=== PATIENT | female | born 1965 | race Caucasian/White ===

== ENCOUNTER 2018-04-20 15:44 | Inpatient (IN) | payer OTHER ==
[~2018-04-20] VITALS: Ht 165.1 cm; Wt 77.7 kg
--- NOTE | 2018-04-20 16:29 | PHYS DOC ---
Past Medical History Past Medical History: Arthritis, Asthma, COPD, Seizure, Other Additional Past Medical Histor: Crohns, legally blind right eye Past Surgical History: Appendectomy, Tubal ligation, Other Additional Past Surgical Histo: right foot toe amptutions 2 to infection Additional Information: 06/26 ppd Alcohol Use: Heavy Additional Information: drinks vodka three times weekly Drug Use: None Adult General Chief Complaint Chief Complaint: WEAKNESS/GENERALIZED HPI HPI Patient is a 53 year old female who presents with generalized weakness and requesting pain medications. The patient states she has felt generally weak over the last week. She states that she has Crohn's disease and arthritis that causes her to have chronic pain. She normally would be taking Percocet 10 mg tablets, several daily but states she has not seen a primary care physician and a long time and has not had her medications. She denies acute focal pain complaints today. No recent fever or chills. No chest pain or shortness of breath. Rather, she complains of diffuse arthralgias and myalgias. She is also requesting Demerol be given while she is in the emergency department. I reviewed the patient's [facility] record and there was no recent prescriptions filled in the last year. The patient did not have records in our system or at [facility]. I did contact [facility] in [place] which apparently is where the patient frequents. Her last visit there was 2 weeks earlier when she presented complaining also of diffuse pain related to her arthritis. She states she is homeless and has no means to afford medical care or medications. Today, she endorses that she did drink some alcohol this morning but she denies drinking daily. The patient does use tobacco products as well. Review of Systems Review of Systems Constitutional: Denies fever or chills Eyes: Denies change in visual acuity HENT: Denies nasal congestion Respiratory: Denies cough or shortness of breath Cardiovascular: No additional information not addressed in HPI GI: Denies abdominal pain, nausea, diarrhea, constipation : Denies dysuria or hematuria Musculoskeletal: Denies back pain Integument: Denies rash Neurologic: Denies headache All other systems were reviewed and found to be within normal limits, except as documented in this note. Current Medications Current Medications Current Medications Medications (Trade) Dose Ordered Sig/Beck Start Time Stop Time Status Last Admin Dose Admin Lorazepam (Ativan) 1 mg 1X ONCE 10/27/18 19:45 04/20/18 19:46 DC 04/20/18 19:56 1 MG Multivitamins 10 ml/Thiamine HCl 100 mg/Folic Acid 1 mg/Sodium Chloride 1,011.2 ml @ 1,000.088 mls/hr 1X ONCE 04/20/18 19:45 04/20/18 20:45 DC 04/20/18 20:42 1,000.088 MLS/HR Oxycodone/ Acetaminophen (Percocet 5/325) 1 tab 1X ONCE 04/20/18 17:30 04/20/18 17:31 DC 04/20/18 17:50 1 TAB Sodium Chloride 1,000 ml @ 1,000 mls/hr 1X ONCE 04/20/18 19:15 04/20/18 20:14 DC 04/20/18 19:30 1,000 MLS/HR Allergies Allergies Allergies Coded Allergies Type Severity Reaction Last Updated Verified aspirin Adverse Reaction Intermediate n/v 04/20/18 Yes ketorolac Adverse Reaction Intermediate n/v 04/20/18 Yes Physical Exam Physical Exam Constitutional: Well developed, well nourished, no acute distress, non-toxic appearance HENT: Normocephalic, atraumatic, bilateral external ears normal, oropharynx moist Eyes: PERRLA, EOMI, conjunctiva normal Neck: Normal range of motion, no tenderness Cardiovascular:Heart rate regular rhythm, no murmur Lungs & Thorax: Bilateral breath sounds clear to auscultation Abdomen: Bowel sounds normal, soft, no tenderness Skin: Warm, dry, no erythema, no rash Back: No tenderness Extremities: No tenderness, no edema Neurologic: Alert and oriented X 3 Psychologic: Affect normal Physical exam by Dr. Walker: Constitutional: Well developed, well nourished, anxious HENT: Normocephalic, atraumatic, Cardiovascular: tachycardic Lungs & Thorax: Bilateral breath sounds clear to auscultation Abdomen: Soft, no tenderness Skin: Warm, dry, no erythema, no rash Extremities: Right foot toe amputations, no erythema, no induration Neurologic: Alert and oriented X 3 Psychologic: Mood- anxious Current Patient Data Vital Signs Vital Signs Date Time Temp Pulse Resp B/P (MAP) Pulse Ox O2 Delivery O2 Flow Rate FiO2 04/20/18 18:18 114 20 95 04/20/18 17:50 Room Air 04/20/18 15:50 97.9 123/62 (82) 97.9 Lab Values Laboratory Tests Test 04/20/18 16:35 04/20/18 16:45 White Blood Count 5.7 x10^3/uL (4.0-11.0) Red Blood Count 4.43 x10^6/uL (3.50-5.40) Hemoglobin 15.7 g/dL (12.0-15.5) H Hematocrit 44.4 % (36.0-47.0) Mean Corpuscular Volume 100 fL (79-100) Mean Corpuscular Hemoglobin 36 pg (25-35) H Mean Corpuscular Hemoglobin Concent 35 g/dL (31-37) Red Cell Distribution Width 13.1 % (11.5-14.5) Platelet Count 231 x10^3/uL (140-400) Neutrophils (%) (Auto) 54 % (31-73) Lymphocytes (%) (Auto) 35 % (24-48) Monocytes (%) (Auto) 8 % (0-9) Eosinophils (%) (Auto) 3 % (0-3) Basophils (%) (Auto) 1 % (0-3) Neutrophils # (Auto) 3.0 x10^3uL (1.8-7.7) Lymphocytes # (Auto) 2.0 x10^3/uL (1.0-4.8) Monocytes # (Auto) 0.4 x10^3/uL (0.0-1.1) Eosinophils # (Auto) 0.2 x10^3/uL (0.0-0.7) Basophils # (Auto) 0.1 x10^3/uL (0.0-0.2) Sodium Level 144 mmol/L (136-145) Potassium Level 3.3 mmol/L (3.5-5.1) L Chloride Level 105 mmol/L (98-107) Carbon Dioxide Level 30 mmol/L (21-32) Anion Gap 9 (6-14) Blood Urea Nitrogen 14 mg/dL (7-20) Creatinine 1.0 mg/dL (0.6-1.0) Estimated GFR (Cockcroft-Gault) 58.2 Glucose Level 88 mg/dL (70-99) Calcium Level 9.5 mg/dL (8.5-10.1) Troponin I Quantitative 1.050 ng/mL (0.000-0.055) Ethyl Alcohol Level 112 mg/dL (0-10) H Urine Collection Type Unknown Urine Color Yellow Urine Clarity Clear Urine pH 5.0 Urine Specific Ingraham 1.025 Urine Protein Negative mg/dL (NEG-TRACE) Urine Glucose (UA) Negative mg/dL (NEG) Urine Ketones (Stick) Negative mg/dL (NEG) Urine Blood Negative (NEG) Urine Nitrite Negative (NEG) Urine Bilirubin Negative (NEG) Urine Urobilinogen Dipstick 0.2 mg/dL (0.2 mg/dL) Urine Leukocyte Esterase Negative (NEG) Urine RBC Occ /HPF (0-2) Urine WBC Occ /HPF (0-4) Urine Squamous Epithelial Cells Many /LPF Urine Bacteria Few /HPF (0-FEW) Urine Hyaline Casts Few /HPF Urine Mucus Marked /LPF Urine Opiates Screen Neg (NEG) Urine Methadone Screen Neg (NEG) Urine Barbiturates Neg (NEG) Urine Phencyclidine Screen Neg (NEG) Urine Amphetamine/Methamphetamine Pos (NEG) Urine Benzodiazepines Screen Neg (NEG) Urine Cocaine Screen Neg (NEG) Urine Cannabinoids Screen Pos (NEG) Urine Ethyl Alcohol Pos (NEG) Laboratory Tests 04/20/18 16:35 Laboratory Tests 04/20/18 16:35 EKG EKG @2016 Sinus tachycardia at 123bpm, occasional PVC, NO ST elevation Radiology/Procedures Radiology/Procedures PROCEDURE: CT ANGIOGRAPHY CHEST CTA Chest with contrast: Clinical History: tachy, elevated troponin; Omni 300, 60ml tachycardia elevated troponin. Axial helical images of the chest were obtained after the administration of 60 cc of IV Omni 300 and timed appropriately for a pulmonary arterial study. Conventional axial reconstruction was performed in addition to coronal, sagittal and bilateral oblique MIP (maximum intensity projection). This study was ordered to detect possible pulmonary embolism. There are no filling defects to suggest pulmonary embolism. The more peripheral subsegmental pulmonary arteries are not well opacified limiting our sensitivity for small peripheral pulmonary emboli. The lungs and pleural margins are clear. There is no mediastinal or hilar lymphadenopathy. The thoracic aorta appears normal. Impression: 1. No evidence of pulmonary embolism. 2. No significant findings. PQRS Compliance Statement: One or more of the following individualized dose reduction techniques were utilized for this examination: 1. Automated exposure control 2. Adjustment of the mA and/or kV according to patient size 3. Use of iterative reconstruction technique Electronically signed by: Messi Flores III, MD (04/21/2018 12:31 AM) [facility] Course & Med Decision Making Course & Med Decision Making Pertinent Labs and Imaging studies reviewed. (See chart for details) Patient presents mostly with generalized weakness. She has not had any falls. No focal neurologic complaint. Her physical exam is completely benign except that she does smell of alcohol. She states she took "a couple sips" earlier today. The patient does not frequent this emergency room but does frequently present to another ER in [facility]. The patient is requesting opiate medications immediately on arrival this visit although she appears to be in no distress and I could not locate any area of her body that was tender to palpate or range of motion. Given her complaint of weakness, we'll check basic labs and urinalysis. 17:20: All labs are reviewed. There are no acute findings today. The patient is resting quietly in her room with normal vital signs. I did review discharge instructions with the patient. I advised her to establish care with a primary care doctor or the patient continues to request Demerol and Percocet 10 mg strength pills for prescription at home. I told the patient I would not give her these medications that they needs to be prescribed by her primary doctor. She is given a single dose of Percocet 5 mg in the emergency department. She is sent home with ibuprofen and some tramadol. 18:00: Patient has been sleeping and with normal vital signs. When awake, however, she does have a heart rate of 122. She does not have any symptoms. It is possible she is beginning to have alcohol withdrawal although she has no additional clinical signs. We'll give some IV fluids and reevaluate. Transfer care to Dr. Walker. (please f/u on vitals and dispo accordingly) Vega: Signout received from Dr. Christianson for patient with history of chronic pain and generalized weakness with tachycardia and elevated ETOH. Labs reviewed. Hemoglobin concentrated. Awaiting IVF hydration. HR continued to be elevated despite IVF bolus and patient currently resting. Patient reports some restlessness. Denies chest pain. Tachycardia continued. Patient seen and evaluated by myself. UDS positive for amphetamines? Patient requiring admission for further evaluation and treatment. Discussed with Dr. Paul (hospitalist) who is in agreement with admission. Discussed findings and plan with patient and family, who acknowledge understanding and agreement. Add on troponin ordered upon patient's admission and due to elevated HR. Troponin >1. EKG sinus tachycardia. Patient continues to deny chest pain. CTA chest ordered. Heparin bolus/gtt initiated. Will continue admission to [facility] under hospitalist. Consult to cardiology placed. 0030: CTA chest without acute process. Dragon Disclaimer Dragon Disclaimer This electronic medical record was generated, in whole or in part, using a voice recognition dictation system. Departure Departure Impression: Primary Impression: Generalized weakness Additional Impressions: Tachycardia Dehydration Alcohol intoxication Amphetamine abuse Disposition: 09 ADMITTED INPATIENT Admitting Physician: Anayeli Paul Condition: GUARDED Referrals: REX THOMPSON (PCP) Problem Qualifiers Additional Impressions: Alcohol intoxication Complication of substance-induced condition: with unspecified complication Qualified Codes: F10.929 - Alcohol use, unspecified with intoxication, unspecified RICK CHRISTIANSON DO Apr 20, 2018 16:29 CYNDY WALKER DO Apr 20, 2018 20:18
[2018-04-20 16:47] LABS: BASO # 0.1 x10^3/uL (0.0-0.2); BASO % 1 % (0-3); EOS # 0.2 x10^3/uL (0.0-0.7); EOS % 3 % (0-3); HEMATOCRIT 44.4 % (36.0-47.0); HEMOGLOBIN 15.7 g/dL (12.0-15.5); LYMPH % 35 % (24-48); MEAN CORPUSCULAR HEMOGLOBIN 36 pg (25-35); MEAN CORPUSCULAR HGB CONC 35 g/dL (31-37); MEAN CORPUSCULAR VOLUME 100 fL (79-100); MONO # 0.4 x10^3/uL (0.0-1.1); MONO % 8 % (0-9); NEUT % 54 % (31-73); PLATELET COUNT 231 x10^3/uL (140-400); RED BLOOD COUNT 4.43 x10^6/uL (3.50-5.40); RED CELL DISTRIBUTION WIDTH 13.1 % (11.5-14.5); WHITE BLOOD COUNT 5.7 x10^3/uL (4.0-11.0)
[2018-04-20 16:59] LABS: CALCIUM 9.5 mg/dL (8.5-10.1); GFR 58.2; POTASSIUM 3.3 mmol/L (3.5-5.1)
[2018-04-20 16:59] LABS: BILIRUBIN,URINE NEGATIVE (NEG); CLARITY,URINE CLEAR; COLOR,URINE YELLOW; NITRITE,URINE NEGATIVE (NEG); PROTEIN,URINE NEGATIVE (NEG-TRACE); UROBILINOGEN,URINE 0.2 mg/dL (0.2 mg/dL)
[2018-04-20 17:08] LABS: HYALINE CASTS, URINE FEW /HPF; SQUAMOUS EPITHELIAL CELL,UR MANY /LPF
[2018-04-20 17:09] LABS: BACTERIA,URINE FEW /HPF (0-FEW); RBC,URINE OCC /HPF (0-2); WBC,URINE OCC /HPF (0-4)
[2018-04-20] MEDS ORDERED: TRAM-48 PO (17:20)
[2018-04-20] MEDS ORDERED: IBUP-1007 PO (17:20)
[2018-04-20] MEDS ORDERED: oxyCODONE/APAP 5/325 1 TAB TABLET PO ONE (17:30)
[2018-04-20] MEDS ORDERED: IV NORMAL SALINE 1000ML BAG 1,000 ML IV ONE ×2 (18:00→19:15)
[2018-04-20] MEDS ORDERED: MULTIVIT INFUSN,ADULT 4,VIT K 10 ML, THIAMINE INJ 100 MG, FOLIC ACID INJ 1 MG in IV NOR... IV ONE (19:45)
[2018-04-20 20:11] LABS: BARBITURATES NEG (NEG); BENZODIAZEPINES NEG (NEG); CANNABINOIDS POS (NEG); COCAINE NEG (NEG); METHADONE NEG (NEG); OPIATES NEG (NEG); PHENCYCLIDINE NEG (NEG)
[2018-04-20 20:22] LABS: AMPHETAMINE/METHAMPHETAMINE POS (NEG)
[2018-04-20] MEDS ORDERED: fentaNYL PF VIAL 100 MCG/2 ML VIAL IV PRN (20:30)
[2018-04-20] MEDS ORDERED: ONDANSETRON PF 4 MG/2 ML VIAL. IV PRN (20:30)
[2018-04-20] MEDS ORDERED: fentaNYL PF VIAL 100 MCG/2 ML VIAL ONE (20:45)
[2018-04-20] MEDS ORDERED: ONDANSETRON PF 4 MG/2 ML VIAL. ONE (20:45)
[2018-04-20] MEDS ORDERED: HEPARIN for IV BOLUS 10,000 UNIT/10 ML VIAL. IV ONE (22:00)
[2018-04-20] MEDS: HEPARIN 25,000UTS/500ML PREMIX 500 ML IV PRN (22:08)
[2018-04-20 22:48] VITALS: BP 99/68
[2018-04-20] MEDS ORDERED: oxyCODONE/APAP 5/325 1 TAB TABLET PO PRN (23:00)
[2018-04-20] MEDS: BENZONATATE 100 MG CAPSULE. PO SCH (23:41)
[2018-04-20] MEDS: IV NORMAL SALINE 1000ML BAG 1,000 ML IV SCH (23:42)
[2018-04-20] MEDS ORDERED: CONTRAST GIVEN. MC PRN (23:45)
[2018-04-21] MEDS ORDERED: IOHEXOL 300 MG/ML 100ML VIAL. IV ONE (00:15)
--- NOTE | 2018-04-21 00:34 | RAD ---
CTA Chest with contrast: Clinical History: tachy, elevated troponin; Omni 300, 60ml tachycardia elevated troponin. Axial helical images of the chest were obtained after the administration of 60 cc of IV Omni 300 and timed appropriately for a pulmonary arterial study. Conventional axial reconstruction was performed in addition to coronal, sagittal and bilateral oblique MIP (maximum intensity projection). This study was ordered to detect possible pulmonary embolism. There are no filling defects to suggest pulmonary embolism. The more peripheral subsegmental pulmonary arteries are not well opacified limiting our sensitivity for small peripheral pulmonary emboli. The lungs and pleural margins are clear. There is no mediastinal or hilar lymphadenopathy. The thoracic aorta appears normal. Impression: 1. No evidence of pulmonary embolism. 2. No significant findings. PQRS Compliance Statement: One or more of the following individualized dose reduction techniques were utilized for this examination: 1. Automated exposure control 2. Adjustment of the mA and/or kV according to patient size 3. Use of iterative reconstruction technique Electronically signed by: Messi Flores III, MD (04/21/2018 12:31 AM) [facility]
--- NOTE | 2018-04-21 02:03 | EKG ---
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
[2018-04-21 03:47] VITALS: BP 88/46
[2018-04-21] MEDS ORDERED: IOHEXOL 300 MG/ML 100ML VIAL. ONE (06:32)
[2018-04-21 07:00] VITALS: BP 110/59
[2018-04-21] MEDS ORDERED: ACETAMINOPHEN 500 MG TABLET PO PRN (08:30)
[2018-04-21] MEDS ORDERED: ANTI-COAG MONITOR BY PHARMACY. MC PRN (08:30)
[2018-04-21] MEDS ORDERED: NICOTINE 21MG PATCH. TD PRN (08:30)
[2018-04-21] MEDS ORDERED: ONDANSETRON PF 4 MG/2 ML VIAL. IV PRN (08:45)
[2018-04-21] MEDS: LORazepam 1 MG TABLET PO PRN (08:47)
[2018-04-21] MEDS: BENZONATATE 100 MG CAPSULE. PO SCH ×3 (08:48→21:34)
[2018-04-21] MEDS: oxyCODONE/APAP 10/325 1 TAB TABLET PO PRN ×2 (08:48→21:34)
[2018-04-21] MEDS: MULTIVITAMIN with MINERAL TABLET. PO SCH (08:48)
[2018-04-21] MEDS: THIAMINE 100 MG TABLET. PO SCH (08:48)
[2018-04-21] MEDS: FOLIC ACID 1 MG TABLET. PO SCH (08:48)
[2018-04-21] MEDS: NICOTINE 21MG PATCH. TD PRN (08:49)
[2018-04-21] MEDS: guaiFENesin DM 200MG/20MG 10 ML SYRUP PO PRN ×2 (08:54→21:34)
[2018-04-21 11:00] VITALS: BP 108/60
--- NOTE | 2018-04-21 11:09 | PDOC2 ---
CONSULT Date of Consult Date of Consult DATE: 04/21/18 TIME: 11:09 Reason for Consult Reason for Consult: Non-STEMI, tachycardia Referring Physician Referring Physician: Dr. Paul Identification/Chief Complaint Chief Complaint Generalized weakness Source Source: Chart review, Patient History of Present Illness Reason for Visit: 53-year-old female with history of chronic pain syndrome and Crohn's disease presented with generalized weakness. She complained of 'pain all over' but denied any chest pain as such. She denied any orthopnea/PND, palpitations or syncope. Cardiology has been consulted for elevated troponin level and tachycardia. She denied any previous cardiac history. Past Medical History Past Medical History Chronic pain syndrome Crohn's disease COPD Seizure disorder Asthma Osteoarthritis Legally blind in right eye Past Surgical History Past Surgical History Appendectomy Tubal ligation Right foot toe amputation Family History Family History Negative for premature coronary artery disease Social History Social History Patient has history of heavy alcohol use and smokes half pack of cigarettes daily. She also has a history of amphetamine use. Current Problem List Problem List Problems Medical Problems: (1) Alcohol intoxication Status: Acute (2) Amphetamine abuse Status: Acute (3) Arthritis Status: Acute (4) Dehydration Status: Acute (5) Generalized weakness Status: Acute (6) Tachycardia Status: Acute Current Medications Current Medications Current Medications Oxycodone/ Acetaminophen (Percocet 5/325) 1 tab 1X ONCE PO Last administered on 04/20/18at 17:50; Start 04/20/18 at 17:30; Stop 04/20/18 at 17:31; Status DC Sodium Chloride 1,000 ml @ 1,000 mls/hr 1X ONCE IV Last administered on 04/20at 18:09; Start 04/20/18 at 18:00; Stop 04/20/18 at 18:59; Status DC Lorazepam (Ativan) 0.5 mg 1X ONCE IV Last administered on 04/20/18at 18:14; Start 04/20/18 at 18:00; Stop 04/20/18 at 18:02; Status DC Sodium Chloride 1,000 ml @ 1,000 mls/hr 1X ONCE IV Last administered on 04/20at 19:30; Start 04/20/18 at 19:15; Stop 04/20/18 at 20:14; Status DC Lorazepam (Ativan) 1 mg 1X ONCE IV Last administered on 04/20/18at 19:56; Start 04/20/18 at 19:45; Stop 04/20/18 at 19:46; Status DC Multivitamins 10 ml/Thiamine HCl 100 mg/Folic Acid 1 mg/Sodium Chloride 1,011.2 ml @ 1,000.088 mls/hr 1X ONCE IV Last administered on 04/20/18at 20:42; Start 04/20/18 at 19:45; Stop 04/20/18 at 20:45; Status DC Ondansetron HCl (Zofran) 4 mg PRN Q8HRS PRN IV NAUSEA/VOMITING 1ST CHOICE Last administered on 04/20/18at 20:47; Start 04/20/18 at 20:30; Stop 04/21/18 at 08 :32; Status DC Fentanyl Citrate (Fentanyl 2ml Vial) 50 mcg PRN Q4HRS PRN IV SEVERE PAIN Last administered on 04/20/18at 20:48; Start 04/20/18 at 20:30 Ondansetron HCl (Zofran) 4 mg STK-MED ONCE .ROUTE ; Start 04/20/18 at 20:45; Stop 04/20/18 at 20:46; Status DC Fentanyl Citrate (Fentanyl 2ml Vial) 100 mcg STK-MED ONCE .ROUTE ; Start at 20:45; Stop 04/20/18 at 20:46; Status DC Heparin Sodium/ Dextrose 500 ml @ 0 mls/hr CONT PRN IV SEE I/O RECORD Last administered on 04/20/18at 22:08; Start 04/20/18 at 21:45 Heparin Sodium (Porcine) (Heparin Sodium) 4,000 unit 1X ONCE IV Last administered on 04/20/18at 22:03; Start 04/20/18 at 22:00; Stop 04/20/18 at 22 :01; Status DC Benzonatate (Tessalon Perle) 100 mg [id number] PO Last administered on 04/21/18at 08:48; Start 04/20/18 at 23:30 Guaifenesin (Robitussin Dm) 10 ml PRN Q6HRS PRN PO COUGH 1ST CHOICE Last administered on 04/21/18at 08:54; Start 04/20/18 at 23:00 Nicotine (Nicoderm Cq 21mg) 1 patch PRN DAILY PRN TD SMOKING CESSATION Last administered on 04/21/18at 08:49; Start 04/20/18 at 23:00 Oxycodone/ Acetaminophen (Percocet 5/325) 1 tab PRN Q4HRS PRN PO SEVERE PAIN Last administered on 04/20/18at 23:41; Start 04/20/18 at 23:00; Stop 04/21/18 at 08:34; Status DC Lorazepam (Ativan) 2 mg PRN Q6HRS PRN IV SEVERE ANXIETY / AGITATION Last administered on 04/20/18at 23:44; Start 04/20/18 at 23:00 Lorazepam (Ativan) 2 mg PRN Q6HRS PRN PO SEVERE ANXIETY / AGITATION; Start at 23:00 Lorazepam (Ativan) 1 mg PRN Q6HRS PRN PO MODERATE ANXIETY / AGITATION Last administered on 04/21/18at 08:47; Start 04/20/18 at 23:00 Lorazepam (Ativan) 1 mg PRN Q6HRS PRN IV MODERATE ANXIETY; Start 04/20/18 at 23:00 Sodium Chloride 1,000 ml @ 100 mls/hr Q10H IV Last administered on 04/20/18at 23:42; Start 04/20/18 at 23:00 Iohexol (Omnipaque 300 Mg/ml) 75 ml 1X ONCE IV Last administered on at 00:18; Start 04/21/18 at 00:15; Stop 04/21/18 at 00:16; Status DC Info (CONTRAST GIVEN -- Rx MONITORING) 1 each PRN DAILY PRN MC SEE COMMENTS; Start 04/20/18 at 23:45; Stop 04/22/18 at 23:44 Influenza Virus Vaccine (Afluria Trivalent [id number] Syringe) 0.5 ml ONCE ONCE VAX IM ; Start 04/21/18 at 09:00; Stop 04/21/18 at 09:01; Status DC Iohexol (Omnipaque 300 Mg/ml) 100 ml STK-MED ONCE .ROUTE ; Start 04/21/18 at 06 :32; Stop 04/21/18 at 06:33; Status DC Info (Anti-Coagulation Monitoring By Pharmacy) 1 each PRN DAILY PRN MC SEE COMMENTS; Start 04/21/18 at 08:30 Ondansetron HCl (Zofran) 4 mg PRN Q6HRS PRN IV NAUSEA/VOMITING 1ST CHOICE; Start 04/21/18 at 08:45 Acetaminophen (Tylenol) 500 mg PRN Q6HRS PRN PO MILD PAIN / TEMP; Start at 08:30 Thiamine Mononitrate (Vitamin B-1) 100 mg DAILY PO Last administered on at 08:48; Start 04/21/18 at 09:00 Folic Acid (Folic Acid) 1 mg DAILY PO Last administered on 04/21/18at 08:48; Start 04/21/18 at 09:00 Multivitamins (Thera M Plus) 1 tab DAILY PO Last administered on 04/21/18at 08: 48; Start 04/21/18 at 09:00 Nicotine (Nicoderm Cq 21mg) 1 patch PRN DAILY PRN TD SMOKING CESSATION; Start 04/21/18 at 08:30; Status UNV Oxycodone/ Acetaminophen (Percocet 10/325) 1 tab PRN Q4HRS PRN PO PAIN MODERATE TO SEVERE Last administered on 04/21/18at 08:48; Start 04/21/18 at 08: 45 Active Scripts Active Allergies Allergies: Coded Allergies: aspirin (Verified Adverse Reaction, Intermediate, n/v, 04/20/18) ketorolac (Verified Adverse Reaction, Intermediate, n/v, 04/20/18) ROS General: YES: Fatigue, Malaise PSYCHOLOGICAL ROS: No: Hallucinations Eyes: Yes Loss of vision HEENT: No: Epistaxis Respiratory: No: Hemoptysis, Shortness of breath Cardiovascular: No Chest Pain Gastrointestinal: No Vomiting, No Diarrhea Genitourinary: No Hematuria Neurological: Yes Seizures Skin: No Rash Physical Exam General: Alert, No acute distress HEENT: Atraumatic, PERRLA Lungs: Clear to auscultation Heart: Regular rate Abdomen: Soft Extremities: No edema Psych/Mental Status: Mood NL Vitals VITALS Vital Signs Date Time Temp Pulse Resp B/P (MAP) Pulse Ox O2 Delivery O2 Flow Rate FiO2 04/21/18 09:52 Room Air 04/21/18 07:00 98.2 79 20 110/59 (76) 93 98.2 Labs Labs Laboratory Tests Test 04/20/18 16:35 04/20/18 16:45 04/20/18 23:05 04/21/18 05:00 White Blood Count 5.7 x10^3/uL (4.0-11.0) Red Blood Count 4.43 x10^6/uL (3.50-5.40) Hemoglobin 15.7 g/dL (12.0-15.5) Hematocrit 44.4 % (36.0-47.0) Mean Corpuscular Volume 100 fL (79-100) Mean Corpuscular Hemoglobin 36 pg (25-35) Mean Corpuscular Hemoglobin Concent 35 g/dL (31-37) Red Cell Distribution Width 13.1 % (11.5-14.5) Platelet Count 231 x10^3/uL (140-400) Neutrophils (%) (Auto) 54 % (31-73) Lymphocytes (%) (Auto) 35 % (24-48) Monocytes (%) (Auto) 8 % (0-9) Eosinophils (%) (Auto) 3 % (0-3) Basophils (%) (Auto) 1 % (0-3) Neutrophils # (Auto) 3.0 x10^3uL (1.8-7.7) Lymphocytes # (Auto) 2.0 x10^3/uL (1.0-4.8) Monocytes # (Auto) 0.4 x10^3/uL (0.0-1.1) Eosinophils # (Auto) 0.2 x10^3/uL (0.0-0.7) Basophils # (Auto) 0.1 x10^3/uL (0.0-0.2) Sodium Level 144 mmol/L (136-145) Potassium Level 3.3 mmol/L (3.5-5.1) Chloride Level 105 mmol/L (98-107) Carbon Dioxide Level 30 mmol/L (21-32) Anion Gap 9 (6-14) Blood Urea Nitrogen 14 mg/dL (7-20) Creatinine 1.0 mg/dL (0.6-1.0) Estimated GFR (Cockcroft-Gault) 58.2 Glucose Level 88 mg/dL (70-99) Calcium Level 9.5 mg/dL (8.5-10.1) Troponin I Quantitative 1.050 ng/mL (0.000-0.055) 0.963 ng/mL (0.000-0.055) 0.515 ng/mL (0.000-0.055) Ethyl Alcohol Level 112 mg/dL (0-10) Urine Collection Type Unknown Urine Color Yellow Urine Clarity Clear Urine pH 5.0 Urine Specific [place] 1.025 Urine Protein Negative mg/dL (NEG-TRACE) Urine Glucose (UA) Negative mg/dL (NEG) Urine Ketones (Stick) Negative mg/dL (NEG) Urine Blood Negative (NEG) Urine Nitrite Negative (NEG) Urine Bilirubin Negative (NEG) Urine Urobilinogen Dipstick 0.2 mg/dL (0.2 mg/dL) Urine Leukocyte Esterase Negative (NEG) Urine RBC Occ /HPF (0-2) Urine WBC Occ /HPF (0-4) Urine Squamous Epithelial Cells Many /LPF Urine Bacteria Few /HPF (0-FEW) Urine Hyaline Casts Few /HPF Urine Mucus Marked /LPF Urine Opiates Screen Neg (NEG) Urine Methadone Screen Neg (NEG) Urine Barbiturates Neg (NEG) Urine Phencyclidine Screen Neg (NEG) Urine Amphetamine/Methamphetamine Pos (NEG) Urine Benzodiazepines Screen Neg (NEG) Urine Cocaine Screen Neg (NEG) Urine Cannabinoids Screen Pos (NEG) Urine Ethyl Alcohol Pos (NEG) Heparin Anti-Xa Act, Unfractionated 0.34 IU/mL (0.30-0.70) Laboratory Tests Test 04/20/18 16:35 04/20/18 16:45 04/20/18 23:05 04/21/18 05:00 White Blood Count 5.7 x10^3/uL (4.0-11.0) Red Blood Count 4.43 x10^6/uL (3.50-5.40) Hemoglobin 15.7 g/dL (12.0-15.5) Hematocrit 44.4 % (36.0-47.0) Mean Corpuscular Volume 100 fL (79-100) Mean Corpuscular Hemoglobin 36 pg (25-35) Mean Corpuscular Hemoglobin Concent 35 g/dL (31-37) Red Cell Distribution Width 13.1 % (11.5-14.5) Platelet Count 231 x10^3/uL (140-400) Neutrophils (%) (Auto) 54 % (31-73) Lymphocytes (%) (Auto) 35 % (24-48) Monocytes (%) (Auto) 8 % (0-9) Eosinophils (%) (Auto) 3 % (0-3) Basophils (%) (Auto) 1 % (0-3) Neutrophils # (Auto) 3.0 x10^3uL (1.8-7.7) Lymphocytes # (Auto) 2.0 x10^3/uL (1.0-4.8) Monocytes # (Auto) 0.4 x10^3/uL (0.0-1.1) Eosinophils # (Auto) 0.2 x10^3/uL (0.0-0.7) Basophils # (Auto) 0.1 x10^3/uL (0.0-0.2) Sodium Level 144 mmol/L (136-145) Potassium Level 3.3 mmol/L (3.5-5.1) Chloride Level 105 mmol/L (98-107) Carbon Dioxide Level 30 mmol/L (21-32) Anion Gap 9 (6-14) Blood Urea Nitrogen 14 mg/dL (7-20) Creatinine 1.0 mg/dL (0.6-1.0) Estimated GFR (Cockcroft-Gault) 58.2 Glucose Level 88 mg/dL (70-99) Calcium Level 9.5 mg/dL (8.5-10.1) Troponin I Quantitative 1.050 ng/mL (0.000-0.055) 0.963 ng/mL (0.000-0.055) 0.515 ng/mL (0.000-0.055) Ethyl Alcohol Level 112 mg/dL (0-10) Urine Collection Type Unknown Urine Color Yellow Urine Clarity Clear Urine pH 5.0 Urine Specific [place] 1.025 Urine Protein Negative mg/dL (NEG-TRACE) Urine Glucose (UA) Negative mg/dL (NEG) Urine Ketones (Stick) Negative mg/dL (NEG) Urine Blood Negative (NEG) Urine Nitrite Negative (NEG) Urine Bilirubin Negative (NEG) Urine Urobilinogen Dipstick 0.2 mg/dL (0.2 mg/dL) Urine Leukocyte Esterase Negative (NEG) Urine RBC Occ /HPF (0-2) Urine WBC Occ /HPF (0-4) Urine Squamous Epithelial Cells Many /LPF Urine Bacteria Few /HPF (0-FEW) Urine Hyaline Casts Few /HPF Urine Mucus Marked /LPF Urine Opiates Screen Neg (NEG) Urine Methadone Screen Neg (NEG) Urine Barbiturates Neg (NEG) Urine Phencyclidine Screen Neg (NEG) Urine Amphetamine/Methamphetamine Pos (NEG) Urine Benzodiazepines Screen Neg (NEG) Urine Cocaine Screen Neg (NEG) Urine Cannabinoids Screen Pos (NEG) Urine Ethyl Alcohol Pos (NEG) Heparin Anti-Xa Act, Unfractionated 0.34 IU/mL (0.30-0.70) Assessment/Plan Assessment/Plan 1. Non-STEMI, most probably type 2/demand ischemia. She is presently chest pain -free. EKG without acute changes. Check 2-D echo to assess LV systolic function , rule out wall motion abnormalities and Lexiscan nuclear stress test to rule out ischemia. 2. Sinus tachycardia, most probably secondary to combination of dehydration, alcohol and amphetamine use. No other arrhythmias were noted on telemetry. 3. Dehydration: Continue intravenous fluids 4. Chronic pain syndrome, generalized weakness,Crohn's disease: per IM Thank you for your consultation YOANA BIRD MD Apr 21, 2018 11:09
[2018-04-21] MEDS: IV NORMAL SALINE 1000ML BAG 1,000 ML IV SCH ×2 (13:00→21:36)
--- NOTE | 2018-04-21 13:52 | PDOC1 ---
History and Physical Date of Admission Date of Admission DATE: 04/21/18 TIME: 13:48 Identification/Chief Complaint Chief Complaint etoh intoxication Source Source: Caregiver, Chart review, Patient History of Present Illness History of Present Illness 53-year-old female who drinks vodka and another alcoholic drink, admitted because of alcohol intoxication. She had tachycardia, alcohol levels 115, some metabolic encephalopathy POA at the ER, better now that I'm seeing her on day 1 of admission. Some evidence of dehydration. Troponin was 1, coming down to 0.5 started on heparin drip by cardiology. On CIWA protocol and seemingly better with that. Still sleepy but wakes up to voice. Ate a full breakfast tray. She says she will try to quit, SW has been consulted for AA referrals. No CP Past Medical History Cardiovascular: No pertinent hx Pulmonary: No pertinent hx GI: No pertinent hx Heme/Onc: No pertinent hx Hepatobiliary: No pertinent hx Psych: No pertinent hx Rheumatologic: No pertinent hx Infectious disease: No pertinent hx ENT: No pertinent hx Renal/: No pertinent hx Endocrine: No pertinent hx Dermatology: No pertinent hx Past Surgical History Past Surgical History: No pertinent history Family History Family History: Family History Unknown Social History Smoke: <1 pack per day ALCOHOL: heavy Drugs: None Current Problem List Problem List Problems Medical Problems: (1) Alcohol intoxication Status: Acute (2) Amphetamine abuse Status: Acute (3) Arthritis Status: Acute (4) Dehydration Status: Acute (5) Generalized weakness Status: Acute (6) Tachycardia Status: Acute Current Medications Current Medications Current Medications Oxycodone/ Acetaminophen (Percocet 5/325) 1 tab 1X ONCE PO Last administered on 04/20/18at 17:50; Start 04/20/18 at 17:30; Stop 04/20/18 at 17:31; Status DC Sodium Chloride 1,000 ml @ 1,000 mls/hr 1X ONCE IV Last administered on 04/20at 18:09; Start 04/20/18 at 18:00; Stop 04/20/18 at 18:59; Status DC Lorazepam (Ativan) 0.5 mg 1X ONCE IV Last administered on 04/20/18at 18:14; Start 04/20/18 at 18:00; Stop 04/20/18 at 18:02; Status DC Sodium Chloride 1,000 ml @ 1,000 mls/hr 1X ONCE IV Last administered on 04/20at 19:30; Start 04/20/18 at 19:15; Stop 04/20/18 at 20:14; Status DC Lorazepam (Ativan) 1 mg 1X ONCE IV Last administered on 04/20/18at 19:56; Start 04/20/18 at 19:45; Stop 04/20/18 at 19:46; Status DC Multivitamins 10 ml/Thiamine HCl 100 mg/Folic Acid 1 mg/Sodium Chloride 1,011.2 ml @ 1,000.088 mls/hr 1X ONCE IV Last administered on 04/20/18at 20:42; Start 04/20/18 at 19:45; Stop 04/20/18 at 20:45; Status DC Ondansetron HCl (Zofran) 4 mg PRN Q8HRS PRN IV NAUSEA/VOMITING 1ST CHOICE Last administered on 04/20/18at 20:47; Start 04/20/18 at 20:30; Stop 04/21/18 at 08 :32; Status DC Fentanyl Citrate (Fentanyl 2ml Vial) 50 mcg PRN Q4HRS PRN IV SEVERE PAIN Last administered on 04/20/18at 20:48; Start 04/20/18 at 20:30 Ondansetron HCl (Zofran) 4 mg STK-MED ONCE .ROUTE ; Start 04/20/18 at 20:45; Stop 04/20/18 at 20:46; Status DC Fentanyl Citrate (Fentanyl 2ml Vial) 100 mcg STK-MED ONCE .ROUTE ; Start at 20:45; Stop 04/20/18 at 20:46; Status DC Heparin Sodium/ Dextrose 500 ml @ 0 mls/hr CONT PRN IV SEE I/O RECORD Last administered on 04/20/18at 22:08; Start 04/20/18 at 21:45 Heparin Sodium (Porcine) (Heparin Sodium) 4,000 unit 1X ONCE IV Last administered on 04/20/18at 22:03; Start 04/20/18 at 22:00; Stop 04/20/18 at 22 :01; Status DC Benzonatate (Tessalon Perle) 100 mg [id number] PO Last administered on 04/21/18at 08:48; Start 04/20/18 at 23:30 Guaifenesin (Robitussin Dm) 10 ml PRN Q6HRS PRN PO COUGH 1ST CHOICE Last administered on 04/21/18at 08:54; Start 04/20/18 at 23:00 Nicotine (Nicoderm Cq 21mg) 1 patch PRN DAILY PRN TD SMOKING CESSATION Last administered on 04/21/18at 08:49; Start 04/20/18 at 23:00 Oxycodone/ Acetaminophen (Percocet 5/325) 1 tab PRN Q4HRS PRN PO SEVERE PAIN Last administered on 04/20/18at 23:41; Start 04/20/18 at 23:00; Stop 04/21/18 at 08:34; Status DC Lorazepam (Ativan) 2 mg PRN Q6HRS PRN IV SEVERE ANXIETY / AGITATION Last administered on 04/20/18at 23:44; Start 04/20/18 at 23:00 Lorazepam (Ativan) 2 mg PRN Q6HRS PRN PO SEVERE ANXIETY / AGITATION; Start at 23:00 Lorazepam (Ativan) 1 mg PRN Q6HRS PRN PO MODERATE ANXIETY / AGITATION Last administered on 04/21/18at 08:47; Start 04/20/18 at 23:00 Lorazepam (Ativan) 1 mg PRN Q6HRS PRN IV MODERATE ANXIETY; Start 04/20/18 at 23:00 Sodium Chloride 1,000 ml @ 100 mls/hr Q10H IV Last administered on 04/21/18at 13:00; Start 04/20/18 at 23:00 Iohexol (Omnipaque 300 Mg/ml) 75 ml 1X ONCE IV Last administered on at 00:18; Start 04/21/18 at 00:15; Stop 04/21/18 at 00:16; Status DC Info (CONTRAST GIVEN -- Rx MONITORING) 1 each PRN DAILY PRN MC SEE COMMENTS; Start 04/20/18 at 23:45; Stop 04/22/18 at 23:44 Influenza Virus Vaccine (Afluria Trivalent [id number] Syringe) 0.5 ml ONCE ONCE VAX IM ; Start 04/21/18 at 09:00; Stop 04/21/18 at 09:01; Status DC Iohexol (Omnipaque 300 Mg/ml) 100 ml STK-MED ONCE .ROUTE ; Start 04/21/18 at 06 :32; Stop 04/21/18 at 06:33; Status DC Info (Anti-Coagulation Monitoring By Pharmacy) 1 each PRN DAILY PRN MC SEE COMMENTS; Start 04/21/18 at 08:30 Ondansetron HCl (Zofran) 4 mg PRN Q6HRS PRN IV NAUSEA/VOMITING 1ST CHOICE; Start 04/21/18 at 08:45 Acetaminophen (Tylenol) 500 mg PRN Q6HRS PRN PO MILD PAIN / TEMP; Start at 08:30 Thiamine Mononitrate (Vitamin B-1) 100 mg DAILY PO Last administered on at 08:48; Start 04/21/18 at 09:00 Folic Acid (Folic Acid) 1 mg DAILY PO Last administered on 04/21/18at 08:48; Start 04/21/18 at 09:00 Multivitamins (Thera M Plus) 1 tab DAILY PO Last administered on 04/21/18at 08: 48; Start 04/21/18 at 09:00 Nicotine (Nicoderm Cq 21mg) 1 patch PRN DAILY PRN TD SMOKING CESSATION; Start 04/21/18 at 08:30; Status UNV Oxycodone/ Acetaminophen (Percocet 10/325) 1 tab PRN Q4HRS PRN PO PAIN MODERATE TO SEVERE Last administered on 04/21/18at 08:48; Start 04/21/18 at 08: 45 Active Scripts Active Allergies Allergies: Coded Allergies: aspirin (Verified Adverse Reaction, Intermediate, n/v, 04/20/18) ketorolac (Verified Adverse Reaction, Intermediate, n/v, 04/20/18) ROS Review of System limited, slightly sleepy but she denies Physical Exam General: No acute distress HEENT: Atraumatic, PERRLA, EOMI Lungs: Clear to auscultation, Normal air movement Heart: S1S2, RRR, no thrills, no rubs, no gallops, no murmurs Cardiovascular: S1, S2 Breasts: Normal, Rt breast nml w/o mass, Lt breast nml w/o mass, Nipples normal Abdomen: Normal bowel sounds, Soft, No tenderness, No hepatosplenomegaly, No masses Rectal Exam: not examined PELVIC: Nml ext genitalia Extremities: No clubbing, No cyanosis, No edema, Normal pulses, No tenderness/ swelling Skin: No rashes, No breakdown, No significant lesion Neuro: Normal gait, Normal speech, Strength at 5/5 X4 ext, Normal tone, Sensation intact, Cranial nerves 3-12 NL, Reflexes 2+ Psych/Mental Status: Mental status NL, Mood NL Vitals Vitals Vital Signs Date Time Temp Pulse Resp B/P (MAP) Pulse Ox O2 Delivery O2 Flow Rate FiO2 04/21/18 11:00 98.0 80 20 108/60 (76) 94 Room Air 98.0 Labs Labs Laboratory Tests Test 04/20/18 16:35 04/20/18 16:45 04/20/18 23:05 04/21/18 05:00 White Blood Count 5.7 x10^3/uL (4.0-11.0) Red Blood Count 4.43 x10^6/uL (3.50-5.40) Hemoglobin 15.7 g/dL (12.0-15.5) Hematocrit 44.4 % (36.0-47.0) Mean Corpuscular Volume 100 fL (79-100) Mean Corpuscular Hemoglobin 36 pg (25-35) Mean Corpuscular Hemoglobin Concent 35 g/dL (31-37) Red Cell Distribution Width 13.1 % (11.5-14.5) Platelet Count 231 x10^3/uL (140-400) Neutrophils (%) (Auto) 54 % (31-73) Lymphocytes (%) (Auto) 35 % (24-48) Monocytes (%) (Auto) 8 % (0-9) Eosinophils (%) (Auto) 3 % (0-3) Basophils (%) (Auto) 1 % (0-3) Neutrophils # (Auto) 3.0 x10^3uL (1.8-7.7) Lymphocytes # (Auto) 2.0 x10^3/uL (1.0-4.8) Monocytes # (Auto) 0.4 x10^3/uL (0.0-1.1) Eosinophils # (Auto) 0.2 x10^3/uL (0.0-0.7) Basophils # (Auto) 0.1 x10^3/uL (0.0-0.2) Sodium Level 144 mmol/L (136-145) Potassium Level 3.3 mmol/L (3.5-5.1) Chloride Level 105 mmol/L (98-107) Carbon Dioxide Level 30 mmol/L (21-32) Anion Gap 9 (6-14) Blood Urea Nitrogen 14 mg/dL (7-20) Creatinine 1.0 mg/dL (0.6-1.0) Estimated GFR (Cockcroft-Gault) 58.2 Glucose Level 88 mg/dL (70-99) Calcium Level 9.5 mg/dL (8.5-10.1) Troponin I Quantitative 1.050 ng/mL (0.000-0.055) 0.963 ng/mL (0.000-0.055) 0.515 ng/mL (0.000-0.055) Ethyl Alcohol Level 112 mg/dL (0-10) Urine Collection Type Unknown Urine Color Yellow Urine Clarity Clear Urine pH 5.0 Urine Specific [place] 1.025 Urine Protein Negative mg/dL (NEG-TRACE) Urine Glucose (UA) Negative mg/dL (NEG) Urine Ketones (Stick) Negative mg/dL (NEG) Urine Blood Negative (NEG) Urine Nitrite Negative (NEG) Urine Bilirubin Negative (NEG) Urine Urobilinogen Dipstick 0.2 mg/dL (0.2 mg/dL) Urine Leukocyte Esterase Negative (NEG) Urine RBC Occ /HPF (0-2) Urine WBC Occ /HPF (0-4) Urine Squamous Epithelial Cells Many /LPF Urine Bacteria Few /HPF (0-FEW) Urine Hyaline Casts Few /HPF Urine Mucus Marked /LPF Urine Opiates Screen Neg (NEG) Urine Methadone Screen Neg (NEG) Urine Barbiturates Neg (NEG) Urine Phencyclidine Screen Neg (NEG) Urine Amphetamine/Methamphetamine Pos (NEG) Urine Benzodiazepines Screen Neg (NEG) Urine Cocaine Screen Neg (NEG) Urine Cannabinoids Screen Pos (NEG) Urine Ethyl Alcohol Pos (NEG) Heparin Anti-Xa Act, Unfractionated 0.34 IU/mL (0.30-0.70) Test 04/21/18 12:30 Heparin Anti-Xa Act, Unfractionated 0.41 IU/mL (0.30-0.70) Laboratory Tests Test 04/20/18 16:35 04/20/18 16:45 04/20/18 23:05 04/21/18 05:00 White Blood Count 5.7 x10^3/uL (4.0-11.0) Red Blood Count 4.43 x10^6/uL (3.50-5.40) Hemoglobin 15.7 g/dL (12.0-15.5) Hematocrit 44.4 % (36.0-47.0) Mean Corpuscular Volume 100 fL (79-100) Mean Corpuscular Hemoglobin 36 pg (25-35) Mean Corpuscular Hemoglobin Concent 35 g/dL (31-37) Red Cell Distribution Width 13.1 % (11.5-14.5) Platelet Count 231 x10^3/uL (140-400) Neutrophils (%) (Auto) 54 % (31-73) Lymphocytes (%) (Auto) 35 % (24-48) Monocytes (%) (Auto) 8 % (0-9) Eosinophils (%) (Auto) 3 % (0-3) Basophils (%) (Auto) 1 % (0-3) Neutrophils # (Auto) 3.0 x10^3uL (1.8-7.7) Lymphocytes # (Auto) 2.0 x10^3/uL (1.0-4.8) Monocytes # (Auto) 0.4 x10^3/uL (0.0-1.1) Eosinophils # (Auto) 0.2 x10^3/uL (0.0-0.7) Basophils # (Auto) 0.1 x10^3/uL (0.0-0.2) Sodium Level 144 mmol/L (136-145) Potassium Level 3.3 mmol/L (3.5-5.1) Chloride Level 105 mmol/L (98-107) Carbon Dioxide Level 30 mmol/L (21-32) Anion Gap 9 (6-14) Blood Urea Nitrogen 14 mg/dL (7-20) Creatinine 1.0 mg/dL (0.6-1.0) Estimated GFR (Cockcroft-Gault) 58.2 Glucose Level 88 mg/dL (70-99) Calcium Level 9.5 mg/dL (8.5-10.1) Troponin I Quantitative 1.050 ng/mL (0.000-0.055) 0.963 ng/mL (0.000-0.055) 0.515 ng/mL (0.000-0.055) Ethyl Alcohol Level 112 mg/dL (0-10) Urine Collection Type Unknown Urine Color Yellow Urine Clarity Clear Urine pH 5.0 Urine Specific [place] 1.025 Urine Protein Negative mg/dL (NEG-TRACE) Urine Glucose (UA) Negative mg/dL (NEG) Urine Ketones (Stick) Negative mg/dL (NEG) Urine Blood Negative (NEG) Urine Nitrite Negative (NEG) Urine Bilirubin Negative (NEG) Urine Urobilinogen Dipstick 0.2 mg/dL (0.2 mg/dL) Urine Leukocyte Esterase Negative (NEG) Urine RBC Occ /HPF (0-2) Urine WBC Occ /HPF (0-4) Urine Squamous Epithelial Cells Many /LPF Urine Bacteria Few /HPF (0-FEW) Urine Hyaline Casts Few /HPF Urine Mucus Marked /LPF Urine Opiates Screen Neg (NEG) Urine Methadone Screen Neg (NEG) Urine Barbiturates Neg (NEG) Urine Phencyclidine Screen Neg (NEG) Urine Amphetamine/Methamphetamine Pos (NEG) Urine Benzodiazepines Screen Neg (NEG) Urine Cocaine Screen Neg (NEG) Urine Cannabinoids Screen Pos (NEG) Urine Ethyl Alcohol Pos (NEG) Heparin Anti-Xa Act, Unfractionated 0.34 IU/mL (0.30-0.70) Test 04/21/18 12:30 Heparin Anti-Xa Act, Unfractionated 0.41 IU/mL (0.30-0.70) VTE Prophylaxis Ordered VTE Prophylaxis Devices: Yes VTE Pharmacological Prophylaxi: Yes Assessment/Plan Assessment/Plan etoh intoxication-levels was 115 on admission Encephalopathy, toxic secondary to above Troponin elevation, likely ischemic demand-started on heparin drip by cardiology Tachycardia in the background of alcohol use Plan: Heparin drip, CIWA protocol Further recs pending cards eval and 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
[2018-04-21] MEDS: LORazepam 0.5 MG TABLET PO PRN (14:00)
[2018-04-21 15:01] VITALS: BP 112/58
[2018-04-21 19:00] VITALS: BP 98/61
[2018-04-21 23:00] VITALS: BP 97/61
[2018-04-22] MEDS: HEPARIN 25,000UTS/500ML PREMIX 500 ML IV PRN (01:49)
[2018-04-22 03:00] VITALS: BP 114/74
[2018-04-22 04:34] LABS: BASO % 1 % (0-3); EOS # 0.2 x10^3/uL (0.0-0.7); EOS % 3 % (0-3); HEMATOCRIT 35.3 % (36.0-47.0); HEMOGLOBIN 12.5 g/dL (12.0-15.5); LYMPH # 2.9 x10^3/uL (1.0-4.8); LYMPH % 47 % (24-48); MEAN CORPUSCULAR HEMOGLOBIN 36 pg (25-35); MEAN CORPUSCULAR HGB CONC 35 g/dL (31-37); MEAN CORPUSCULAR VOLUME 101 fL (79-100); MONO # 0.4 x10^3/uL (0.0-1.1); MONO % 7 % (0-9); NEUT # 2.7 x10^3uL (1.8-7.7); NEUT % 43 % (31-73); PLATELET COUNT 155 x10^3/uL (140-400); RED BLOOD COUNT 3.51 x10^6/uL (3.50-5.40); RED CELL DISTRIBUTION WIDTH 13.1 % (11.5-14.5); WHITE BLOOD COUNT 6.2 x10^3/uL (4.0-11.0)
[2018-04-22 05:05] LABS: CALCIUM 8.1 mg/dL (8.5-10.1); CREATININE 0.9 mg/dL (0.6-1.0); GFR 65.8; MAGNESIUM 1.8 mg/dL (1.8-2.4)
[2018-04-22 07:00] VITALS: BP 133/72
[2018-04-22] MEDS: guaiFENesin DM 200MG/20MG 10 ML SYRUP PO PRN ×2 (09:07→20:58)
[2018-04-22] MEDS: LORazepam 1 MG TABLET PO PRN (09:07)
[2018-04-22] MEDS: MULTIVITAMIN with MINERAL TABLET. PO SCH (09:07)
[2018-04-22] MEDS: FOLIC ACID 1 MG TABLET. PO SCH (09:07)
[2018-04-22] MEDS: oxyCODONE/APAP 10/325 1 TAB TABLET PO PRN ×3 (09:07→20:58)
[2018-04-22] MEDS: THIAMINE 100 MG TABLET. PO SCH (09:07)
[2018-04-22] MEDS: BENZONATATE 100 MG CAPSULE. PO SCH ×3 (09:07→20:57)
[2018-04-22] MEDS: NICOTINE 21MG PATCH. TD PRN (09:08)
[2018-04-22] MEDS: IV NORMAL SALINE 1000ML BAG 1,000 ML IV SCH ×2 (09:13→17:23)
[2018-04-22 10:57] VITALS: BP 135/69
--- NOTE | 2018-04-22 11:59 | CARD ---
MR#: [id number] Date of Study: 04/22/2018 Ordering Physician: YOANA BIRD, Referring Physician: Sara SHAH: Elissa Dalrobertaadam APPROVED REPORT EXAM: Two-dimensional and M-mode echocardiogram with Doppler and color Doppler. Other Information Quality : GoodHR: 97bpm Rhythm : NSR INDICATION Non STEMI 2D DIMENSIONS RVDd2.8 (2.9-3.5cm)Left Atrium(2D)3.7 (1.6-4.0cm) IVSd1.0 (0.7-1.1cm)Aortic Root(2D)2.9 (2.0-3.7cm) LVDd5.5 (3.9-5.9cm)LVOT Diameter2.2 (1.8-2.4cm) PWd0.9 (0.7-1.1cm)LVDs2.7 (2.5-4.0cm) FS (%) 51.3 %SV120.7 ml LVEF(%)82.0 (>50%) Aortic Valve AoV Peak Rajiv.177.8cm/sAoV VTI35.8cm AO Peak GR.12.6mmHgLVOT VTI 23.44cm AO Mean GR.7mmHg Mitral Valve MV E Tdrgjuym24.4cm/sMV DECEL [id number] MV A Yzlniswj49.0cm/sE/A Ratio1.1 TDI Lateral E' P. V11.45cm/sMedial E' P. V7.89cm/s E/Lateral E'8.4E/Medial E'12.2 Tricuspid Valve TR P. Tsjztnag601gk/sRAP [id number] TR Peak Gr.47qgNiRPPV58klYd Pulmonary Vein S1 Xbismnnl07.8cm/sS2 Velocity0.67cm/s D2 Velocity0.7cm/s LEFT VENTRICLE The Left Ventricle is mildly dilated. There is normal left ventricular wall thickness. The left ventr icular systolic function is normal and the ejection fraction is within normal range. The Ejection Fra ction is >55%. There is normal LV segmental wall motion. Transmitral Doppler flow pattern is Grade I- abnormal relaxation pattern. RIGHT VENTRICLE The right ventricle is normal size. There is normal right ventricular wall thickness. The right ventr icular systolic function is normal. ATRIA The left atrium size is normal. The right atrium size is normal. The interatrial septum is intact wit h no evidence for an atrial septal defect or patent foramen ovale as noted on 2-D or Doppler imaging. AORTIC VALVE The aortic valve is not well visualized. Doppler and Color Flow revealed trace aortic regurgitation. Calculated aortic valve area is 2.6 cm2 with maximum pressure gradient of 13 mmHg and mean pressure g radient of 7 mmHg. MITRAL VALVE The mitral valve is normal in structure and function. There is no mitral valve stenosis. Doppler and Color-flow revealed trace mitral regurgitation. TRICUSPID VALVE The tricuspid valve is normal in structure and function. Doppler and Color Flow revealed trace tricus pid regurgitation with an estimated PAP of 27 mmHg. There is no tricuspid valve stenosis. PULMONIC VALVE The pulmonic valve is not well visualized. Doppler and Color Flow revealed trace pulmonic valvular re gurgitation. There is no pulmonic valvular stenosis. GREAT VESSELS The aortic root is normal in size. The IVC is normal in size and collapses >50% with inspiration. PERICARDIAL EFFUSION There is no evidence of significant pericardial effusion. Critical Notification Critical Value: No <Conclusion> The left ventricular systolic function is normal and the ejection fraction is within normal range. Th e Ejection Fraction is >55%. There is normal LV segmental wall motion. Doppler and Color Flow revealed trace tricuspid regurgitation with an estimated PAP of 27 mmHg. Signed by : Adrian Mason, Electronically Approved : 04/22/2018 11:58:35
[2018-04-22] MEDS: LORazepam 0.5 MG TABLET PO PRN ×2 (14:13→20:57)
--- NOTE | 2018-04-22 14:52 | PDOC ---
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 PT OT when more awake to check gait - she reports she cannot walk Vitals Vitals Vital Signs Date Time Temp Pulse Resp B/P (MAP) Pulse Ox O2 Delivery O2 Flow Rate FiO2 04/22/18 14:12 Room Air 04/22/18 10:57 98.0 20 20 135/69 (91) 96 98.0 Physical Exam General: No acute distress Heart: Regular rate Abdomen: Normal bowel sounds, Soft, No tenderness, No hepatosplenomegaly, No masses Extremities: No clubbing, No cyanosis, No edema, Normal pulses, No tenderness/ swelling Skin: No rashes, No breakdown, No significant lesion Labs LABS Laboratory Tests Test 04/22/18 03:30 04/22/18 12:25 White Blood Count 6.2 x10^3/uL (4.0-11.0) Red Blood Count 3.51 x10^6/uL (3.50-5.40) Hemoglobin 12.5 g/dL (12.0-15.5) Hematocrit 35.3 % (36.0-47.0) Mean Corpuscular Volume 101 fL (79-100) Mean Corpuscular Hemoglobin 36 pg (25-35) Mean Corpuscular Hemoglobin Concent 35 g/dL (31-37) Red Cell Distribution Width 13.1 % (11.5-14.5) Platelet Count 155 x10^3/uL (140-400) Neutrophils (%) (Auto) 43 % (31-73) Lymphocytes (%) (Auto) 47 % (24-48) Monocytes (%) (Auto) 7 % (0-9) Eosinophils (%) (Auto) 3 % (0-3) Basophils (%) (Auto) 1 % (0-3) Neutrophils # (Auto) 2.7 x10^3uL (1.8-7.7) Lymphocytes # (Auto) 2.9 x10^3/uL (1.0-4.8) Monocytes # (Auto) 0.4 x10^3/uL (0.0-1.1) Eosinophils # (Auto) 0.2 x10^3/uL (0.0-0.7) Basophils # (Auto) 0.0 x10^3/uL (0.0-0.2) Sodium Level 142 mmol/L (136-145) Potassium Level 4.0 mmol/L (3.5-5.1) Chloride Level 110 mmol/L (98-107) Carbon Dioxide Level 25 mmol/L (21-32) Anion Gap 7 (6-14) Blood Urea Nitrogen 18 mg/dL (7-20) Creatinine 0.9 mg/dL (0.6-1.0) Estimated GFR (Cockcroft-Gault) 65.8 Glucose Level 80 mg/dL (70-99) Calcium Level 8.1 mg/dL (8.5-10.1) Magnesium Level 1.8 mg/dL (1.8-2.4) Heparin Anti-Xa Act, Unfractionated < 0.10 IU/mL (0.30-0.70) Assessment and Plan Assessmemt and Plan Problems Medical Problems: (1) Alcohol intoxication Status: Acute (2) Amphetamine abuse Status: Acute (3) Arthritis Status: Acute (4) Dehydration Status: Acute (5) Generalized weakness Status: Acute (6) Tachycardia Status: Acute Comment Review of Relevant I have reviewed the following items arnie (where applicable) has been applied. Labs Laboratory Tests Test 04/20/18 16:35 04/20/18 16:45 04/20/18 23:05 04/21/18 05:00 White Blood Count 5.7 x10^3/uL (4.0-11.0) Red Blood Count 4.43 x10^6/uL (3.50-5.40) Hemoglobin 15.7 g/dL (12.0-15.5) Hematocrit 44.4 % (36.0-47.0) Mean Corpuscular Volume 100 fL (79-100) Mean Corpuscular Hemoglobin 36 pg (25-35) Mean Corpuscular Hemoglobin Concent 35 g/dL (31-37) Red Cell Distribution Width 13.1 % (11.5-14.5) Platelet Count 231 x10^3/uL (140-400) Neutrophils (%) (Auto) 54 % (31-73) Lymphocytes (%) (Auto) 35 % (24-48) Monocytes (%) (Auto) 8 % (0-9) Eosinophils (%) (Auto) 3 % (0-3) Basophils (%) (Auto) 1 % (0-3) Neutrophils # (Auto) 3.0 x10^3uL (1.8-7.7) Lymphocytes # (Auto) 2.0 x10^3/uL (1.0-4.8) Monocytes # (Auto) 0.4 x10^3/uL (0.0-1.1) Eosinophils # (Auto) 0.2 x10^3/uL (0.0-0.7) Basophils # (Auto) 0.1 x10^3/uL (0.0-0.2) Sodium Level 144 mmol/L (136-145) Potassium Level 3.3 mmol/L (3.5-5.1) Chloride Level 105 mmol/L (98-107) Carbon Dioxide Level 30 mmol/L (21-32) Anion Gap 9 (6-14) Blood Urea Nitrogen 14 mg/dL (7-20) Creatinine 1.0 mg/dL (0.6-1.0) Estimated GFR (Cockcroft-Gault) 58.2 Glucose Level 88 mg/dL (70-99) Calcium Level 9.5 mg/dL (8.5-10.1) Troponin I Quantitative 1.050 ng/mL (0.000-0.055) 0.963 ng/mL (0.000-0.055) 0.515 ng/mL (0.000-0.055) Ethyl Alcohol Level 112 mg/dL (0-10) Urine Collection Type Unknown Urine Color Yellow Urine Clarity Clear Urine pH 5.0 Urine Specific Malone 1.025 Urine Protein Negative mg/dL (NEG-TRACE) Urine Glucose (UA) Negative mg/dL (NEG) Urine Ketones (Stick) Negative mg/dL (NEG) Urine Blood Negative (NEG) Urine Nitrite Negative (NEG) Urine Bilirubin Negative (NEG) Urine Urobilinogen Dipstick 0.2 mg/dL (0.2 mg/dL) Urine Leukocyte Esterase Negative (NEG) Urine RBC Occ /HPF (0-2) Urine WBC Occ /HPF (0-4) Urine Squamous Epithelial Cells Many /LPF Urine Bacteria Few /HPF (0-FEW) Urine Hyaline Casts Few /HPF Urine Mucus Marked /LPF Urine Opiates Screen Neg (NEG) Urine Methadone Screen Neg (NEG) Urine Barbiturates Neg (NEG) Urine Phencyclidine Screen Neg (NEG) Urine Amphetamine/Methamphetamine Pos (NEG) Urine Benzodiazepines Screen Neg (NEG) Urine Cocaine Screen Neg (NEG) Urine Cannabinoids Screen Pos (NEG) Urine Ethyl Alcohol Pos (NEG) Heparin Anti-Xa Act, Unfractionated 0.34 IU/mL (0.30-0.70) Test 04/21/18 12:30 04/22/18 03:30 04/22/18 12:25 Heparin Anti-Xa Act, Unfractionated 0.41 IU/mL (0.30-0.70) < 0.10 IU/mL (0.30-0.70) White Blood Count 6.2 x10^3/uL (4.0-11.0) Red Blood Count 3.51 x10^6/uL (3.50-5.40) Hemoglobin 12.5 g/dL (12.0-15.5) Hematocrit 35.3 % (36.0-47.0) Mean Corpuscular Volume 101 fL (79-100) Mean Corpuscular Hemoglobin 36 pg (25-35) Mean Corpuscular Hemoglobin Concent 35 g/dL (31-37) Red Cell Distribution Width 13.1 % (11.5-14.5) Platelet Count 155 x10^3/uL (140-400) Neutrophils (%) (Auto) 43 % (31-73) Lymphocytes (%) (Auto) 47 % (24-48) Monocytes (%) (Auto) 7 % (0-9) Eosinophils (%) (Auto) 3 % (0-3) Basophils (%) (Auto) 1 % (0-3) Neutrophils # (Auto) 2.7 x10^3uL (1.8-7.7) Lymphocytes # (Auto) 2.9 x10^3/uL (1.0-4.8) Monocytes # (Auto) 0.4 x10^3/uL (0.0-1.1) Eosinophils # (Auto) 0.2 x10^3/uL (0.0-0.7) Basophils # (Auto) 0.0 x10^3/uL (0.0-0.2) Sodium Level 142 mmol/L (136-145) Potassium Level 4.0 mmol/L (3.5-5.1) Chloride Level 110 mmol/L (98-107) Carbon Dioxide Level 25 mmol/L (21-32) Anion Gap 7 (6-14) Blood Urea Nitrogen 18 mg/dL (7-20) Creatinine 0.9 mg/dL (0.6-1.0) Estimated GFR (Cockcroft-Gault) 65.8 Glucose Level 80 mg/dL (70-99) Calcium Level 8.1 mg/dL (8.5-10.1) Magnesium Level 1.8 mg/dL (1.8-2.4) Laboratory Tests Test 04/22/18 03:30 04/22/18 12:25 White Blood Count 6.2 x10^3/uL (4.0-11.0) Red Blood Count 3.51 x10^6/uL (3.50-5.40) Hemoglobin 12.5 g/dL (12.0-15.5) Hematocrit 35.3 % (36.0-47.0) Mean Corpuscular Volume 101 fL (79-100) Mean Corpuscular Hemoglobin 36 pg (25-35) Mean Corpuscular Hemoglobin Concent 35 g/dL (31-37) Red Cell Distribution Width 13.1 % (11.5-14.5) Platelet Count 155 x10^3/uL (140-400) Neutrophils (%) (Auto) 43 % (31-73) Lymphocytes (%) (Auto) 47 % (24-48) Monocytes (%) (Auto) 7 % (0-9) Eosinophils (%) (Auto) 3 % (0-3) Basophils (%) (Auto) 1 % (0-3) Neutrophils # (Auto) 2.7 x10^3uL (1.8-7.7) Lymphocytes # (Auto) 2.9 x10^3/uL (1.0-4.8) Monocytes # (Auto) 0.4 x10^3/uL (0.0-1.1) Eosinophils # (Auto) 0.2 x10^3/uL (0.0-0.7) Basophils # (Auto) 0.0 x10^3/uL (0.0-0.2) Sodium Level 142 mmol/L (136-145) Potassium Level 4.0 mmol/L (3.5-5.1) Chloride Level 110 mmol/L (98-107) Carbon Dioxide Level 25 mmol/L (21-32) Anion Gap 7 (6-14) Blood Urea Nitrogen 18 mg/dL (7-20) Creatinine 0.9 mg/dL (0.6-1.0) Estimated GFR (Cockcroft-Gault) 65.8 Glucose Level 80 mg/dL (70-99) Calcium Level 8.1 mg/dL (8.5-10.1) Magnesium Level 1.8 mg/dL (1.8-2.4) Heparin Anti-Xa Act, Unfractionated < 0.10 IU/mL (0.30-0.70) Medications Current Medications Oxycodone/ Acetaminophen (Percocet 5/325) 1 tab 1X ONCE PO Last administered on 04/20/18at 17:50; Start 04/20/18 at 17:30; Stop 04/20/18 at 17:31; Status DC Sodium Chloride 1,000 ml @ 1,000 mls/hr 1X ONCE IV Last administered on 04/20at 18:09; Start 04/20/18 at 18:00; Stop 04/20/18 at 18:59; Status DC Lorazepam (Ativan) 0.5 mg 1X ONCE IV Last administered on 04/20/18at 18:14; Start 04/20/18 at 18:00; Stop 04/20/18 at 18:02; Status DC Sodium Chloride 1,000 ml @ 1,000 mls/hr 1X ONCE IV Last administered on 04/20at 19:30; Start 04/20/18 at 19:15; Stop 04/20/18 at 20:14; Status DC Lorazepam (Ativan) 1 mg 1X ONCE IV Last administered on 04/20/18at 19:56; Start 04/20/18 at 19:45; Stop 04/20/18 at 19:46; Status DC Multivitamins 10 ml/Thiamine HCl 100 mg/Folic Acid 1 mg/Sodium Chloride 1,011.2 ml @ 1,000.088 mls/hr 1X ONCE IV Last administered on 04/20/18at 20:42; Start 04/20/18 at 19:45; Stop 04/20/18 at 20:45; Status DC Ondansetron HCl (Zofran) 4 mg PRN Q8HRS PRN IV NAUSEA/VOMITING 1ST CHOICE Last administered on 04/20/18at 20:47; Start 04/20/18 at 20:30; Stop 04/21/18 at 08 :32; Status DC Fentanyl Citrate (Fentanyl 2ml Vial) 50 mcg PRN Q4HRS PRN IV SEVERE PAIN Last administered on 04/20/18at 20:48; Start 04/20/18 at 20:30 Ondansetron HCl (Zofran) 4 mg STK-MED ONCE .ROUTE ; Start 04/20/18 at 20:45; Stop 04/20/18 at 20:46; Status DC Fentanyl Citrate (Fentanyl 2ml Vial) 100 mcg STK-MED ONCE .ROUTE ; Start at 20:45; Stop 04/20/18 at 20:46; Status DC Heparin Sodium/ Dextrose 500 ml @ 0 mls/hr CONT PRN IV SEE I/O RECORD Last administered on 04/22/18at 01:49; Start 04/20/18 at 21:45; Stop 04/22/18 at 10 :37; Status DC Heparin Sodium (Porcine) (Heparin Sodium) 4,000 unit 1X ONCE IV Last administered on 04/20/18at 22:03; Start 04/20/18 at 22:00; Stop 04/20/18 at 22 :01; Status DC Benzonatate (Tessalon Perle) 100 mg [id number] PO Last administered on 04/22/18at 14:12; Start 04/20/18 at 23:30 Guaifenesin (Robitussin Dm) 10 ml PRN Q6HRS PRN PO COUGH 1ST CHOICE Last administered on 04/22/18at 09:07; Start 04/20/18 at 23:00 Nicotine (Nicoderm Cq 21mg) 1 patch PRN DAILY PRN TD SMOKING CESSATION Last administered on 04/22/18at 09:08; Start 04/20/18 at 23:00 Oxycodone/ Acetaminophen (Percocet 5/325) 1 tab PRN Q4HRS PRN PO SEVERE PAIN Last administered on 04/20/18at 23:41; Start 04/20/18 at 23:00; Stop 04/21/18 at 08:34; Status DC Lorazepam (Ativan) 2 mg PRN Q6HRS PRN IV SEVERE ANXIETY / AGITATION Last administered on 04/20/18at 23:44; Start 04/20/18 at 23:00 Lorazepam (Ativan) 2 mg PRN Q6HRS PRN PO SEVERE ANXIETY / AGITATION Last administered on 04/22/18at 14:13; Start 04/20/18 at 23:00 Lorazepam (Ativan) 1 mg PRN Q6HRS PRN PO MODERATE ANXIETY / AGITATION Last administered on 04/22/18at 09:07; Start 04/20/18 at 23:00 Lorazepam (Ativan) 1 mg PRN Q6HRS PRN IV MODERATE ANXIETY; Start 04/20/18 at 23:00 Sodium Chloride 1,000 ml @ 100 mls/hr Q10H IV Last administered on 04/22/18at 09:13; Start 04/20/18 at 23:00 Iohexol (Omnipaque 300 Mg/ml) 75 ml 1X ONCE IV Last administered on at 00:18; Start 04/21/18 at 00:15; Stop 04/21/18 at 00:16; Status DC Info (CONTRAST GIVEN -- Rx MONITORING) 1 each PRN DAILY PRN MC SEE COMMENTS; Start 04/20/18 at 23:45; Stop 04/22/18 at 23:44 Influenza Virus Vaccine (Afluria Trivalent [id number] Syringe) 0.5 ml ONCE ONCE VAX IM ; Start 04/21/18 at 09:00; Stop 04/21/18 at 09:01; Status DC Iohexol (Omnipaque 300 Mg/ml) 100 ml STK-MED ONCE .ROUTE ; Start 04/21/18 at 06 :32; Stop 04/21/18 at 06:33; Status DC Info (Anti-Coagulation Monitoring By Pharmacy) 1 each PRN DAILY PRN MC SEE COMMENTS Last administered on 04/21/18at 14:29; Start 04/21/18 at 08:30; Stop 04/22/18 at 10:38; Status DC Ondansetron HCl (Zofran) 4 mg PRN Q6HRS PRN IV NAUSEA/VOMITING 1ST CHOICE; Start 04/21/18 at 08:45 Acetaminophen (Tylenol) 500 mg PRN Q6HRS PRN PO MILD PAIN / TEMP; Start at 08:30 Thiamine Mononitrate (Vitamin B-1) 100 mg DAILY PO Last administered on at 09:07; Start 04/21/18 at 09:00 Folic Acid (Folic Acid) 1 mg DAILY PO Last administered on 04/22/18at 09:07; Start 04/21/18 at 09:00 Multivitamins (Thera M Plus) 1 tab DAILY PO Last administered on 04/22/18at 09: 07; Start 04/21/18 at 09:00 Nicotine (Nicoderm Cq 21mg) 1 patch PRN DAILY PRN TD SMOKING CESSATION; Start 04/21/18 at 08:30; Status UNV Oxycodone/ Acetaminophen (Percocet 10) 1 tab PRN Q4HRS PRN PO PAIN MODERATE TO SEVERE Last administered on 04/22/18at 14:12; Start 04/21/18 at 08: 45 Active Scripts Active Vitals/I & O Vital Sign - Last 24 Hours 04/21/18 04/21/18 04/21/18 04/21/18 15:01 19:00 20:24 21:34 Temp 97.8 98.3 97.8 98.3 Pulse 78 87 Resp 20 15 18 B/P (MAP) 112/58 (76) 98/61 (73) Pulse Ox 94 95 95 O2 Delivery Room Air Room Air Room Air Room Air 04/21/18 04/21/18 04/22/18 04/22/18 22:39 23:00 03:00 07:00 Temp 98.0 98.2 98.0 98.0 98.2 98.0 Pulse 77 96 83 Resp 18 16 21 20 B/P (MAP) 97/61 (73) 114/74 (87) 133/72 (92) Pulse Ox 95 92 93 95 O2 Delivery Room Air Room Air Room Air 04/22/18 04/22/18 04/22/18 04/22/18 07:41 09:07 10:51 10:57 Temp 98.0 98.0 Pulse 20 Resp 20 B/P (MAP) 135/69 (91) Pulse Ox 96 O2 Delivery Room Air Room Air Room Air Room Air 04/22/18 14:12 O2 Delivery Room Air Intake and Output 04/21/18 04/21/18 04/22/18 15:00 23:00 07:00 Intake Total 1580 ml 1590 ml 240 ml Balance 1580 ml 1590 ml 240 ml DENIA PAUL MD Apr 22, 2018 14:52
[2018-04-22 15:00] VITALS: BP 129/69
--- NOTE | 2018-04-22 16:41 | PDOC ---
PROGRESS NOTES Subjective Subjective c/o back pain and weakness Objective Objective Vital Signs Date Time Temp Pulse Resp B/P (MAP) Pulse Ox O2 Delivery O2 Flow Rate FiO2 04/22/18 15:15 Room Air 04/22/18 15:00 98.0 89 20 129/69 (89) 95 98.0 Intake and Output 04/22/18 07:00 Intake Total 3410 ml Balance 3410 ml Intake Oral 2670 ml IV Total 740 ml # Voids 2 Physical Exam Abdomen: Normal bowel sounds, Soft, No tenderness, No hepatosplenomegaly, No masses Heart: Regular rate Extremities: No clubbing, No cyanosis, No edema, Normal pulses, No tenderness/ swelling General: No acute distress HEENT: Atraumatic, PERRLA, EOMI Lungs: Clear to auscultation, Normal air movement Neuro: Normal gait, Normal speech, Strength at 5/5 X4 ext, Normal tone, Sensation intact, Cranial nerves 3-12 NL, Reflexes 2+ Psych/Mental Status: Mental status NL, Mood NL Skin: No rashes, No breakdown, No significant lesion Assessment Assessment 1. Non-STEMI, most probably type 2/demand ischemia. She is presently chest pain -free. EKG without acute changes. 2-D echo showed normal LV systolic function without any wall motion abnormalities. We will consider ischemic workup in the form of stress test as an outpatient. 2. Sinus tachycardia, most probably secondary to combination of dehydration, alcohol and amphetamine use. No other arrhythmias were noted on telemetry. 3. Dehydration: Continue intravenous fluids 4. Chronic pain syndrome, generalized weakness,Crohn's disease: per IM Plan Plan of Care Problems Medical Problems: (1) Alcohol intoxication Status: Acute (2) Amphetamine abuse Status: Acute (3) Arthritis Status: Acute (4) Dehydration Status: Acute (5) Generalized weakness Status: Acute (6) Tachycardia Status: Acute Comment Review of Relevant I have reviewed the following items arnie (where applicable) has been applied. Labs Laboratory Tests Test 04/22/18 03:30 04/22/18 12:25 White Blood Count 6.2 x10^3/uL (4.0-11.0) Red Blood Count 3.51 x10^6/uL (3.50-5.40) Hemoglobin 12.5 g/dL (12.0-15.5) Hematocrit 35.3 % (36.0-47.0) Mean Corpuscular Volume 101 fL (79-100) Mean Corpuscular Hemoglobin 36 pg (25-35) Mean Corpuscular Hemoglobin Concent 35 g/dL (31-37) Red Cell Distribution Width 13.1 % (11.5-14.5) Platelet Count 155 x10^3/uL (140-400) Neutrophils (%) (Auto) 43 % (31-73) Lymphocytes (%) (Auto) 47 % (24-48) Monocytes (%) (Auto) 7 % (0-9) Eosinophils (%) (Auto) 3 % (0-3) Basophils (%) (Auto) 1 % (0-3) Neutrophils # (Auto) 2.7 x10^3uL (1.8-7.7) Lymphocytes # (Auto) 2.9 x10^3/uL (1.0-4.8) Monocytes # (Auto) 0.4 x10^3/uL (0.0-1.1) Eosinophils # (Auto) 0.2 x10^3/uL (0.0-0.7) Basophils # (Auto) 0.0 x10^3/uL (0.0-0.2) Sodium Level 142 mmol/L (136-145) Potassium Level 4.0 mmol/L (3.5-5.1) Chloride Level 110 mmol/L (98-107) Carbon Dioxide Level 25 mmol/L (21-32) Anion Gap 7 (6-14) Blood Urea Nitrogen 18 mg/dL (7-20) Creatinine 0.9 mg/dL (0.6-1.0) Estimated GFR (Cockcroft-Gault) 65.8 Glucose Level 80 mg/dL (70-99) Calcium Level 8.1 mg/dL (8.5-10.1) Magnesium Level 1.8 mg/dL (1.8-2.4) Heparin Anti-Xa Act, Unfractionated < 0.10 IU/mL (0.30-0.70) Vitals/I & O Vital Sign - Last 24 Hours 04/21/18 04/21/18 04/21/18 04/21/18 19:00 20:24 21:34 22:39 Temp 98.3 98.3 Pulse 87 Resp 15 18 18 B/P (MAP) 98/61 (73) Pulse Ox 95 95 95 O2 Delivery Room Air Room Air Room Air 04/21/18 04/22/18 04/22/18 04/22/18 23:00 03:00 07:00 07:41 Temp 98.0 98.2 98.0 98.0 98.2 98.0 Pulse 77 96 83 Resp 16 21 20 B/P (MAP) 97/61 (73) 114/74 (87) 133/72 (92) Pulse Ox 92 93 95 O2 Delivery Room Air Room Air Room Air Room Air 04/22/18 04/22/18 04/22/18 04/22/18 09:07 10:57 14:12 15:00 Temp 98.0 98.0 98.0 98.0 Pulse 20 89 Resp 20 20 B/P (MAP) 135/69 (91) 129/69 (89) Pulse Ox 96 95 O2 Delivery Room Air Room Air Room Air Room Air 04/22/18 15:15 O2 Delivery Room Air Intake and Output 04/21/18 04/21/18 04/22/18 15:00 23:00 07:00 Intake Total 1580 ml 1590 ml 240 ml Balance 1580 ml 1590 ml 240 ml YOANA BIRD MD Apr 22, 2018 16:41
[2018-04-22 19:00] VITALS: BP 134/72
[2018-04-22 23:00] VITALS: BP 131/83
[2018-04-23 03:00] VITALS: BP 120/66
[2018-04-23 07:00] VITALS: BP 104/56
[2018-04-23] MEDS: MULTIVITAMIN with MINERAL TABLET. PO SCH (08:18)
[2018-04-23] MEDS: FOLIC ACID 1 MG TABLET. PO SCH (08:18)
[2018-04-23] MEDS: THIAMINE 100 MG TABLET. PO SCH (08:18)
[2018-04-23] MEDS: BENZONATATE 100 MG CAPSULE. PO SCH ×3 (08:18→20:54)
[2018-04-23 10:55] VITALS: BP 110/58
--- NOTE | 2018-04-23 11:00 | PDOC ---
PROGRESS NOTES Chief Complaint Chief Complaint etoh intoxication-levels was 115 on admission toxic Encephalopathy, toxic secondary to above meth and THC use NSTEMI: peaked at 1.0. No acute EKG changes. EF and WM nml. . Sinus tachycardia: induced by dehydration, and polysubstance abuse. Maintaining SR without ectopies Polysubstance abuse: UDS+ for mairajuan and meth with ETOH abuse Chronic pain syndrome, generalized weakness, Crohn's disease plan 1. low dose statin 2. outpt stress test 3. 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 PT OT when more awake to check gait - she reports she cannot walk Vitals Vitals Vital Signs Date Time Temp Pulse Resp B/P (MAP) Pulse Ox O2 Delivery O2 Flow Rate FiO2 04/23/18 10:55 98.0 74 20 110/58 (75) 93 Room Air 98.0 Physical Exam General: Cooperative, No acute distress Heart: Regular rate Lungs: Clear, Wheezing Abdomen: Normal bowel sounds, Soft, No tenderness, No hepatosplenomegaly, No masses Extremities: No clubbing, No cyanosis, No edema, Normal pulses, No tenderness/ swelling Skin: No rashes, No breakdown, No significant lesion Labs LABS Laboratory Tests Test 04/22/18 12:25 Heparin Anti-Xa Act, Unfractionated < 0.10 IU/mL (0.30-0.70) Assessment and Plan Assessmemt and Plan Problems Medical Problems: (1) Alcohol intoxication Status: Acute (2) Amphetamine abuse Status: Acute (3) Arthritis Status: Acute (4) Dehydration Status: Acute (5) Generalized weakness Status: Acute (6) Tachycardia Status: Acute Comment Review of Relevant I have reviewed the following items arnie (where applicable) has been applied. Labs Laboratory Tests Test 04/21/18 12:30 04/22/18 03:30 04/22/18 12:25 Heparin Anti-Xa Act, Unfractionated 0.41 IU/mL (0.30-0.70) < 0.10 IU/mL (0.30-0.70) White Blood Count 6.2 x10^3/uL (4.0-11.0) Red Blood Count 3.51 x10^6/uL (3.50-5.40) Hemoglobin 12.5 g/dL (12.0-15.5) Hematocrit 35.3 % (36.0-47.0) Mean Corpuscular Volume 101 fL (79-100) Mean Corpuscular Hemoglobin 36 pg (25-35) Mean Corpuscular Hemoglobin Concent 35 g/dL (31-37) Red Cell Distribution Width 13.1 % (11.5-14.5) Platelet Count 155 x10^3/uL (140-400) Neutrophils (%) (Auto) 43 % (31-73) Lymphocytes (%) (Auto) 47 % (24-48) Monocytes (%) (Auto) 7 % (0-9) Eosinophils (%) (Auto) 3 % (0-3) Basophils (%) (Auto) 1 % (0-3) Neutrophils # (Auto) 2.7 x10^3uL (1.8-7.7) Lymphocytes # (Auto) 2.9 x10^3/uL (1.0-4.8) Monocytes # (Auto) 0.4 x10^3/uL (0.0-1.1) Eosinophils # (Auto) 0.2 x10^3/uL (0.0-0.7) Basophils # (Auto) 0.0 x10^3/uL (0.0-0.2) Sodium Level 142 mmol/L (136-145) Potassium Level 4.0 mmol/L (3.5-5.1) Chloride Level 110 mmol/L (98-107) Carbon Dioxide Level 25 mmol/L (21-32) Anion Gap 7 (6-14) Blood Urea Nitrogen 18 mg/dL (7-20) Creatinine 0.9 mg/dL (0.6-1.0) Estimated GFR (Cockcroft-Gault) 65.8 Glucose Level 80 mg/dL (70-99) Calcium Level 8.1 mg/dL (8.5-10.1) Magnesium Level 1.8 mg/dL (1.8-2.4) Laboratory Tests Test 04/22/18 12:25 Heparin Anti-Xa Act, Unfractionated < 0.10 IU/mL (0.30-0.70) Medications Current Medications Oxycodone/ Acetaminophen (Percocet 5/325) 1 tab 1X ONCE PO Last administered on 04/20/18at 17:50; Start 04/20/18 at 17:30; Stop 04/20/18 at 17:31; Status DC Sodium Chloride 1,000 ml @ 1,000 mls/hr 1X ONCE IV Last administered on 04/20at 18:09; Start 04/20/18 at 18:00; Stop 04/20/18 at 18:59; Status DC Lorazepam (Ativan) 0.5 mg 1X ONCE IV Last administered on 04/20/18at 18:14; Start 04/20/18 at 18:00; Stop 04/20/18 at 18:02; Status DC Sodium Chloride 1,000 ml @ 1,000 mls/hr 1X ONCE IV Last administered on 04/20at 19:30; Start 04/20/18 at 19:15; Stop 04/20/18 at 20:14; Status DC Lorazepam (Ativan) 1 mg 1X ONCE IV Last administered on 04/20/18at 19:56; Start 04/20/18 at 19:45; Stop 04/20/18 at 19:46; Status DC Multivitamins 10 ml/Thiamine HCl 100 mg/Folic Acid 1 mg/Sodium Chloride 1,011.2 ml @ 1,000.088 mls/hr 1X ONCE IV Last administered on 04/20/18at 20:42; Start 04/20/18 at 19:45; Stop 04/20/18 at 20:45; Status DC Ondansetron HCl (Zofran) 4 mg PRN Q8HRS PRN IV NAUSEA/VOMITING 1ST CHOICE Last administered on 04/20/18at 20:47; Start 04/20/18 at 20:30; Stop 04/21/18 at 08 :32; Status DC Fentanyl Citrate (Fentanyl 2ml Vial) 50 mcg PRN Q4HRS PRN IV SEVERE PAIN Last administered on 04/20/18at 20:48; Start 04/20/18 at 20:30; Stop 04/22/18 at 19 :52; Status DC Ondansetron HCl (Zofran) 4 mg STK-MED ONCE .ROUTE ; Start 04/20/18 at 20:45; Stop 04/20/18 at 20:46; Status DC Fentanyl Citrate (Fentanyl 2ml Vial) 100 mcg STK-MED ONCE .ROUTE ; Start at 20:45; Stop 04/20/18 at 20:46; Status DC Heparin Sodium/ Dextrose 500 ml @ 0 mls/hr CONT PRN IV SEE I/O RECORD Last administered on 04/22/18at 01:49; Start 04/20/18 at 21:45; Stop 04/22/18 at 10 :37; Status DC Heparin Sodium (Porcine) (Heparin Sodium) 4,000 unit 1X ONCE IV Last administered on 04/20/18at 22:03; Start 04/20/18 at 22:00; Stop 04/20/18 at 22 :01; Status DC Benzonatate (Tessalon Perle) 100 mg [id number] PO Last administered on 04/23/18at 08:18; Start 04/20/18 at 23:30 Guaifenesin (Robitussin Dm) 10 ml PRN Q6HRS PRN PO COUGH 1ST CHOICE Last administered on 04/22/18at 20:58; Start 04/20/18 at 23:00 Nicotine (Nicoderm Cq 21mg) 1 patch PRN DAILY PRN TD SMOKING CESSATION Last administered on 04/22/18at 09:08; Start 04/20/18 at 23:00 Oxycodone/ Acetaminophen (Percocet 5/325) 1 tab PRN Q4HRS PRN PO SEVERE PAIN Last administered on 04/20/18at 23:41; Start 04/20/18 at 23:00; Stop 04/21/18 at 08:34; Status DC Lorazepam (Ativan) 2 mg PRN Q6HRS PRN IV SEVERE ANXIETY / AGITATION Last administered on 04/20/18at 23:44; Start 04/20/18 at 23:00; Stop 04/22/18 at 19 :52; Status DC Lorazepam (Ativan) 2 mg PRN Q6HRS PRN PO SEVERE ANXIETY / AGITATION Last administered on 04/22/18at 20:57; Start 04/20/18 at 23:00 Lorazepam (Ativan) 1 mg PRN Q6HRS PRN PO MODERATE ANXIETY / AGITATION Last administered on 04/22/18at 09:07; Start 04/20/18 at 23:00 Lorazepam (Ativan) 1 mg PRN Q6HRS PRN IV MODERATE ANXIETY; Start 04/20/18 at 23:00; Stop 04/22/18 at 19:52; Status DC Sodium Chloride 1,000 ml @ 100 mls/hr Q10H IV Last administered on 04/22/18at 09:13; Start 04/20/18 at 23:00; Stop 04/22/18 at 19:52; Status DC Iohexol (Omnipaque 300 Mg/ml) 75 ml 1X ONCE IV Last administered on at 00:18; Start 04/21/18 at 00:15; Stop 04/21/18 at 00:16; Status DC Info (CONTRAST GIVEN -- Rx MONITORING) 1 each PRN DAILY PRN MC SEE COMMENTS; Start 04/20/18 at 23:45; Stop 04/22/18 at 23:44; Status DC Influenza Virus Vaccine (Afluria Trivalent [id number] Syringe) 0.5 ml ONCE ONCE VAX IM ; Start 04/21/18 at 09:00; Stop 04/21/18 at 09:01; Status DC Iohexol (Omnipaque 300 Mg/ml) 100 ml STK-MED ONCE .ROUTE ; Start 04/21/18 at 06 :32; Stop 04/21/18 at 06:33; Status DC Info (Anti-Coagulation Monitoring By Pharmacy) 1 each PRN DAILY PRN MC SEE COMMENTS Last administered on 04/21/18at 14:29; Start 04/21/18 at 08:30; Stop 04/22/18 at 10:38; Status DC Ondansetron HCl (Zofran) 4 mg PRN Q6HRS PRN IV NAUSEA/VOMITING 1ST CHOICE; Start 04/21/18 at 08:45 Acetaminophen (Tylenol) 500 mg PRN Q6HRS PRN PO MILD PAIN / TEMP; Start at 08:30 Thiamine Mononitrate (Vitamin B-1) 100 mg DAILY PO Last administered on at 08:18; Start 04/21/18 at 09:00 Folic Acid (Folic Acid) 1 mg DAILY PO Last administered on 04/23/18at 08:18; Start 04/21/18 at 09:00 Multivitamins (Thera M Plus) 1 tab DAILY PO Last administered on 04/23/18at 08: 18; Start 04/21/18 at 09:00 Nicotine (Nicoderm Cq 21mg) 1 patch PRN DAILY PRN TD SMOKING CESSATION; Start 04/21/18 at 08:30; Status UNV Oxycodone/ Acetaminophen (Percocet 10/325) 1 tab PRN Q4HRS PRN PO PAIN MODERATE TO SEVERE Last administered on 04/22/18at 20:58; Start 04/21/18 at 08: 45 Active Scripts Active Vitals/I & O Vital Sign - Last 24 Hours 04/22/18 04/22/18 04/22/18 04/22/18 14:12 15:00 19:00 20:14 Temp 98.0 98.6 98.0 98.6 Pulse 89 84 Resp 20 20 B/P (MAP) 129/69 (89) 134/72 (92) Pulse Ox 95 92 O2 Delivery Room Air Room Air Room Air Room Air 04/22/18 04/22/18 04/22/18 04/23/18 20:58 22:36 23:00 03:00 Temp 99.0 98.9 99.0 98.9 Pulse 88 86 Resp 18 18 20 20 B/P (MAP) 131/83 (99) 120/66 (84) Pulse Ox 92 92 93 2 O2 Delivery Room Air Room Air Room Air Room Air 04/23/18 04/23/18 07:00 10:55 Temp 98.1 98.0 98.1 98.0 Pulse 78 74 Resp 20 20 B/P (MAP) 104/56 (72) 110/58 (75) Pulse Ox 93 93 O2 Delivery Room Air Room Air Intake and Output 04/22/18 04/22/18 04/23/18 15:00 23:00 07:00 Intake Total 1250 ml 1140 ml 840 ml Output Total 500 ml 1100 ml 2000 ml Balance 750 ml 40 ml -1160 ml GONZALEZ WILLIAMSON MD Apr 23, 2018 11:00
--- NOTE | 2018-04-23 11:32 | PDOC ---
ISRAEL JOHNSON [employer]ER 04/23/18 1132: CARDIO Progress Notes Date and Time Date of Service 04/23/2018 Time of Evaluation 1120 Subjective Subjective: No Chest Pain, No shortness of breath, No Palpitations Vitals Vitals Vital Signs Date Time Temp Pulse Resp B/P (MAP) Pulse Ox O2 Delivery O2 Flow Rate FiO2 04/23/18 10:55 98.0 74 20 110/58 (75) 93 Room Air 98.0 Weight Weight [ ] Input and Output Intake and Output Intake and Output 04/23/18 07:00 Intake Total 3230 ml Output Total 3600 ml Balance -370 ml Intake Oral 3230 ml Output Urine Total 3600 ml Laboratory Labs Laboratory Tests Test 04/22/18 12:25 Heparin Anti-Xa Act, Unfractionated < 0.10 IU/mL (0.30-0.70) Physical Exam HEENT: Neck Supple W Full Motion Chest: Symmetric LUNGS: Other (diminished bases) Heart: S1S2, RRR, no thrills, no rubs, no gallops, no murmurs Abdomen: Soft N/T Extremities: No Calf Tenderness Neurology: alert, oriented, follow commands Assessment Assessment 1. NSTEMI: peaked at 1.0. No acute EKG changes. EF and WM nml. 2. Sinus tachycardia: induced by dehydration, and polysubstance abuse. Maintaining SR without ectopies 3. Polysubstance abuse: UDS+ for mairajuan and meth with ETOH abuse 4. Chronic pain syndrome, generalized weakness,Crohn's disease 5. Opioid seeking behavior: asking for tylenol 3, or darvocet in replacement of ASA. Recommendations 1. Does not want to ASA because it makes her nauseated. LDL 88 and HDL 67. Would recommend low dose statin 2. Encouraged to follow up in office in 4 weeks and will consider for outpt stress test if pt would comply 3. Nothing further at this time. OK to DC per cardiac standpoint. 4. Lifestyle modifications YOANA BIRD MD 04/24/18 1225: CARDIO Progress Notes Assessment Assessment Patient seen and examined 04/23/18. Agree with TOWER EQUIPMENT INSTALLER's assessment and plan. Patient denied any chest pain. 2-D echo showed normal LV function without any wall motion abnormalities. Plan for Lexiscan nuclear stress test as an outpatient. ISRAEL JOHNSON W[employer]ER ASSEMBLER Apr 23, 2018 11:32 YOANA BIRD MD Apr 24, 2018 12:25
[2018-04-23 12:13] LABS: CHOLESTEROL/HDL RATIO 2.4
[2018-04-23] MEDS: oxyCODONE/APAP 10/325 1 TAB TABLET PO PRN ×2 (14:29→20:54)
[2018-04-23 15:00] VITALS: BP 112/60
--- NOTE | 2018-04-23 16:57 | PDOC3 ---
Discharge Summary Date of Admission: Apr 20, 2018 Date of Discharge: Apr 23, 2018 Follow-Up: 3-5 days Admitting Diagnosis comment: Chief Complaint Chief Complaint etoh intoxication-levels was 115 on admission toxic Encephalopathy, toxic secondary to above meth and THC use NSTEMI: peaked at 1.0. No acute EKG changes. EF and WM nml. . Sinus tachycardia: induced by dehydration, and polysubstance abuse. Maintaining SR without ectopies Polysubstance abuse: UDS+ for mairajuan and meth with ETOH abuse Chronic pain syndrome, generalized weakness, Crohn's disease plan 1. low dose statin 2. outpt stress test 3. alcohol withdrawal precautions discharge dx History of Present Illness Plan: , CIWA protocol Further recs pending cards eval and above course [employer] worker consult for AA referral PT OT Vitals Vitals Vital Signs Date Time Temp Pulse Resp B/P (MAP) Pulse Ox O2 Delivery O2 Flow Rate FiO2 04/23/18 10:55 98.0 74 20 110/58 (75) 93 Room Air 98.0 Physical Exam General: Cooperative, No acute distress Heart: Regular rate Lungs: Clear, no Wheezing Abdomen: Normal bowel sounds, Soft, No tenderness, No hepatosplenomegaly, No masses Extremities: No clubbing, No cyanosis, No edema, Normal pulses, No tenderness/ swelling Skin: No rashes, No breakdown, No significant lesion FINAL DIAGNOSIS Problems Medical Problems: (1) Alcohol intoxication Status: Acute (2) Amphetamine abuse Status: Acute (3) Arthritis Status: Acute (4) Dehydration Status: Acute (5) Generalized weakness Status: Acute (6) Tachycardia Status: Acute Brief Hospital Course Ms. Hamilton is a 53 old [sex] who presented with [ substance abuse ] CONDITION AT DISCHARGE: Improved Discharge Medications Current Medications Oxycodone/ Acetaminophen (Percocet 5/325) 1 tab 1X ONCE PO Last administered on 04/20/18at 17:50; Start 04/20/18 at 17:30; Stop 04/20/18 at 17:31; Status DC Sodium Chloride 1,000 ml @ 1,000 mls/hr 1X ONCE IV Last administered on 04/20at 18:09; Start 04/20/18 at 18:00; Stop 04/20/18 at 18:59; Status DC Lorazepam (Ativan) 0.5 mg 1X ONCE IV Last administered on 04/20/18at 18:14; Start 04/20/18 at 18:00; Stop 04/20/18 at 18:02; Status DC Sodium Chloride 1,000 ml @ 1,000 mls/hr 1X ONCE IV Last administered on 04/20at 19:30; Start 04/20/18 at 19:15; Stop 04/20/18 at 20:14; Status DC Lorazepam (Ativan) 1 mg 1X ONCE IV Last administered on 04/20/18at 19:56; Start 04/20/18 at 19:45; Stop 04/20/18 at 19:46; Status DC Multivitamins 10 ml/Thiamine HCl 100 mg/Folic Acid 1 mg/Sodium Chloride 1,011.2 ml @ 1,000.088 mls/hr 1X ONCE IV Last administered on 04/20/18at 20:42; Start 04/20/18 at 19:45; Stop 04/20/18 at 20:45; Status DC Ondansetron HCl (Zofran) 4 mg PRN Q8HRS PRN IV NAUSEA/VOMITING 1ST CHOICE Last administered on 04/20/18at 20:47; Start 04/20/18 at 20:30; Stop 04/21/18 at 08 :32; Status DC Fentanyl Citrate (Fentanyl 2ml Vial) 50 mcg PRN Q4HRS PRN IV SEVERE PAIN Last administered on 04/20/18at 20:48; Start 04/20/18 at 20:30; Stop 04/22/18 at 19 :52; Status DC Ondansetron HCl (Zofran) 4 mg STK-MED ONCE .ROUTE ; Start 04/20/18 at 20:45; Stop 04/20/18 at 20:46; Status DC Fentanyl Citrate (Fentanyl 2ml Vial) 100 mcg STK-MED ONCE .ROUTE ; Start at 20:45; Stop 04/20/18 at 20:46; Status DC Heparin Sodium/ Dextrose 500 ml @ 0 mls/hr CONT PRN IV SEE I/O RECORD Last administered on 04/22/18at 01:49; Start 04/20/18 at 21:45; Stop 04/22/18 at 10 :37; Status DC Heparin Sodium (Porcine) (Heparin Sodium) 4,000 unit 1X ONCE IV Last administered on 04/20/18at 22:03; Start 04/20/18 at 22:00; Stop 04/20/18 at 22 :01; Status DC Benzonatate (Tessalon Perle) 100 mg [id number] PO Last administered on 04/23/18at 14:29; Start 04/20/18 at 23:30 Guaifenesin (Robitussin Dm) 10 ml PRN Q6HRS PRN PO COUGH 1ST CHOICE Last administered on 04/22/18at 20:58; Start 04/20/18 at 23:00 Nicotine (Nicoderm Cq 21mg) 1 patch PRN DAILY PRN TD SMOKING CESSATION Last administered on 04/22/18at 09:08; Start 04/20/18 at 23:00 Oxycodone/ Acetaminophen (Percocet 5/325) 1 tab PRN Q4HRS PRN PO SEVERE PAIN Last administered on 04/20/18at 23:41; Start 04/20/18 at 23:00; Stop 04/21/18 at 08:34; Status DC Lorazepam (Ativan) 2 mg PRN Q6HRS PRN IV SEVERE ANXIETY / AGITATION Last administered on 04/20/18at 23:44; Start 04/20/18 at 23:00; Stop 04/22/18 at 19 :52; Status DC Lorazepam (Ativan) 2 mg PRN Q6HRS PRN PO SEVERE ANXIETY / AGITATION Last administered on 04/22/18at 20:57; Start 04/20/18 at 23:00 Lorazepam (Ativan) 1 mg PRN Q6HRS PRN PO MODERATE ANXIETY / AGITATION Last administered on 04/22/18at 09:07; Start 04/20/18 at 23:00 Lorazepam (Ativan) 1 mg PRN Q6HRS PRN IV MODERATE ANXIETY; Start 04/20/18 at 23:00; Stop 04/22/18 at 19:52; Status DC Sodium Chloride 1,000 ml @ 100 mls/hr Q10H IV Last administered on 04/22/18at 09:13; Start 04/20/18 at 23:00; Stop 04/22/18 at 19:52; Status DC Iohexol (Omnipaque 300 Mg/ml) 75 ml 1X ONCE IV Last administered on at 00:18; Start 04/21/18 at 00:15; Stop 04/21/18 at 00:16; Status DC Info (CONTRAST GIVEN -- Rx MONITORING) 1 each PRN DAILY PRN MC SEE COMMENTS; Start 04/20/18 at 23:45; Stop 04/22/18 at 23:44; Status DC Influenza Virus Vaccine (Afluria Trivalent [id number] Syringe) 0.5 ml ONCE ONCE VAX IM ; Start 04/21/18 at 09:00; Stop 04/21/18 at 09:01; Status DC Iohexol (Omnipaque 300 Mg/ml) 100 ml STK-MED ONCE .ROUTE ; Start 04/21/18 at 06 :32; Stop 04/21/18 at 06:33; Status DC Info (Anti-Coagulation Monitoring By Pharmacy) 1 each PRN DAILY PRN MC SEE COMMENTS Last administered on 04/21/18at 14:29; Start 04/21/18 at 08:30; Stop 04/22/18 at 10:38; Status DC Ondansetron HCl (Zofran) 4 mg PRN Q6HRS PRN IV NAUSEA/VOMITING 1ST CHOICE; Start 04/21/18 at 08:45 Acetaminophen (Tylenol) 500 mg PRN Q6HRS PRN PO MILD PAIN / TEMP; Start at 08:30 Thiamine Mononitrate (Vitamin B-1) 100 mg DAILY PO Last administered on at 08:18; Start 04/21/18 at 09:00 Folic Acid (Folic Acid) 1 mg DAILY PO Last administered on 04/23/18at 08:18; Start 04/21/18 at 09:00 Multivitamins (Thera M Plus) 1 tab DAILY PO Last administered on 04/23/18at 08: 18; Start 04/21/18 at 09:00 Nicotine (Nicoderm Cq 21mg) 1 patch PRN DAILY PRN TD SMOKING CESSATION; Start 04/21/18 at 08:30; Status UNV Oxycodone/ Acetaminophen (Percocet 10/325) 1 tab PRN Q4HRS PRN PO PAIN MODERATE TO SEVERE Last administered on 04/23/18at 14:29; Start 04/21/18 at 08: 45 Active Scripts Active Vital Signs Vital Signs Date Time Temp Pulse Resp B/P (MAP) Pulse Ox O2 Delivery O2 Flow Rate FiO2 04/23/18 15:31 18 94 Room Air 04/23/18 15:00 97.9 75 112/60 (77) 97.9 Labs Laboratory Tests Test 04/22/18 03:30 04/22/18 12:25 White Blood Count 6.2 x10^3/uL (4.0-11.0) Red Blood Count 3.51 x10^6/uL (3.50-5.40) Hemoglobin 12.5 g/dL (12.0-15.5) Hematocrit 35.3 % (36.0-47.0) Mean Corpuscular Volume 101 fL (79-100) Mean Corpuscular Hemoglobin 36 pg (25-35) Mean Corpuscular Hemoglobin Concent 35 g/dL (31-37) Red Cell Distribution Width 13.1 % (11.5-14.5) Platelet Count 155 x10^3/uL (140-400) Neutrophils (%) (Auto) 43 % (31-73) Lymphocytes (%) (Auto) 47 % (24-48) Monocytes (%) (Auto) 7 % (0-9) Eosinophils (%) (Auto) 3 % (0-3) Basophils (%) (Auto) 1 % (0-3) Neutrophils # (Auto) 2.7 x10^3uL (1.8-7.7) Lymphocytes # (Auto) 2.9 x10^3/uL (1.0-4.8) Monocytes # (Auto) 0.4 x10^3/uL (0.0-1.1) Eosinophils # (Auto) 0.2 x10^3/uL (0.0-0.7) Basophils # (Auto) 0.0 x10^3/uL (0.0-0.2) Sodium Level 142 mmol/L (136-145) Potassium Level 4.0 mmol/L (3.5-5.1) Chloride Level 110 mmol/L (98-107) Carbon Dioxide Level 25 mmol/L (21-32) Anion Gap 7 (6-14) Blood Urea Nitrogen 18 mg/dL (7-20) Creatinine 0.9 mg/dL (0.6-1.0) Estimated GFR (Cockcroft-Gault) 65.8 Glucose Level 80 mg/dL (70-99) Calcium Level 8.1 mg/dL (8.5-10.1) Magnesium Level 1.8 mg/dL (1.8-2.4) Triglycerides Level 43 mg/dL (0-150) Cholesterol Level 164 mg/dL (0-200) LDL Cholesterol, Calculated 88 mg/dL (0-100) VLDL Cholesterol, Calculated 9 mg/dL (0-40) Non-HDL Cholesterol Calculated 97 mg/dL (0-129) HDL Cholesterol 67 mg/dL (40-60) Cholesterol/HDL Ratio 2.4 Heparin Anti-Xa Act, Unfractionated < 0.10 IU/mL (0.30-0.70) Allergies Allergies Coded Allergies Type Severity Reaction Last Updated Verified aspirin Adverse Reaction Intermediate n/v 04/20/18 Yes ketorolac Adverse Reaction Intermediate n/v 04/20/18 Yes Disposition/Orders: D/C to Home Patient Instructions d/c planning 35 min GONZALEZ WILLIAMSON MD Apr 23, 2018 16:57
--- NOTE | 2018-04-23 16:58 | DISCH ---
DISCHARGE INSTRUCTIONS Condition on Discharge Condition on Discharge: Guarded Activity After Discharge Activity Instructions for Disc: Activity as tolerated Lifting Instructions after Dis: No heavy lifting, No pulling or pushing Driving Instructions after Dis: Do not drive Weight Bearing Status after Di: Full weight bearing Diet after Discharge Diet after Discharge: Cardiac Contacting the DR. after DC Call your doctor for: If your condition worsens Warfarin Follow-Up Warfarin Follow UP: no illegal substance use GONZALEZ WILLIAMSON MD Apr 23, 2018 16:58
[2018-04-23] MEDS ORDERED: THIA100T22 PO (17:01)
[2018-04-23] MEDS ORDERED: ATOR20TA PO (17:01)
[2018-04-23] MEDS ORDERED: FOLI1TAB16 PO (17:01)
[2018-04-23 19:00] VITALS: BP 125/87
[2018-04-23] MEDS: LORazepam 0.5 MG TABLET PO PRN (20:53)
[2018-04-23] MEDS: guaiFENesin DM 200MG/20MG 10 ML SYRUP PO PRN (20:55)
[2018-04-23 23:00] VITALS: BP 121/84
[2018-04-24 02:59] VITALS: BP 121/83
[2018-04-24] MEDS: guaiFENesin DM 200MG/20MG 10 ML SYRUP PO PRN (03:55)
[2018-04-24] MEDS: LORazepam 1 MG TABLET PO PRN ×2 (03:55→12:43)
[2018-04-24] MEDS: oxyCODONE/APAP 10/325 1 TAB TABLET PO PRN ×2 (03:56→08:36)
[2018-04-24 07:40] VITALS: BP_SYST 109; BP_SYST 78; BP_DIAS 45; BP_DIAS 74
[2018-04-24] MEDS: FOLIC ACID 1 MG TABLET. PO SCH (08:35)
[2018-04-24] MEDS: MULTIVITAMIN with MINERAL TABLET. PO SCH (08:36)
[2018-04-24] MEDS: BENZONATATE 100 MG CAPSULE. PO SCH (08:36)
[2018-04-24] MEDS: THIAMINE 100 MG TABLET. PO SCH (08:36)
[2018-04-24 09:59] LABS: BASO # 0.1 x10^3/uL (0.0-0.2); BASO % 1 % (0-3); EOS # 0.3 x10^3/uL (0.0-0.7); EOS % 3 % (0-3); HEMATOCRIT 40.5 % (36.0-47.0); LYMPH # 1.8 x10^3/uL (1.0-4.8); LYMPH % 21 % (24-48); MEAN CORPUSCULAR HEMOGLOBIN 35 pg (25-35); MEAN CORPUSCULAR HGB CONC 35 g/dL (31-37); MEAN CORPUSCULAR VOLUME 101 fL (79-100); MONO # 0.6 x10^3/uL (0.0-1.1); MONO % 7 % (0-9); NEUT # 5.8 x10^3uL (1.8-7.7); NEUT % 68 % (31-73); PLATELET COUNT 180 x10^3/uL (140-400); RED BLOOD COUNT 4.02 x10^6/uL (3.50-5.40); RED CELL DISTRIBUTION WIDTH 12.9 % (11.5-14.5); WHITE BLOOD COUNT 8.5 x10^3/uL (4.0-11.0)
[2018-04-24 10:24] LABS: ALBUMIN/GLOBULIN RATIO 0.9 (1.0-1.7); CALCIUM 8.8 mg/dL (8.5-10.1); CREATININE 1.1 mg/dL (0.6-1.0); GFR 52.2; POTASSIUM 4.2 mmol/L (3.5-5.1); TOTAL BILIRUBIN 0.5 mg/dL (0.2-1.0); TOTAL PROTEIN 6.4 g/dL (6.4-8.2)
--- NOTE | 2018-04-24 10:52 | PDOC ---
PROGRESS NOTES Chief Complaint Chief Complaint etoh intoxication-levels was 115 on admission toxic Encephalopathy, toxic secondary to above meth and THC use NSTEMI: peaked at 1.0. No acute EKG changes. EF and WM nml. . Sinus tachycardia: induced by dehydration, and polysubstance abuse. Maintaining SR without ectopies Polysubstance abuse: UDS+ for marijuana and meth with ETOH abuse Chronic pain syndrome, generalized weakness, Crohn's disease no angina today plan 1. low dose statin 2. outpt stress test 3. alcohol withdrawal precautions4. to [facility] today History of Present Illness History of Present Illness Plan: Heparin drip, CIWA protocol Further recs pending cards eval and above course youth care worker consult for AA referral PT OT when more awake to check gait - she reports she cannot walk Vitals Vitals Vital Signs Date Time Temp Pulse Resp B/P (MAP) Pulse Ox O2 Delivery O2 Flow Rate FiO2 04/24/18 08:36 Room Air 04/24/18 07:40 98.1 75 16 109/74 (86) 93 98.1 Physical Exam General: Alert, Oriented X3, Cooperative, No acute distress, Other (sleepy but alert) Heart: Regular rate, Normal S1 Lungs: Clear, Wheezing Abdomen: Normal bowel sounds, Soft, No tenderness, No hepatosplenomegaly, No masses Extremities: No clubbing, No cyanosis, No edema, Normal pulses, No tenderness/ swelling Skin: No rashes, No breakdown, No significant lesion Labs LABS Laboratory Tests Test 04/24/18 09:50 White Blood Count 8.5 x10^3/uL (4.0-11.0) Red Blood Count 4.02 x10^6/uL (3.50-5.40) Hemoglobin 14.0 g/dL (12.0-15.5) Hematocrit 40.5 % (36.0-47.0) Mean Corpuscular Volume 101 fL (79-100) Mean Corpuscular Hemoglobin 35 pg (25-35) Mean Corpuscular Hemoglobin Concent 35 g/dL (31-37) Red Cell Distribution Width 12.9 % (11.5-14.5) Platelet Count 180 x10^3/uL (140-400) Neutrophils (%) (Auto) 68 % (31-73) Lymphocytes (%) (Auto) 21 % (24-48) Monocytes (%) (Auto) 7 % (0-9) Eosinophils (%) (Auto) 3 % (0-3) Basophils (%) (Auto) 1 % (0-3) Neutrophils # (Auto) 5.8 x10^3uL (1.8-7.7) Lymphocytes # (Auto) 1.8 x10^3/uL (1.0-4.8) Monocytes # (Auto) 0.6 x10^3/uL (0.0-1.1) Eosinophils # (Auto) 0.3 x10^3/uL (0.0-0.7) Basophils # (Auto) 0.1 x10^3/uL (0.0-0.2) Sodium Level 142 mmol/L (136-145) Potassium Level 4.2 mmol/L (3.5-5.1) Chloride Level 106 mmol/L (98-107) Carbon Dioxide Level 27 mmol/L (21-32) Anion Gap 9 (6-14) Blood Urea Nitrogen 17 mg/dL (7-20) Creatinine 1.1 mg/dL (0.6-1.0) Estimated GFR (Cockcroft-Gault) 52.2 BUN/Creatinine Ratio 15 (6-20) Glucose Level 107 mg/dL (70-99) Calcium Level 8.8 mg/dL (8.5-10.1) Total Bilirubin 0.5 mg/dL (0.2-1.0) Aspartate Amino Transf (AST/SGOT) 19 U/L (15-37) Alanine Aminotransferase (ALT/SGPT) 20 U/L (14-59) Alkaline Phosphatase 94 U/L (46-116) Total Protein 6.4 g/dL (6.4-8.2) Albumin 3.0 g/dL (3.4-5.0) Albumin/Globulin Ratio 0.9 (1.0-1.7) Assessment and Plan Assessmemt and Plan Problems Medical Problems: (1) Alcohol intoxication Status: Acute (2) Amphetamine abuse Status: Acute (3) Arthritis Status: Acute (4) Dehydration Status: Acute (5) Generalized weakness Status: Acute (6) Tachycardia Status: Acute Comment Review of Relevant I have reviewed the following items arnie (where applicable) has been applied. Labs Laboratory Tests Test 04/22/18 12:25 10/31/18 09:50 Heparin Anti-Xa Act, Unfractionated < 0.10 IU/mL (0.30-0.70) White Blood Count 8.5 x10^3/uL (4.0-11.0) Red Blood Count 4.02 x10^6/uL (3.50-5.40) Hemoglobin 14.0 g/dL (12.0-15.5) Hematocrit 40.5 % (36.0-47.0) Mean Corpuscular Volume 101 fL (79-100) Mean Corpuscular Hemoglobin 35 pg (25-35) Mean Corpuscular Hemoglobin Concent 35 g/dL (31-37) Red Cell Distribution Width 12.9 % (11.5-14.5) Platelet Count 180 x10^3/uL (140-400) Neutrophils (%) (Auto) 68 % (31-73) Lymphocytes (%) (Auto) 21 % (24-48) Monocytes (%) (Auto) 7 % (0-9) Eosinophils (%) (Auto) 3 % (0-3) Basophils (%) (Auto) 1 % (0-3) Neutrophils # (Auto) 5.8 x10^3uL (1.8-7.7) Lymphocytes # (Auto) 1.8 x10^3/uL (1.0-4.8) Monocytes # (Auto) 0.6 x10^3/uL (0.0-1.1) Eosinophils # (Auto) 0.3 x10^3/uL (0.0-0.7) Basophils # (Auto) 0.1 x10^3/uL (0.0-0.2) Sodium Level 142 mmol/L (136-145) Potassium Level 4.2 mmol/L (3.5-5.1) Chloride Level 106 mmol/L (98-107) Carbon Dioxide Level 27 mmol/L (21-32) Anion Gap 9 (6-14) Blood Urea Nitrogen 17 mg/dL (7-20) Creatinine 1.1 mg/dL (0.6-1.0) Estimated GFR (Cockcroft-Gault) 52.2 BUN/Creatinine Ratio 15 (6-20) Glucose Level 107 mg/dL (70-99) Calcium Level 8.8 mg/dL (8.5-10.1) Total Bilirubin 0.5 mg/dL (0.2-1.0) Aspartate Amino Transf (AST/SGOT) 19 U/L (15-37) Alanine Aminotransferase (ALT/SGPT) 20 U/L (14-59) Alkaline Phosphatase 94 U/L (46-116) Total Protein 6.4 g/dL (6.4-8.2) Albumin 3.0 g/dL (3.4-5.0) Albumin/Globulin Ratio 0.9 (1.0-1.7) Laboratory Tests Test 04/24/18 09:50 White Blood Count 8.5 x10^3/uL (4.0-11.0) Red Blood Count 4.02 x10^6/uL (3.50-5.40) Hemoglobin 14.0 g/dL (12.0-15.5) Hematocrit 40.5 % (36.0-47.0) Mean Corpuscular Volume 101 fL (79-100) Mean Corpuscular Hemoglobin 35 pg (25-35) Mean Corpuscular Hemoglobin Concent 35 g/dL (31-37) Red Cell Distribution Width 12.9 % (11.5-14.5) Platelet Count 180 x10^3/uL (140-400) Neutrophils (%) (Auto) 68 % (31-73) Lymphocytes (%) (Auto) 21 % (24-48) Monocytes (%) (Auto) 7 % (0-9) Eosinophils (%) (Auto) 3 % (0-3) Basophils (%) (Auto) 1 % (0-3) Neutrophils # (Auto) 5.8 x10^3uL (1.8-7.7) Lymphocytes # (Auto) 1.8 x10^3/uL (1.0-4.8) Monocytes # (Auto) 0.6 x10^3/uL (0.0-1.1) Eosinophils # (Auto) 0.3 x10^3/uL (0.0-0.7) Basophils # (Auto) 0.1 x10^3/uL (0.0-0.2) Sodium Level 142 mmol/L (136-145) Potassium Level 4.2 mmol/L (3.5-5.1) Chloride Level 106 mmol/L (98-107) Carbon Dioxide Level 27 mmol/L (21-32) Anion Gap 9 (6-14) Blood Urea Nitrogen 17 mg/dL (7-20) Creatinine 1.1 mg/dL (0.6-1.0) Estimated GFR (Cockcroft-Gault) 52.2 BUN/Creatinine Ratio 15 (6-20) Glucose Level 107 mg/dL (70-99) Calcium Level 8.8 mg/dL (8.5-10.1) Total Bilirubin 0.5 mg/dL (0.2-1.0) Aspartate Amino Transf (AST/SGOT) 19 U/L (15-37) Alanine Aminotransferase (ALT/SGPT) 20 U/L (14-59) Alkaline Phosphatase 94 U/L (46-116) Total Protein 6.4 g/dL (6.4-8.2) Albumin 3.0 g/dL (3.4-5.0) Albumin/Globulin Ratio 0.9 (1.0-1.7) Medications Current Medications Oxycodone/ Acetaminophen (Percocet 5/325) 1 tab 1X ONCE PO Last administered on 04/20/18at 17:50; Start 04/20/18 at 17:30; Stop 04/20/18 at 17:31; Status DC Sodium Chloride 1,000 ml @ 1,000 mls/hr 1X ONCE IV Last administered on 04/20at 18:09; Start 04/20/18 at 18:00; Stop 04/20/18 at 18:59; Status DC Lorazepam (Ativan) 0.5 mg 1X ONCE IV Last administered on 04/20/18at 18:14; Start 04/20/18 at 18:00; Stop 04/20/18 at 18:02; Status DC Sodium Chloride 1,000 ml @ 1,000 mls/hr 1X ONCE IV Last administered on 04/20at 19:30; Start 04/20/18 at 19:15; Stop 04/20/18 at 20:14; Status DC Lorazepam (Ativan) 1 mg 1X ONCE IV Last administered on 04/20/18at 19:56; Start 04/20/18 at 19:45; Stop 04/20/18 at 19:46; Status DC Multivitamins 10 ml/Thiamine HCl 100 mg/Folic Acid 1 mg/Sodium Chloride 1,011.2 ml @ 1,000.088 mls/hr 1X ONCE IV Last administered on 04/20/18at 20:42; Start 04/20/18 at 19:45; Stop 04/20/18 at 20:45; Status DC Ondansetron HCl (Zofran) 4 mg PRN Q8HRS PRN IV NAUSEA/VOMITING 1ST CHOICE Last administered on 04/20/18at 20:47; Start 04/20/18 at 20:30; Stop 04/21/18 at 08 :32; Status DC Fentanyl Citrate (Fentanyl 2ml Vial) 50 mcg PRN Q4HRS PRN IV SEVERE PAIN Last administered on 04/20/18at 20:48; Start 04/20/18 at 20:30; Stop 04/22/18 at 19 :52; Status DC Ondansetron HCl (Zofran) 4 mg STK-MED ONCE .ROUTE ; Start 04/20/18 at 20:45; Stop 04/20/18 at 20:46; Status DC Fentanyl Citrate (Fentanyl 2ml Vial) 100 mcg STK-MED ONCE .ROUTE ; Start at 20:45; Stop 04/20/18 at 20:46; Status DC Heparin Sodium/ Dextrose 500 ml @ 0 mls/hr CONT PRN IV SEE I/O RECORD Last administered on 04/22/18at 01:49; Start 04/20/18 at 21:45; Stop 04/22/18 at 10 :37; Status DC Heparin Sodium (Porcine) (Heparin Sodium) 4,000 unit 1X ONCE IV Last administered on 04/20/18at 22:03; Start 04/20/18 at 22:00; Stop 04/20/18 at 22 :01; Status DC Benzonatate (Tessalon Perle) 100 mg [id number] PO Last administered on 04/24/18at 08:36; Start 04/20/18 at 23:30 Guaifenesin (Robitussin Dm) 10 ml PRN Q6HRS PRN PO COUGH 1ST CHOICE Last administered on 04/24/18at 03:55; Start 04/20/18 at 23:00 Nicotine (Nicoderm Cq 21mg) 1 patch PRN DAILY PRN TD SMOKING CESSATION Last administered on 04/22/18at 09:08; Start 04/20/18 at 23:00 Oxycodone/ Acetaminophen (Percocet 5/325) 1 tab PRN Q4HRS PRN PO SEVERE PAIN Last administered on 04/20/18at 23:41; Start 04/20/18 at 23:00; Stop 04/21/18 at 08:34; Status DC Lorazepam (Ativan) 2 mg PRN Q6HRS PRN IV SEVERE ANXIETY / AGITATION Last administered on 04/20/18at 23:44; Start 04/20/18 at 23:00; Stop 04/22/18 at 19 :52; Status DC Lorazepam (Ativan) 2 mg PRN Q6HRS PRN PO SEVERE ANXIETY / AGITATION Last administered on 04/23/18at 20:53; Start 04/20/18 at 23:00 Lorazepam (Ativan) 1 mg PRN Q6HRS PRN PO MODERATE ANXIETY / AGITATION Last administered on 04/24/18at 03:55; Start 04/20/18 at 23:00 Lorazepam (Ativan) 1 mg PRN Q6HRS PRN IV MODERATE ANXIETY; Start 04/20/18 at 23:00; Stop 04/22/18 at 19:52; Status DC Sodium Chloride 1,000 ml @ 100 mls/hr Q10H IV Last administered on 04/22/18at 09:13; Start 04/20/18 at 23:00; Stop 04/22/18 at 19:52; Status DC Iohexol (Omnipaque 300 Mg/ml) 75 ml 1X ONCE IV Last administered on at 00:18; Start 04/21/18 at 00:15; Stop 04/21/18 at 00:16; Status DC Info (CONTRAST GIVEN -- Rx MONITORING) 1 each PRN DAILY PRN MC SEE COMMENTS; Start 04/20/18 at 23:45; Stop 04/22/18 at 23:44; Status DC Influenza Virus Vaccine (Afluria Trivalent [id number] Syringe) 0.5 ml ONCE ONCE VAX IM ; Start 04/21/18 at 09:00; Stop 04/21/18 at 09:01; Status DC Iohexol (Omnipaque 300 Mg/ml) 100 ml STK-MED ONCE .ROUTE ; Start 04/21/18 at 06 :32; Stop 04/21/18 at 06:33; Status DC Info (Anti-Coagulation Monitoring By Pharmacy) 1 each PRN DAILY PRN MC SEE COMMENTS Last administered on 04/21/18at 14:29; Start 04/21/18 at 08:30; Stop 04/22/18 at 10:38; Status DC Ondansetron HCl (Zofran) 4 mg PRN Q6HRS PRN IV NAUSEA/VOMITING 1ST CHOICE; Start 04/21/18 at 08:45 Acetaminophen (Tylenol) 500 mg PRN Q6HRS PRN PO MILD PAIN / TEMP; Start at 08:30 Thiamine Mononitrate (Vitamin B-1) 100 mg DAILY PO Last administered on at 08:36; Start 04/21/18 at 09:00 Folic Acid (Folic Acid) 1 mg DAILY PO Last administered on 04/24/18at 08:35; Start 04/21/18 at 09:00 Multivitamins (Thera M Plus) 1 tab DAILY PO Last administered on 04/24/18at 08: 36; Start 04/21/18 at 09:00 Nicotine (Nicoderm Cq 21mg) 1 patch PRN DAILY PRN TD SMOKING CESSATION; Start 04/21/18 at 08:30; Status UNV Oxycodone/ Acetaminophen (Percocet 10/325) 1 tab PRN Q4HRS PRN PO PAIN MODERATE TO SEVERE Last administered on 04/24/18at 08:36; Start 04/21/18 at 08: 45 Active Scripts Active Vitals/I & O Vital Sign - Last 24 Hours 04/23/18 04/23/18 04/23/18 04/23/18 10:55 14:29 15:00 19:00 Temp 98.0 97.9 98.3 98.0 97.9 98.3 Pulse 74 75 77 Resp 20 18 20 16 B/P (MAP) 110/58 (75) 112/60 (77) 125/87 (100) Pulse Ox 93 93 94 97 O2 Delivery Room Air Room Air Room Air Room Air 04/23/18 04/23/18 04/23/18 04/24/18 20:07 20:54 23:00 02:59 Temp 98.1 98.1 98.1 98.1 Pulse 68 72 Resp 18 18 17 B/P (MAP) 121/84 (96) 121/83 (96) Pulse Ox 97 95 96 O2 Delivery Room Air Room Air Room Air Room Air 04/24/18 04/24/18 04/24/18 04/24/18 03:56 05:32 07:40 08:00 Temp 98.1 98.1 Pulse 75 Resp 18 18 16 B/P (MAP) 109/74 (86) Pulse Ox 96 96 93 O2 Delivery Room Air Room Air Room Air Room Air 04/24/18 08:36 O2 Delivery Room Air Intake and Output 04/23/18 04/23/18 04/24/18 15:00 23:00 07:00 Intake Total 1200 ml 800 ml 480 ml Output Total 500 ml 300 ml Balance 1200 ml 300 ml 180 ml GONZALEZ WILLIAMSON MD Apr 24, 2018 10:52
[2018-04-24 11:00] VITALS: BP 111/74
== END 2018-04-24 14:35 | disposition home or self-care (01) | DRG 917 ==
LOC: ER 15:44 → 5 SOUTH 20:08
PROVIDERS: ADMIT Internal Medicine; ATTEND Internal Medicine
DX: T40.7X1A Poisoning by cannabis (derivatives), accidental (unintentional), initial encounter (principal); G92 Toxic encephalopathy; I21.4 Non-ST elevation (NSTEMI) myocardial infarction; K50.90 Crohn's disease, unspecified, without complications; G89.4 Chronic pain syndrome; R00.0 Tachycardia, unspecified; M19.90 Unspecified osteoarthritis, unspecified site; J44.9 Chronic obstructive pulmonary disease, unspecified; G40.909 Epilepsy, unspecified, not intractable, without status epilepticus; F17.210 Nicotine dependence, cigarettes, uncomplicated; F10.129 Alcohol abuse with intoxication, unspecified; E86.0 Dehydration; T43.621A Poisoning by amphetamines, accidental (unintentional), initial encounter; H54.8 Legal blindness, as defined in USA; Z98.51 Tubal ligation status; Z90.49 Acquired absence of other specified parts of digestive tract; Z88.6 Allergy status to analgesic agent; Y92.89 Other specified places as the place of occurrence of the external cause; Z88.8 Allergy status to other drugs, medicaments and biological substances; Z79.899 Other long term (current) drug therapy; Z59.0 Homelessness
CPT/HCPCS: 36415; 71275; 80048; 80053; 80061; 80307; 81001; 83735; 84484; 85025; 85520; 87641; 93005; 93306; 96361; 96365; 96375; 96376; G0480; J1644; J2060; J2405; J3010; J7030; Q9967; 99285-25; G0479

== ENCOUNTER → 2018-09-13 | Outpatient (CLI) | payer MEDICAID, OTHER ==
[~2018-09-13] MED LIST: ATOR20TA PO; CLON0.5T11 PO; CLOP75TA PO; FOLI1TAB16 PO; HYDR-2759 PO; IBUP-1007 PO; LINE600T PO; ONDA4TAB7 PO; PHEN100C PO; PIPE3.377 IV; THIA100T22 PO; TRAM-48 PO
--- NOTE | 2018-09-13 13:44 | RAD ---
CT of the chest without contrast 09/13/2018 INDICATION: Treatment, lung cancer. COMPARISON STUDY: CT angiography of the chest April 13, 2018 TECHNIQUE: Multidetector CT imaging of the chest was performed without the administration of IV contrast. FINDINGS: Heart size is normal. No pericardial effusion is identified. Scattered coronary calcification is noted. Scattered small mediastinal lymph nodes are seen without evidence of pathologically enlarged mediastinal adenopathy. There is no pneumothorax, pleural effusion, or focal consolidative infiltrate identified. Centrilobular emphysematous changes. The present. Small calcified lymph nodes noted in the right upper lobe. No other nodules or masses are identified. Limited visualization of the upper abdomen demonstrates no acute abnormality. 2 mm nonobstructing stone noted in the partially visualized left kidney. Lobulated contour to the spleen is incidentally noted. No acute osseous changes are identified. IMPRESSION: No evidence of acute cardiopulmonary process is identified CT DOSING PQRS STATEMENT: One or more of the following individualized dose reduction techniques were utilized for this examination: 1. Automated exposure control 2. Adjustment of the mA and/or kV according to patient size 3. Use of iterative reconstruction technique Electronically signed by: Wilber Nieto MD (09/13/2018 1:42 PM) [id number]
== END | disposition home or self-care (01) ==
LOC: EDBD → CT 12:41
PROVIDERS: ATTEND Internal Medicine Hematology & Oncology
DX: C34.91 Malignant neoplasm of unspecified part of right bronchus or lung (principal); J43.2 Centrilobular emphysema; I25.10 Atherosclerotic heart disease of native coronary artery without angina pectoris; R59.0 Localized enlarged lymph nodes
CPT/HCPCS: 71250

== ENCOUNTER 2018-09-17 13:35 | Inpatient (IN) | payer MEDICAID, OTHER ==
[~2018-09-17] VITALS: Ht 163.8 cm; Wt 74.4 kg
[~2018-09-17 13:35] MED LIST changes: -CLON0.5T11 PO; -CLOP75TA PO; -HYDR-2759 PO; -LINE600T PO; -ONDA4TAB7 PO; -PHEN100C PO; -PIPE3.377 IV
[2018-09-17] MEDS: HYDROcodone/APAP 5/325MG 1 TAB TABLET PO PRN (16:51)
--- NOTE | 2018-09-17 17:40 | NUR ---
[facility]. Patient assisted to move to bed with minimal assist. Patient accompanied by Roller Bearing Inspector Bren who states patient stays at [facility] where they have been helping patient to apply for SSI. She now has physician Dr. Evans who had patient see Dr. Lin in consult per Roller Bearing Inspector Bren, patient was to have Barium Swallow today, but "she banged her foot and was in too much pain to have procedure, so I took her to the ER." Patient is poor historian, states she is not on any medications. See admission assessment, nursing communication and orders. Patient verb. understanding fall protocol, fall contract witnessed. Patient received patient release of information code and patient admit folder/hospital information. Side rails up times two, call light at hand with nurse button marked with taped cotton ball over due to her impaired vision, patient verb. understanding use. Bed alarm set. Patient refused dressing to left foot to cover left fifth toe laceration, stating a dressing makes her foot hurt too much.
[2018-09-17 17:57] LABS: BASO % 1 % (0-3); EOS # 0.2 x10^3/uL (0.0-0.7); EOS % 2 % (0-3); HEMATOCRIT 42.5 % (36.0-47.0); HEMOGLOBIN 14.2 g/dL (12.0-15.5); LYMPH # 2.2 x10^3/uL (1.0-4.8); LYMPH % 25 % (24-48); MEAN CORPUSCULAR HEMOGLOBIN 33 pg (25-35); MEAN CORPUSCULAR HGB CONC 33 g/dL (31-37); MEAN CORPUSCULAR VOLUME 99 fL (79-100); MONO # 0.7 x10^3/uL (0.0-1.1); MONO % 8 % (0-9); NEUT # 5.8 x10^3uL (1.8-7.7); NEUT % 64 % (31-73); PLATELET COUNT 301 x10^3/uL (140-400); RED BLOOD COUNT 4.28 x10^6/uL (3.50-5.40); RED CELL DISTRIBUTION WIDTH 14.2 % (11.5-14.5); WHITE BLOOD COUNT 8.9 x10^3/uL (4.0-11.0)
[2018-09-17 18:10] LABS: ALBUMIN 2.5 g/dL (3.4-5.0); ALBUMIN/GLOBULIN RATIO 0.6 (1.0-1.7); CALCIUM 8.8 mg/dL (8.5-10.1); CREATININE 0.9 mg/dL (0.6-1.0); GFR 65.8; TOTAL BILIRUBIN 0.2 mg/dL (0.2-1.0); TOTAL PROTEIN 6.4 g/dL (6.4-8.2)
[2018-09-17 18:19] VITALS: BP 124/87
[2018-09-17 20:05] VITALS: BP 99/63
--- NOTE | 2018-09-17 20:56 | NUR ---
Pt was handed hydrocodone and she asked whats the med and she was informed that its hydrocodone and pt refused claiming that what she had earlier was a bigger tablet. pt is visually impaired. She was informed that it might be a different nurses' registry director and sometimes it comes in different sizes. Pt irritated, wont take hydrocodone and said it doesnt work and asked for Morphine with a pain of 10/10. Informed doctor will be paged for orders.
[2018-09-17] MEDS: MORPHINE SULFATE 4 MG/ML VIAL. IV PRN (21:30)
[2018-09-17] MEDS ORDERED: PHEN100C PO (21:42)
[2018-09-17] MEDS ORDERED: clonazePAM 0.5 MG TABLET PO ONE (22:00)
[2018-09-17] MEDS: PHENYTOIN SODIUM EXTENDED 100 MG CAPSULE PO SCH (22:46)
[2018-09-17 22:51] VITALS: BP 120/55
[2018-09-18] MEDS: HYDROcodone/APAP 5/325MG 1 TAB TABLET PO PRN ×2 (00:55→21:10)
[2018-09-18] MEDS: MORPHINE SULFATE 4 MG/ML VIAL. IV PRN ×6 (01:30→22:32)
[2018-09-18 03:00] VITALS: BP 118/59
[2018-09-18 07:15] VITALS: BP 130/69
[2018-09-18] MEDS: PHENYTOIN SODIUM EXTENDED 100 MG CAPSULE PO SCH ×2 (08:29→21:12)
--- NOTE | 2018-09-18 10:10 | RAD ---
Ultrasound bilateral lower extremity arterial Doppler September 18, 2018 INDICATION: Peripheral vascular disease, wounds. COMPARISON: None available TECHNIQUE: Multiple sonographic images of the bilateral lower extremities were obtained utilizing grayscale, color Doppler and spectral waveform analysis. FINDINGS: Right: Monophasic waveforms identified throughout the right lower extremity suggestive of peripheral arterial disease. The systolic velocities are provided below (CM per second) Common femoral artery: 197 Deep femoral artery: 115 Superficial femoral artery, proximal: 120 Superficial femoral artery, mid: 97 Superficial femoral artery, distal: 75 Popliteal artery: 64 Posterior tibial artery, proximal: 44 Posterior tibial artery, distal: 35 Anterior tibial artery: 32 Dorsalis pedis artery: 34 Left: There is a hypoechoic mass within the left groin measuring 2.5 x 2.0 x 0.9 cm which may represent a enlarged lymph node. There is an anechoic fluid collection seen in the popliteal fossa measuring 2.4 x 1.5 x 1.6 cm which may represent a popliteal cyst. There is monophasic waveforms of the left lower extremity with peak systolic velocity is provided below (CM per second) Common femoral artery: 114 Deep femoral artery: 75 Superficial femoral artery, proximal: 78 Superficial femoral artery, mid: 70 Superficial femoral artery, distal: 99 Popliteal artery: 59 Posterior tibial artery, proximal: 60 Posterior tibial artery, distal: 48 Inches anterior tibial artery: 102 Dorsalis pedis artery: 36 Peroneal artery: 22 IMPRESSION: 1. Monophasic waveforms are identified throughout the bilateral lower extremities suggestive of peripheral arterial disease. There is focal increase in velocity involving the left anterior tibial artery which may reflect a moderate to high-grade proximal stenosis. 2. There is an enlarged left groin lymph node measuring 2.5 x 2.0 x 0.9 cm. Consideration may be given for reactive lymphadenopathy. A 3 month follow-up ultrasound may be of benefit to assess stability. 3. Left popliteal cyst measures 3.4 x 1.5 x 1.6 cm. Electronically signed by: Bhavna Garcia MD (09/18/2018 10:06 AM) [id number]
--- NOTE | 2018-09-18 10:12 | RAD ---
LEFT FOOT AP LATERAL OBLIQUE Clinical Indication: gangrene lt foot Comparison: None. Findings: There is bony erosion of the medial tuft of the great toe distal phalanx. Question small amount of subcutaneous air in the adjacent soft tissues. There is no acute fracture or dislocation. The bony alignment is normal. The mineralization is normal. IMPRESSION: Bony erosion of the medial tuft of the great toe distal phalanx suspicious for osteomyelitis. Electronically signed by: Ced Hernandez MD (09/18/2018 10:09 AM) [id number]
--- NOTE | 2018-09-18 10:19 | PDOC2 ---
CONSULT Date of Consult Date of Consult DATE: 09/18/18 TIME: 10:12 Reason for Consult Reason for Consult: Gangrene of left foot Referring Physician Referring Physician: Denis Identification/Chief Complaint Chief Complaint Left foot pain Source Source: Chart review, Patient History of Present Illness Reason for Visit: Patient is a pleasant 53-year-old female with multiple medical comorbidities who was admitted for left foot pain and ischemic changes at her left forefoot. She has undergone a prior right transmetatarsal amputation and what sounds like attempts at revascularization, although exact details are uncertain as she is a poor historian regarding this. Regardless, she has noticed a change in her toes and worsening toe pain over the past couple weeks, it has been getting worse. She also tells me that her caps her and her crampy when she is walking. She does have pain at rest in her forefoot. She has not noticed any drainage. Past Medical History Cardiovascular: No pertinent hx, [place] Pulmonary: No pertinent hx, Other (history of lung cancer) CENTRAL NERVOUS SYSTEM: CVA GI: No pertinent hx, GERD Heme/Onc: No pertinent hx Hepatobiliary: No pertinent hx Psych: No pertinent hx Musculoskeletal: Osteoarthritis, Other Rheumatologic: No pertinent hx Infectious disease: No pertinent hx Renal/: No pertinent hx Endocrine: No pertinent hx Dermatology: No pertinent hx Past Surgical History Past Surgical History: Other (she has had surgery for ovarian issues, right transmetatarsal amputation, she describes surgery that sounds like either angioplasty or revascularization with a bypass,), No pertinent history Family History Family History: Heart Disease, Family History Unknown Social History 1 pack per day ALCOHOL: occassional Drugs: None Lives: Homeless Current Medications Current Medications Current Medications Acetaminophen/ Hydrocodone Bitart (Lortab 5/325) 1 tab PRN Q4HRS PRN PO PAIN Last administered on 09/18/18at 00:55; Start 09/17/18 at 16:30 Morphine Sulfate (Morphine Sulfate) 4 mg PRN Q4HRS PRN IV MODERATE TO SEVERE PAIN Last administered on 09/18/18at 09:50; Start 09/17/18 at 21:15 Phenytoin Sodium (Dilantin) 100 mg BID PO Last administered on 09/18/18at 08:29 ; Start 09/17/18 at 22:00 Clonazepam (KlonoPIN) 0.5 mg 1X ONCE PO Last administered on 09/17/18at 22:45; Start 09/17/18 at 22:00; Stop 09/17/18 at 22:01; Status DC Active Scripts Active Reported Dilantin (Phenytoin Sodium Extended) 100 Mg Capsule 1 Cap PO BID Allergies Allergies: Coded Allergies: aspirin (Verified Adverse Reaction, Intermediate, n/v, 04/20/18) ketorolac (Verified Adverse Reaction, Intermediate, n/v, 04/20/18) ROS General: No: Chills, Night Sweats, Fatigue, Malaise, Appetite, Other PSYCHOLOGICAL ROS: No: Anxiety, Behavioral Disorder, Concentration difficultie , Decreased libido, Depression, Disorientation, Hallucinations, Hostility, Irritablity, Memory difficulties, Mood Swings, Obsessive thoughts, Physical abuse, Sexual abuse, Sleep disturbances, Suicidal ideation, Other Eyes: Yes Decreased vision HEENT: No: Heacaches, Visual Changes, Hearing change, Nasal congestion, Nasal discharge, Oral lesions, Sinus pain, Sore Throat, Epistaxis, Sneezing, Snoring, Tinnitus, Vertigo, Vocal changes, Other ALLERGY AND IMMUNOLOGY: No: Hives, Insect Bite Sensitivity, Itchy/Watery Eyes, Nasal Congestion, Post Nasal Drip, Seasonal Allergies, Other Hematological and Lymphatic: YES: Blood Clots ENDOCRINE: No: Breast Changes, Galactorrhea, Hair Pattern Changes, Hot Flashes , Malaise/lethargy, Mood Swings, Palpitations, Polydipsia/polyuria, Skin Changes , Temperature Intolerance, Unexpected Weight Changes, Other Breast: No New/Changing Breast Lumps, No Nipple changes, No Nipple discharge, No Other Respiratory: No: Cough, Hemoptysis, Orthopnea, Pleuritic Pain, Shortness of breath, SOB with excertion, Sputum Changes, Stridor, Tachypnea, Wheezing, Other Cardiovascular: No Chest Pain, No Palpitations, No Orthopnea, No Paroxysmal Noc. Dyspnea, No Edema, No Lt Headedness, No Other Gastrointestinal: No Nausea, No Vomiting, No Abdominal Pain, No Diarrhea, No Constipation, No Melena, No Hematochezia, No Other Genitourinary: YES Incontinence Musculoskeletal: Yes Joint Pain Neurological: Yes Confusion Skin: Yes Nail Changes Physical Exam General: Alert, Oriented X3, mild distress HEENT: Atraumatic, EOMI Lungs: Other (respirations are unlabored with symmetric chest rise) Heart: Regular rate Abdomen: Soft, No tenderness Extremities: Other (unable to palpate dorsalis pedis on either foot) Neuro: Normal speech, Strength at 5/5 X4 ext, Sensation intact Psych/Mental Status: Mental status NL, Mood NL MUSCULOSKELETAL: Other (examination of her bilateral lower extremities reveals no obvious edema. Transmetatarsal amputation on the right side. She has old scattered incisions consistent with venous or vascular bypass surgery on her legs. Examination of her left foot reveals ischemic changes to her forefoot) Vitals VITALS Vital Signs Date Time Temp Pulse Resp B/P (MAP) Pulse Ox O2 Delivery O2 Flow Rate FiO2 09/18/18 09:50 18 Room Air 09/18/18 07:15 99.0 78 130/69 (89) 95 99.0 Labs Labs Laboratory Tests Test 09/17/18 17:40 White Blood Count 8.9 x10^3/uL (4.0-11.0) Red Blood Count 4.28 x10^6/uL (3.50-5.40) Hemoglobin 14.2 g/dL (12.0-15.5) Hematocrit 42.5 % (36.0-47.0) Mean Corpuscular Volume 99 fL (79-100) Mean Corpuscular Hemoglobin 33 pg (25-35) Mean Corpuscular Hemoglobin Concent 33 g/dL (31-37) Red Cell Distribution Width 14.2 % (11.5-14.5) Platelet Count 301 x10^3/uL (140-400) Neutrophils (%) (Auto) 64 % (31-73) Lymphocytes (%) (Auto) 25 % (24-48) Monocytes (%) (Auto) 8 % (0-9) Eosinophils (%) (Auto) 2 % (0-3) Basophils (%) (Auto) 1 % (0-3) Neutrophils # (Auto) 5.8 x10^3uL (1.8-7.7) Lymphocytes # (Auto) 2.2 x10^3/uL (1.0-4.8) Monocytes # (Auto) 0.7 x10^3/uL (0.0-1.1) Eosinophils # (Auto) 0.2 x10^3/uL (0.0-0.7) Basophils # (Auto) 0.0 x10^3/uL (0.0-0.2) Sodium Level 142 mmol/L (136-145) Potassium Level 4.0 mmol/L (3.5-5.1) Chloride Level 107 mmol/L (98-107) Carbon Dioxide Level 27 mmol/L (21-32) Anion Gap 8 (6-14) Blood Urea Nitrogen 19 mg/dL (7-20) Creatinine 0.9 mg/dL (0.6-1.0) Estimated GFR (Cockcroft-Gault) 65.8 BUN/Creatinine Ratio 21 (6-20) Glucose Level 116 mg/dL (70-99) Calcium Level 8.8 mg/dL (8.5-10.1) Total Bilirubin 0.2 mg/dL (0.2-1.0) Aspartate Amino Transf (AST/SGOT) 15 U/L (15-37) Alanine Aminotransferase (ALT/SGPT) 12 U/L (14-59) Alkaline Phosphatase 108 U/L (46-116) Total Protein 6.4 g/dL (6.4-8.2) Albumin 2.5 g/dL (3.4-5.0) Albumin/Globulin Ratio 0.6 (1.0-1.7) Laboratory Tests Test 09/17/18 17:40 White Blood Count 8.9 x10^3/uL (4.0-11.0) Red Blood Count 4.28 x10^6/uL (3.50-5.40) Hemoglobin 14.2 g/dL (12.0-15.5) Hematocrit 42.5 % (36.0-47.0) Mean Corpuscular Volume 99 fL (79-100) Mean Corpuscular Hemoglobin 33 pg (25-35) Mean Corpuscular Hemoglobin Concent 33 g/dL (31-37) Red Cell Distribution Width 14.2 % (11.5-14.5) Platelet Count 301 x10^3/uL (140-400) Neutrophils (%) (Auto) 64 % (31-73) Lymphocytes (%) (Auto) 25 % (24-48) Monocytes (%) (Auto) 8 % (0-9) Eosinophils (%) (Auto) 2 % (0-3) Basophils (%) (Auto) 1 % (0-3) Neutrophils # (Auto) 5.8 x10^3uL (1.8-7.7) Lymphocytes # (Auto) 2.2 x10^3/uL (1.0-4.8) Monocytes # (Auto) 0.7 x10^3/uL (0.0-1.1) Eosinophils # (Auto) 0.2 x10^3/uL (0.0-0.7) Basophils # (Auto) 0.0 x10^3/uL (0.0-0.2) Sodium Level 142 mmol/L (136-145) Potassium Level 4.0 mmol/L (3.5-5.1) Chloride Level 107 mmol/L (98-107) Carbon Dioxide Level 27 mmol/L (21-32) Anion Gap 8 (6-14) Blood Urea Nitrogen 19 mg/dL (7-20) Creatinine 0.9 mg/dL (0.6-1.0) Estimated GFR (Cockcroft-Gault) 65.8 BUN/Creatinine Ratio 21 (6-20) Glucose Level 116 mg/dL (70-99) Calcium Level 8.8 mg/dL (8.5-10.1) Total Bilirubin 0.2 mg/dL (0.2-1.0) Aspartate Amino Transf (AST/SGOT) 15 U/L (15-37) Alanine Aminotransferase (ALT/SGPT) 12 U/L (14-59) Alkaline Phosphatase 108 U/L (46-116) Total Protein 6.4 g/dL (6.4-8.2) Albumin 2.5 g/dL (3.4-5.0) Albumin/Globulin Ratio 0.6 (1.0-1.7) Images Images X-rays and vascular ultrasound were reviewed Assessment/Plan Assessment/Plan Forefoot ischemia. She does have symptoms of claudication, given her history of AR and prior peripheral vascular disease, I would really appreciate the vascular surgery team evaluating this patient to see if there is any interventions that may be able to help this patient. I will await their evaluation and recommendations prior to any interventions from my standpoint. VERNA DUVALL II, MD Sep 18, 2018 10:19
[2018-09-18] MEDS ORDERED: ONDANSETRON PF 4 MG/2 ML VIAL. IV PRN (11:00)
[2018-09-18] MEDS ORDERED: PIPERACILLIN/TAZOBACTAM 3.375 GM in IV NORMAL SALINE 50ML 50 ML IV SCH (11:00)
[2018-09-18 11:02] VITALS: BP 108/78
--- NOTE | 2018-09-18 11:26 | HP ---
ADMIT DATE: 09/18/2018 HISTORY OF PRESENT ILLNESS: The patient is a 53-year-old female patient who was evaluated initially at [facility] and she presented there complaining of pain in her left foot. She apparently was noted to have discolored toes that are gangrenous and therefore, the patient was transferred to [facility] to consult the orthopedic surgeon as well as the vascular surgeon. PAST MEDICAL HISTORY: Significant for hypertension, borderline diabetes mellitus. 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 PAST SURGICAL HISTORY: Significant for ganglion cyst removal from the right wrist, appendectomy, right forefoot amputation as well as multiple cysts removal from the right ovary. ALLERGIES: She is allergic to ASPIRIN and TORADOL. MEDICATIONS: The patient is on phenytoin 100 mg twice a day. She is not on any other medication. FAMILY HISTORY: She has one brother and one sister, both . She is not sure whether her parents are still alive or not. She has not seen them for long time. SOCIAL HISTORY: Single, has never . She has 2 daughters and 1 son. She smokes up to 10 cigarettes a day. She does not drink alcohol or recreational drugs. [facility] lives [facility] in [place]. REVIEW OF SYSTEMS: The patient has marked visual impairment more on the right eye then left; however, she denied any cataract, glaucoma or macular degeneration. Denied any earache, tinnitus, or sensorineural deafness. Denied any nosebleeds, stuffy nose or postnasal drip. Denied any sore throat, sore tongue, toothache, hoarseness of voice or difficulty swallowing. Denied any nausea, vomiting, diarrhea or constipation. Denied any hematemesis, melena, or hematochezia. Denied any dysuria, frequency, or hematuria. Denied any chest pain, shortness of breath, orthopnea, paroxysmal nocturnal dyspnea. Denied any cough, phlegm, or hemoptysis. PHYSICAL EXAMINATION: GENERAL: On arrival to the hospital, she looked well and was clearly in no apparent respiratory distress. No pallor, jaundice, cyanosis, or thyromegaly. No jugular venous distention. No limb edema. VITAL SIGNS: Her heart rate was 68, blood pressure was 124/87, temperature was 99, respiratory rate was 21 and oxygen saturation was 97% on room air. HEENT: Showed normocephalic, atraumatic. NECK: Supple. HEART: Showed normal first and second heart sounds with no gallop, rub or murmur. CHEST: Clear to auscultation. No crepitation or rhonchi. ABDOMEN: Distended, soft, nontender. NEUROLOGIC: She has marked visual impairment; however, all other cranial nerves are intact. EXTREMITIES: She moves extremities without difficulty. She has right forefoot amputation. Her left toes are discolored. LABORATORY DATA: As of yesterday showed a white cell count of 8900, hemoglobin 14, hematocrit 42, MCV 99 and platelet count of 301,000. Her chemistry showed a serum sodium 142, potassium 4, chloride 107, bicarbonate 27, anion gap of 8, BUN 19, creatinine 0.9, estimated GFR was 66 mL per minute. Her glucose was 116, calcium was 8.8. Total bilirubin, AST, ALT, alkaline phosphatase were normal. Total protein was 6.4, albumin was 2.5. Her x-ray of the left foot showed that there are bony erosions in the medial tuft to the great toe distal phalanx, question small amount of subcutaneous air in the adjacent soft tissue. There is no acute fracture or dislocation. The bony alignment is normal. The mineralization is normal. Bony erosion of the medial tuft to the great toe distal phalanx suspicious for osteomyelitis. She has had arterial Doppler ultrasound, which showed that she has monophasic waveforms identified throughout the bilateral lower extremity suggestive of peripheral arterial disease. His focal increase in velocity involving the left anterior tibial artery, which may reflect moderate to high-grade proximal stenosis. There is an enlarged left groin lymph node measuring 2.5 x 2 x 0.9 cm. Consideration may be given to reactive lymphadenopathy, a 3-month followup ultrasound may be benefit to assess stability. She has left gluteal cyst measuring 3.4 x 1.5 x 1.6. IMPRESSION AND PLAN: In summary, this is a 53-year-old female patient with severe peripheral vascular disease with ischemia of her left foot and possible osteomyelitis. I did consult the orthopedic surgeon. We will consult the vascular surgeon as well as Infectious Disease and decide the further management accordingly. JHOANA NEELY MD DR: JASSI/isabel JOB#: [id number] / [id number]
[2018-09-18] MEDS ORDERED: VANCOMYCIN 1.75 GM in IV NORMAL SALINE 500ML BAG 500 ML IV ONE (11:30)
--- NOTE | 2018-09-18 12:43 | PDOC2 ---
CONSULT Date of Consult Date of Consult DATE: 09/18/18 TIME: 12:34 Reason for Consult Reason for Consult: Left foot discoloration of toes, gangrene Referring Physician Referring Physician: [facility] hospitalist Identification/Chief Complaint Chief Complaint Left foot pain and discoloration of the toes Source Source: Chart review, Patient History of Present Illness Reason for Visit: Patient is a 53-year-old woman with history of anemia, tobacco abuse, COPD, and right lower extremity transmetatarsal amputation who was admitted for discoloration of the toes of the left foot. She states that this is been getting slowly worse over the last several days. She denies any fever, chills, rigors. She denies any ischemic rest pain. She denies any history of lower [place] claudication. She smokes about 1/2-1 pack a day and has been smoking since 20 years old. She has a history of seizures. Her only medication is phenytoin. She states that she is "borderline" diabetic does not check her blood sugar regularly. She tells me she has been told she has COPD in the past, is not on oxygen at home. Past Medical History Cardiovascular: No pertinent hx, HTN, [place] Pulmonary: No pertinent hx, COPD, Other (history of lung cancer) CENTRAL NERVOUS SYSTEM: CVA GI: No pertinent hx, GERD Heme/Onc: No pertinent hx Hepatobiliary: No pertinent hx Psych: No pertinent hx Musculoskeletal: Osteoarthritis, Other Rheumatologic: No pertinent hx Infectious disease: No pertinent hx Renal/: No pertinent hx Endocrine: No pertinent hx, Other Dermatology: No pertinent hx Past Surgical History Past Surgical History: Appendectomy, Other (she has had surgery for ovarian issues, right transmetatarsal amputation, she describes surgery that sounds like either angioplasty or revascularization with a bypass,), No pertinent history Family History Family History: Heart Disease, Family History Unknown Social History 1 pack per day ALCOHOL: occassional Drugs: None Lives: Homeless Domestic Violence: Neg Current Medications Current Medications Current Medications Acetaminophen/ Hydrocodone Bitart (Lortab 5/325) 1 tab PRN Q4HRS PRN PO PAIN Last administered on 09/18/18at 00:55; Start 09/17/18 at 16:30 Morphine Sulfate (Morphine Sulfate) 4 mg PRN Q4HRS PRN IV MODERATE TO SEVERE PAIN Last administered on 09/18/18at 09:50; Start 09/17/18 at 21:15 Phenytoin Sodium (Dilantin) 100 mg BID PO Last administered on 09/18/18at 08:29 ; Start 09/17/18 at 22:00 Clonazepam (KlonoPIN) 0.5 mg 1X ONCE PO Last administered on 09/17/18at 22:45; Start 09/17/18 at 22:00; Stop 09/17/18 at 22:01; Status DC Ondansetron HCl (Zofran) 4 mg PRN Q4HRS PRN IV NAUSEA/VOMITING; Start 09/18/18 at 11:00 Piperacillin Sod/ Tazobactam Sod 3.375 gm/Sodium Chloride 50 ml @ 100 mls/hr Q8H IV Last administered on 09/18/18at 11:41; Start 09/18/18 at 11:00 Vancomycin HCl (Vanco Per Pharmacy) 1 each PRN DAILY PRN [facility] SEE COMMENTS; Start 09/18/18 at 11:00 Vancomycin HCl 1.75 gm/Sodium Chloride 500 ml @ 250 mls/hr 1X ONCE IV ; Start 09/18/18 at 11:30; Stop 09/18/18 at 13:29 Active Scripts Active Reported Dilantin (Phenytoin Sodium Extended) 100 Mg Capsule 1 Cap PO BID Allergies Allergies: Coded Allergies: aspirin (Verified Adverse Reaction, Intermediate, n/v, 04/20/18) ketorolac (Verified Adverse Reaction, Intermediate, n/v, 04/20/18) Physical Exam Physical Exam Right transmetatarsal amputation from distant past well-healed Left foot all toes are discolored and tender to the touch. I am unable to palpate dorsalis or posterior tibial pulse however there are signals present General: Alert, Oriented X3, Cooperative HEENT: Atraumatic, PERRLA Lungs: Clear to auscultation Heart: Regular rate, No murmurs Abdomen: Normal bowel sounds, Soft, No masses Extremities: No clubbing, No cyanosis, Other Skin: No rashes, No breakdown Neuro: Normal speech, Normal tone, Sensation intact MUSCULOSKELETAL: No joint tenderness, No deformity Vitals VITALS Vital Signs Date Time Temp Pulse Resp B/P (MAP) Pulse Ox O2 Delivery O2 Flow Rate FiO2 09/18/18 11:02 97.6 70 20 108/78 (88) 96 Room Air 97.6 Labs Labs Laboratory Tests Test 09/17/18 17:40 White Blood Count 8.9 x10^3/uL (4.0-11.0) Red Blood Count 4.28 x10^6/uL (3.50-5.40) Hemoglobin 14.2 g/dL (12.0-15.5) Hematocrit 42.5 % (36.0-47.0) Mean Corpuscular Volume 99 fL (79-100) Mean Corpuscular Hemoglobin 33 pg (25-35) Mean Corpuscular Hemoglobin Concent 33 g/dL (31-37) Red Cell Distribution Width 14.2 % (11.5-14.5) Platelet Count 301 x10^3/uL (140-400) Neutrophils (%) (Auto) 64 % (31-73) Lymphocytes (%) (Auto) 25 % (24-48) Monocytes (%) (Auto) 8 % (0-9) Eosinophils (%) (Auto) 2 % (0-3) Basophils (%) (Auto) 1 % (0-3) Neutrophils # (Auto) 5.8 x10^3uL (1.8-7.7) Lymphocytes # (Auto) 2.2 x10^3/uL (1.0-4.8) Monocytes # (Auto) 0.7 x10^3/uL (0.0-1.1) Eosinophils # (Auto) 0.2 x10^3/uL (0.0-0.7) Basophils # (Auto) 0.0 x10^3/uL (0.0-0.2) Sodium Level 142 mmol/L (136-145) Potassium Level 4.0 mmol/L (3.5-5.1) Chloride Level 107 mmol/L (98-107) Carbon Dioxide Level 27 mmol/L (21-32) Anion Gap 8 (6-14) Blood Urea Nitrogen 19 mg/dL (7-20) Creatinine 0.9 mg/dL (0.6-1.0) Estimated GFR (Cockcroft-Gault) 65.8 BUN/Creatinine Ratio 21 (6-20) Glucose Level 116 mg/dL (70-99) Calcium Level 8.8 mg/dL (8.5-10.1) Total Bilirubin 0.2 mg/dL (0.2-1.0) Aspartate Amino Transf (AST/SGOT) 15 U/L (15-37) Alanine Aminotransferase (ALT/SGPT) 12 U/L (14-59) Alkaline Phosphatase 108 U/L (46-116) Total Protein 6.4 g/dL (6.4-8.2) Albumin 2.5 g/dL (3.4-5.0) Albumin/Globulin Ratio 0.6 (1.0-1.7) Laboratory Tests Test 09/17/18 17:40 White Blood Count 8.9 x10^3/uL (4.0-11.0) Red Blood Count 4.28 x10^6/uL (3.50-5.40) Hemoglobin 14.2 g/dL (12.0-15.5) Hematocrit 42.5 % (36.0-47.0) Mean Corpuscular Volume 99 fL (79-100) Mean Corpuscular Hemoglobin 33 pg (25-35) Mean Corpuscular Hemoglobin Concent 33 g/dL (31-37) Red Cell Distribution Width 14.2 % (11.5-14.5) Platelet Count 301 x10^3/uL (140-400) Neutrophils (%) (Auto) 64 % (31-73) Lymphocytes (%) (Auto) 25 % (24-48) Monocytes (%) (Auto) 8 % (0-9) Eosinophils (%) (Auto) 2 % (0-3) Basophils (%) (Auto) 1 % (0-3) Neutrophils # (Auto) 5.8 x10^3uL (1.8-7.7) Lymphocytes # (Auto) 2.2 x10^3/uL (1.0-4.8) Monocytes # (Auto) 0.7 x10^3/uL (0.0-1.1) Eosinophils # (Auto) 0.2 x10^3/uL (0.0-0.7) Basophils # (Auto) 0.0 x10^3/uL (0.0-0.2) Sodium Level 142 mmol/L (136-145) Potassium Level 4.0 mmol/L (3.5-5.1) Chloride Level 107 mmol/L (98-107) Carbon Dioxide Level 27 mmol/L (21-32) Anion Gap 8 (6-14) Blood Urea Nitrogen 19 mg/dL (7-20) Creatinine 0.9 mg/dL (0.6-1.0) Estimated GFR (Cockcroft-Gault) 65.8 BUN/Creatinine Ratio 21 (6-20) Glucose Level 116 mg/dL (70-99) Calcium Level 8.8 mg/dL (8.5-10.1) Total Bilirubin 0.2 mg/dL (0.2-1.0) Aspartate Amino Transf (AST/SGOT) 15 U/L (15-37) Alanine Aminotransferase (ALT/SGPT) 12 U/L (14-59) Alkaline Phosphatase 108 U/L (46-116) Total Protein 6.4 g/dL (6.4-8.2) Albumin 2.5 g/dL (3.4-5.0) Albumin/Globulin Ratio 0.6 (1.0-1.7) Images Images I independently reviewed the arterial duplex of her left lower extremitythis shows relatively normal flow through the SFA with diminished velocities an abnormal waveforms in the popliteal and tibial vessels concerning for significant popliteal and tibial occlusive disease. Assessment/Plan Assessment/Plan #1 tobacco abuseneeds to quit smoking we discussed this #2 atherosclerosis of [place] arteries of left lower extremity with gangrene of the toes open (other part of the foot)I discussed with her at length the nature of PAD, the causes of atherosclerosis including tobacco abuse and diabetes, and the need for in-line blood flow for wound healing. We discussed that she has critical limb ischemia with gangrene of the toes/wounds of the feet and abnormal blood flow. She has normal creatinine and no history of left lower extremity intervention. We discussed the need for angiography and the risks, benefits, alternatives. We discussed percutaneous intervention versus bypass surgery for limb salvage. We'll plan right common femoral artery access left leg intervention in the catheter lab tomorrow. Nothing by mouth after midnight tonight I spent over 70 minutes today in physical exam, history, review of chart, independent review of images, counseling, coordination of care in this complex patient with multiple issues. WENDY SERRANO MD Sep 18, 2018 12:43
[2018-09-18] MEDS: VANCOMYCIN PER PHARMACY MC PRN (13:51)
--- NOTE | 2018-09-18 13:51 | NUR ---
Pharmacy Vancomycin Dosing Note S:Consulted to monitor and dose vancomycin started 09/18/18. O:HANNAH LONG is a 53 year old F with left foot gangrene, possible osteo. Height: 5 feet, 4.5 inches Weight: 74.5 kg Dosing Weight: Actual Other Antibiotics: ZOSYN 3.375G IV Q6HRS LABS: Last BUN: 12 Last Creatinine: 0.9 Creatinine Clearance: 73 mL/min Last WBC: 8.9 Tmax (past 24 hours): 99.8 Microbiology: N/A I/O: 720/150 A: Patient requires vancomycin for foot gangrene, possible osteo. Goal trough 15-20 mcg/ml. Patient's SCr is 0.9 with an eCrCl of 73 ml/min. Initiate the following: P: 1. Initiate Vancomycin 1750 mg IV x 1 dose, then 1250 mg IV q12h 2. Follow up Trough level on 09/20/18 at 0030 3. Pharmacy will continue to monitor, follow and adjust therapy as needed. KRISHAN ECHEVARRIA [facility], 09/18/18 [id number]
--- NOTE | 2018-09-18 14:32 | RAD ---
EXAM: Bilateral lower extremity venous mapping. HISTORY: CABG. TECHNIQUE: Sonographic imaging of the lower extremity veins was performed. COMPARISON: None. FINDINGS: The right long saphenous vein has been stripped. The left long saphenous vein measures 5.2 mm within the proximal thigh, 4.6 mm within the upper mid thigh, 4.5 mm within the mid thigh, 4.2 mm within the distal thigh, 4.3 mm at the level of the knee, 3.4 mm within the proximal calf, 2.9 mm within the distal calf and 2.3 mm at the level of the ankle. The right lesser saphenous vein measures 4.3 mm within the proximal calf, 2.7 mm within the mid calf and 2.9 mm within the distal calf. The left lesser saphenous vein measures 2.7 mm within the proximal calf, 2.9 and within the mid calf and 2.8 and within the distal calf. IMPRESSION: 1. Left long saphenous vein and bilateral exit saphenous vein caliber measurements, described above. 2. Findings consistent with prior right long saphenous vein stripping. Electronically signed by: Tangela Colvin MD (09/18/2018 2:29 PM) [place] [id number]
[2018-09-18 15:02] VITALS: BP 90/58
--- NOTE | 2018-09-18 15:41 | NUR ---
SIVAN responding to a referral regarding pt is from [facility]. Spoke with Sister Sakina at [facility] who reproted they have been trying to find placement for pt for a long time. Sister Ayla requested if SW was able to assist in finding placement as pt has been staying on the streets on the hours the long-term is closed. Sister Ayla is concerned about pt's safety as pt is visually impaired as well. Spoke with pt at bedside and she is agreeable in going to a [facility] if SW is able to find placement. SIVAN phoned and faxed referral to [facility], [facility], [facility], [facility]. Pt admission and acceptance pending. Addendum: 09/18/18 at 1546 by LUDIVINA FINNEGAN referral faxed to [facility] re[facility] as well. Discussed with RN.
--- NOTE | 2018-09-18 17:00 | NUR ---
Wound Care Pt seen for wound care consultation re: foot and R groin wounds. Pt's left 5th toe is necrotic and left forefoot is ischemic, mottled and dusky, pt is c/o severe pain in feet. L 5th toe painted with betadine and left LISSETT. Pt also has an intact serum filled blister on R lateral forefoot, around the 5th metatarsal head, wound measured and photographed, foam dressing placed over foot for protection. Unable to palpate or doppler a R pedal pulse but had dopplered R post tib and L pedal/tib, findings discussed with MAHI Swenson. Pt's R groin was purplish in color with multiple scarred porous openings, but no drainage noted, and no warmth or redness noted. Assisted pt to BSC and back into bed, set up pt's dinner in front of her and assisted with feed, as pt could not delineate what food was. Will continue to follow for wound care needs.
[2018-09-18] MEDS: PIPERACILLIN/TAZOBACTAM 3.375 GM in IV NORMAL SALINE 50ML 50 ML IV SCH (18:01)
[2018-09-18 19:00] VITALS: BP 120/66
[2018-09-18] MEDS: clonazePAM 0.5 MG TABLET PO PRN (21:10)
[2018-09-18] MEDS: diphenhydrAMINE HCL 25 MG CAPSULE PO PRN (22:54)
[2018-09-18 22:59] VITALS: BP 90/64
[2018-09-19] VITALS (7 sets, daily range): BP systolic 91–150; BP diastolic 48–82
[2018-09-19] MEDS: PIPERACILLIN/TAZOBACTAM 3.375 GM in IV NORMAL SALINE 50ML 50 ML IV SCH ×4 (00:24→18:32)
[2018-09-19] MEDS: VANCOMYCIN 1.25 GM in IV NORMAL SALINE 250ML 250 ML IV SCH ×3 (01:12→17:48)
[2018-09-19] MEDS: fentaNYL PF VIAL 100 MCG/2 ML VIAL IV PRN ×4 (01:12→21:07)
--- NOTE | 2018-09-19 02:42 | CONS ---
DATE OF CONSULTATION: 09/18/2018 REFERRING PHYSICIAN: Dr. Barrios. REASON FOR CONSULTATION: Left fifth toe with gangrene. HISTORY OF PRESENT ILLNESS: A 53-year-old female with history of alcoholism, DVT, AL, seizures, stroke, Crohn's, partial right foot amputation from infection, smoking, COPD, admitted as transfer from [facility] where she presented with discoloration of the toes of the left foot for couple of weeks. The patient has been borderline diabetic, but does not check her blood sugar regularly. The patient denies any ischemic rest pain. She has been smoking 1 pack per day for a long time. The patient denies any fever, chills, nausea, vomiting, diarrhea, abdominal pain, symptoms. The patient was started on IV vancomycin and Zosyn. ID consult has been requested for antibiotic management. The patient remains afebrile. White count is normal. X-ray of the left foot shows bony erosion of the medial tuft of the great toe distal phalanx suspicious for osteomyelitis. Doppler ultrasound of the lower extremity arterial shows monophasic waveforms identified throughout the bilateral lower extremity suggestive of peripheral arterial disease. There is focal increase in the velocity involving the left anterior tibial artery, which may reflect mild to high-grade proximal stenosis. There is enlarged groin lymph node. There is a large popliteal cyst. PAST MEDICAL HISTORY: Hypertension, borderline diabetes, history of seizures, COPD, scoliosis, visual impairment, peripheral vascular disease status post right forefoot amputation, multiple cysts removed from the right ovary, ganglion cyst removal from the right wrist, appendectomy. ALLERGIES: ASPIRIN, TORADOL. SOCIAL HISTORY: Single, lives in homeless care home in [place], not , smokes one-half to one pack per day. No alcohol, no recreational drugs. Have three children. FAMILY HISTORY: As per HPI. CURRENT MEDICATIONS: IV vancomycin and Zosyn. Other medications as per MAR. REVIEW OF SYSTEMS: Negative except for above in HPI. PHYSICAL EXAMINATION: VITAL SIGNS: Temperature 97.6, pulse 70, respiration rate 20, blood pressure 108/78, oxygen saturation 96% on room air. GENERAL: Alert, oriented x 3 female, tearful, in no acute distress, cooperative. HEENT: Normocephalic, atraumatic, anicteric. No thrush. Oral mucosa moist. NECK: Supple. No JVD. No thyromegaly. No carotid bruit. LUNGS: Clear bilaterally, no wheezing. HEART: S1, S2. No gallops or murmurs. ABDOMEN: Soft, nontender, nondistended. No rebound or guarding. EXTREMITIES: No edema, no cyanosis. Left foot shows discoloration, tender to touch. Left fifth toe gangrenous, ischemic, unable to palpate dorsalis pedis. DERMATOLOGIC: Warm, dry. No generalized rash. PSYCHIATRIC: Cooperative, tearful. LABORATORY DATA: WBC 8.9, hemoglobin 14.0, hematocrit 42.5, platelets 301. Sodium 142, potassium 4.0, chloride 107, bicarbonate 27, BUN 19, creatinine 0.9, glucose 116, calcium 8.8, total bilirubin 0.2, AST 15, ALT 12, alkaline phosphatase 108, total protein 6.4, albumin 2.5. IMAGING: Foot x-ray as above. Duplex lower extremity artery as above. ASSESSMENT: 1. Left foot ischemia with gangrenous toe. 2. Peripheral arterial disease. 3. Tobacco use. 4. 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 5. History of Crohn's. 6. History of smoking. 7. History of seizure. RECOMMENDATIONS: 1. Continue empiric IV vancomycin and Zosyn. 2. Monitor renal functions closely. 3. Vascular Surgery is planning for angiography and percutaneous intervention. 4. Continue supportive care. 5. Follow up labs and cultures. 6. Discussed with RN. PIO COOMBS MD DR: HUI/isabel JOB#: [id number] / [id number]
[2018-09-19] MEDS: diphenhydrAMINE HCL 25 MG CAPSULE PO PRN (04:33)
[2018-09-19 05:22] LABS: HEMATOCRIT 37.5 % (36.0-47.0); HEMOGLOBIN 12.6 g/dL (12.0-15.5); RED BLOOD COUNT 3.81 x10^6/uL (3.50-5.40); RED CELL DISTRIBUTION WIDTH 13.5 % (11.5-14.5); WHITE BLOOD COUNT 7.8 x10^3/uL (4.0-11.0)
[2018-09-19 05:32] LABS: ALBUMIN 2.3 g/dL (3.4-5.0); ALBUMIN/GLOBULIN RATIO 0.6 (1.0-1.7); ALK PHOS 101 U/L (46-116); ALT (SGPT) 11 U/L (14-59); ANION GAP 8 (6-14); AST (SGOT) 17 U/L (15-37); BLOOD UREA NITROGEN 18 mg/dL (7-20); BUN/CREATININE RATIO 20 (6-20); CALCIUM 8.5 mg/dL (8.5-10.1); CARBON DIOXIDE 26 mmol/L (21-32); CHLORIDE 106 mmol/L (98-107); CREATININE 0.9 mg/dL (0.6-1.0); GFR 65.8; GLUCOSE 85 mg/dL (70-99); PHENY 2.4 mcg/mL (10.0-20.0); SODIUM 140 mmol/L (136-145); TOTAL BILIRUBIN 0.4 mg/dL (0.2-1.0); TOTAL PROTEIN 6.3 g/dL (6.4-8.2)
[2018-09-19 05:50] LABS: C-REACTIVE PROTEIN 66.3 mg/L (0-3.3)
--- NOTE | 2018-09-19 08:13 | NUR ---
SIVAN following pt. SW received a voice mail from [facility] [employer] services, [facility] regarding dc plan. Voice mail states they have an open report on pt. SIVAN phoned [facility] and left a voice mail with a call back number. SIVAN also spoke with [facility] city administrator who reported they are aware of pt from the homeless nursing home and will discuss with DON if they are able to meet pt's needs. Will continue to follow.
[2018-09-19] MEDS: PHENYTOIN SODIUM EXTENDED 100 MG CAPSULE PO SCH ×2 (09:08→20:33)
[2018-09-19] MEDS: clonazePAM 0.5 MG TABLET PO PRN ×2 (09:08→20:33)
[2018-09-19] MEDS: HYDROcodone/APAP 5/325MG 1 TAB TABLET PO PRN ×2 (09:09→20:34)
--- NOTE | 2018-09-19 10:27 | PDOC ---
Infectious Disease Note Subjective: Subjective Pt complains of pain in left foot Denies any fever, chills, nausea, vomiting, diarrhea, abdominal pain ROS: ROS Negative except for above. Vital Signs: Vital Signs Vital Signs Date Time Temp Pulse Resp B/P (MAP) Pulse Ox O2 Delivery O2 Flow Rate FiO2 09/19/18 10:09 16 Room Air 09/19/18 07:00 98.9 82 97/48 (64) 98 98.9 Physical Exam: PHYSICAL EXAM GENERAL: Alert, oriented x 3 female, tearful, in no acute distress, cooperative. HEENT:blindness in eyes, Normocephalic, atraumatic, anicteric. No thrush. Oral mucosa moist. NECK: Supple. No JVD. No thyromegaly. No carotid bruit. LUNGS: Clear bilaterally, no wheezing. HEART: S1, S2. No gallops or murmurs. ABDOMEN: Soft, nontender, nondistended. No rebound or guarding. EXTREMITIES: No edema, no cyanosis. Left foot shows discoloration, tender to touch. Left fifth toe gangrenous, ischemic, unable to palpate dorsalis pedis. DERMATOLOGIC: Warm, dry. No generalized rash. PSYCHIATRIC: Cooperative, tearful. SUSPENSION CORD TIER blindness in eyes, otherwise nonfocal Medications: Inpatient Meds: Current Medications Medications (Trade) Dose Ordered Sig/Beck Start Time Stop Time Status Last Admin Dose Admin Acetaminophen/ Hydrocodone Bitart (Lortab 5/325) 1 tab PRN Q4HRS PRN 09/17/18 16:30 09/19/18 09:09 1 TAB Clonazepam (KlonoPIN) 0.5 mg HS PRN 09/18/18 21:00 09/19/18 09:08 0.5 MG Diphenhydramine HCl (Benadryl) 25 mg PRN Q4HRS PRN 09/18/18 22:45 09/19/18 04:33 25 MG Fentanyl Citrate (Fentanyl 2ml Vial) 50 mcg PRN Q3HRS PRN 09/18/18 22:45 09/19/18 04:41 50 MCG Morphine Sulfate (Morphine Sulfate) 4 mg PRN Q4HRS PRN 09/17/18 21:15 09/18/18 22:39 DC 09/18/18 22:32 4 MG Ondansetron HCl (Zofran) 4 mg PRN Q4HRS PRN 09/18/18 11:00 Phenytoin Sodium (Dilantin) 100 mg BID 09/17/18 22:00 09/19/18 09:08 100 MG Piperacillin Sod/ Tazobactam Sod 3.375 gm/Sodium Chloride 50 ml @ 100 mls/hr Q6HRS 09/18/18 18:00 09/19/18 06:03 100 MLS/HR Vancomycin HCl (Vanco Per Pharmacy) 1 each PRN DAILY PRN 09/18/18 11:00 09/18/18 13:51 1 EACH Vancomycin HCl (Vancomycin Trough Level) 1 each 1X ONCE 09/20/18 00:30 09/20/18 00:31 Vancomycin HCl 1.25 gm/Sodium Chloride 250 ml @ 167 mls/hr Q12H 09/19/18 01:00 09/19/18 01:12 167 MLS/HR Vancomycin HCl 1.75 gm/Sodium Chloride 500 ml @ 250 mls/hr 1X ONCE 09/18/18 11:30 09/18/18 13:29 DC 09/18/18 12:52 250 MLS/HR Labs: Lab Laboratory Tests Test 09/19/18 04:05 White Blood Count 7.8 x10^3/uL (4.0-11.0) Red Blood Count 3.81 x10^6/uL (3.50-5.40) Hemoglobin 12.6 g/dL (12.0-15.5) Hematocrit 37.5 % (36.0-47.0) Mean Corpuscular Volume 98 fL (79-100) Mean Corpuscular Hemoglobin 33 pg (25-35) Mean Corpuscular Hemoglobin Concent 34 g/dL (31-37) Red Cell Distribution Width 13.5 % (11.5-14.5) Platelet Count 272 x10^3/uL (140-400) Erythrocyte Sedimentation Rate 45 (0-25) Sodium Level 140 mmol/L (136-145) Potassium Level 4.0 mmol/L (3.5-5.1) Chloride Level 106 mmol/L (98-107) Carbon Dioxide Level 26 mmol/L (21-32) Anion Gap 8 (6-14) Blood Urea Nitrogen 18 mg/dL (7-20) Creatinine 0.9 mg/dL (0.6-1.0) Estimated GFR (Cockcroft-Gault) 65.8 BUN/Creatinine Ratio 20 (6-20) Glucose Level 85 mg/dL (70-99) Calcium Level 8.5 mg/dL (8.5-10.1) Total Bilirubin 0.4 mg/dL (0.2-1.0) Aspartate Amino Transf (AST/SGOT) 17 U/L (15-37) Alanine Aminotransferase (ALT/SGPT) 11 U/L (14-59) Alkaline Phosphatase 101 U/L (46-116) C-Reactive Protein, Quantitative 66.3 mg/L (0-3.3) Total Protein 6.3 g/dL (6.4-8.2) Albumin 2.3 g/dL (3.4-5.0) Albumin/Globulin Ratio 0.6 (1.0-1.7) Phenytoin (Dilantin) Level 2.4 mcg/mL (10.0-20.0) Phenytoin Last Dose Date 09/18/18 Phenytoin Last Dose Time 2100 Objective: Assessment: 1. Left foot ischemia with gangrenous toe. 2. Peripheral arterial disease. 3. Tobacco use. 4. 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 5. History of Crohn's. 6. History of smoking. 7. History of seizure. Plan: Plan of Care 1. Continue empiric IV vancomycin and Zosyn. 2. Monitor renal functions closely. 3. Awaiting angiography and percutaneous intervention by vascular surgery 4. Continue supportive care. 5. Follow up labs and cultures. Discussed with RN. PIO COOMBS MD Sep 19, 2018 10:27
[2018-09-19] MEDS ORDERED: IODIXANOL 320 MG/ML 100 ML VIAL. ONE ×2 (10:58→13:59)
[2018-09-19] MEDS ORDERED: LIDOCAINE 1% Multi-Dose 20 ML VIAL. ONE (10:59)
--- NOTE | 2018-09-19 11:30 | NUR ---
SW following pt. Spoke with Chon at [facility] and SW was notified pt's [employer] th Medicaid is a title XIX insurance meaning pt has a disability medicaid and not LTC Medicaid. Due to this pt will be Medicaid pending and [facility] is not accepting Medicaid pending pt's at this time. Ayla from [facility] reported she will be able to assist if LTC Medicaid is completed with a CARE assessment. SIVAN left a message with Qian at [facility] to see if they are able to assist in filing LTC Medicaid. Will continue to follow.
[2018-09-19 12:46] LABS: PROTHROMBIN TIME PATIENT 12.4 SEC (11.7-14.0)
[2018-09-19] MEDS ORDERED: MIDAZOLAM HCL/PF 5 MG/5 ML VIAL. ONE (13:14)
[2018-09-19] MEDS ORDERED: HEPARIN for IV BOLUS 10,000 UNIT/10 ML VIAL. ONE (13:14)
[2018-09-19] MEDS ORDERED: fentaNYL PF VIAL 250 MCG/5 ML VIAL ONE (13:14)
[2018-09-19] MEDS: VANCOMYCIN PER PHARMACY MC PRN ×3 (14:06→16:39)
[2018-09-19] MEDS ORDERED: fentaNYL PF VIAL 250 MCG/5 ML VIAL IV ONE (14:15)
[2018-09-19] MEDS ORDERED: MIDAZOLAM HCL/PF 5 MG/5 ML VIAL. IV ONE (14:15)
[2018-09-19] MEDS ORDERED: LIDOCAINE 1% Multi-Dose 20 ML VIAL. INJ ONE (14:15)
[2018-09-19] MEDS ORDERED: IODIXANOL 320 MG/ML 100 ML VIAL. IART ONE (14:15)
[2018-09-19] MEDS ORDERED: HEPARIN for IV BOLUS 10,000 UNIT/10 ML VIAL. IV ONE (14:15)
[2018-09-19] MEDS ORDERED: CONTRAST GIVEN. MC PRN (14:30)
[2018-09-19] MEDS ORDERED: PROTAMINE 50 MG/5 ML VIAL. IV ONE ×2 (14:33→14:45)
--- NOTE | 2018-09-19 15:11 | PDOC4 ---
OPERATIVE NOTE Date: Date: Sep 19, 2018 Pre-Op Diagnosis: atherosclerosis of [facility] [place] arteries of bilateral lower extremities with wounds of bilateral feet Post-Op Diagnosis: same as above Procedure Performed: #1 ultrasound-guided access right common femoral artery 2 radiology supervision interpretation aortogram #3 radiology supervision interpretation bilateral lower extremity runoff #4 left common iliac artery stent 7 x 39 I cast covered stent Surgeon: Wendy Serrano M.D. Anesthesia Type: Touch sedation under surgeon and RN supervision 80 minutes Versed 3 mg fentanyl 150 g Blood Loss: 50 mL Specimans Obtained: None Findings: Aorta is widely patent without significant stenosis, no significant renal artery stenosis on single AP view Right common and external iliac artery widely patent Left common iliac artery has a high-grade 80% stenosis over 2 cm -- proved after balloon expanding stent, external iliac artery widely patent Bilateral common femoral artery profunda femoris artery and superficial femoral artery widely patent Right popliteal artery occludes above the knee and there is reconstitution of what appears to be the peroneal artery below the knee The left popliteal artery is widely patent. There is three-vessel tibial occlusive disease in the left COMPLETELY occluded. It appears that the posterior tibial reconstitutes at the ankle and the peroneal reconstitutes at the ankle Complications: None Operative Note: Patient was escorted the Reflow Operator and placed supine on the table. Sedation was induced under RN and physician supervision after appropriate timeout and prepped and draped the groins. Attention was directed to the right groin with a right common femoral artery was fluoroscopically marked or the femoral head and examined with ultrasound. The vessels found to be widely patent with good flow and an image of the vessels taken and saved for the medical record. Local anesthetic was injected in the right groin and the right common femoral artery was accessed in retrograde fashion using a micropuncture needle. This was used to introduce a micropuncture wire into the iliac artery under fluoroscopic guidance and exchanged the needle for a Jaylon puncture sheath which backbled easily. This was used to introduce a Perez wire the abdominal aorta and exchange the Jaylon puncture sheath for a 5 Gibraltarian sheath which is aspirated and flushed without difficulty The wire was used to introduce a flush catheter and the suprarenal abdominal aorta and an aortogram was obtained. The catheter was pulled back to the aortic bifurcation and oblique pelvic angiograms of bilateral lower extremity runoff to the feet was obtained. Patient was given intravenous heparin and I used a flush catheter and the Perez wire to cross the aortic bifurcation across the iliac stenosis. I advanced the catheter to the left common femoral artery over the Perez wire and exchanged the Perez wire for a stiff Glidewire advantage. I used this to exchange the 5 Gibraltarian sheath for a 6 Gibraltarian 45 cm trauma destination sheath passed up and over the bifurcation. I obtained images of the left iliac artery and isolated there is stenosis. I delivered and 8 x 39 Ch bare-metal stent in treated the area of stenosis with stent placement with good results. I then replaced the dilator and the sheath and attempted the past this to the stent but this sheath, stent caused a kink in the of the stent. I attempted to angioplasty this back in place but it was not successful. I exchange the wire over catheter for a 0.018 wire and then used a Palkion CONNOR catheter to examine the stent appeared to be badly deformed. I exchanged the wire catheter for a stiff Ch supra core wire and then exchange this sheath for a 7 Gibraltarian sheath so that I could deliver a covered stent. With the 7 Gibraltarian 45 cm trauma destination sheath up and over I passed the 7 mm icast stent through the previous stent and deployed this with good results and excellent apposition to the wall and no residual stenosis. J angiograms from multiple views showed stenosis, no extravasation, and no significant application. I advanced the catheter over the wire and obtain better pictures below the knee for further intervention. I then pulled the sheath back to the right external iliac and obtain better pictures below the right knee. The sheath was removed over a wire after giving protamine reverse the heparin. The wire was used to deliver deploy a 8 Gibraltarian Angio-Seal device with excellent hemostasis the right groin. Patient was escorted to recovery in stable condition. WENDY SERRANO MD Sep 19, 2018 15:11
--- NOTE | 2018-09-19 19:30 | NUR ---
Pt refuses b/p cuff, stating "we are trying to strangle her."
[2018-09-20] VITALS (7 sets, daily range): BP systolic 98–130; BP diastolic 42–82
[2018-09-20] MEDS: PIPERACILLIN/TAZOBACTAM 3.375 GM in IV NORMAL SALINE 50ML 50 ML IV SCH ×5 (00:12→18:00)
[2018-09-20] MEDS: fentaNYL PF VIAL 100 MCG/2 ML VIAL IV PRN ×3 (00:42→08:11)
--- NOTE | 2018-09-20 00:46 | PN ---
DATE: 09/19/2018 SUBJECTIVE: The patient is resting slightly propped up in bed, in no apparent distress. On questioning her, she is complaining of pain in her left foot. She apparently is scheduled for angiography and percutaneous intervention. She is n.p.o. from midnight last night. Her x-ray showed that she has bony erosion of the medial tuft to the great toe distal phalanx suspicious for osteomyelitis and we did start her yesterday on IV vancomycin and Zosyn. She was seen in consultation by the Infectious Disease. PHYSICAL EXAMINATION: GENERAL: When I examined her, she looked well and was clearly in no apparent respiratory distress and there is no pallor, jaundice, cyanosis, or thyromegaly. No jugular venous distention. No lower limb edema. VITAL SIGNS: Her heart rate was 82, blood pressure was 97/48, temperature was 98.9, respiratory rate 16, and oxygen saturation was 98% on room air. HEAD, EYES, EARS, NOSE AND THROAT: Normocephalic, atraumatic. NECK: Supple. HEART: Showed normal first and second heart sounds. No gallop, rub or murmur. CHEST: Clear to auscultation. No crepitation or rhonchi. ABDOMEN: Distended, soft, nontender. NEUROLOGIC: She has severe visual impairment. Overall cranial nerves intact. She moves extremities without difficulty. She is status post right forefoot amputation and she has gangrenous left foot toes that are discolored, tender to touch with absent dorsalis pedis and tibialis posterior. Her intake was 720, output is incompletely recorded. LABORATORY DATA: Her lab work this morning showed a white cell count of 7800, hemoglobin 12.6, hematocrit 37.5, MCV 98 and platelet count 272,000. Her chemistry showed a serum sodium 140, potassium 4, chloride 106, bicarbonate 26, anion gap of 8, BUN 18, creatinine 0.9, estimated GFR was 65 mL per minute. Her glucose was 85, calcium was 8.5. Total bilirubin, AST, ALT, alkaline phosphatase were normal. Total protein 6.3, albumin 2.3. Her C-reactive protein was 66.3 mg/dL and sedimentation rate was 45 mm/hour. ASSESSMENT AND PLAN: 1. Left foot ischemia with gangrenous toes. 2. Severe peripheral vascular disease. The patient has right transmetatarsal amputation. 3. Hypertension. 4. Borderline type 2 diabetes. 5. History of seizure disorder for which she is on phenytoin. Her Dilantin level is very low only 2.5. 6. Visual impairment. 7. Chronic obstructive pulmonary disease. PLAN: Continue with current management. The patient is scheduled for angiography and percutaneous intervention. JHOANA NEELY MD DR: JASSI/isabel JOB#: [id number] / [id number]
[2018-09-20 05:10] LABS: CALCIUM 8.4 mg/dL (8.5-10.1); GFR 58.2; POTASSIUM 4.2 mmol/L (3.5-5.1)
[2018-09-20] MEDS: VANCOMYCIN 1.25 GM in IV NORMAL SALINE 250ML 250 ML IV SCH (05:20)
[2018-09-20] MEDS: HYDROcodone/APAP 5/325MG 1 TAB TABLET PO PRN ×4 (08:11→21:16)
[2018-09-20] MEDS: PHENYTOIN SODIUM EXTENDED 100 MG CAPSULE PO SCH ×2 (08:11→21:16)
--- NOTE | 2018-09-20 08:26 | NUR ---
SIVAN following pt. SIVAN received a voice mail from APS worker stating 'pt will discharge to [facility] and rehab once ready' and provided a phone number to call at [facility]. SIVAN spoke with Rosa Kumar at [facility] and rehab, phone: [phone] who reported they have received the referral and are awaiting corporate approval to see if they are able to accept pt. Laine from [facility] also reported she will visit pt today. Juan Miguel at [facility] also stated they will try to get insurance auth for skilled and possibly take pt as well. SIVAN will continue to follow.
--- NOTE | 2018-09-20 09:06 | PDOC ---
Infectious Disease Note Subjective: Subjective Pt complains of pain in left foot but improved since vascular intervention Denies any fever, chills, nausea, vomiting, diarrhea, abdominal pain ROS: ROS Negative except for above. Vital Signs: Vital Signs Vital Signs Date Time Temp Pulse Resp B/P (MAP) Pulse Ox O2 Delivery O2 Flow Rate FiO2 09/20/18 08:11 Room Air 09/20/18 07:00 98.4 88 18 124/82 (96) 95 98.4 09/19/18 16:23 2.0 Physical Exam: PHYSICAL EXAM GENERAL: Alert, oriented x 3 female, tearful, in no acute distress, cooperative. HEENT:blindness in eyes, Normocephalic, atraumatic, anicteric. No thrush. Oral mucosa moist. NECK: Supple. No JVD. No thyromegaly. No carotid bruit. LUNGS: Clear bilaterally, no wheezing. HEART: S1, S2. No gallops or murmurs. ABDOMEN: Soft, nontender, nondistended. No rebound or guarding. EXTREMITIES: No edema, no cyanosis. Left foot shows discoloration, tender to touch. Left fifth toe gangrenous, ischemic, unable to palpate dorsalis pedis. DERMATOLOGIC: Warm, dry. No generalized rash. PSYCHIATRIC: Cooperative, tearful. FISHING ROD MARKER blindness in eyes, otherwise nonfocal Medications: Inpatient Meds: Current Medications Medications (Trade) Dose Ordered Sig/Beck Start Time Stop Time Status Last Admin Dose Admin Acetaminophen/ Hydrocodone Bitart (Lortab 5/325) 1 tab PRN Q4HRS PRN 09/17/18 16:30 09/20/18 08:11 1 TAB Clonazepam (KlonoPIN) 0.5 mg PRN BID PRN 09/20/18 09:00 Diphenhydramine HCl (Benadryl) 25 mg PRN Q4HRS PRN 09/18/18 22:45 09/19/18 04:33 25 MG Fentanyl Citrate (Fentanyl 2ml Vial) 50 mcg PRN Q3HRS PRN 09/18/18 22:45 09/20/18 08:11 50 MCG Fentanyl Citrate (Fentanyl 5ml Vial) 150 mcg 1X ONCE 09/19/18 14:15 09/19/18 14:24 DC 09/19/18 14:49 150 MCG Heparin Sodium (Porcine) (Heparin Sodium) 7,000 unit 1X ONCE 09/19/18 14:15 09/19/18 14:24 DC 09/19/18 14:50 7,000 UNIT Heparin Sodium/ Sodium Chloride (HEPARIN for ARTERIAL LINE FLUSH) 1,000 unit 1X ONCE 09/19/18 14:15 09/19/18 14:24 DC 09/19/18 14:48 1,000 UNIT Info (CONTRAST GIVEN -- Rx MONITORING) 1 each PRN DAILY PRN 09/19/18 14:30 09/21/18 14:29 Iodixanol (Visipaque 320) 100 ml 1X ONCE 09/19/18 14:15 09/19/18 14:24 DC 09/19/18 14:49 170 ML Lidocaine HCl (Lidocaine 1% 20ml Vial) 20 ml 1X ONCE 09/19/18 14:15 09/19/18 14:24 DC 09/19/18 14:49 6 ML Midazolam HCl (Versed) 3 mg 1X ONCE 09/19/18 14:15 09/19/18 14:24 DC 09/19/18 14:49 3 MG Morphine Sulfate (Morphine Sulfate) 4 mg PRN Q4HRS PRN 09/17/18 21:15 09/18/18 22:39 DC 09/18/18 22:32 4 MG Ondansetron HCl (Zofran) 4 mg PRN Q4HRS PRN 09/18/18 11:00 Phenytoin Sodium (Dilantin) 100 mg ONCE ONCE 09/20/18 09:15 09/20/18 09:16 Piperacillin Sod/ Tazobactam Sod 3.375 gm/Sodium Chloride 50 ml @ 100 mls/hr Q6HRS 09/18/18 18:00 09/20/18 06:26 100 MLS/HR Protamine Sulfate (Protamine) 30 mg 1X ONCE 09/19/18 14:45 09/19/18 14:46 DC 09/19/18 14:48 30 MG Vancomycin HCl (Vanco Per Pharmacy) 1 each PRN DAILY PRN 09/18/18 11:00 09/19/18 16:39 1 EACH Vancomycin HCl (Vancomycin Trough Level) 1 each 1X ONCE 09/20/18 16:30 09/20/18 16:31 Vancomycin HCl 1.25 gm/Sodium Chloride 250 ml @ 167 mls/hr Q12H 09/19/18 17:00 09/20/18 05:20 167 MLS/HR Vancomycin HCl 1.75 gm/Sodium Chloride 500 ml @ 250 mls/hr 1X ONCE 09/18/18 11:30 09/18/18 13:29 DC 09/18/18 12:52 250 MLS/HR Labs: Lab Laboratory Tests Test 09/19/18 12:18 09/20/18 03:40 Prothrombin Time 12.4 SEC (11.7-14.0) Prothromb Time International Ratio 1.0 (0.8-1.1) Sodium Level 139 mmol/L (136-145) Potassium Level 4.2 mmol/L (3.5-5.1) Chloride Level 105 mmol/L (98-107) Carbon Dioxide Level 26 mmol/L (21-32) Anion Gap 8 (6-14) Blood Urea Nitrogen 16 mg/dL (7-20) Creatinine 1.0 mg/dL (0.6-1.0) Estimated GFR (Cockcroft-Gault) 58.2 Glucose Level 124 mg/dL (70-99) Calcium Level 8.4 mg/dL (8.5-10.1) Objective: Assessment: 1. Left foot ischemia with gangrenous toe. 2. Peripheral arterial disease.S/P Lt common iliac stent 09/19 3. Tobacco use. 4. 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 5. History of Crohn's. 6. History of smoking. 7. History of seizure. Plan: Plan of Care Continue Zosyn.DC Vanc start pt on zyvox s/p angiography and percutaneous intervention by vascular surgery Continue supportive care. Follow up labs and cultures. Discussed with MAHI. PIO COOMBS MD Sep 20, 2018 09:06
[2018-09-20] MEDS ORDERED: PHENYTOIN SODIUM EXTENDED 100 MG CAPSULE PO ONE (09:15)
[2018-09-20] MEDS: LINEZOLID 600 MG TABLET PO SCH ×2 (11:08→21:16)
[2018-09-20] MEDS: clonazePAM 0.5 MG TABLET PO PRN ×2 (12:35→16:59)
[2018-09-20] MEDS ORDERED: oxyCODONE IR 5 MG TABLET PO ONE (13:45)
--- NOTE | 2018-09-20 13:47 | PDOC ---
PROGRESS NOTES Subjective Subjective "I can't take this no more! My foot hurts so bad." Objective Objective Vascular Surgery Follow Up: O: Patient seen at bedside with patient's manager social work present (who is a retired RN). Patient is quite upset and crying as RN cannot get IV access. Other IV is swollen and painful. Vital Signs: Stable. Afebrile CV: RRR Pulm: Posteriorly clear. Unlabored. Abd: Soft. Non-distended. Right lower extremity: Right groin puncture site without hematoma or ecchymosis. +monophasic doppled DP pulse right foot. Calf soft and no skin discoloration. Left lower extremity: Strong, palpable femoral pulse. Unable to palpate pulses to lower leg. +monophasic DP and PT pulses into left foot. Calf is soft. Left foot with erythema involving toes and forefoot. Dusky appearance to toes with blotchiness to areas of the forefoot. Left 5th toe black and necrotic. Remaining toes have tips that are discolored, dusky. Did not check circ return to foot as too painful to palpate right now. Assessment/Plan: 1. Poor IV access with multiple IV attempts and a non-functioning IV presently. PICC line for long-term IV access as additional procedures necessary as well as potential for chronic IV antibiotics 2. Severe LLE PAD - s/p left common iliac artery with high-grade 80% stenosis over 2 cm -- proved after balloon expanding stent, external iliac artery widely patent . Strong, palpable femoral pulse. 3. Left popliteal artery is widely patent. 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 It appears that the posterior tibial reconstitutes at the ankle and the peroneal reconstitutes at the ankle. Dr. Murphy is planning a left leg intervention to the tibial artery under anesthesia in the Hybrid room for September 24. May ultimately require bypass to LLE to improve arterial circulation for limb salvage. Chart says pt is allergic to ASA. Patient states she vomits aspirin every time she takes it. Needs antiplatelet therapy. Will start Plavix daily while hospitalized. 4. Gangrene to toes left foot. Once arterial circulation improved, will need at least 5th toe amp if not additional amp/debridement to other toes once demarcation has completed. 5. Homeless. dietary services manager are involved. Will need to investigate all options for available care when ready for discharge. 6. Severe foot pain. May have component of some reperfusion pain after successful iliac stenting. Has multiple options for pain control once IV access re-established. 7. Left foot cellulitis with infection. Continue IV antibiotics as per ID. Vital Signs Date Time Temp Pulse Resp B/P (MAP) Pulse Ox O2 Delivery O2 Flow Rate FiO2 09/20/18 12:34 Room Air 09/20/18 11:00 98.2 90 18 130/72 (91) 97 98.2 09/19/18 16:23 2.0 Intake and Output 09/20/18 07:00 Intake Total 1880 ml Balance 1880 ml Intake Oral 1580 ml IV Total 300 ml Comment Review of Relevant I have reviewed the following items arnie (where applicable) has been applied. Labs Laboratory Tests Test 09/19/18 04:05 09/19/18 12:18 09/20/18 03:40 White Blood Count 7.8 x10^3/uL (4.0-11.0) Red Blood Count 3.81 x10^6/uL (3.50-5.40) Hemoglobin 12.6 g/dL (12.0-15.5) Hematocrit 37.5 % (36.0-47.0) Mean Corpuscular Volume 98 fL (79-100) Mean Corpuscular Hemoglobin 33 pg (25-35) Mean Corpuscular Hemoglobin Concent 34 g/dL (31-37) Red Cell Distribution Width 13.5 % (11.5-14.5) Platelet Count 272 x10^3/uL (140-400) Erythrocyte Sedimentation Rate 45 (0-25) Sodium Level 140 mmol/L (136-145) 139 mmol/L (136-145) Potassium Level 4.0 mmol/L (3.5-5.1) 4.2 mmol/L (3.5-5.1) Chloride Level 106 mmol/L (98-107) 105 mmol/L (98-107) Carbon Dioxide Level 26 mmol/L (21-32) 26 mmol/L (21-32) Anion Gap 8 (6-14) 8 (6-14) Blood Urea Nitrogen 18 mg/dL (7-20) 16 mg/dL (7-20) Creatinine 0.9 mg/dL (0.6-1.0) 1.0 mg/dL (0.6-1.0) Estimated GFR (Cockcroft-Gault) 65.8 58.2 BUN/Creatinine Ratio 20 (6-20) Glucose Level 85 mg/dL (70-99) 124 mg/dL (70-99) Calcium Level 8.5 mg/dL (8.5-10.1) 8.4 mg/dL (8.5-10.1) Total Bilirubin 0.4 mg/dL (0.2-1.0) Aspartate Amino Transf (AST/SGOT) 17 U/L (15-37) Alanine Aminotransferase (ALT/SGPT) 11 U/L (14-59) Alkaline Phosphatase 101 U/L (46-116) C-Reactive Protein, Quantitative 66.3 mg/L (0-3.3) Total Protein 6.3 g/dL (6.4-8.2) Albumin 2.3 g/dL (3.4-5.0) Albumin/Globulin Ratio 0.6 (1.0-1.7) Phenytoin (Dilantin) Level 2.4 mcg/mL (10.0-20.0) Phenytoin Last Dose Date 09/18/18 Phenytoin Last Dose Time 2100 Prothrombin Time 12.4 SEC (11.7-14.0) Prothromb Time International Ratio 1.0 (0.8-1.1) Laboratory Tests Test 09/20/18 03:40 Sodium Level 139 mmol/L (136-145) Potassium Level 4.2 mmol/L (3.5-5.1) Chloride Level 105 mmol/L (98-107) Carbon Dioxide Level 26 mmol/L (21-32) Anion Gap 8 (6-14) Blood Urea Nitrogen 16 mg/dL (7-20) Creatinine 1.0 mg/dL (0.6-1.0) Estimated GFR (Cockcroft-Gault) 58.2 Glucose Level 124 mg/dL (70-99) Calcium Level 8.4 mg/dL (8.5-10.1) Medications Current Medications Acetaminophen/ Hydrocodone Bitart (Lortab 5/325) 1 tab PRN Q4HRS PRN PO PAIN Last administered on 09/20/18at 12:34; Start 09/17/18 at 16:30 Morphine Sulfate (Morphine Sulfate) 4 mg PRN Q4HRS PRN IV MODERATE TO SEVERE PAIN Last administered on 09/18/18at 22:32; Start 09/17/18 at 21:15; Stop at 22:39; Status DC Phenytoin Sodium (Dilantin) 100 mg BID PO Last administered on 09/20/18at 08:11 ; Start 09/17/18 at 22:00; Stop 09/20/18 at 08:57; Status DC Clonazepam (KlonoPIN) 0.5 mg 1X ONCE PO Last administered on 09/17/18at 22:45; Start 09/17/18 at 22:00; Stop 09/17/18 at 22:01; Status DC Ondansetron HCl (Zofran) 4 mg PRN Q4HRS PRN IV NAUSEA/VOMITING; Start 09/18/18 at 11:00 Piperacillin Sod/ Tazobactam Sod 3.375 gm/Sodium Chloride 50 ml @ 100 mls/hr Q8H IV Last administered on 09/18/18at 11:41; Start 09/18/18 at 11:00; Stop at 12:38; Status DC Vancomycin HCl (Vanco Per Pharmacy) 1 each PRN DAILY PRN MC SEE COMMENTS Last administered on 09/19/18at 16:39; Start 09/18/18 at 11:00; Stop 09/20/18 at 09:48 ; Status DC Vancomycin HCl 1.75 gm/Sodium Chloride 500 ml @ 250 mls/hr 1X ONCE IV Last administered on 09/18/18at 12:52; Start 09/18/18 at 11:30; Stop 09/18/18 at 13:29 ; Status DC Piperacillin Sod/ Tazobactam Sod 3.375 gm/Sodium Chloride 50 ml @ 100 mls/hr Q6HRS IV Last administered on 09/20/18at 11:08; Start 09/18/18 at 18:00 Vancomycin HCl 1.25 gm/Sodium Chloride 250 ml @ 167 mls/hr Q12H IV Last administered on 09/19/18at 01:12; Start 09/19/18 at 01:00; Stop 09/19/18 at 16:36 ; Status DC Vancomycin HCl (Vancomycin Trough Level) 1 each 1X ONCE MC ; Start 09/20/18 at 00:30; Stop 09/20/18 at 00:31; Status Cancel Clonazepam (KlonoPIN) 0.5 mg HS PRN PO ANXIETY / AGITATION Last administered on 09/19/18at 20:33; Start 09/18/18 at 21:00; Stop 09/20/18 at 08:56; Status DC Diphenhydramine HCl (Benadryl) 25 mg PRN Q4HRS PRN PO ITCHING Last administered on 09/19/18at 04:33; Start 09/18/18 at 22:45 Fentanyl Citrate (Fentanyl 2ml Vial) 50 mcg PRN Q3HRS PRN IV PAIN Last administered on 09/20/18at 08:11; Start 09/18/18 at 22:45 Iodixanol (Visipaque 320) 100 ml STK-MED ONCE .ROUTE ; Start 09/19/18 at 10:58; Stop 09/19/18 at 10:59; Status DC Heparin Sodium/ Sodium Chloride 1,000 ml @ As Directed STK-MED ONCE .ROUTE ; Start 09/19/18 at 10:58; Stop 09/19/18 at 10:59; Status DC Lidocaine HCl (Lidocaine 1% 20ml Vial) 20 ml STK-MED ONCE .ROUTE ; Start at 10:59; Stop 09/19/18 at 11:00; Status DC Midazolam HCl (Versed) 5 mg STK-MED ONCE .ROUTE ; Start 09/19/18 at 13:14; Stop 09/19/18 at 13:15; Status DC Fentanyl Citrate (Fentanyl 5ml Vial) 250 mcg STK-MED ONCE .ROUTE ; Start at 13:14; Stop 09/19/18 at 13:15; Status DC Heparin Sodium (Porcine) (Heparin Sodium) 10,000 unit STK-MED ONCE .ROUTE ; Start 09/19/18 at 13:14; Stop 09/19/18 at 13:15; Status DC Iodixanol (Visipaque 320) 100 ml STK-MED ONCE .ROUTE ; Start 09/19/18 at 13:59; Stop 09/19/18 at 14:00; Status DC Heparin Sodium/ Sodium Chloride 500 ml @ As Directed STK-MED ONCE .ROUTE ; Start 09/19/18 at 14:14; Stop 09/19/18 at 14:15; Status DC Heparin Sodium/ Sodium Chloride (HEPARIN for ARTERIAL LINE FLUSH) 1,000 unit 1X ONCE IART Last administered on 09/19/18at 14:48; Start 09/19/18 at 14:15; Stop 09/19/18 at 14:24; Status DC Heparin Sodium/ Sodium Chloride (HEPARIN for ARTERIAL LINE FLUSH) 1,000 unit 1X ONCE IART Last administered on 09/19/18at 14:48; Start 09/19/18 at 14:15; Stop 09/19/18 at 14:24; Status DC Midazolam HCl (Versed) 3 mg 1X ONCE IV Last administered on 09/19/18at 14:49; Start 09/19/18 at 14:15; Stop 09/19/18 at 14:24; Status DC Fentanyl Citrate (Fentanyl 5ml Vial) 150 mcg 1X ONCE IV Last administered on 14:49; Start 09/19/18 at 14:15; Stop 09/19/18 at 14:24; Status DC Iodixanol (Visipaque 320) 100 ml 1X ONCE IART Last administered on 09/19/18at 14:49; Start 09/19/18 at 14:15; Stop 09/19/18 at 14:24; Status DC Heparin Sodium (Porcine) (Heparin Sodium) 7,000 unit 1X ONCE IV Last administered on 09/19/18at 14:50; Start 09/19/18 at 14:15; Stop 09/19/18 at 14:24 ; Status DC Lidocaine HCl (Lidocaine 1% 20ml Vial) 20 ml 1X ONCE INJ Last administered on 09/19/18at 14:49; Start 09/19/18 at 14:15; Stop 09/19/18 at 14:24; Status DC Info (CONTRAST GIVEN -- Rx MONITORING) 1 each PRN DAILY PRN MC SEE COMMENTS; Start 09/19/18 at 14:30; Stop 09/21/18 at 14:29 Protamine Sulfate (Protamine) 50 mg STK-MED ONCE IV ; Start 09/19/18 at 14:33; Stop 09/19/18 at 14:34; Status DC Protamine Sulfate (Protamine) 30 mg 1X ONCE IV Last administered on 09/19/18at 14:48; Start 09/19/18 at 14:45; Stop 09/19/18 at 14:46; Status DC Vancomycin HCl 1.25 gm/Sodium Chloride 250 ml @ 167 mls/hr Q12H IV Last administered on 09/20/18at 05:20; Start 09/19/18 at 17:00; Stop 09/20/18 at 09:46 ; Status DC Vancomycin HCl (Vancomycin Trough Level) 1 each 1X ONCE MC ; Start 09/20/18 at 16:30; Stop 09/20/18 at 16:31; Status Cancel Clonazepam (KlonoPIN) 0.5 mg PRN BID PRN PO ANXIETY / AGITATION Last administered on 09/20/18at 12:35; Start 09/20/18 at 09:00 Phenytoin Sodium (Dilantin) 200 mg BID PO ; Start 09/20/18 at 21:00 Phenytoin Sodium (Dilantin) 100 mg ONCE ONCE PO Last administered on at 09:52; Start 09/20/18 at 09:15; Stop 09/20/18 at 09:16; Status DC Linezolid (Zyvox) 600 mg BID PO Last administered on 09/20/18at 11:08; Start at 10:00 Active Scripts Active Reported Dilantin (Phenytoin Sodium Extended) 100 Mg Capsule 1 Cap PO BID Vitals/I & O Vital Sign - Last 24 Hours 09/19/18 09/19/18 09/19/18 09/19/18 14:49 15:05 15:33 16:23 Temp 98.9 98.9 Pulse 76 78 Resp 15 15 16 B/P (MAP) 122/81 (95) Pulse Ox 99 98 95 O2 Delivery Nasal Cannula Nasal Cannula Room Air Nasal Cannula O2 Flow Rate 5.0 3.0 2.0 09/19/18 09/19/18 09/19/18 09/19/18 19:35 20:00 20:34 21:07 Temp 98.7 98.7 Pulse 84 Resp 16 B/P (MAP) 113/70 (84) Pulse Ox 97 97 97 O2 Delivery Room Air Room Air Room Air Room Air 09/19/18 09/19/18 09/20/18 09/20/18 21:34 22:40 00:42 03:43 Temp 98.9 98.7 98.9 98.7 Pulse 89 82 Resp 18 18 B/P (MAP) 106/68 (81) 110/63 (79) Pulse Ox 97 97 97 97 O2 Delivery Room Air Room Air Room Air 09/20/18 09/20/18 09/20/18 09/20/18 04:17 04:47 07:00 08:00 Temp 98.4 98.4 Pulse 88 Resp 18 B/P (MAP) 124/82 (96) Pulse Ox 97 97 95 O2 Delivery Room Air Room Air Room Air 09/20/18 09/20/18 09/20/18 09/20/18 08:11 08:11 09:09 09:09 O2 Delivery Room Air Room Air Room Air Room Air 09/20/18 09/20/18 11:00 12:34 Temp 98.2 98.2 Pulse 90 Resp 18 B/P (MAP) 130/72 (91) Pulse Ox 97 O2 Delivery Room Air Room Air Intake and Output 09/19/18 09/19/18 09/20/18 15:00 23:00 07:00 Intake Total 730 ml 1150 ml Balance 730 ml 1150 ml PANCHO MARTINEZ APRN Sep 20, 2018 13:47
--- NOTE | 2018-09-20 13:58 | NUR ---
SS following up with discharge planning. SS received notification from [facility] that they would be able to accept pt as long as IV medications were switched to oral medications at discharge.
--- NOTE | 2018-09-20 15:03 | NUR ---
SS following up with discharge planning. Pt has been accepted [facility], ; fax [phone], for LTC placement. SS will await discharge orders and will proceed accordingly.
--- NOTE | 2018-09-20 16:27 | NUR ---
The patient, HANNAH LONG, 53 y/o, F admitted by JHOANA NEELY MD, was given written information regarding hospital policies, unit procedures and contact persons. Valuables were checked and left with patient. This nurse assessed patient and agrees with previous nursing assessment.
[2018-09-21] MEDS: fentaNYL PF VIAL 100 MCG/2 ML VIAL IV PRN ×6 (00:04→20:14)
[2018-09-21] MEDS: PIPERACILLIN/TAZOBACTAM 3.375 GM in IV NORMAL SALINE 50ML 50 ML IV SCH ×4 (00:05→18:10)
--- NOTE | 2018-09-21 02:03 | PN ---
DATE: 09/20/2018 SUBJECTIVE: The patient was admitted as she has a left foot ischemia with gangrenous toes and severe peripheral vascular disease. She was seen by the vascular surgeon and apparently she had a stent placed, although I was not sure exactly able to figure this was a successful procedure as the nursing staff states that she is going to have more surgery on next Sunday. The patient continued to complain of pain mostly in her left big toe that extends back. PHYSICAL EXAMINATION: GENERAL: When I examined her, she looked well and was clearly in no apparent respiratory distress and slightly pale. No jaundice, cyanosis or thyromegaly. No jugular venous distension. No limb edema. VITAL SIGNS: Her heart rate was 88, blood pressure was 124/82, temperature was 98.4, respiratory rate was 18 and oxygen saturation was 95%. MUSCULOSKELETAL: She has right forefoot amputation, left foot warm to touch and the tips of the toes of the left foot are dark black. Her intake was 4420, no output was recorded. LABORATORY DATA: This morning showed her serum sodium 139, potassium 4.2, chloride 105, bicarbonate 26, anion gap of 8, BUN 16, creatinine 1, estimated GFR was 58 mL per minute and her glucose 124. Calcium was 8.4. ASSESSMENT: 1. Left foot ischemia with gangrenous toes. 2. Severe peripheral vascular disease. The patient did have right transmetatarsal amputation. 3. Hypertension. 4. Borderline type 2 diabetes mellitus. 5. History of seizure disorder for which she is on phenytoin. Her Dilantin level was only 2.5. 6. Visual impairment. 7. Chronic obstructive pulmonary disease. PLAN: My plan is to increase her phenytoin to 200 mg twice a day, increase the Klonopin to 0.5 mg twice a day. Continue with IV antibiotic in the form of vancomycin and Zosyn. JHOANA NEELY MD DR: JASSI/isabel JOB#: [id number] / [id number]
--- NOTE | 2018-09-21 02:08 | RAD ---
AP portable chest radiograph 09/21/2018 Clinical History: Post PICC line placement. An AP erect portable digital radiograph of the chest was obtained. A right arm PICC has been placed. The tip of this catheter extends to overlie the superior vena cava. The cardiac silhouette is normal in size and configuration. The thoracic aorta is mildly tortuous. Atherosclerotic calcification of the thoracic aorta is seen. No acute pulmonary infiltrate is noted. No pleural effusion or pneumothorax is seen. The osseous structures are grossly intact. IMPRESSION: Interval placement of a right arm PICC. The tip of this catheter extends to overlie the superior vena cava. Electronically signed by: Edmund Kenyon MD (09/21/2018 2:05 AM) [id number]
[2018-09-21 03:59] VITALS: BP 107/44
[2018-09-21 05:36] LABS: CREATININE 0.9 mg/dL (0.6-1.0); GFR 65.8
[2018-09-21 07:00] VITALS: BP 95/60
[2018-09-21] MEDS: CLOPIDOGREL BISULFATE 75 MG TABLET PO SCH (08:42)
[2018-09-21] MEDS: LINEZOLID 600 MG TABLET PO SCH ×2 (08:42→20:14)
[2018-09-21] MEDS: PHENYTOIN SODIUM EXTENDED 100 MG CAPSULE PO SCH ×2 (08:42→20:13)
[2018-09-21] MEDS: HYDROcodone/APAP 5/325MG 1 TAB TABLET PO PRN ×4 (08:43→22:05)
[2018-09-21] MEDS: clonazePAM 0.5 MG TABLET PO PRN ×2 (09:58→20:17)
[2018-09-21 11:00] VITALS: BP 99/51
--- NOTE | 2018-09-21 13:42 | PDOC ---
Infectious Disease Note Subjective Subjective c/o left foot pain Denies F/C/S/aches/SOA ROS ROS per HPI otherwise neg Vital Sign Vital Signs Vital Signs Date Time Temp Pulse Resp B/P (MAP) Pulse Ox O2 Delivery O2 Flow Rate FiO2 09/21/18 12:11 97 Room Air 09/21/18 11:00 98.9 64 18 99/51 (67) 98.9 09/21/18 00:04 2.0 Physical Exam PHYSICAL EXAM GENERAL: Propped up in bed, alert, eating a cookie HEENT: blindness in eyes, Oral mucosa moist. NECK: Supple. LUNGS: Clear bilaterally, no wheezing. HEART: S1, S2. No gallops or murmurs. ABDOMEN: Soft, nontender, nondistended. EXTREMITIES: No edema, no cyanosis. Left foot shows discoloration, tender to touch. Left fifth toe gangrenous, ischemic, unable to palpate dorsalis pedis. DERMATOLOGIC: Warm, dry. No generalized rash. 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 Peripheral arterial disease.S/P Lt common iliac stent 09/19 Tobacco use. 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 History of Crohn's. History of smoking. History of seizure. Homeless Plan Plan of Care Zosyn since 09/18 Zyvox since 09/20 Vascular following, further intervention September 24 Attending Co-Sign Attending Co-Sign The patient was seen and interviewed as well as examined at the bedside. The chart was reviewed. The case was discussed. Agree with the plan of care. RENE KINNEY APRN Sep 21, 2018 13:42 SARA BECERRA MD Sep 21, 2018 15:34
[2018-09-21 15:00] VITALS: BP 99/67
[2018-09-21 19:59] VITALS: BP 96/61
[2018-09-21 23:01] VITALS: BP 103/63
--- NOTE | 2018-09-21 23:45 | PN ---
DATE: 09/21/2018 SUBJECTIVE: The patient is resting, slightly propped up, sleeping comfortably in no apparent distress. She did not voice any concern except that she continued to bang her foot on the bed. Nursing staff did not voice any concern and stated that she had an uneventful night. PHYSICAL EXAMINATION: GENERAL: When I examined her, she looked well and was clearly in no apparent respiratory distress. No pallor, jaundice, cyanosis, or thyromegaly. No jugular venous distention. No lower limb edema. VITAL SIGNS: Her heart rate was 82, blood pressure was 195/60, temperature was 98.9, respiratory rate was 20, and oxygen saturation was 97%. HEAD, EYES, EARS, NOSE AND THROAT: Normocephalic, atraumatic. NECK: Supple. HEART: Showed normal first and second heart sounds with no gallop, rub or murmur. CHEST: Clear to auscultation. No crepitation or rhonchi. ABDOMEN: Distended, soft, nontender. No guarding or rigidity. No organomegaly. All hernial orifice intact. Bowel sounds normal. NEUROLOGIC: She is legally blind, but otherwise all other cranial nerves are intact. She moves extremities without difficulty. She has right transmetatarsal amputation. She has gangrenous tips of left foot toes with osteomyelitis. The patient has had midline placed and she continues to be on her linezolid 600 mg p.o. twice a day, Zosyn 3.375 grams IV every 6 hours. Apparently, she has left common iliac artery angiogram showing high grade 80% stenosis, however, 2 cm improved after balloon expanding stent. The external iliac artery is widely patent, strong palpable femoral pulse. Her left popliteal artery is widely patent. 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 The veins at the posterior tibial reconstitutes at the ankle and peroneal reconstitutes at the ankle. Dr. Caballero is planning a left leg intervention to the tibial artery under anesthesia, the hybrid room for 09/24/2018. May ultimately require bypass to left lower extremity to improve arterial circulation for limb salvage. As she was ALLERGIC TO PENICILLIN, she was started on Plavix. The plan is to continue with IV antibiotic for possible osteomyelitis. Continue with phenytoin for seizure disorder, Plavix for antiplatelet effect and pain medication. JHOANA NEELY MD DR: Karol JOB#: [id number] / [id number]
[2018-09-22] VITALS (8 sets, daily range): BP systolic 89–107; BP diastolic 43–63
[2018-09-22] MEDS: PIPERACILLIN/TAZOBACTAM 3.375 GM in IV NORMAL SALINE 50ML 50 ML IV SCH ×5 (00:01→23:44)
[2018-09-22] MEDS: fentaNYL PF VIAL 100 MCG/2 ML VIAL IV PRN ×6 (00:06→23:39)
[2018-09-22] MEDS: HYDROcodone/APAP 5/325MG 1 TAB TABLET PO PRN ×5 (02:58→21:37)
[2018-09-22] MEDS: PHENYTOIN SODIUM EXTENDED 100 MG CAPSULE PO SCH ×2 (08:59→21:37)
[2018-09-22] MEDS: LINEZOLID 600 MG TABLET PO SCH ×2 (08:59→21:37)
[2018-09-22] MEDS: CLOPIDOGREL BISULFATE 75 MG TABLET PO SCH (08:59)
--- NOTE | 2018-09-22 12:37 | PDOC ---
Infectious Disease Note Subjective Subjective More comfortable, less throbbing pain Denies F/C/S/aches/SOA ROS ROS per HPI otherwise neg Vital Sign Vital Signs Vital Signs Date Time Temp Pulse Resp B/P (MAP) Pulse Ox O2 Delivery O2 Flow Rate FiO2 09/22/18 12:20 85 96/60 (72) 09/22/18 12:18 99 Room Air 09/22/18 10:50 97.9 17 97.9 Physical Exam PHYSICAL EXAM GENERAL: Propped up in bed, alert, relaxed HEENT: blindness in eyes, Oral mucosa moist. NECK: Supple. LUNGS: Clear bilaterally, no wheezing. HEART: S1, S2. No gallops or murmurs. ABDOMEN: Soft, nontender, nondistended. EXTREMITIES: No edema, no cyanosis. Left foot shows discoloration, tender to touch. Left fifth toe gangrenous, ischemic, unable to palpate dorsalis pedis. DERMATOLOGIC: Warm, dry. No generalized rash. Tattoos [employer] Alert, responds appropriately RUE-PICC clean Objective Assessment Left foot ischemia with gangrenous toe. Peripheral arterial disease.S/P Lt common iliac stent 09/19 Tobacco use. 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 History of Crohn's. History of smoking. History of seizure. Homeless Plan Plan of Care Zosyn since 09/18 Zyvox since 09/20 Vascular following, further intervention September 24 f/u am labs D/w nursing Attending Co-Sign Attending Co-Sign The patient was seen and interviewed as well as examined at the bedside. The chart was reviewed. The case was discussed. Agree with the plan of care. RENE KINNEY APRN Sep 22, 2018 12:37 SARA BECERRA MD Sep 22, 2018 16:21
[2018-09-22] MEDS: clonazePAM 0.5 MG TABLET PO PRN (21:37)
[2018-09-23] VITALS (7 sets, daily range): BP systolic 98–119; BP diastolic 48–72
--- NOTE | 2018-09-23 00:56 | PN ---
DATE: 09/22/2018 SUBJECTIVE: The patient is resting slightly propped up comfortably in bed, in no apparent distress. She continued to complain of throbbing pain in her left foot, although the nursing staff stated that she responds very well to her pain medication and sleeps well after that. PHYSICAL EXAMINATION: GENERAL: When I examined her, she looked pale, but no jaundice, cyanosis, or thyromegaly. No jugular venous distension. No lower limb edema. VITAL SIGNS: Her heart rate was 67, blood pressure was 102/50, temperature was 98.4, respiratory rate was 17 and oxygen saturation was 100% on room air. The rest of clinical examination is stable. Her intake over the last 24 hours was 1340, output was 700. LABORATORY DATA: No lab work done today. ASSESSMENT: 1. Left foot ischemia with gangrenous toes. 2. Severe peripheral vascular disease. The patient did have right transmetatarsal amputation. 3. Hypertension. 4. Borderline type 2 diabetes mellitus. 5. History of seizure disorder for which she is on phenytoin. Her Dilantin level was only 2.5. 6. Visual impairment. 7. Chronic obstructive pulmonary disease. PLAN: To continue to check her phenytoin level. Continue the IV antibiotic. Continue pain management. She is scheduled for another procedure on Sunday with possible amputation of her left fifth toe and possibly others. JHOANA NEELY MD DR: JASSI/isabel JOB#: [id number] / [id number]
[2018-09-23] MEDS: HYDROcodone/APAP 5/325MG 1 TAB TABLET PO PRN ×5 (01:49→19:50)
[2018-09-23] MEDS: fentaNYL PF VIAL 100 MCG/2 ML VIAL IV PRN ×5 (03:27→21:58)
[2018-09-23 04:13] LABS: HEMATOCRIT 36.2 % (36.0-47.0); HEMOGLOBIN 11.9 g/dL (12.0-15.5); RED BLOOD COUNT 3.66 x10^6/uL (3.50-5.40); RED CELL DISTRIBUTION WIDTH 13.8 % (11.5-14.5); WHITE BLOOD COUNT 8.1 x10^3/uL (4.0-11.0)
[2018-09-23 05:30] LABS: ANION GAP 7 (6-14); BLOOD UREA NITROGEN 16 mg/dL (7-20); CALCIUM 8.4 mg/dL (8.5-10.1); CARBON DIOXIDE 27 mmol/L (21-32); CHLORIDE 105 mmol/L (98-107); CREATININE 0.9 mg/dL (0.6-1.0); GFR 65.8; GLUCOSE 99 mg/dL (70-99); PHENY 6.7 mcg/mL (10.0-20.0); POTASSIUM 3.9 mmol/L (3.5-5.1); SODIUM 139 mmol/L (136-145)
[2018-09-23] MEDS: PIPERACILLIN/TAZOBACTAM 3.375 GM in IV NORMAL SALINE 50ML 50 ML IV SCH ×3 (06:05→18:07)
[2018-09-23] MEDS: CLOPIDOGREL BISULFATE 75 MG TABLET PO SCH (08:34)
[2018-09-23] MEDS: LINEZOLID 600 MG TABLET PO SCH ×2 (08:36→21:58)
--- NOTE | 2018-09-23 08:54 | PDOC ---
Provider Note Provider Note Vascular Surgery Follow Up: Subjective: pt doing well, reports nervous for tomorrow, "how much of my toes are they going to take". Has left foot pain, in toes and plantar surface pain, worse with touch. O: Patient seen at bedside with RN. Patient is awake, alert, in no apparent distress, cooperative. Vital Signs: Stable. Afebrile CV: RRR Pulm: Nonlabored. Abd: Soft. Non-distended. Right lower extremity: Right groin puncture site without hematoma or ecchymosis. Calf soft and no skin discoloration. Left lower extremity: Strong, palpable femoral pulse. Unable to palpate PT or DP. Calf is soft. Left foot with erythema involving toes and forefoot. Dusky appearance to toes with blotchiness to areas of the forefoot. Area of dark red/black between 1st and 2nd toes. Mottled 1st toe, distally with dorsal blister. Left 5th toe black and necrotic with crusty debris between 4tha dn 5th toes. Severe tenderness to palpation distal left foot/toes. Assessment/Plan: 1. Severe LLE PAD - s/p left common iliac artery with high-grade 80% stenosis over 2 cm -- improved after balloon expanding stent, external iliac artery widely patent . Strong, palpable femoral pulse. On Plavix. Pt allergic to ASA. 2. Left popliteal artery is widely patent. 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 It appears that the posterior tibial reconstitutes at the ankle and the peroneal reconstitutes at the ankle. Dr. Murphy is planning a left leg intervention to the tibial artery under anesthesia in the Hybrid room for tomorrow, September 24. May ultimately require bypass to LLE to improve arterial circulation for limb salvage? Discussed this with patient including, risks/benefits or procedure, potential outcomes and answered all her questions. She agreed to continue. 3. Gangrene to toes left foot. Once arterial circulation improved, will likely need at least 5th toe amp if not additional amp/debridement to other toes once demarcation has completed. 4. Homeless. 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 Will need to investigate all options for available care when ready for discharge. 5. Severe foot pain. May have component of some reperfusion pain after successful iliac stenting. Has options for pain control. 6. Left foot cellulitis with infection. Continue IV antibiotics as per ID. LIZET DON Sep 23, 2018 08:54
--- NOTE | 2018-09-23 09:32 | NUR ---
SW following. Discussed with RN, pt has been accepted at [facility]. Dr. Barrios advised pt is having a procedure tomorrow (09/24/18). SW will continue to follow.
[2018-09-23] MEDS: PHENYTOIN SODIUM EXTENDED 100 MG CAPSULE PO SCH ×2 (11:03→21:58)
--- NOTE | 2018-09-23 11:52 | PDOC ---
Infectious Disease Note Subjective Subjective More comfortable, less throbbing pain Denies F/C/S/aches/SOA ROS ROS o/w Vital Sign Vital Signs Vital Signs Date Time Temp Pulse Resp B/P (MAP) Pulse Ox O2 Delivery O2 Flow Rate FiO2 09/23/18 11:05 Room Air 09/23/18 11:00 98.1 74 18 101/58 (72) 97 98.1 Physical Exam PHYSICAL EXAM GENERAL: Propped up in bed, alert, relaxed HEENT: blindness in eyes, Oral mucosa moist. NECK: Supple. LUNGS: Clear bilaterally, no wheezing. HEART: S1, S2. No gallops or murmurs. ABDOMEN: Soft, nontender, nondistended. EXTREMITIES: No edema, no cyanosis. Left foot shows discoloration, tender to touch. Left fifth toe gangrenous, ischemic, unable to palpate dorsalis pedis. DERMATOLOGIC: Warm, dry. No generalized rash. Tattoos PROCESS PUMPER Alert, responds appropriately RUE-PICC clean Labs Lab Laboratory Tests Test 09/23/18 03:45 White Blood Count 8.1 x10^3/uL (4.0-11.0) Red Blood Count 3.66 x10^6/uL (3.50-5.40) Hemoglobin 11.9 g/dL (12.0-15.5) Hematocrit 36.2 % (36.0-47.0) Mean Corpuscular Volume 99 fL (79-100) Mean Corpuscular Hemoglobin 32 pg (25-35) Mean Corpuscular Hemoglobin Concent 33 g/dL (31-37) Red Cell Distribution Width 13.8 % (11.5-14.5) Platelet Count 266 x10^3/uL (140-400) Sodium Level 139 mmol/L (136-145) Potassium Level 3.9 mmol/L (3.5-5.1) Chloride Level 105 mmol/L (98-107) Carbon Dioxide Level 27 mmol/L (21-32) Anion Gap 7 (6-14) Blood Urea Nitrogen 16 mg/dL (7-20) Creatinine 0.9 mg/dL (0.6-1.0) Estimated GFR (Cockcroft-Gault) 65.8 Glucose Level 99 mg/dL (70-99) Calcium Level 8.4 mg/dL (8.5-10.1) Phenytoin (Dilantin) Level 6.7 mcg/mL (10.0-20.0) Phenytoin Last Dose Date 09/22/18 Phenytoin Last Dose Time 2100 Objective Assessment Left foot ischemia with gangrenous toe. Peripheral arterial disease.S/P Lt common iliac stent 09/19 Tobacco use. 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 History of Crohn's. History of smoking. History of seizure. Homeless Plan Plan of Care Zosyn since 09/18 Zyvox since 09/20 Vascular following, further intervention September 24 D/w nursing SARA BECERRA MD Sep 23, 2018 11:52
[2018-09-23] MEDS: clonazePAM 0.5 MG TABLET PO PRN (20:08)
[2018-09-24] VITALS (9 sets, daily range): BP systolic 106–120; BP diastolic 28–68
[2018-09-24] MEDS: HYDROcodone/APAP 5/325MG 1 TAB TABLET PO PRN (00:20)
[2018-09-24] MEDS: PIPERACILLIN/TAZOBACTAM 3.375 GM in IV NORMAL SALINE 50ML 50 ML IV SCH ×5 (00:21→23:53)
--- NOTE | 2018-09-24 01:17 | PN ---
DATE: 09/23/2018 SUBJECTIVE: The patient is resting, slightly propped up in bed, in no apparent respiratory distress. She continued to complain of severe pain in her left foot. Denied any chills, rigors or fever. OBJECTIVE: GENERAL: On examining her, she was pale. No jaundice, cyanosis or thyromegaly. No jugular venous distention. No lower limb edema. VITAL SIGNS: Her heart rate was 71, blood pressure is 106/57, temperature was 98.4, respiratory rate was 18 and oxygen saturation was 96%. HEAD, EYES, EARS, NOSE AND THROAT: Showed normocephalic, atraumatic. NECK: Supple. HEART: Showed normal first and second heart sounds. No gallop, rub or murmur. CHEST: Clear to auscultation. No crepitation or rhonchi. ABDOMEN: Distended, soft, nontender. No guarding or rigidity. No organomegaly. All hernial orifices intact. Bowel sounds normal. NEUROLOGIC: She was legally blind. Otherwise, she is able to move her extremities without difficulty. She has gangrenous left foot toes. Her intake over the last 24 hours was incompletely recorded. LABORATORY DATA: As of this morning, her white cell count was 8100; hemoglobin 12; hematocrit 36; MCV 99; platelet count 266,000. Her chemistry showed a serum sodium of 139, potassium 3.9, chloride 105, bicarbonate 27, anion gap of 7, BUN 16, creatinine 0.9, estimated GFR was 66 mL per minute. His glucose was 99 and calcium was 8.4. His prothrombin time was 12.4, INR of 1. Toxic screen showed that his phenytoin level was 6.7, which is low. ASSESSMENT: 1. Left foot ischemia with gangrenous toes. 2. Severe peripheral vascular disease. The patient did have right transmetatarsal amputation. 3. Hypertension. 4. Borderline type 2 diabetes mellitus. 5. History of seizure disorder with a subtherapeutic phenytoin, Dilantin level continues to be low. Today, it was 6.7. 6. Visual impairment. 7. Chronic obstructive pulmonary disease. PLAN: To increase phenytoin to 300 mg twice a day. Continue with IV antibiotic. Continue with pain management. As her pain is not well controlled, I increased the hydrocodone to 2 tablets every 4 hours as needed. She apparently is scheduled for angioplasty and stent deployment tomorrow and plus minus amputation of her fifth toe and may be other toes also. JHOANA NEELY MD DR: JASSI/isabel JOB#: [id number] / [id number]
[2018-09-24] MEDS: fentaNYL PF VIAL 100 MCG/2 ML VIAL IV PRN ×6 (02:41→23:52)
[2018-09-24] MEDS ORDERED: LIDOCAINE 1% PF 2 ML VIAL. ID PRN (07:00)
[2018-09-24] MEDS ORDERED: fentaNYL PF VIAL 100 MCG/2 ML VIAL IV PRN (07:00)
[2018-09-24] MEDS ORDERED: HYDROmorphone 2 MG/ML VIAL IV PRN (07:00)
[2018-09-24] MEDS ORDERED: PROCHLORPERAZINE 10 MG/2 ML VIAL. IV PRN (07:00)
[2018-09-24] MEDS ORDERED: IV RINGERS,LACTATED 1000ML 1,000 ML IV SCH (07:00)
[2018-09-24] MEDS ORDERED: ONDANSETRON PF 4 MG/2 ML VIAL. IV PRN (07:00)
--- NOTE | 2018-09-24 08:40 | PDOC ---
Infectious Disease Note Subjective Subjective Comfortable and awaiting surgery. Some pain Denies F/C/S/aches/SOA ROS ROS o/w neg Vital Sign Vital Signs Vital Signs Date Time Temp Pulse Resp B/P (MAP) Pulse Ox O2 Delivery O2 Flow Rate FiO2 09/24/18 07:47 98.2 70 18 114/68 (83) 99 Room Air 98.2 Physical Exam PHYSICAL EXAM GENERAL: Propped up in bed, alert, relaxed HEENT: blindness in eyes, Oral mucosa moist. NECK: Supple. LUNGS: Clear bilaterally, no wheezing. HEART: S1, S2. No gallops or murmurs. ABDOMEN: Soft, nontender, nondistended. EXTREMITIES: No edema, no cyanosis. Left foot shows discoloration, tender to touch. Left fifth toe gangrenous, ischemic, unable to palpate dorsalis pedis. DERMATOLOGIC: Warm, dry. No generalized rash. Tattoos CISO Alert, responds appropriately RUE-PICC clean Objective Assessment Left foot ischemia with gangrenous toe. Peripheral arterial disease.S/P Lt common iliac stent 09/19 Tobacco use. 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 History of Crohn's. History of smoking. History of seizure. Homeless Plan Plan of Care Zosyn since 09/18 Zyvox since 09/20 Vascular following, further intervention today D/w nursing SARA BECERRA MD Sep 24, 2018 08:40
[2018-09-24] MEDS: LINEZOLID 600 MG TABLET PO SCH ×2 (09:00→20:46)
[2018-09-24] MEDS: CLOPIDOGREL BISULFATE 75 MG TABLET PO SCH (09:21)
[2018-09-24] MEDS: PHENYTOIN SODIUM EXTENDED 100 MG CAPSULE PO SCH ×2 (09:21→20:46)
--- NOTE | 2018-09-24 11:20 | PDOC ---
PROGRESS NOTES Subjective Subjective Pt seen and examined in the pre-op area --> no change to previous notes She has PAD with left foot wounds and severe tibial occlusive disease Objective Objective Vital Signs Date Time Temp Pulse Resp B/P (MAP) Pulse Ox O2 Delivery O2 Flow Rate FiO2 09/24/18 09:25 Room Air 09/24/18 07:47 98.2 70 18 114/68 (83) 99 98.2 09/21/18 00:04 2.0 Intake and Output 09/24/18 07:00 Intake Total 1020 ml Balance 1020 ml Intake Oral 1020 ml # Voids 9 # Bowel Movements 2 Physical Exam Physical Exam femoral pulses palpable no access site issues from previous left foot with toes with distal tip necrosis Assessment Assessment Critial limb ischemia due to chronic PAD will plan right SLATE SPLITTING SUPERVISOR access and left leg intervention we discussed the procedure, risks, benefits, alternatives and she wishes to proceed Consent signed, left leg marked for intervention Comment Review of Relevant I have reviewed the following items arnie (where applicable) has been applied. Labs Laboratory Tests Test 09/23/18 03:45 White Blood Count 8.1 x10^3/uL (4.0-11.0) Red Blood Count 3.66 x10^6/uL (3.50-5.40) Hemoglobin 11.9 g/dL (12.0-15.5) Hematocrit 36.2 % (36.0-47.0) Mean Corpuscular Volume 99 fL (79-100) Mean Corpuscular Hemoglobin 32 pg (25-35) Mean Corpuscular Hemoglobin Concent 33 g/dL (31-37) Red Cell Distribution Width 13.8 % (11.5-14.5) Platelet Count 266 x10^3/uL (140-400) Sodium Level 139 mmol/L (136-145) Potassium Level 3.9 mmol/L (3.5-5.1) Chloride Level 105 mmol/L (98-107) Carbon Dioxide Level 27 mmol/L (21-32) Anion Gap 7 (6-14) Blood Urea Nitrogen 16 mg/dL (7-20) Creatinine 0.9 mg/dL (0.6-1.0) Estimated GFR (Cockcroft-Gault) 65.8 Glucose Level 99 mg/dL (70-99) Calcium Level 8.4 mg/dL (8.5-10.1) Phenytoin (Dilantin) Level 6.7 mcg/mL (10.0-20.0) Phenytoin Last Dose Date 09/22/18 Phenytoin Last Dose Time 2100 Medications Current Medications Acetaminophen/ Hydrocodone Bitart (Lortab 5/325) 1 tab PRN Q4HRS PRN PO PAIN Last administered on 09/23/18at 06:04; Start 09/17/18 at 16:30; Stop 09/23/18 at 08 :37; Status DC Morphine Sulfate (Morphine Sulfate) 4 mg PRN Q4HRS PRN IV MODERATE TO SEVERE PAIN Last administered on 09/18/18at 22:32; Start 09/17/18 at 21:15; Stop at 22:39; Status DC Phenytoin Sodium (Dilantin) 100 mg BID PO Last administered on 09/20/18at 08:11 ; Start 09/17/18 at 22:00; Stop 09/20/18 at 08:57; Status DC Clonazepam (KlonoPIN) 0.5 mg 1X ONCE PO Last administered on 09/17/18at 22:45; Start 09/17/18 at 22:00; Stop 09/17/18 at 22:01; Status DC Ondansetron HCl (Zofran) 4 mg PRN Q4HRS PRN IV NAUSEA/VOMITING; Start 09/18/18 at 11:00 Piperacillin Sod/ Tazobactam Sod 3.375 gm/Sodium Chloride 50 ml @ 100 mls/hr Q8H IV Last administered on 09/18/18at 11:41; Start 09/18/18 at 11:00; Stop at 12:38; Status DC Vancomycin HCl (Vanco Per Pharmacy) 1 each PRN DAILY PRN MC SEE COMMENTS Last administered on 09/19/18at 16:39; Start 09/18/18 at 11:00; Stop 09/20/18 at 09:48 ; Status DC Vancomycin HCl 1.75 gm/Sodium Chloride 500 ml @ 250 mls/hr 1X ONCE IV Last administered on 09/18/18at 12:52; Start 09/18/18 at 11:30; Stop 09/18/18 at 13:29 ; Status DC Piperacillin Sod/ Tazobactam Sod 3.375 gm/Sodium Chloride 50 ml @ 100 mls/hr Q6HRS IV Last administered on 09/24/18at 06:03; Start 09/18/18 at 18:00 Vancomycin HCl 1.25 gm/Sodium Chloride 250 ml @ 167 mls/hr Q12H IV Last administered on 09/19/18at 01:12; Start 09/19/18 at 01:00; Stop 09/19/18 at 16:36 ; Status DC Vancomycin HCl (Vancomycin Trough Level) 1 each 1X ONCE MC ; Start 09/20/18 at 00:30; Stop 09/20/18 at 00:31; Status Cancel Clonazepam (KlonoPIN) 0.5 mg HS PRN PO ANXIETY / AGITATION Last administered on 09/19/18at 20:33; Start 09/18/18 at 21:00; Stop 09/20/18 at 08:56; Status DC Diphenhydramine HCl (Benadryl) 25 mg PRN Q4HRS PRN PO ITCHING Last administered on 09/19/18at 04:33; Start 09/18/18 at 22:45 Fentanyl Citrate (Fentanyl 2ml Vial) 50 mcg PRN Q3HRS PRN IV PAIN Last administered on 09/24/18at 09:25; Start 09/18/18 at 22:45 Iodixanol (Visipaque 320) 100 ml STK-MED ONCE .ROUTE ; Start 09/19/18 at 10:58; Stop 09/19/18 at 10:59; Status DC Heparin Sodium/ Sodium Chloride 1,000 ml @ As Directed STK-MED ONCE .ROUTE ; Start 09/19/18 at 10:58; Stop 09/19/18 at 10:59; Status DC Lidocaine HCl (Lidocaine 1% 20ml Vial) 20 ml STK-MED ONCE .ROUTE ; Start at 10:59; Stop 09/19/18 at 11:00; Status DC Midazolam HCl (Versed) 5 mg STK-MED ONCE .ROUTE ; Start 09/19/18 at 13:14; Stop 09/19/18 at 13:15; Status DC Fentanyl Citrate (Fentanyl 5ml Vial) 250 mcg STK-MED ONCE .ROUTE ; Start at 13:14; Stop 09/19/18 at 13:15; Status DC Heparin Sodium (Porcine) (Heparin Sodium) 10,000 unit STK-MED ONCE .ROUTE ; Start 09/19/18 at 13:14; Stop 09/19/18 at 13:15; Status DC Iodixanol (Visipaque 320) 100 ml STK-MED ONCE .ROUTE ; Start 09/19/18 at 13:59; Stop 09/19/18 at 14:00; Status DC Heparin Sodium/ Sodium Chloride 500 ml @ As Directed STK-MED ONCE .ROUTE ; Start 09/19/18 at 14:14; Stop 09/19/18 at 14:15; Status DC Heparin Sodium/ Sodium Chloride (HEPARIN for ARTERIAL LINE FLUSH) 1,000 unit 1X ONCE IART Last administered on 09/19/18at 14:48; Start 09/19/18 at 14:15; Stop 09/19/18 at 14:24; Status DC Heparin Sodium/ Sodium Chloride (HEPARIN for ARTERIAL LINE FLUSH) 1,000 unit 1X ONCE IART Last administered on 09/19/18at 14:48; Start 09/19/18 at 14:15; Stop 09/19/18 at 14:24; Status DC Midazolam HCl (Versed) 3 mg 1X ONCE IV Last administered on 09/19/18at 14:49; Start 09/19/18 at 14:15; Stop 09/19/18 at 14:24; Status DC Fentanyl Citrate (Fentanyl 5ml Vial) 150 mcg 1X ONCE IV Last administered on at 14:49; Start 09/19/18 at 14:15; Stop 09/19/18 at 14:24; Status DC Iodixanol (Visipaque 320) 100 ml 1X ONCE IART Last administered on 09/19/18at 14:49; Start 09/19/18 at 14:15; Stop 09/19/18 at 14:24; Status DC Heparin Sodium (Porcine) (Heparin Sodium) 7,000 unit 1X ONCE IV Last administered on 09/19/18at 14:50; Start 09/19/18 at 14:15; Stop 09/19/18 at 14:24 ; Status DC Lidocaine HCl (Lidocaine 1% 20ml Vial) 20 ml 1X ONCE INJ Last administered on 09/19/18at 14:49; Start 09/19/18 at 14:15; Stop 09/19/18 at 14:24; Status DC Info (CONTRAST GIVEN -- Rx MONITORING) 1 each PRN DAILY PRN MC SEE COMMENTS; Start 09/19/18 at 14:30; Stop 09/21/18 at 14:29; Status DC Protamine Sulfate (Protamine) 50 mg STK-MED ONCE IV ; Start 09/19/18 at 14:33; Stop 09/19/18 at 14:34; Status DC Protamine Sulfate (Protamine) 30 mg 1X ONCE IV Last administered on 09/19/18at 14:48; Start 09/19/18 at 14:45; Stop 09/19/18 at 14:46; Status DC Vancomycin HCl 1.25 gm/Sodium Chloride 250 ml @ 167 mls/hr Q12H IV Last administered on 09/20/18at 05:20; Start 09/19/18 at 17:00; Stop 09/20/18 at 09:46 ; Status DC Vancomycin HCl (Vancomycin Trough Level) 1 each 1X ONCE MC ; Start 09/20/18 at 16:30; Stop 09/20/18 at 16:31; Status Cancel Clonazepam (KlonoPIN) 0.5 mg PRN BID PRN PO ANXIETY / AGITATION Last administered on 09/20/18at 16:59; Start 09/20/18 at 09:00; Stop 09/21/18 at 08:27 ; Status DC Phenytoin Sodium (Dilantin) 200 mg BID PO Last administered on 09/22/18at 21:37 ; Start 09/20/18 at 21:00; Stop 09/23/18 at 08:36; Status DC Phenytoin Sodium (Dilantin) 100 mg ONCE ONCE PO Last administered on at 09:52; Start 09/20/18 at 09:15; Stop 09/20/18 at 09:16; Status DC Linezolid (Zyvox) 600 mg BID PO Last administered on 09/23/18at 21:58; Start at 10:00 Oxycodone HCl (Roxicodone) 5 mg 1X ONCE PO Last administered on 09/20/18at 13: 51; Start 09/20/18 at 13:45; Stop 09/20/18 at 13:46; Status DC Clopidogrel Bisulfate (Plavix) 75 mg DAILYWBKFT PO Last administered on at 09:21; Start 09/21/18 at 08:00 Clonazepam (KlonoPIN) 0.5 mg PRN BID PRN PO ANXIETY / AGITATION Last administered on 09/23/18at 20:08; Start 09/21/18 at 08:30 Phenytoin Sodium (Dilantin) 300 mg BID PO Last administered on 09/24/18at 09:21; Start 09/23/18 at 09:00 Acetaminophen/ Hydrocodone Bitart (Lortab 5/325) 2 tab PRN Q4HRS PRN PO PAIN Last administered on 09/24/18at 00:20; Start 09/23/18 at 08:45 Ondansetron HCl (Zofran) 4 mg PRN Q6HRS PRN IV NAUSEA/VOMITING; Start 09/24/18 at 07:00; Stop 09/25/18 at 06:59 Fentanyl Citrate (Fentanyl 2ml Vial) 25 mcg PRN Q5MIN PRN IV MILD PAIN; Start 09/24/18 at 07:00; Stop 09/25/18 at 06:59 Fentanyl Citrate (Fentanyl 2ml Vial) 50 mcg PRN Q5MIN PRN IV MODERATE TO SEVERE PAIN; Start 09/24/18 at 07:00; Stop 09/25/18 at 06:59 Ringer's Solution 1,000 ml @ 30 mls/hr Q24H IV ; Start 09/24/18 at 07:00; Stop 09/24/18 at 18:59 Lidocaine HCl (Xylocaine-Mpf 1% 2ml Vial) 2 ml PRN 1X PRN ID PRIOR TO IV START ; Start 09/24/18 at 07:00; Stop 09/25/18 at 06:59 Hydromorphone HCl (Dilaudid) 0.5 mg PRN Q10MIN PRN IV SEV PAIN, Second choice; Start 09/24/18 at 07:00; Stop 09/25/18 at 06:59 Prochlorperazine Edisylate (Compazine) 5 mg PACU PRN PRN IV NAUSEA, MRX1; Start 09/24/18 at 07:00; Stop 09/25/18 at 06:59 Active Scripts Active Reported Dilantin (Phenytoin Sodium Extended) 100 Mg Capsule 1 Cap PO BID Vitals/I & O Vital Sign - Last 24 Hours 09/23/18 09/23/18 09/23/18 09/23/18 13:12 15:00 15:59 18:05 Temp 97.9 97.9 Pulse 70 Resp 18 B/P (MAP) 102/48 (66) Pulse Ox 94 O2 Delivery Room Air Room Air Room Air Room Air 09/23/18 09/23/18 09/23/18 09/23/18 19:00 19:50 20:05 21:58 Temp 98.4 98.4 Pulse 89 Resp 18 B/P (MAP) 112/58 (76) Pulse Ox 97 O2 Delivery Room Air Room Air Room Air Room Air 09/23/18 09/24/18 09/24/18 09/24/18 23:00 00:20 01:20 02:41 Temp 98.1 98.1 Pulse 88 Resp 18 B/P (MAP) 119/72 (88) Pulse Ox 96 O2 Delivery Room Air Room Air Room Air Room Air 09/24/18 09/24/18 09/24/18 09/24/18 03:00 06:03 06:45 07:47 Temp 98.6 98.2 98.6 98.2 Pulse 74 70 Resp 18 18 B/P (MAP) 109/60 (76) 114/68 (83) Pulse Ox 93 99 O2 Delivery Room Air Room Air Room Air Room Air 09/24/18 09:25 O2 Delivery Room Air Intake and Output 09/23/18 09/23/18 09/24/18 15:00 23:00 07:00 Intake Total 700 ml 320 ml Balance 700 ml 320 ml WENDY SERRANO MD Sep 24, 2018 11:20
[2018-09-24] MEDS ORDERED: PROPOFOL 20 ML IV ONE (11:32)
[2018-09-24] MEDS ORDERED: MIDAZOLAM HCL/PF 2 MG/2 ML VIAL. ONE (11:33)
[2018-09-24] MEDS ORDERED: KETAMINE HCL IN NACL, ISO-OSM 50 MG/5 ML SYRINGE ONE (11:36)
[2018-09-24] MEDS ORDERED: PROPOFOL 40 ML IV ONE (11:39)
[2018-09-24] MEDS ORDERED: DEXAMETHASONE SOD PHOS 20 MG/5 ML VIAL. ONE (12:03)
[2018-09-24] MEDS ORDERED: ONDANSETRON PF 4 MG/2 ML VIAL. ONE (12:03)
[2018-09-24] MEDS ORDERED: fentaNYL PF VIAL 100 MCG/2 ML VIAL ONE (12:03)
[2018-09-24] MEDS ORDERED: HEPARIN for IV BOLUS 10,000 UNIT/10 ML VIAL. ONE (12:31)
[2018-09-24] MEDS ORDERED: IODIXANOL 320 MG/ML 100 ML VIAL. ONE (12:46)
[2018-09-24] MEDS ORDERED: IODIXANOL 320 MG/ML 100 ML VIAL. IART ONE (13:00)
[2018-09-24] MEDS ORDERED: LIDOCAINE WITH 8.4% SOD BICARB 3 ML DISP.SYRIN. IJ ONE (13:00)
[2018-09-24] MEDS ORDERED: NITROGLYCERIN 200 MCG/2 ML SYRINGE FOR CATH/VASC LAB. IART ONE (13:00)
[2018-09-24] MEDS ORDERED: IOHEXOL 350 MG/ML 100 ML VIAL. IART ONE (13:30)
--- NOTE | 2018-09-24 13:38 | NUR ---
SIVAN following. Discussed with RN, pt having a stent surgery today, possibility of amputation if stent doesn't help. Pt's RN had someone from the [facility]pc call wanting to discuss legal issues. SIVAN passed note onto Radha FINNEGAN who has more knowledge of this patient and the circumstances surrounding the fpc. Pt is accepted at [facility] when ready for discharge. SIVAN left message for [facility] to provide updates of possible discharge.
[2018-09-24] MEDS ORDERED: PROTAMINE 50 MG/5 ML VIAL. IV ONE ×2 (13:41→13:45)
[2018-09-24] MEDS ORDERED: HEPARIN for IV BOLUS 10,000 UNIT/10 ML VIAL. IV ONE (13:45)
[2018-09-24] MEDS ORDERED: SEVOFLURANE 61 TO 120 MINUTES. IH ONE (14:02)
--- NOTE | 2018-09-24 14:15 | PDOC4 ---
OPERATIVE NOTE Date: Date: Sep 24, 2018 Pre-Op Diagnosis: Atherosclerosis of [place] arteries of left lower extremity with ulceration of the toes (other part of foot) Post-Op Diagnosis: Same as above Procedure Performed: #1 ultrasound-guided access right common femoral artery #2 left posterior tibial directional atherectomy and angioplasty Hawk 1S device and 3 mm x 200 Terumo balloon #3 left lateral tarsal artery angioplasty 2 mm x 4 cm Terumo balloon #4 left peroneal artery angioplasty 3 mm x 200 mm Terumo balloon (Patient had previous diagnostic angiography no radiology interpretation) Surgeon: Wendy Serrano M.D. Anesthesia Type: General -- Blood Loss: 0 Specimans Obtained: None Findings: Left posterior tibial artery occluded from about 2cm after it's origin to the ankle -- recanalized with directional atherectomy and angioplasty Left lateral tarsal artery in the foot with focal stenosis limiting outflow to the woundsimproved with balloon angioplasty Left peroneal artery mid calf complete occlusion recanalized with angioplasty And able to cross SHIVAM occlusion Complications: None Operative Note: The patient was escorted to the endovascular suite and placed supine on the table. Anesthesia was induced without difficulty after placement of appropriate lines and monitoring devices. The groins were prepped and draped in usual sterile fashion. Attention was directed to the right groin with a right common femoral artery was fluoroscopically marked over the femoral head and examined with ultrasound. Under ultrasound was found to be widely patent with good flow. An image of the vessels taken and saved for the medical record. Under real-time ultrasound guidance local anesthetic was injected in the groin and the right common femoral artery was accessed in retrograde fashion using a Jaylon puncture needle. This was used to place a arnie puncture wire into the iliac artery under fluoroscopic guidance and exchanged needle for micropuncture sheath. This was used to introduce a Glidewire advantage into the abdominal aorta under fluoroscopic guidance. This was used to introduce a flush catheter and was used to cross the aortic bifurcation and passed the Glidewire and then a glide catheter in the left SFA. This was then used to advance a stiff wire into the left popliteal artery and the catheter was removed. The wire was used to exchange the 5 Cuban sheath for a 6 Cuban 90 cm trauma destination sheath passed up and over the bifurcation with the distal tip in the left popliteal artery. This was all done under fluoroscopic guidance. I used an angled Navicross catheter and a V 18 wire to select the posterior tibial artery and then cross the long segment PT complete occlusion and was able to reenter the true lumen at the posterior tibial at the ankle. This was confirmed with angiography through the catheter tip and I used the catheter to place a grand slam wire into the lateral tarsal branch the posterior tibial. I used a OfferSavvyk 1 S directional atherectomy device to perform atherectomy the posterior tibial artery and then treated the entire artery with balloon angioplasty with a 3 mm x 200 mm Terumo angioplasty balloon with overlapping inflations. Repeat angiogram showed some residual stenosis in the small vessels of the foot limiting outflow. I directed the grand slam wire passed stenosis in the lateral tarsal branch and then performed balloon angioplasty the lateral tarsal branch with a 2 mm x 4 cm trauma angioplasty balloon with excellent result showing in-line flow to the foot. The wire was pulled back to the TP trunk and I used the angled catheter and the V 18 wire to select the peroneal artery and then cross the peroneal CROP DUSTER. I treated this with balloon angioplasty with the same 3 mm x 200 Terumo angioplasty balloon with excellent results. And gram showed in-line flow to the foot via the posterior tibial and the lateral tarsal branch and the peroneal to the ankle with good collateralization to the vessels in the foot. The wire catheter was pulled back and I used the catheter to select origin anterior tibial artery. I was unable to as there were large dense collaterals coming off the. Given the fact we obtained 2 vessel runoff to the foot I felt that should be enough to heal wounds. The catheter was removed and the sheath was advanced to the right sternal iliac artery over a wire. Additional right leg below the knee and grams were obtained as the patient was moving at the previous diagnostic. The sheath was removed over the wire and the wire was used to introduce an Angio -Seal closure device which was deployed the right groin with good hemostasis. She was given protamine. The groin was examined and there was excellent hemostasis and no hematoma. Patient was escorted to recovery in stable condition. WENDY SERRANO MD Sep 24, 2018 14:15
[2018-09-24] MEDS ORDERED: NITROGLYCERIN 200 MCG/2 ML SYRINGE FOR CATH/VASC LAB. ONE (14:33)
--- NOTE | 2018-09-24 22:07 | PN ---
DATE: 09/24/2018 SUBJECTIVE: The patient is resting slightly propped up in bed, in no apparent distress. She is scheduled for further revascularization, possible amputation. PHYSICAL EXAMINATION: On examining her, she looked well and was clearly in no apparent respiratory distress. Her vital signs are stable. LABORATORY WORK: Showed her white count at 8100; hemoglobin 12; hematocrit 36; MCV 99; platelet count 166,000. Her chemistry showed a BUN of 16, creatinine 0.9. ASSESSMENT: 1. Left foot ischemia with gangrenous toes. 2. Severe peripheral vascular disease. The patient did have right transmetatarsal amputation. 3. Hypertension. 4. Borderline type 2 diabetes mellitus. 5. History of seizure disorder with subtherapeutic phenytoin level. Her Dilantin was only 6.7. I did increase her phenytoin to 300 mg twice a day. 6. Visual impairment. 7. Chronic obstructive pulmonary disease. 8. The patient underwent left common iliac artery balloon expanding stent as she has 80% stenosis over 2 cm. She is scheduled for left leg intervention to the tibial artery under anesthesia in the hybrid room for today. Once the blood supply improves, she might have some of her toes amputated. JHOANA NEELY MD DR: JASSI/isabel JOB#: [id number] / [id number]
[2018-09-25] VITALS (7 sets, daily range): BP systolic 83–105; BP diastolic 40–65
[2018-09-25] MEDS: HYDROcodone/APAP 5/325MG 1 TAB TABLET PO PRN ×5 (03:23→20:45)
[2018-09-25] MEDS: fentaNYL PF VIAL 100 MCG/2 ML VIAL IV PRN ×3 (04:48→21:33)
[2018-09-25] MEDS: PIPERACILLIN/TAZOBACTAM 3.375 GM in IV NORMAL SALINE 50ML 50 ML IV SCH ×4 (05:25→23:26)
[2018-09-25 05:40] LABS: HEMATOCRIT 33.4 % (36.0-47.0); HEMOGLOBIN 11.4 g/dL (12.0-15.5); RED BLOOD COUNT 3.39 x10^6/uL (3.50-5.40); RED CELL DISTRIBUTION WIDTH 13.5 % (11.5-14.5); WHITE BLOOD COUNT 8.5 x10^3/uL (4.0-11.0)
[2018-09-25 05:56] LABS: CALCIUM 8.2 mg/dL (8.5-10.1); CREATININE 0.9 mg/dL (0.6-1.0); GFR 65.8; POTASSIUM 3.3 mmol/L (3.5-5.1)
[2018-09-25] MEDS: CLOPIDOGREL BISULFATE 75 MG TABLET PO SCH (08:16)
[2018-09-25] MEDS: LINEZOLID 600 MG TABLET PO SCH ×2 (09:26→20:45)
[2018-09-25] MEDS: PHENYTOIN SODIUM EXTENDED 100 MG CAPSULE PO SCH ×2 (09:26→20:45)
--- NOTE | 2018-09-25 10:14 | NUR ---
SW following. Discussed with RN, pt accepted at [facility]. Pt possibly having another surgery in the next day or so per physician note. SW will continue to follow.
--- NOTE | 2018-09-25 11:13 | NUR ---
SIVAN following pt. SIVAN spoke with Bren, phone: [phone] from homeless [facility]. Pt has an appointment with her training and development officer, Laine Aguilar, phone: [phone] on 10/02/18 at [address] appearance on 11/14/2018 at 0830. Pt apparently was charged and is ordered to pay a fee to the [facility] court and do supervised visit with her control officer. Due to this, pt is required to make court appearances is she is not able to pay or her established fee increases. Spoke with pt's control officer and discussed pt will dc to LTC once medically stable. training and development officer, Laine requested if pt is at [facility] on the a note needs to be faxed to her indicating pt is in hospital, fax: [phone] and can be written by SW or LTC facility needs to fax pt is [place] if pt can't make it to her appointment. A note also need be faxed to the court by facility if pt can't make it her court appearances, fax: [phone]. SIVAN left a message to APS worker, Suyapa Ritchie, phone: [phone] to see if they are able to assist with this as pt might not be able to make it to her appointment if she goes to LTC. SIVAN also left a message to Lizabeth Portillo at [facility]. Addendum: 09/26/18 at 0802 by LUDIVINA FINNEGAN Discussed above case with Rosa at [facility] and provided phone number for control officer and court fax number.
[2018-09-25] MEDS ORDERED: IV NORMAL SALINE 500ML BAG 500 ML IV ONE (12:00)
[2018-09-25 12:09] LABS: PHENY 8.8 mcg/mL (10.0-20.0)
[2018-09-25] MEDS: IV NORMAL SALINE 1000ML BAG 1,000 ML IV SCH ×2 (12:39→20:44)
--- NOTE | 2018-09-25 13:26 | PDOC ---
PROGRESS NOTES Subjective Subjective Pt doing well, complaint of continuous left foot pain, controlled with pain meds. Good appetite, intake and output. Objective Objective Vital Signs Date Time Temp Pulse Resp B/P (MAP) Pulse Ox O2 Delivery O2 Flow Rate FiO2 09/25/18 12:33 18 Room Air 09/25/18 11:00 98.0 69 86/49 (61) 100 98.0 09/25/18 05:18 5.0 Intake and Output 09/25/18 07:00 Intake Total 2220 ml Output Total 150 ml Balance 2070 ml Intake Oral 720 ml IV Total 1500 ml Output Urine Total 150 ml # Voids 2 Physical Exam Physical Exam HR stable, slightly hypotensive, afebrile Awake, alert in no apparent distress Respirations non labored Right groin site clean, intact without evidence of drainage. Soft, no hematoma. Right transmetatarsal amputation from distant past well-healed. Foot warm with good sensation. Left drying oven tender to touch. Warm, with good cap refill. Slightly hyperemic, blister forming dorsal 1st toe, other toes with distal tips with dark discoloration, 5th toe with necrotic tissue plantar surface. Plan Plan of Care POD#1 of left leg atherectomy and angioplasty, was able to get 2 vessel run-off - should be adequate for wound healing. Plan for right leg arteriogram with intervention tomorrow with Dr. Murphy. s/p left common iliac artery with high- grade 80% stenosis over 2 cm -- proved after balloon expanding stent, external iliac artery widely patent. Cont plavix. - Gangrene to toes left foot. Will likely need at least 5th toe amp if not additional amp/debridement to other toes once demarcation has completed now that left leg circulation is improved. Comment Review of Relevant I have reviewed the following items arnie (where applicable) has been applied. Labs Laboratory Tests Test 09/24/18 14:22 09/25/18 05:30 Glucose (Fingerstick) 97 mg/dL (70-99) White Blood Count 8.5 x10^3/uL (4.0-11.0) Red Blood Count 3.39 x10^6/uL (3.50-5.40) Hemoglobin 11.4 g/dL (12.0-15.5) Hematocrit 33.4 % (36.0-47.0) Mean Corpuscular Volume 99 fL (79-100) Mean Corpuscular Hemoglobin 34 pg (25-35) Mean Corpuscular Hemoglobin Concent 34 g/dL (31-37) Red Cell Distribution Width 13.5 % (11.5-14.5) Platelet Count 262 x10^3/uL (140-400) Sodium Level 143 mmol/L (136-145) Potassium Level 3.3 mmol/L (3.5-5.1) Chloride Level 105 mmol/L (98-107) Carbon Dioxide Level 26 mmol/L (21-32) Anion Gap 12 (6-14) Blood Urea Nitrogen 15 mg/dL (7-20) Creatinine 0.9 mg/dL (0.6-1.0) Estimated GFR (Cockcroft-Gault) 65.8 Glucose Level 125 mg/dL (70-99) Calcium Level 8.2 mg/dL (8.5-10.1) Phenytoin (Dilantin) Level 8.8 mcg/mL (10.0-20.0) Phenytoin Last Dose Date Unknown Phenytoin Last Dose Time Unknown Laboratory Tests Test 09/24/18 14:22 09/25/18 05:30 Glucose (Fingerstick) 97 mg/dL (70-99) White Blood Count 8.5 x10^3/uL (4.0-11.0) Red Blood Count 3.39 x10^6/uL (3.50-5.40) Hemoglobin 11.4 g/dL (12.0-15.5) Hematocrit 33.4 % (36.0-47.0) Mean Corpuscular Volume 99 fL (79-100) Mean Corpuscular Hemoglobin 34 pg (25-35) Mean Corpuscular Hemoglobin Concent 34 g/dL (31-37) Red Cell Distribution Width 13.5 % (11.5-14.5) Platelet Count 262 x10^3/uL (140-400) Sodium Level 143 mmol/L (136-145) Potassium Level 3.3 mmol/L (3.5-5.1) Chloride Level 105 mmol/L (98-107) Carbon Dioxide Level 26 mmol/L (21-32) Anion Gap 12 (6-14) Blood Urea Nitrogen 15 mg/dL (7-20) Creatinine 0.9 mg/dL (0.6-1.0) Estimated GFR (Cockcroft-Gault) 65.8 Glucose Level 125 mg/dL (70-99) Calcium Level 8.2 mg/dL (8.5-10.1) Phenytoin (Dilantin) Level 8.8 mcg/mL (10.0-20.0) Phenytoin Last Dose Date Unknown Phenytoin Last Dose Time Unknown Medications Current Medications Acetaminophen/ Hydrocodone Bitart (Lortab 5/325) 1 tab PRN Q4HRS PRN PO PAIN Last administered on 09/23/18at 06:04; Start 09/17/18 at 16:30; Stop 09/23/18 at 08 :37; Status DC Morphine Sulfate (Morphine Sulfate) 4 mg PRN Q4HRS PRN IV MODERATE TO SEVERE PAIN Last administered on 09/18/18at 22:32; Start 09/17/18 at 21:15; Stop at 22:39; Status DC Phenytoin Sodium (Dilantin) 100 mg BID PO Last administered on 09/20/18 08:11 ; Start 09/17/18 at 22:00; Stop 09/20/18 at 08:57; Status DC Clonazepam (KlonoPIN) 0.5 mg 1X ONCE PO Last administered on 09/17/18at 22:45; Start 09/17/18 at 22:00; Stop 09/17/18 at 22:01; Status DC Ondansetron HCl (Zofran) 4 mg PRN Q4HRS PRN IV NAUSEA/VOMITING; Start 09/18/18 at 11:00 Piperacillin Sod/ Tazobactam Sod 3.375 gm/Sodium Chloride 50 ml @ 100 mls/hr Q8H IV Last administered on 09/18/18at 11:41; Start 09/18/18 at 11:00; Stop at 12:38; Status DC Vancomycin HCl (Vanco Per Pharmacy) 1 each PRN DAILY PRN MC SEE COMMENTS Last administered on 09/19/18at 16:39; Start 09/18/18 at 11:00; Stop 09/20/18 at 09:48 ; Status DC Vancomycin HCl 1.75 gm/Sodium Chloride 500 ml @ 250 mls/hr 1X ONCE IV Last administered on 09/18/18at 12:52; Start 09/18/18 at 11:30; Stop 09/18/18 at 13:29 ; Status DC Piperacillin Sod/ Tazobactam Sod 3.375 gm/Sodium Chloride 50 ml @ 100 mls/hr Q6HRS IV Last administered on 09/25/18at 12:46; Start 09/18/18 at 18:00 Vancomycin HCl 1.25 gm/Sodium Chloride 250 ml @ 167 mls/hr Q12H IV Last administered on 09/19/18at 01:12; Start 09/19/18 at 01:00; Stop 09/19/18 at 16:36 ; Status DC Vancomycin HCl (Vancomycin Trough Level) 1 each 1X ONCE MC ; Start 09/20/18 at 00:30; Stop 09/20/18 at 00:31; Status Cancel Clonazepam (KlonoPIN) 0.5 mg HS PRN PO ANXIETY / AGITATION Last administered on 09/19/18at 20:33; Start 09/18/18 at 21:00; Stop 09/20/18 at 08:56; Status DC Diphenhydramine HCl (Benadryl) 25 mg PRN Q4HRS PRN PO ITCHING Last administered on 09/19/18at 04:33; Start 09/18/18 at 22:45 Fentanyl Citrate (Fentanyl 2ml Vial) 50 mcg PRN Q3HRS PRN IV PAIN Last administered on 09/25/18at 04:48; Start 09/18/18 at 22:45 Iodixanol (Visipaque 320) 100 ml STK-MED ONCE .ROUTE ; Start 09/19/18 at 10:58; Stop 09/19/18 at 10:59; Status DC Heparin Sodium/ Sodium Chloride 1,000 ml @ As Directed STK-MED ONCE .ROUTE ; Start 09/19/18 at 10:58; Stop 09/19/18 at 10:59; Status DC Lidocaine HCl (Lidocaine 1% 20ml Vial) 20 ml STK-MED ONCE .ROUTE ; Start at 10:59; Stop 09/19/18 at 11:00; Status DC Midazolam HCl (Versed) 5 mg STK-MED ONCE .ROUTE ; Start 09/19/18 at 13:14; Stop 09/19/18 at 13:15; Status DC Fentanyl Citrate (Fentanyl 5ml Vial) 250 mcg STK-MED ONCE .ROUTE ; Start at 13:14; Stop 09/19/18 at 13:15; Status DC Heparin Sodium (Porcine) (Heparin Sodium) 10,000 unit STK-MED ONCE .ROUTE ; Start 09/19/18 at 13:14; Stop 09/19/18 at 13:15; Status DC Iodixanol (Visipaque 320) 100 ml STK-MED ONCE .ROUTE ; Start 09/19/18 at 13:59; Stop 09/19/18 at 14:00; Status DC Heparin Sodium/ Sodium Chloride 500 ml @ As Directed STK-MED ONCE .ROUTE ; Start 09/19/18 at 14:14; Stop 09/19/18 at 14:15; Status DC Heparin Sodium/ Sodium Chloride (HEPARIN for ARTERIAL LINE FLUSH) 1,000 unit 1X ONCE IART Last administered on 09/19/18at 14:48; Start 09/19/18 at 14:15; Stop 09/19/18 at 14:24; Status DC Heparin Sodium/ Sodium Chloride (HEPARIN for ARTERIAL LINE FLUSH) 1,000 unit 1X ONCE IART Last administered on 09/19/18at 14:48; Start 09/19/18 at 14:15; Stop 09/19/18 at 14:24; Status DC Midazolam HCl (Versed) 3 mg 1X ONCE IV Last administered on 09/19/18 14:49; Start 09/19/18 at 14:15; Stop 09/19/18 at 14:24; Status DC Fentanyl Citrate (Fentanyl 5ml Vial) 150 mcg 1X ONCE IV Last administered on 14:49; Start 09/19/18 at 14:15; Stop 09/19/18 at 14:24; Status DC Iodixanol (Visipaque 320) 100 ml 1X ONCE IART Last administered on 09/19/18 14:49; Start 09/19/18 at 14:15; Stop 09/19/18 at 14:24; Status DC Heparin Sodium (Porcine) (Heparin Sodium) 7,000 unit 1X ONCE IV Last administered on 09/19/18at 14:50; Start 09/19/18 at 14:15; Stop 09/19/18 at 14:24 ; Status DC Lidocaine HCl (Lidocaine 1% 20ml Vial) 20 ml 1X ONCE INJ Last administered on 09/19/18at 14:49; Start 09/19/18 at 14:15; Stop 09/19/18 at 14:24; Status DC Info (CONTRAST GIVEN -- Rx MONITORING) 1 each PRN DAILY PRN MC SEE COMMENTS; Start 09/19/18 at 14:30; Stop 09/21/18 at 14:29; Status DC Protamine Sulfate (Protamine) 50 mg STK-MED ONCE IV ; Start 09/19/18 at 14:33; Stop 09/19/18 at 14:34; Status DC Protamine Sulfate (Protamine) 30 mg 1X ONCE IV Last administered on 09/19/18at 14:48; Start 09/19/18 at 14:45; Stop 09/19/18 at 14:46; Status DC Vancomycin HCl 1.25 gm/Sodium Chloride 250 ml @ 167 mls/hr Q12H IV Last administered on 09/20/18at 05:20; Start 09/19/18 at 17:00; Stop 09/20/18 at 09:46 ; Status DC Vancomycin HCl (Vancomycin Trough Level) 1 each 1X ONCE MC ; Start 09/20/18 at 16:30; Stop 09/20/18 at 16:31; Status Cancel Clonazepam (KlonoPIN) 0.5 mg PRN BID PRN PO ANXIETY / AGITATION Last administered on 09/20/18at 16:59; Start 09/20/18 at 09:00; Stop 09/21/18 at 08:27 ; Status DC Phenytoin Sodium (Dilantin) 200 mg BID PO Last administered on 09/22/18at 21:37 ; Start 09/20/18 at 21:00; Stop 09/23/18 at 08:36; Status DC Phenytoin Sodium (Dilantin) 100 mg ONCE ONCE PO Last administered on at 09:52; Start 09/20/18 at 09:15; Stop 09/20/18 at 09:16; Status DC Linezolid (Zyvox) 600 mg BID PO Last administered on 09/25/18at 09:26; Start at 10:00 Oxycodone HCl (Roxicodone) 5 mg 1X ONCE PO Last administered on 09/20/18at 13: 51; Start 09/20/18 at 13:45; Stop 09/20/18 at 13:46; Status DC Clopidogrel Bisulfate (Plavix) 75 mg DAILYWBKFT PO Last administered on at 08:16; Start 09/21/18 at 08:00 Clonazepam (KlonoPIN) 0.5 mg PRN BID PRN PO ANXIETY / AGITATION Last administered on 09/23/18at 20:08; Start 09/21/18 at 08:30 Phenytoin Sodium (Dilantin) 300 mg BID PO Last administered on 09/25/18 09:26; Start 09/23/18 at 09:00 Acetaminophen/ Hydrocodone Bitart (Lortab 5/325) 2 tab PRN Q4HRS PRN PO PAIN Last administered on 09/25/18at 12:33; Start 09/23/18 at 08:45 Ondansetron HCl (Zofran) 4 mg PRN Q6HRS PRN IV NAUSEA/VOMITING; Start 09/24/18 at 07:00; Stop 09/25/18 at 06:59; Status DC Fentanyl Citrate (Fentanyl 2ml Vial) 25 mcg PRN Q5MIN PRN IV MILD PAIN Last administered on 09/24/18at 14:43; Start 09/24/18 at 07:00; Stop 09/25/18 at 06:59; Status DC Fentanyl Citrate (Fentanyl 2ml Vial) 50 mcg PRN Q5MIN PRN IV MODERATE TO SEVERE PAIN Last administered on 09/24/18 14:15; Start 09/24/18 at 07:00; Stop at 06:59; Status DC Ringer's Solution 1,000 ml @ 30 mls/hr Q24H IV ; Start 09/24/18 at 07:00; Stop 09/24/18 at 18:59; Status DC Lidocaine HCl (Xylocaine-Mpf 1% 2ml Vial) 2 ml PRN 1X PRN ID PRIOR TO IV START ; Start 09/24/18 at 07:00; Stop 09/25/18 at 06:59; Status DC Hydromorphone HCl (Dilaudid) 0.5 mg PRN Q10MIN PRN IV SEV PAIN, Second choice; Start 09/24/18 at 07:00; Stop 09/25/18 at 06:59; Status DC Prochlorperazine Edisylate (Compazine) 5 mg PACU PRN PRN IV NAUSEA, MRX1 Last administered on 09/24/18at 15:00; Start 09/24/18 at 07:00; Stop 09/25/18 at 06:59; Status DC Heparin Sodium/ Sodium Chloride (HEPARIN for ARTERIAL LINE FLUSH) 1,000 unit 1X ONCE IART Last administered on 09/24/18at 13:00; Start 09/24/18 at 13:00; Stop 09/24/18 at 13:02; Status DC Heparin Sodium/ Sodium Chloride (HEPARIN for ARTERIAL LINE FLUSH) 1,000 unit 1X ONCE IART ; Start 09/24/18 at 13:00; Stop 09/24/18 at 13:02; Status DC Lidocaine/Sodium Bicarbonate (Buffered Lidocaine 1%) 3 ml 1X ONCE IJ Last administered on 09/24/18at 13:00; Start 09/24/18 at 13:00; Stop 09/24/18 at 13:02; Status DC Iodixanol (Visipaque 320) 100 ml 1X ONCE IART Last administered on 09/24/18at 13 :00; Start 09/24/18 at 13:00; Stop 09/24/18 at 13:02; Status DC Nitroglycerin (Nitroglycerin) 200 mcg 1X ONCE IART Last administered on at 13:00; Start 09/24/18 at 13:00; Stop 09/24/18 at 13:03; Status DC Iohexol (Omnipaque 350 Mg/ml) 100 ml 1X ONCE IART ; Start 09/24/18 at 13:30; Stop 09/24/18 at 13:31; Status UNV Heparin Sodium (Porcine) (Heparin Sodium) 8,000 unit 1X ONCE IV ; Start at 13:45; Stop 09/24/18 at 13:46; Status DC Protamine Sulfate (Protamine) 30 mg 1X ONCE IV Last administered on 09/24/18at 13:45; Start 09/24/18 at 13:45; Stop 09/24/18 at 13:46; Status DC Sodium Chloride 500 ml @ 500 mls/hr 1X ONCE IV Last administered on 09/25/18at 12:00; Start 09/25/18 at 12:00; Stop 09/25/18 at 12:59; Status DC Sodium Chloride 1,000 ml @ 150 mls/hr Q6H40M IV Last administered on 09/25/18at 12:39; Start 09/25/18 at 12:00 Active Scripts Active Reported Dilantin (Phenytoin Sodium Extended) 100 Mg Capsule 1 Cap PO BID Vitals/I & O Vital Sign - Last 24 Hours 09/24/18 09/24/18 09/24/18 09/24/18 14:08 14:08 14:15 14:23 Temp 97 97.0 97.0 97.0 Pulse 74 72 Resp 18 16 B/P (MAP) 131/73 157/80 Pulse Ox 98 98 98 O2 Delivery Room Air Room Air Nasal Cannula Nasal Cannula O2 Flow Rate 5 5 5.0 5.0 09/24/18 09/24/18 09/24/18 09/24/18 14:33 14:38 14:43 14:53 Temp 97.0 97.0 Pulse 72 60 Resp 16 16 16 21 B/P (MAP) 142/77 142/74 Pulse Ox 98 98 98 98 O2 Delivery Room Air Nasal Cannula Room Air Nasal Cannula O2 Flow Rate 5.0 2 5.0 2 09/24/18 09/24/18 09/24/18 09/24/18 15:08 15:25 15:45 16:00 Pulse 60 60 55 57 Resp 16 18 18 B/P (MAP) 142/77 124/72 109/28 (55) 106/31 (56) Pulse Ox 98 98 97 99 O2 Delivery Nasal Cannula Nasal Cannula Room Air Room Air O2 Flow Rate 2 2 09/24/18 09/24/18 09/24/18 09/24/18 16:15 16:30 16:45 19:25 Temp 97.9 97.9 Pulse 73 60 119 59 Resp 18 18 18 20 B/P (MAP) 111/37 (61) 107/50 (69) 120/61 (80) 112/48 (69) Pulse Ox 100 100 97 99 O2 Delivery Room Air Room Air Room Air Room Air 09/24/18 09/24/18 09/24/18 09/25/18 20:00 23:39 23:52 03:19 Temp 98.0 98.0 98.0 98.0 Pulse 55 80 Resp 20 20 B/P (MAP) 118/52 (74) 83/40 (54) Pulse Ox 98 98 96 O2 Delivery Room Air Room Air Room Air Room Air 4/3/19 09/25/18 09/25/18 09/25/18 03:23 04:48 05:18 07:00 Temp 98.1 98.1 Pulse 74 Resp 18 B/P (MAP) 84/44 (57) Pulse Ox 96 96 98 O2 Delivery Room Air Room Air Room Air Room Air O2 Flow Rate 5.0 5.0 09/25/18 09/25/18 09/25/18 09/25/18 07:45 08:19 09:20 09:25 Resp 16 16 B/P (MAP) 87/47 (60) O2 Delivery Room Air Room Air Room Air 09/25/18 09/25/18 09/25/18 09:25 11:00 12:33 Temp 98.0 98.0 Pulse 69 Resp 18 18 B/P (MAP) 83/48 (60) 86/49 (61) Pulse Ox 100 O2 Delivery Room Air Room Air Intake and Output 09/24/18 09/24/18 09/25/18 15:00 23:00 07:00 Intake Total 1500 ml 720 ml Output Total 150 ml Balance -150 ml 1500 ml 720 ml LIZET DON Sep 25, 2018 13:26
--- NOTE | 2018-09-25 13:31 | PDOC ---
Infectious Disease Note Subjective Subjective In Some pain Denies F/C/S/aches/SOA Vital Sign Vital Signs Vital Signs Date Time Temp Pulse Resp B/P (MAP) Pulse Ox O2 Delivery O2 Flow Rate FiO2 09/25/18 12:33 18 Room Air 09/25/18 11:00 98.0 69 86/49 (61) 100 98.0 09/25/18 05:18 5.0 Physical Exam PHYSICAL EXAM GENERAL: Propped up in bed, alert, relaxed and looks comfortable despite Wound care evaluating her HEENT: blindness in eyes, Oral mucosa moist. NECK: Supple. LUNGS: Clear bilaterally, no wheezing. HEART: S1, S2. No gallops or murmurs. ABDOMEN: Soft, nontender, nondistended. EXTREMITIES: No edema, no cyanosis. Left foot shows discoloration, tender to touch. Left fifth toe gangrenous, ischemic, unable to palpate dorsalis pedis. DERMATOLOGIC: Warm, dry. No generalized rash. Tattoos NEWSPAPER PHOTOGRAPHER Alert, responds appropriately RUE-PICC clean Labs Lab Laboratory Tests Test 09/24/18 14:22 09/25/18 05:30 Glucose (Fingerstick) 97 mg/dL (70-99) White Blood Count 8.5 x10^3/uL (4.0-11.0) Red Blood Count 3.39 x10^6/uL (3.50-5.40) Hemoglobin 11.4 g/dL (12.0-15.5) Hematocrit 33.4 % (36.0-47.0) Mean Corpuscular Volume 99 fL (79-100) Mean Corpuscular Hemoglobin 34 pg (25-35) Mean Corpuscular Hemoglobin Concent 34 g/dL (31-37) Red Cell Distribution Width 13.5 % (11.5-14.5) Platelet Count 262 x10^3/uL (140-400) Sodium Level 143 mmol/L (136-145) Potassium Level 3.3 mmol/L (3.5-5.1) Chloride Level 105 mmol/L (98-107) Carbon Dioxide Level 26 mmol/L (21-32) Anion Gap 12 (6-14) Blood Urea Nitrogen 15 mg/dL (7-20) Creatinine 0.9 mg/dL (0.6-1.0) Estimated GFR (Cockcroft-Gault) 65.8 Glucose Level 125 mg/dL (70-99) Calcium Level 8.2 mg/dL (8.5-10.1) Phenytoin (Dilantin) Level 8.8 mcg/mL (10.0-20.0) Phenytoin Last Dose Date Unknown Phenytoin Last Dose Time Unknown Objective Assessment S/p left posterior tibial directional atherectomy and angioplasty, left lateral tarsal artery angioplasty, left peroneal artery angioplasty / Left foot ischemia with gangrenous toe. Peripheral arterial disease.S/P Lt common iliac stent 09/19 Tobacco use. 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 History of Crohn's. History of smoking. History of seizure. Homeless Plan Plan of Care Zosyn since 09/18 Zyvox since 09/20 F/u labs and results D/w nursing SARA BECERRA MD Sep 25, 2018 13:31
--- NOTE | 2018-09-25 14:01 | NUR ---
SIVAN following. SIVAN sent referral to [facility] per Dr. Barrios's request. SIVAN will continue to follow.
--- NOTE | 2018-09-25 15:55 | NUR ---
Wound Care: Follow up for DFUs to Bilateral feet. Cleansed, R foot callus lifting off, unable to remove during cleansing, painful and tender. Unable to visualize if there is wound tissue present under callus at this time. Per Garrison CHAMPAGNE and notes from vascular, RLE arteriogram is planned for 09/26/18. L toes continue to appear ischemic with purple mottling and a pustular intact blister to L great toe. L 5th toe necrotic and all toes extremely painful. R groin abscess of note on previous assessment is improved with no swelling, redness or induration to site. Painted both affected areas of feet with betadine and left ASSEMBLER BRAZER. Plan to follow up on 10/01/18
[2018-09-25] MEDS: clonazePAM 0.5 MG TABLET PO PRN (16:42)
[2018-09-26] VITALS (12 sets, daily range): BP systolic 70–121; BP diastolic 39–73
[2018-09-26] MEDS: IV NORMAL SALINE 1000ML BAG 1,000 ML IV SCH ×4 (01:20→21:42)
[2018-09-26] MEDS: HYDROcodone/APAP 5/325MG 1 TAB TABLET PO PRN ×2 (01:37→08:10)
--- NOTE | 2018-09-26 01:48 | PN ---
DATE: 09/25/2018 SUBJECTIVE: The patient is resting slightly propped up in bed, in no apparent respiratory distress. She apparently underwent posterior tibial directional atherectomy and angioplasty as well as lateral tarsal artery angioplasty and left peroneal artery angioplasty. On questioning her this morning, she continued to have pain; however, her blood pressure is somewhat low and the nurse was reluctant to give her anything IV. OBJECTIVE: GENERAL: When I examined her, she was awake, alert, responding appropriately. All cranial nerves intact. VITAL SIGNS: Her heart rate was 69, blood pressure was 126/49, temperature was 98, respiratory rate was 18, and oxygen saturation was 100%. HEAD, EYES, EARS, NOSE AND THROAT: Showed normocephalic, atraumatic. NECK: Supple. HEART: Showed normal first and second sounds. No gallop, rub or murmur. CHEST: Clear to auscultation. No crepitation or rhonchi. NEUROLOGIC: She is legally blind with all other cranial nerves intact. She moves extremities without difficulty. Apparently, no decision was made to amputate her left fifth toe. Her intake over the last 24 hours was 2520, no output was recorded. LABORATORY DATA: Her lab work this morning showed a white cell count of 8500, hemoglobin 11.4, hematocrit 33, MCV 99, and platelet count 262,000. Her chemistry showed a serum sodium 143, potassium 3.3, chloride 105, bicarbonate 26, anion gap of 12, BUN 15, creatinine 0.9, estimated GFR was 66 mL per minute. Her glucose 125, calcium was 8.2. ASSESSMENT: 1. Left foot ischemia with gangrenous toes. 2. Severe peripheral vascular disease, which did have right transmetatarsal amputation. 3. The patient underwent left common iliac artery angioplasty and stent deployment on 09/19/2018 and again underwent left posterior tibial directional atherectomy and angioplasty as well as left lateral tarsal and left peroneal artery angioplasty with stent deployment. 4. Hypertension. 5. Borderline type 2 diabetes mellitus. 6. History of seizure disorder with subtherapeutic phenytoin level. Her Dilantin was only 6.7. I did increase her phenytoin to 300 mg twice a day. 7. Visual impairment. 8. Chronic obstructive pulmonary disease. PLAN: My plan is to consult the pillowcase folder to see if she qualifies to go to [facility] and I will repeat her lab works including phenytoin level tomorrow. JHOANA NEELY MD DR: JASSI/isabel JOB#: [id number] / [id number]
[2018-09-26] MEDS: fentaNYL PF VIAL 100 MCG/2 ML VIAL IV PRN ×12 (03:13→15:33)
[2018-09-26] MEDS: PIPERACILLIN/TAZOBACTAM 3.375 GM in IV NORMAL SALINE 50ML 50 ML IV SCH ×4 (06:17→18:06)
[2018-09-26 06:50] LABS: CALCIUM 8.4 mg/dL (8.5-10.1); CREATININE 0.9 mg/dL (0.6-1.0); GFR 65.8; POTASSIUM 4.1 mmol/L (3.5-5.1)
[2018-09-26] MEDS ORDERED: ONDANSETRON PF 4 MG/2 ML VIAL. IV PRN ×2 (07:00→15:15)
[2018-09-26] MEDS ORDERED: IV RINGERS,LACTATED 1000ML 1,000 ML IV SCH ×2 (07:00→15:10)
[2018-09-26] MEDS ORDERED: PROCHLORPERAZINE 10 MG/2 ML VIAL. IV PRN (07:00)
[2018-09-26] MEDS ORDERED: IODIXANOL 320 MG/ML 100 ML VIAL. ONE (08:02)
[2018-09-26] MEDS ORDERED: LIDOCAINE 1% Multi-Dose 20 ML VIAL. ONE (08:02)
[2018-09-26] MEDS ORDERED: HEPARIN for ARTERIAL LINE 1,500 ML ONE (08:03)
[2018-09-26] MEDS: CLOPIDOGREL BISULFATE 75 MG TABLET PO SCH (08:10)
[2018-09-26] MEDS: LINEZOLID 600 MG TABLET PO SCH ×2 (08:19→21:40)
[2018-09-26] MEDS: PHENYTOIN SODIUM EXTENDED 100 MG CAPSULE PO SCH ×2 (08:19→21:40)
[2018-09-26] MEDS: clonazePAM 0.5 MG TABLET PO PRN (08:19)
[2018-09-26 09:23] LABS: PROTHROMBIN TIME PATIENT 12.9 SEC (11.7-14.0)
--- NOTE | 2018-09-26 11:12 | PDOC ---
Infectious Disease Note Subjective Subjective C/o pain Denies F/C/S/aches/SOA Vital Sign Vital Signs Vital Signs Date Time Temp Pulse Resp B/P (MAP) Pulse Ox O2 Delivery O2 Flow Rate FiO2 09/26/18 11:07 16 Room Air 09/26/18 07:00 97.9 77 121/73 (89) 99 97.9 Physical Exam PHYSICAL EXAM GENERAL: Sitting on side of bed, alert, relaxed and looks comfortable despite c /o pain HEENT: blindness in eyes, Oral mucosa moist. NECK: Supple. LUNGS: Clear bilaterally, no wheezing. HEART: S1, S2. No gallops or murmurs. ABDOMEN: Soft, nontender, nondistended. EXTREMITIES: No edema, no cyanosis. Left foot shows discoloration, tender to touch. Left fifth toe gangrenous, ischemic, unable to palpate dorsalis pedis. DERMATOLOGIC: Warm, dry. No generalized rash. Tattoos STORE RECEIVER Alert, responds appropriately RUE-PICC clean Labs Lab Laboratory Tests Test 09/26/18 06:35 09/26/18 09:00 Sodium Level 141 mmol/L (136-145) Potassium Level 4.1 mmol/L (3.5-5.1) Chloride Level 106 mmol/L (98-107) Carbon Dioxide Level 27 mmol/L (21-32) Anion Gap 8 (6-14) Blood Urea Nitrogen 12 mg/dL (7-20) Creatinine 0.9 mg/dL (0.6-1.0) Estimated GFR (Cockcroft-Gault) 65.8 Glucose Level 88 mg/dL (70-99) Calcium Level 8.4 mg/dL (8.5-10.1) Prothrombin Time 12.9 SEC (11.7-14.0) Prothromb Time International Ratio 1.0 (0.8-1.1) Objective Assessment S/p left posterior tibial directional atherectomy and angioplasty, left lateral tarsal artery angioplasty, left peroneal artery angioplasty / Left foot ischemia with gangrenous toe. Peripheral arterial disease.S/P Lt common iliac stent 09/19 Tobacco use. 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 History of Crohn's. History of smoking. History of seizure. Homeless Plan Plan of Care Zosyn since 09/18 Zyvox since 09/20 Await surgical decisions re amputation F/u labs and results D/w nursing SARA BECERRA MD Sep 26, 2018 11:12
--- NOTE | 2018-09-26 11:24 | NUR ---
SW following. Discussed with RN, pt has been accepted at [facility] pending insurance approval. SW will continue to follow.
[2018-09-26] MEDS ORDERED: HEPARIN for IV BOLUS 10,000 UNIT/10 ML VIAL. ONE (13:05)
[2018-09-26] MEDS ORDERED: HEPARIN for IV BOLUS 10,000 UNIT/10 ML VIAL. IV ONE (13:15)
[2018-09-26] MEDS ORDERED: IODIXANOL 320 MG/ML 100 ML VIAL. IART ONE (13:15)
[2018-09-26] MEDS: LIDOCAINE 1% Multi-Dose 20 ML VIAL. INJ ONE (13:15)
--- NOTE | 2018-09-26 13:36 | NUR ---
Patient having percutaneous intervention done by Dr. Caballero in laborer electroplating #2. Anesthesia in room sedating and monitoring patient during procedure.
[2018-09-26] MEDS ORDERED: ePHEDrine PF IN SALINE 50 MG/10 ML SYRINGE. IV ONE (14:00)
[2018-09-26] MEDS ORDERED: PHENYLEPHRINE in 0.9% NACL PF 1 MG/10 ML SYRINGE. IV ONE (14:00)
[2018-09-26] MEDS ORDERED: PROTAMINE 50 MG/5 ML VIAL. IV ONE ×2 (14:25→14:45)
--- NOTE | 2018-09-26 14:53 | NUR ---
SW following. Insurance has been approved for pt to go to [facility], they would like pt to go there at 1830 this evening, however pt is having a procedure. RN contacting pt's doctors to determine if she is able to discharge to [facility] today. Dr. Barrios is agreeable, if cleared by pt's other doctors. SIVAN will continue to follow.
[2018-09-26] MEDS: PROCHLORPERAZINE 10 MG/2 ML VIAL. IV PRN ×2 (14:55→15:45)
--- NOTE | 2018-09-26 14:57 | PDOC4 ---
OPERATIVE NOTE Date: Date: Sep 26, 2018 Pre-Op Diagnosis: Atherosclerosis of [place] arteries of right lower extremity with ulceration of the midfoot Post-Op Diagnosis: Same as above Procedure Performed: #1 ultrasound-guided access left common femoral artery #2 right SFA/popliteal atherectomy and stent #3 right anterior tibial artery angioplasty Surgeon: Raymundo Serrano M.D. Anesthesia Type: Gen. endotrachealpatient did not tolerate conscious sedation under previous attempt at angiography Blood Loss: 200 mL Specimans Obtained: None Findings: Right distal SFA and popliteal artery occludedrecanalized via directional atherectomy and angioplasty At the popliteal artery behind the knee there was a focal area of extravasation after angioplasty this was covered with the 5 x 5 Viboch covered stent graft with good results The origin anterior tibial artery had high-grade stenosisthis is true with balloon angioplasty there is in-line flow to the ankle via the SHIVAM There is a short occlusion of the dorsalis pedis however there is good collateralization to the area of the wound and the lateral foot Complications: None Operative Note: Patient was escorted to the Business Analytics Specialist and placed supine on the table. Anesthesia was induced without difficulty and the groins were prepped and draped in normal sterile fashion. Appropriate timeout was performed. Attention was directed to the left groin with a left common femoral artery was fluoroscopically marked over the femoral head and examined with ultrasound. Under ultrasound the vessels found to be widely patent with good flow and an image of the vessels taken and saved for the medical record. Under real-time ultrasound guidance local anesthetic was injected in the left groin and the left common femoral artery was accessed in retrograde fashion using a micropuncture needle. This was used to introduce a micropuncture wire into the iliac artery under fluoroscopic guidance and exchanged the needle for a micropuncture sheath which backbled easily. This is used to place a Perez wire and abdominal aorta and exchange the puncture sheath for a 5 Iraqi sheath which is aspirin flush the difficulty. This was used to introduce a flush catheter into the distal abdominal aorta and this with a Glidewire were used to hook the aortic bifurcation and passed the wire into the right SFA. I passed a glide catheter up and over the bifurcation into the right SFA over the wire and confirmed luminal placement with angiography. These us catheter placed supra core wire to the right SFA and then the patient was given intravenous heparin as the 5 Iraqi sheath was exchanged for a 7 Iraqi 45 cm trauma destination sheath passed up and over the bifurcation with the distal tip in the proximal right SFA. Angiography again confirmed good placement. I used an angled Navicross catheter and a Perez wire to cross the SFA/ popliteal HEALTH PHYSICS TECHNICIAN and reenter the true lumen of the popliteal artery below the knee just above the trifurcation. I was able to pass a supra core wire out into the SHIVAM and then used this to exchange for a longer catheter and confirmed luminal placement with angiography through the catheter tip. I then used this to pass a [place]ster core wire into the anterior tibial artery and remove the catheter. This was used to deliver a Hawk device to perform directional atherectomy of SFA and popliteal artery and followed this with low pressure 4 akila balloon angioplasty with a 6 mg angioplasty balloon. On completion angiography there was an extravasation from the posterior popliteal artery after angioplasty but not after atherectomy. I inflated the balloon and left this in place for over 10 minutes and then repeated angiography and there was still extravasation so the area was covered with a millimeter by 57 m via balloon with good results. I then treated the proximal anterior tibial artery with angioplasty and subsequent angiography showed in-line flow to the ankle via the SHIVAM. The sheath was pulled back to the aorta over the supra core wire and an aortogram and access site angiogram were obtained showing no bleeding and access site adequate for closure. Sheath is used to obtain an image grams below the knee on the left confirm or recent intervention at the left leg was still patent prior to planned toe amputation. The sheath was removed over the wire and then a 8 Iraqi Angio-Seal device was deployed at the left groin with excellent hemostasis the access site. Patient was escorted to recovery in stable condition. There complications. Patient tolerated the procedure well throughout RAYMUNDO SERRANO MD Sep 26, 2018 14:57
[2018-09-26] MEDS ORDERED: fentaNYL PF VIAL 100 MCG/2 ML VIAL IV PRN (15:15)
[2018-09-26] MEDS ORDERED: HYDROmorphone 2 MG/ML VIAL IV PRN (15:15)
[2018-09-26] MEDS ORDERED: LIDOCAINE 1% PF 2 ML VIAL. ID PRN (15:15)
[2018-09-26] MEDS ORDERED: fentaNYL PF VIAL 100 MCG/2 ML VIAL ONE (15:19)
--- NOTE | 2018-09-26 15:25 | PDOC ---
PROGRESS NOTES Subjective Subjective Pt seen and examined in recovery -- denies any abdominal pain, back pain, groin pain denies any pain / paresthesias in the feet Objective Objective Vital Signs Date Time Temp Pulse Resp B/P (MAP) Pulse Ox O2 Delivery O2 Flow Rate FiO2 09/26/18 11:07 16 Room Air 09/26/18 11:00 98.1 75 99/59 (72) 99 98.1 09/25/18 05:18 5.0 Intake and Output 09/26/18 07:00 Intake Total 2420 ml Output Total 1850 ml Balance 570 ml Intake Oral 2420 ml Output Urine Total 1850 ml # Voids 1 Physical Exam Physical Exam left femoral access site soft, non - tender no mass no hematoma excellent left PT signal at the ankle strong right AT signal at the ankle VSS Diagnosis DIAGNOSIS diagnosis bilateral LE wounds, gangrene toes left 5th and 1st toes will need left 1st and 5th toe amps in the AM I discussed this with her and she expresses understanding and wishes to proceed. Plan Plan of Care successful staged bilateral LE endovascular revascularization plan left 5th toe and possible 1st toe amputation in the AM Comment Review of Relevant I have reviewed the following items arnie (where applicable) has been applied. Labs Laboratory Tests Test 09/25/18 05:30 09/26/18 06:35 09/26/18 09:00 White Blood Count 8.5 x10^3/uL (4.0-11.0) Red Blood Count 3.39 x10^6/uL (3.50-5.40) Hemoglobin 11.4 g/dL (12.0-15.5) Hematocrit 33.4 % (36.0-47.0) Mean Corpuscular Volume 99 fL (79-100) Mean Corpuscular Hemoglobin 34 pg (25-35) Mean Corpuscular Hemoglobin Concent 34 g/dL (31-37) Red Cell Distribution Width 13.5 % (11.5-14.5) Platelet Count 262 x10^3/uL (140-400) Sodium Level 143 mmol/L (136-145) 141 mmol/L (136-145) Potassium Level 3.3 mmol/L (3.5-5.1) 4.1 mmol/L (3.5-5.1) Chloride Level 105 mmol/L (98-107) 106 mmol/L (98-107) Carbon Dioxide Level 26 mmol/L (21-32) 27 mmol/L (21-32) Anion Gap 12 (6-14) 8 (6-14) Blood Urea Nitrogen 15 mg/dL (7-20) 12 mg/dL (7-20) Creatinine 0.9 mg/dL (0.6-1.0) 0.9 mg/dL (0.6-1.0) Estimated GFR (Cockcroft-Gault) 65.8 65.8 Glucose Level 125 mg/dL (70-99) 88 mg/dL (70-99) Calcium Level 8.2 mg/dL (8.5-10.1) 8.4 mg/dL (8.5-10.1) Phenytoin (Dilantin) Level 8.8 mcg/mL (10.0-20.0) Phenytoin Last Dose Date Unknown Phenytoin Last Dose Time Unknown Prothrombin Time 12.9 SEC (11.7-14.0) Prothromb Time International Ratio 1.0 (0.8-1.1) Laboratory Tests Test 09/26/18 06:35 09/26/18 09:00 Sodium Level 141 mmol/L (136-145) Potassium Level 4.1 mmol/L (3.5-5.1) Chloride Level 106 mmol/L (98-107) Carbon Dioxide Level 27 mmol/L (21-32) Anion Gap 8 (6-14) Blood Urea Nitrogen 12 mg/dL (7-20) Creatinine 0.9 mg/dL (0.6-1.0) Estimated GFR (Cockcroft-Gault) 65.8 Glucose Level 88 mg/dL (70-99) Calcium Level 8.4 mg/dL (8.5-10.1) Prothrombin Time 12.9 SEC (11.7-14.0) Prothromb Time International Ratio 1.0 (0.8-1.1) Medications Current Medications Acetaminophen/ Hydrocodone Bitart (Lortab 5/325) 1 tab PRN Q4HRS PRN PO PAIN Last administered on 09/23/18at 06:04; Start 09/17/18 at 16:30; Stop 09/23/18 at 08 :37; Status DC Morphine Sulfate (Morphine Sulfate) 4 mg PRN Q4HRS PRN IV MODERATE TO SEVERE PAIN Last administered on 09/18/18at 22:32; Start 09/17/18 at 21:15; Stop at 22:39; Status DC Phenytoin Sodium (Dilantin) 100 mg BID PO Last administered on 09/20/18at 08:11 ; Start 09/17/18 at 22:00; Stop 09/20/18 at 08:57; Status DC Clonazepam (KlonoPIN) 0.5 mg 1X ONCE PO Last administered on 09/17/18at 22:45; Start 09/17/18 at 22:00; Stop 09/17/18 at 22:01; Status DC Ondansetron HCl (Zofran) 4 mg PRN Q4HRS PRN IV NAUSEA/VOMITING; Start 09/18/18 at 11:00 Piperacillin Sod/ Tazobactam Sod 3.375 gm/Sodium Chloride 50 ml @ 100 mls/hr Q8H IV Last administered on 09/18/18at 11:41; Start 09/18/18 at 11:00; Stop at 12:38; Status DC Vancomycin HCl (Vanco Per Pharmacy) 1 each PRN DAILY PRN MC SEE COMMENTS Last administered on 09/19/18at 16:39; Start 09/18/18 at 11:00; Stop 09/20/18 at 09:48 ; Status DC Vancomycin HCl 1.75 gm/Sodium Chloride 500 ml @ 250 mls/hr 1X ONCE IV Last administered on 09/18/18at 12:52; Start 09/18/18 at 11:30; Stop 09/18/18 at 13:29 ; Status DC Piperacillin Sod/ Tazobactam Sod 3.375 gm/Sodium Chloride 50 ml @ 100 mls/hr Q6HRS IV Last administered on 09/26/18at 06:17; Start 09/18/18 at 18:00 Vancomycin HCl 1.25 gm/Sodium Chloride 250 ml @ 167 mls/hr Q12H IV Last administered on 09/19/18at 01:12; Start 09/19/18 at 01:00; Stop 09/19/18 at 16:36 ; Status DC Vancomycin HCl (Vancomycin Trough Level) 1 each 1X ONCE MC ; Start 09/20/18 at 00:30; Stop 09/20/18 at 00:31; Status Cancel Clonazepam (KlonoPIN) 0.5 mg HS PRN PO ANXIETY / AGITATION Last administered on 09/19/18at 20:33; Start 09/18/18 at 21:00; Stop 09/20/18 at 08:56; Status DC Diphenhydramine HCl (Benadryl) 25 mg PRN Q4HRS PRN PO ITCHING Last administered on 09/19/18at 04:33; Start 09/18/18 at 22:45 Fentanyl Citrate (Fentanyl 2ml Vial) 50 mcg PRN Q3HRS PRN IV PAIN Last administered on 09/26/18at 11:07; Start 09/18/18 at 22:45 Iodixanol (Visipaque 320) 100 ml STK-MED ONCE .ROUTE ; Start 09/19/18 at 10:58; Stop 09/19/18 at 10:59; Status DC Heparin Sodium/ Sodium Chloride 1,000 ml @ As Directed STK-MED ONCE .ROUTE ; Start 09/19/18 at 10:58; Stop 09/19/18 at 10:59; Status DC Lidocaine HCl (Lidocaine 1% 20ml Vial) 20 ml STK-MED ONCE .ROUTE ; Start at 10:59; Stop 09/19/18 at 11:00; Status DC Midazolam HCl (Versed) 5 mg STK-MED ONCE .ROUTE ; Start 09/19/18 at 13:14; Stop 09/19/18 at 13:15; Status DC Fentanyl Citrate (Fentanyl 5ml Vial) 250 mcg STK-MED ONCE .ROUTE ; Start at 13:14; Stop 09/19/18 at 13:15; Status DC Heparin Sodium (Porcine) (Heparin Sodium) 10,000 unit STK-MED ONCE .ROUTE ; Start 09/19/18 at 13:14; Stop 09/19/18 at 13:15; Status DC Iodixanol (Visipaque 320) 100 ml STK-MED ONCE .ROUTE ; Start 09/19/18 at 13:59; Stop 09/19/18 at 14:00; Status DC Heparin Sodium/ Sodium Chloride 500 ml @ As Directed STK-MED ONCE .ROUTE ; Start 09/19/18 at 14:14; Stop 09/19/18 at 14:15; Status DC Heparin Sodium/ Sodium Chloride (HEPARIN for ARTERIAL LINE FLUSH) 1,000 unit 1X ONCE IART Last administered on 09/19/18at 14:48; Start 09/19/18 at 14:15; Stop 09/19/18 at 14:24; Status DC Heparin Sodium/ Sodium Chloride (HEPARIN for ARTERIAL LINE FLUSH) 1,000 unit 1X ONCE IART Last administered on 09/19/18at 14:48; Start 09/19/18 at 14:15; Stop 09/19/18 at 14:24; Status DC Midazolam HCl (Versed) 3 mg 1X ONCE IV Last administered on 09/19/18 14:49; Start 09/19/18 at 14:15; Stop 09/19/18 at 14:24; Status DC Fentanyl Citrate (Fentanyl 5ml Vial) 150 mcg 1X ONCE IV Last administered on 14:49; Start 09/19/18 at 14:15; Stop 09/19/18 at 14:24; Status DC Iodixanol (Visipaque 320) 100 ml 1X ONCE IART Last administered on 09/19/18 14:49; Start 09/19/18 at 14:15; Stop 09/19/18 at 14:24; Status DC Heparin Sodium (Porcine) (Heparin Sodium) 7,000 unit 1X ONCE IV Last administered on 09/19/18at 14:50; Start 09/19/18 at 14:15; Stop 09/19/18 at 14:24 ; Status DC Lidocaine HCl (Lidocaine 1% 20ml Vial) 20 ml 1X ONCE INJ Last administered on 09/19/18at 14:49; Start 09/19/18 at 14:15; Stop 09/19/18 at 14:24; Status DC Info (CONTRAST GIVEN -- Rx MONITORING) 1 each PRN DAILY PRN MC SEE COMMENTS; Start 09/19/18 at 14:30; Stop 09/21/18 at 14:29; Status DC Protamine Sulfate (Protamine) 50 mg STK-MED ONCE IV ; Start 09/19/18 at 14:33; Stop 09/19/18 at 14:34; Status DC Protamine Sulfate (Protamine) 30 mg 1X ONCE IV Last administered on 09/19/18at 14:48; Start 09/19/18 at 14:45; Stop 09/19/18 at 14:46; Status DC Vancomycin HCl 1.25 gm/Sodium Chloride 250 ml @ 167 mls/hr Q12H IV Last administered on 09/20/18 05:20; Start 09/19/18 at 17:00; Stop 09/20/18 at 09:46 ; Status DC Vancomycin HCl (Vancomycin Trough Level) 1 each 1X ONCE MC ; Start 09/20/18 at 16:30; Stop 09/20/18 at 16:31; Status Cancel Clonazepam (KlonoPIN) 0.5 mg PRN BID PRN PO ANXIETY / AGITATION Last administered on 09/20/18at 16:59; Start 09/20/18 at 09:00; Stop 09/21/18 at 08:27 ; Status DC Phenytoin Sodium (Dilantin) 200 mg BID PO Last administered on 09/22/18at 21:37 ; Start 09/20/18 at 21:00; Stop 09/23/18 at 08:36; Status DC Phenytoin Sodium (Dilantin) 100 mg ONCE ONCE PO Last administered on 09:52; Start 09/20/18 at 09:15; Stop 09/20/18 at 09:16; Status DC Linezolid (Zyvox) 600 mg BID PO Last administered on 09/26/18 08:19; Start at 10:00 Oxycodone HCl (Roxicodone) 5 mg 1X ONCE PO Last administered on 09/20/18 13: 51; Start 09/20/18 at 13:45; Stop 09/20/18 at 13:46; Status DC Clopidogrel Bisulfate (Plavix) 75 mg DAILYWBKFT PO Last administered on 08:10; Start 09/21/18 at 08:00 Clonazepam (KlonoPIN) 0.5 mg PRN BID PRN PO ANXIETY / AGITATION Last administered on 09/26/18 08:19; Start 09/21/18 at 08:30 Phenytoin Sodium (Dilantin) 300 mg BID PO Last administered on 09/26/18 08:19; Start 09/23/18 at 09:00 Acetaminophen/ Hydrocodone Bitart (Lortab 5/325) 2 tab PRN Q4HRS PRN PO PAIN Last administered on 09/26/18 08:10; Start 09/23/18 at 08:45 Ondansetron HCl (Zofran) 4 mg PRN Q6HRS PRN IV NAUSEA/VOMITING; Start 09/24/18 at 07:00; Stop 09/25/18 at 06:59; Status DC Fentanyl Citrate (Fentanyl 2ml Vial) 25 mcg PRN Q5MIN PRN IV MILD PAIN Last administered on 09/24/18at 14:43; Start 09/24/18 at 07:00; Stop 09/25/18 at 06:59; Status DC Fentanyl Citrate (Fentanyl 2ml Vial) 50 mcg PRN Q5MIN PRN IV MODERATE TO SEVERE PAIN Last administered on 09/24/18at 14:15; Start 09/24/18 at 07:00; Stop at 06:59; Status DC Ringer's Solution 1,000 ml @ 30 mls/hr Q24H IV ; Start 09/24/18 at 07:00; Stop 09/24/18 at 18:59; Status DC Lidocaine HCl (Xylocaine-Mpf 1% 2ml Vial) 2 ml PRN 1X PRN ID PRIOR TO IV START ; Start 09/24/18 at 07:00; Stop 09/25/18 at 06:59; Status DC Hydromorphone HCl (Dilaudid) 0.5 mg PRN Q10MIN PRN IV SEV PAIN, Second choice; Start 09/24/18 at 07:00; Stop 09/25/18 at 06:59; Status DC Prochlorperazine Edisylate (Compazine) 5 mg PACU PRN PRN IV NAUSEA, MRX1 Last administered on 09/24/18at 15:00; Start 09/24/18 at 07:00; Stop 09/25/18 at 06:59; Status DC Heparin Sodium/ Sodium Chloride (HEPARIN for ARTERIAL LINE FLUSH) 1,000 unit 1X ONCE IART Last administered on 09/24/18at 13:00; Start 09/24/18 at 13:00; Stop 09/24/18 at 13:02; Status DC Heparin Sodium/ Sodium Chloride (HEPARIN for ARTERIAL LINE FLUSH) 1,000 unit 1X ONCE IART ; Start 09/24/18 at 13:00; Stop 09/24/18 at 13:02; Status DC Lidocaine/Sodium Bicarbonate (Buffered Lidocaine 1%) 3 ml 1X ONCE IJ Last administered on 09/24/18at 13:00; Start 09/24/18 at 13:00; Stop 09/24/18 at 13:02; Status DC Iodixanol (Visipaque 320) 100 ml 1X ONCE IART Last administered on 09/24/18at 13 :00; Start 09/24/18 at 13:00; Stop 09/24/18 at 13:02; Status DC Nitroglycerin (Nitroglycerin) 200 mcg 1X ONCE IART Last administered on at 13:00; Start 09/24/18 at 13:00; Stop 09/24/18 at 13:03; Status DC Iohexol (Omnipaque 350 Mg/ml) 100 ml 1X ONCE IART ; Start 09/24/18 at 13:30; Stop 09/24/18 at 13:31; Status UNV Heparin Sodium (Porcine) (Heparin Sodium) 8,000 unit 1X ONCE IV ; Start at 13:45; Stop 09/24/18 at 13:46; Status DC Protamine Sulfate (Protamine) 30 mg 1X ONCE IV Last administered on 09/24/18at 13:45; Start 09/24/18 at 13:45; Stop 09/24/18 at 13:46; Status DC Sodium Chloride 500 ml @ 500 mls/hr 1X ONCE IV Last administered on 09/25/18at 12:00; Start 09/25/18 at 12:00; Stop 09/25/18 at 12:59; Status DC Sodium Chloride 1,000 ml @ 150 mls/hr Q6H40M IV Last administered on 09/26/18at 06:22; Start 09/25/18 at 12:00 Ondansetron HCl (Zofran) 4 mg PRN Q6HRS PRN IV NAUSEA/VOMITING; Start 09/26/18 at 07:00; Stop 09/27/18 at 06:59 Ringer's Solution 1,000 ml @ 30 mls/hr Q24H IV ; Start 09/26/18 at 07:00; Stop 09/26/18 at 18:59 Prochlorperazine Edisylate (Compazine) 5 mg PACU PRN PRN IV NAUSEA, MRX1; Start 09/26/18 at 07:00; Stop 09/27/18 at 06:59 Iodixanol (Visipaque 320) 100 ml STK-MED ONCE .ROUTE ; Start 09/26/18 at 08:02; Stop 09/26/18 at 08:03; Status DC Lidocaine HCl (Lidocaine 1% 20ml Vial) 20 ml STK-MED ONCE .ROUTE ; Start at 08:02; Stop 09/26/18 at 08:03; Status DC Heparin Sodium/ Sodium Chloride 1,500 ml @ As Directed STK-MED ONCE .ROUTE ; Start 09/26/18 at 08:03; Stop 09/26/18 at 08:04; Status DC Heparin Sodium/ Sodium Chloride 500 ml @ As Directed STK-MED ONCE .ROUTE ; Start 09/26/18 at 12:50; Stop 09/26/18 at 12:51; Status DC Heparin Sodium (Porcine) (Heparin Sodium) 10,000 unit STK-MED ONCE .ROUTE ; Start 09/26/18 at 13:05; Stop 09/26/18 at 13:06; Status DC Heparin Sodium/ Sodium Chloride (HEPARIN for ARTERIAL LINE FLUSH) 1,000 unit 1X ONCE IART Last administered on 09/26/18at 13:15; Start 09/26/18 at 13:15; Stop 09/26/18 at 13:16; Status DC Heparin Sodium/ Sodium Chloride (HEPARIN for ARTERIAL LINE FLUSH) 1,000 unit 1X ONCE IART Last administered on 09/26/18at 13:15; Start 09/26/18 at 13:15; Stop 09/26/18 at 13:16; Status DC Iodixanol (Visipaque 320) 100 ml 1X ONCE IART Last administered on 09/26/18at 13 :15; Start 09/26/18 at 13:15; Stop 09/26/18 at 13:16; Status DC Heparin Sodium (Porcine) (Heparin Sodium) 7,000 unit 1X ONCE IV Last administered on 09/26/18at 13:15; Start 09/26/18 at 13:15; Stop 09/26/18 at 13:16; Status DC Lidocaine HCl (Lidocaine 1% 20ml Vial) 20 ml 1X ONCE INJ Last administered on 09/26/18at 13:15; Start 09/26/18 at 13:15; Stop 09/26/18 at 13:16; Status DC Protamine Sulfate (Protamine) 50 mg STK-MED ONCE IV ; Start 09/26/18 at 14:25; Stop 09/26/18 at 14:26; Status DC Protamine Sulfate (Protamine) 50 mg 1X ONCE IV Last administered on 09/26/18at 14:34; Start 09/26/18 at 14:45; Stop 09/26/18 at 14:46; Status DC Ondansetron HCl (Zofran) 4 mg PRN Q6HRS PRN IV NAUSEA/VOMITING; Start 09/26/18 at 15:15; Stop 09/27/18 at 15:14 Fentanyl Citrate (Fentanyl 2ml Vial) 25 mcg PRN Q5MIN PRN IV MILD PAIN; Start 09/26/18 at 15:15; Stop 09/27/18 at 15:14 Fentanyl Citrate (Fentanyl 2ml Vial) 50 mcg PRN Q5MIN PRN IV MODERATE TO SEVERE PAIN; Start 09/26/18 at 15:15; Stop 09/27/18 at 15:14 Ringer's Solution 1,000 ml @ 30 mls/hr Q24H IV ; Start 09/26/18 at 15:10; Stop 09/27/18 at 03:09 Lidocaine HCl (Xylocaine-Mpf 1% 2ml Vial) 2 ml PRN 1X PRN ID PRIOR TO IV START ; Start 09/26/18 at 15:15; Stop 09/27/18 at 15:14 Hydromorphone HCl (Dilaudid) 0.5 mg PRN Q10MIN PRN IV SEV PAIN, Second choice; Start 09/26/18 at 15:15; Stop 09/27/18 at 15:14 Prochlorperazine Edisylate (Compazine) 5 mg PACU PRN PRN IV NAUSEA, MRX1; Start 09/26/18 at 15:15; Stop 09/27/18 at 15:14 Active Scripts Active Reported Dilantin (Phenytoin Sodium Extended) 100 Mg Capsule 1 Cap PO BID Vitals/I & O Vital Sign - Last 24 Hours 09/25/18 09/25/18 09/25/18 09/25/18 16:42 17:42 19:00 20:00 Temp 98.5 98.5 Pulse 84 Resp 16 18 B/P (MAP) 103/49 (67) Pulse Ox 94 O2 Delivery Room Air Room Air Room Air 09/25/18 09/25/18 09/25/18 09/26/18 20:45 21:33 23:00 01:37 Temp 97.8 97.8 Pulse 71 Resp 18 B/P (MAP) 105/65 (78) Pulse Ox 97 97 96 96 O2 Delivery Room Air Room Air Room Air Room Air 09/26/18 09/26/18 09/26/18 09/26/18 02:37 03:00 03:13 06:22 Temp 98.6 98.6 Pulse 80 Resp 18 B/P (MAP) 110/60 (77) Pulse Ox 96 93 96 96 O2 Delivery Room Air Room Air Room Air Room Air 09/26/18 09/26/18 09/26/18 09/26/18 06:54 07:00 07:45 08:10 Temp 97.9 97.9 Pulse 77 Resp 16 18 B/P (MAP) 121/73 (89) Pulse Ox 96 99 O2 Delivery Room Air Room Air Room Air Room Air 09/26/18 09/26/18 11:00 11:07 Temp 98.1 98.1 Pulse 75 Resp 16 16 B/P (MAP) 99/59 (72) Pulse Ox 99 O2 Delivery Room Air Room Air Intake and Output 09/25/18 09/25/18 09/26/18 15:00 23:00 07:00 Intake Total 720 ml 900 ml 800 ml Output Total 250 ml 1600 ml Balance 720 ml 650 ml -800 ml WENDY SERRANO MD Sep 26, 2018 15:25
--- NOTE | 2018-09-26 16:20 | NUR ---
SW following. RN advised pt most likely having amputation surgery at 0730 tomorrow morning (09/27/18). Plan to discharge to [facility] when ready. [facility] pt can [facility]. SW will continue to follow.
[2018-09-26] MEDS ORDERED: IV NORMAL SALINE 1000ML BAG 1,000 ML IV ONE (23:15)
[2018-09-27] VITALS (10 sets, daily range): BP systolic 84–112; BP diastolic 46–73
[2018-09-27] MEDS: fentaNYL PF VIAL 100 MCG/2 ML VIAL IV PRN ×9 (00:30→22:35)
[2018-09-27] MEDS: PIPERACILLIN/TAZOBACTAM 3.375 GM in IV NORMAL SALINE 50ML 50 ML IV SCH ×5 (00:31→23:22)
--- NOTE | 2018-09-27 01:01 | PN ---
DATE: 09/26/2018 SUBJECTIVE: The patient is resting slightly propped up in bed, continued to complain of pain, requesting morphine and Xanax. We submitted the application to see if she qualifies to be transferred to [facility]. She requires wound care, IV antibiotic and pain management. PHYSICAL EXAMINATION: GENERAL: When I examined her this morning, she looked well and was clearly in no apparent respiratory distress, pale, but no jaundice, cyanosis, or thyromegaly. No jugular venous distension. No lower limb edema. VITAL SIGNS: Her heart rate was 77, blood pressure was 121/73, temperature was 97.9, respiratory rate was 16 and oxygen saturation was 99% on room air. The rest of clinical examination is stable, has not really changed. LABORATORY DATA: This morning showed serum sodium 141, potassium 4.1, chloride 106, bicarbonate 27, anion gap of 8, BUN 12, creatinine 0.9, estimated GFR was 68 mL per minute, glucose 88 and calcium was 8.4. ASSESSMENT: 1. Left foot ischemia with gangrenous toes. 2. Severe peripheral vascular disease for which she underwent right metatarsal amputation. 3. The patient underwent left common iliac artery angioplasty and stent deployment on 09/19/2018 and again underwent left posterior tibial directional atherectomy and angioplasty as well as left lateral tarsal and left peroneal artery angioplasty. 4. Hypertension. 5. Borderline type 2 diabetes mellitus. 6. History of seizure disorder with subtherapeutic phenytoin level. Her Dilantin was only 6.7. Today, her Dilantin was 8.8. 7. Visual impairment. 8. Chronic obstructive pulmonary disease. PLAN: To continue with pain management. Continue with IV antibiotic. Continue with wound care. Await insurance authorization to see whether she can qualify to be transferred to [facility]. JHOANA NEELY MD DR: JASSI/isabel JOB#: [id number] / [id number]
[2018-09-27] MEDS: IV NORMAL SALINE 1000ML BAG 1,000 ML IV SCH ×5 (04:53→23:22)
[2018-09-27] MEDS ORDERED: DEXAMETHASONE SOD PHOS 20 MG/5 ML VIAL. ONE (06:43)
[2018-09-27] MEDS ORDERED: LIDOCAINE 2% PF 5 ML VIAL. ONE (06:43)
[2018-09-27] MEDS ORDERED: ONDANSETRON PF 4 MG/2 ML VIAL. ONE (06:43)
[2018-09-27] MEDS ORDERED: PROPOFOL 0 ML IV ONE (06:43)
[2018-09-27] MEDS ORDERED: LIDOCAINE 1% 20 ML VIAL. ONE (06:50)
[2018-09-27] MEDS ORDERED: fentaNYL PF VIAL 100 MCG/2 ML VIAL ONE ×3 (06:56→08:28)
[2018-09-27] MEDS: PHENYTOIN SODIUM EXTENDED 100 MG CAPSULE PO SCH ×3 (07:24→20:00)
[2018-09-27] MEDS: LINEZOLID 600 MG TABLET PO SCH ×3 (07:24→20:00)
[2018-09-27] MEDS: CLOPIDOGREL BISULFATE 75 MG TABLET PO SCH ×2 (07:24→08:55)
[2018-09-27] MEDS ORDERED: MIDAZOLAM HCL/PF 2 MG/2 ML VIAL. ONE (07:31)
[2018-09-27] MEDS ORDERED: PHENYLEPHRINE in 0.9% NACL PF 1 MG/10 ML SYRINGE. IV ONE (07:47)
[2018-09-27] MEDS: LIDOCAINE 1% Multi-Dose 20 ML VIAL. INJ ONE (07:53)
[2018-09-27] MEDS ORDERED: SEVOFLURANE 31 TO 60 MINUTES. IH ONE (07:56)
[2018-09-27] MEDS ORDERED: IV RINGERS,LACTATED 1000ML 1,000 ML IV SCH (08:14)
[2018-09-27] MEDS ORDERED: LIDOCAINE 1% PF 2 ML VIAL. ID PRN (08:15)
[2018-09-27] MEDS ORDERED: ONDANSETRON PF 4 MG/2 ML VIAL. IV PRN (08:15)
[2018-09-27] MEDS ORDERED: PROCHLORPERAZINE 10 MG/2 ML VIAL. IV PRN (08:15)
--- NOTE | 2018-09-27 08:21 | PDOC ---
BRIEF OPERATIVE NOTE Date: Sep 27, 2018 Pre-Op Diagnosis gangrene toes lt foot/PVD Post-Op Diagnosis Same Procedure Performed Amputation of lt 1st and 5th toes Surgeon Chelsie Crane Anesthesia Type: General Blood Loss 10 Specimens Obtained lt. 1st and 5th toes Findings Biphasic arterial flow post op in lt PT and DP arteries Complications none CYNDY CRANE MD Sep 27, 2018 08:21
[2018-09-27] MEDS ORDERED: PROCHLORPERAZINE 10 MG/2 ML VIAL. ONE (08:29)
[2018-09-27] MEDS: PROCHLORPERAZINE 10 MG/2 ML VIAL. IV PRN (08:30)
--- NOTE | 2018-09-27 09:24 | OP ---
DATE OF SURGERY: 09/27/2018 PREOPERATIVE DIAGNOSES:. Gangrene of toes, left foot and vascular disease. POSTOPERATIVE DIAGNOSES: Gangrene of toes, left foot and vascular disease. PROCEDURE PERFORMED: Amputation of left first and left fifth toes with primary closure. SURGEON: Cyndy Crane MD. ANESTHETIC: General, plus 1% lidocaine. INDICATIONS: This is a female who has had an iliac and tibial angioplasties. She has already had a right TMA, which has healed nicely. She presented with gangrene of the left first and fifth toes and a little bit of skin changes on second, third and fourth toes as well. DESCRIPTION OF PROCEDURE: After general endotracheal anesthetic, prepping and draping, lidocaine was used to infiltrate the base of the left first and fifth toes. A fishmouth type incisions were made on both. DICTATION ENDS HERE. CYNDY CRANE MD DR: VASQUEZ/isabel JOB#: [id number] / [id number]
[2018-09-27] MEDS: HYDROcodone/APAP 5/325MG 1 TAB TABLET PO PRN (09:28)
[2018-09-27] MEDS: clonazePAM 0.5 MG TABLET PO PRN ×2 (09:28→21:05)
--- NOTE | 2018-09-27 09:53 | OP ---
DATE OF SURGERY: 09/27/2018 PREOPERATIVE DIAGNOSIS: Gangrene of left first and fifth toes with peripheral vascular disease. POSTOPERATIVE DIAGNOSIS: Gangrene of left first and fifth toes with peripheral vascular disease. PROCEDURE PERFORMED: Amputation with primary closure, left first and fifth toes. SURGEON: Cyndy Crane MD ANESTHETIC: General plus 1% lidocaine. INDICATIONS: This is a 53-year-old female, who underwent angioplasties of the left iliac vessel couple of days ago and then the tibial vessels two days ago. DESCRIPTION OF PROCEDURE: After general endotracheal anesthetic, prep and draping, lidocaine was used to infiltrate the base of the left first and fifth toes. Fishmouth-type incisions were made on each toe and this was carried down to the bone. The bone was cut with bone cutters and cut back well within soft tissue with rongeurs. There was minimal bleeding. What bleeding there was, was controlled with the cautery. The wounds were irrigated. Once hemostasis was obtained, both incisions were closed with interrupted nylon stitches. Sterile dressings were applied. The patient tolerated the procedure well and left the operating room in stable condition. EBL was 10 mL. In the recovery room, biphasic arterial flow was heard in both posterior tibial and dorsalis pedis arteries. CYNDY CRANE MD DR: VASQUEZ/isabel JOB#: [id number] / [id number]
[2018-09-27] MEDS ORDERED: LINE600T PO (10:43)
[2018-09-27] MEDS ORDERED: CLOP75TA PO (10:43)
[2018-09-27] MEDS ORDERED: PIPE3.377 IV (10:43)
[2018-09-27] MEDS ORDERED: ONDA4TAB7 PO (10:43)
[2018-09-27] MEDS ORDERED: HYDR-2759 PO (10:43)
[2018-09-27] MEDS ORDERED: CLON0.5T11 PO (10:43)
--- NOTE | 2018-09-27 10:45 | SNU/HH DC ---
DISCHARGE ORDERS DISCHARGE INFORMATION: CONDITION ON DISCHARGE: Stable CODE STATUS: Code Status: Full GROUP HOME: SNF STAY <30 DAYS: Yes POST DISCHARGE ORDERS: ACTIVITY ORDERS: Activity as tolerated WEIGHT BEARING STATUS: As tolerated DIET AFTER DISCHARGE: Regular WOUND/INCISION CARE: Change dressing TREATMENT/EQUIPMENT ORDERS: ADAPTIVE EQUIPMENT NEEDED: None Physical Therapy For: Evalulation/Treatment Occupational Therapy For: Evaluation/Treatment DISCHARGE MEDICATIONS: Home Meds Active Scripts Zqhhpdwufmbx-Ajin-Trgsxkdh,Iso (ZOSYN 3.375 GM PRE MIX-BAG) 3.375 Gm/50 Ml Froz.piggy, 3.375 GM IV Q6H for osteo for 30 Days, EACH Prov:JHOANA NEELY MD 09/27/18 Hydrocodone/Acetaminophen (Hydrocodone-Acetamin 5-325 mg) 1 Each Tablet, 2 EACH PO Q4H for pain for 30 Days, #360 TAB Prov:JHOANA NEELY MD 09/27/18 Linezolid (ZYVOX) 600 Mg Tablet, 600 MG PO BID for osteo for 30 Days, #60 TAB Prov:JHOANA NEELY MD 09/27/18 Clopidogrel Bisulfate (CLOPIDOGREL) 75 Mg Tablet, 1 TAB PO DAILY for pvd for 30 Days, #30 TAB 1 Refill Prov:JHOANA NEELY MD 09/27/18 Clonazepam (CLONAZEPAM) 0.5 Mg Tablet, 1 TAB PO BID PRN for ANXIETY / AGITATION for 30 Days, #60 TAB Prov:JHOANA NEELY MD 09/27/18 Ondansetron Hcl (ZOFRAN) 4 Mg Tablet, 1 TAB PO Q6HRS for nv for 10 Days, #40 TAB Prov:JHOANA NEELY MD 09/27/18 Reported Medications Phenytoin Sodium Extended (DILANTIN) 100 Mg Capsule, 1 CAP PO BID for grand mal seizures, #90 CAP 3 Refills 09/17/18 JHOANA NEELY MD Sep 27, 2018 10:45
--- NOTE | 2018-09-27 11:27 | PDOC ---
Infectious Disease Note Subjective Subjective Doing ok post procedure Denies F/C/S/aches/SOA Vital Sign Vital Signs Vital Signs Date Time Temp Pulse Resp B/P (MAP) Pulse Ox O2 Delivery O2 Flow Rate FiO2 09/27/18 10:28 95 Room Air 09/27/18 08:41 98.7 95 24 103/40 98.7 09/27/18 08:15 10 Physical Exam PHYSICAL EXAM GENERAL: Laying in bed and looks comfortable HEENT: blindness in eyes, Oral mucosa moist. NECK: Supple. LUNGS: Clear bilaterally, no wheezing. HEART: S1, S2. No gallops or murmurs. ABDOMEN: Soft, nontender, nondistended. EXTREMITIES: No edema, no cyanosis. Left foot -dressed DERMATOLOGIC: Warm, dry. No generalized rash. Tattoos ZOOKEEPER Alert, responds appropriately RUE-PICC clean Objective Assessment S/p closed amputations of 1 and 5th toes today S/p left posterior tibial directional atherectomy and angioplasty, left lateral tarsal artery angioplasty, left peroneal artery angioplasty 4/ Left foot ischemia with gangrenous toe. Peripheral arterial disease.S/P Lt common iliac stent 09/19 Tobacco use. 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 History of Crohn's. History of smoking. History of seizure. Homeless Plan Plan of Care Cont Zosyn since 09/18 Zyvox since 09/20 F/u labs and results D/w nursing SARA BECERRA MD Sep 27, 2018 11:27
[2018-09-27] MEDS: oxyCODONE/APAP 5/325 1 TAB TABLET PO PRN ×3 (11:55→20:53)
--- NOTE | 2018-09-27 12:54 | NUR ---
SIVAN following up with pt dc plan. Pt cannot dc to LTAC [facility] today. Per Christel with [facility], "[facility] due to multiple admissions today but they should be able to accept pt tomorrow or Sunday." Pt's RN has been notified.
--- NOTE | 2018-09-27 18:05 | NUR ---
Pt. kicked off outter dressing of L foot. Kerlix reapplied.
--- NOTE | 2018-09-27 19:30 | DS ---
DATE OF DISCHARGE: 09/27/2018 HOSPITAL COURSE: The patient is a 53-year-old female patient who was admitted from [facility]. She was evaluated for a complaint of pain in her left foot. She apparently was noted to have discolored toes without tenderness and therefore, the patient was transferred to [facility] to consult orthopedic surgeon as well as the vascular surgeon. She was seen by Dr. Caballero and she eventually underwent revascularization. Initially, she had angioplasty and stent deployment to the left common iliac artery. Her x-ray of the foot showed that she has bony erosion of the medial tuft of the great toe distal phalanx suspicious for osteomyelitis and therefore, she was seen by the Infectious Disease specialist and was started on IV antibiotic in the form of Zosyn and Zyvox. She underwent also left lateral tarsal artery angioplasty as well as left peroneal artery angioplasty and left posterior tibial directional atherectomy and angioplasty and she eventually underwent amputation of the left first and fifth toe with primary closure for gangrene due to severe peripheral vascular disease and basically, decision was made to transfer her to [facility] to continue with IV antibiotic, continue with wound care, continue with pain management and nutritional support. PHYSICAL EXAMINATION: GENERAL: When I saw her today, she looked well and was resting slightly propped up, sleeping comfortably in no apparent distress. No pallor, jaundice, cyanosis, or thyromegaly. No jugular venous distension. No limb edema. VITAL SIGNS: Her heart rate was 95, blood pressure was 103/40, temperature was 98.7, respiratory rate was 24, and oxygen saturation was 95%. HEAD, EYES, EARS, NOSE AND THROAT: Showed normocephalic, atraumatic. NECK: Supple. HEART: Showed normal first and second sounds. No gallop, rub or murmur. CHEST: Clear to auscultation. No crepitation or rhonchi. ABDOMEN: Distended, soft, nontender. No guarding or rigidity. No organomegaly. All hernial orifice intact. Bowel sounds normal. NEUROLOGIC: She was sleepy, but arousable. All cranial nerves intact. She moves extremities without difficulty, although she just had her amputation of her left first and fifth toe. Her intake was 1380, output was 1400. LABORATORY WORK: As of yesterday showed a serum sodium 141, potassium 4.1, chloride 106, bicarbonate 27, anion gap of 8, BUN 12, creatinine 0.9, estimated GFR was 66 mL per minute. Her glucose was 88, calcium was 8.4. White cell count was 8500, hemoglobin 11.4, hematocrit 33, MCV 99, and platelet count 262,000. DISCHARGE MEDICATIONS: She will be discharged to [facility] to continue with prochlorperazine 5 mg as needed, ondansetron 4 mg IV every 6 hours, Ringer's lactate at 30 mL per hour, sodium chloride 150 mL per hour, phenytoin sodium 300 mg twice a day, hydrocodone/acetaminophen 5/325 two tablets every 4 hours, clonazepam 0.5 mg twice a day, Plavix 75 mg once a day, linezolid 600 mg twice a day, fentanyl citrate 50 mcg IV every 3 hours, diphenhydramine 25 mg every 4 hours, piperacillin/tazobactam 3.375 grams IV every 6 hours. FINAL DISCHARGE DIAGNOSES: 1. Left foot ischemia with gangrenous toes, status post amputation of the first and fifth toe, severe peripheral vascular disease for which she underwent right metatarsal amputation. 2. The patient underwent left common iliac artery angioplasty and stent deployment on 09/19/2018 and again underwent left posterior tibial direction atherectomy and angioplasty as well as left lateral tarsal and left peroneal artery angioplasty. 3. Hypertension. 4. Borderline type 2 diabetes mellitus. 5. History of seizure disorder, subtherapeutic phenytoin level. She is now on 300 mg twice a day. 6. Visual impairment. 7. Chronic obstructive pulmonary disease. JHOANA NEELY MD DR: JASSI/isabel JOB#: [id number] / [id number]
[2018-09-28] MEDS: oxyCODONE/APAP 5/325 1 TAB TABLET PO PRN ×5 (00:53→23:48)
[2018-09-28] MEDS: fentaNYL PF VIAL 100 MCG/2 ML VIAL IV PRN ×6 (01:56→21:00)
[2018-09-28 03:00] VITALS: BP 104/68
--- NOTE | 2018-09-28 03:22 | NUR ---
Pt talking to self, yelling, complaining, wanting their pain meds. This nurse orientated Pt. Pt calm at this moment. Will continue to monitor.
[2018-09-28] MEDS: HYDROcodone/APAP 5/325MG 1 TAB TABLET PO PRN (03:32)
[2018-09-28] MEDS: PIPERACILLIN/TAZOBACTAM 3.375 GM in IV NORMAL SALINE 50ML 50 ML IV SCH ×4 (05:38→23:47)
[2018-09-28] MEDS: IV NORMAL SALINE 1000ML BAG 1,000 ML IV SCH ×3 (05:42→20:00)
[2018-09-28 07:00] VITALS: BP 93/59
[2018-09-28] MEDS: clonazePAM 0.5 MG TABLET PO PRN ×2 (09:10→16:59)
[2018-09-28] MEDS: CLOPIDOGREL BISULFATE 75 MG TABLET PO SCH (09:10)
[2018-09-28] MEDS: PHENYTOIN SODIUM EXTENDED 100 MG CAPSULE PO SCH ×2 (09:10→21:00)
[2018-09-28] MEDS: LINEZOLID 600 MG TABLET PO SCH ×2 (09:10→21:00)
--- NOTE | 2018-09-28 10:02 | PDOC ---
Infectious Disease Note Subjective Subjective c/o pain Lilttle bit of a cough Denies F/C/S/N/V/D/CP/SOA Vital Sign Vital Signs Vital Signs Date Time Temp Pulse Resp B/P (MAP) Pulse Ox O2 Delivery O2 Flow Rate FiO2 09/28/18 09:02 Room Air 09/28/18 07:00 98.1 71 18 93/59 (70) 90 98.1 09/27/18 08:15 10 Physical Exam PHYSICAL EXAM GENERAL: Laying in bed and looks comfortable HEENT: blindness in eyes, Oral mucosa moist. NECK: Supple. LUNGS: Clear bilaterally, no wheezing. HEART: S1, S2. No gallops or murmurs. ABDOMEN: Soft, nontender, nondistended. EXTREMITIES: No edema, no cyanosis. Left foot -dressed DERMATOLOGIC: Warm, dry. No generalized rash. 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 Peripheral arterial disease.S/P Lt common iliac stent 09/19 Tobacco use. 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 History of Crohn's. History of smoking. History of seizure. Homeless Plan Plan of Care Zyvox and Zosyn, wean soon Supportive care Pain management per primary D/c LTAC soon D/w nursing Attending Co-Sign The patient was seen and interviewed as well as examined at the bedside. The chart was reviewed. The case was discussed. Agree with the plan of care. RENE KINNEY APRN Sep 28, 2018 10:02 GASTON COOMBS MD Sep 28, 2018 11:43
[2018-09-28 11:00] VITALS: BP 104/54
[2018-09-28 15:00] VITALS: BP 110/55
[2018-09-28 19:00] VITALS: BP 124/49
--- NOTE | 2018-09-28 19:36 | NUR ---
This nurse along with SW and the nursing electronics supervisor all called [facility] to inquire if there were any available beds for this pt and received no reply today.
--- NOTE | 2018-09-28 21:53 | PN ---
DATE: 09/28/2018 SUBJECTIVE: The patient is resting slightly propped up in bed, continued to complain of pain in her left foot. I would like to change to Percocet. Other than that, she remains stable, afebrile. We could not transfer her yesterday or even today to [facility] as they do not have beds available. PHYSICAL EXAMINATION: GENERAL: When I examined her, she was pale. No jaundice, cyanosis or thyromegaly. No jugular venous distension. No lower limb edema. VITAL SIGNS: Her heart rate was 71, blood pressure was 93/59, temperature was 98.1, respiratory rate was 18 and oxygen saturation was 90%. The rest of clinical examination is stable, has not changed. LABORATORY DATA: Her most recent white cell count was 8500; hemoglobin 11.4; hematocrit 33; MCV 99 and platelet count 262,000. Her chemistry showed a serum sodium 141, potassium 4.5, chloride 106, bicarbonate 27, anion gap of 8, BUN 12, creatinine 0.9, estimated GFR was 66 mL per minute, her glucose 88 and calcium was 8.4. ASSESSMENT: 1. Left foot ischemia with gangrenous toe, status post amputation of the first and fifth toe. 2. Severe peripheral vascular disease with resultant right transmetatarsal amputation. 3. The patient underwent left common iliac artery angioplasty and stent deployment on 09/19/2018 and again underwent left posterior tibial directional atherectomy and angioplasty as well as left lateral tarsus and left peroneal artery angioplasty. 4. Hypertension. 5. Borderline type 2 diabetes mellitus. 6. History of seizure disorder with subtherapeutic phenytoin level. She is now on 300 mg twice a day. 7. Visual impairment. 8. Chronic obstructive pulmonary disease. PLAN: To continue with the IV antibiotic. Continue with pain management. Continue with Plavix. My plan is to repeat her labs to make sure to check her phenytoin level tomorrow and hopefully be able to transfer her to [facility] on Sunday. JHOANA NEELY MD DR: JASSI/isabel JOB#: [id number] / [id number]
[2018-09-28 23:00] VITALS: BP 93/66
[2018-09-29] MEDS: fentaNYL PF VIAL 100 MCG/2 ML VIAL IV PRN ×5 (02:11→22:59)
[2018-09-29] MEDS: IV NORMAL SALINE 1000ML BAG 1,000 ML IV SCH (02:40)
[2018-09-29 03:00] VITALS: BP 115/52
[2018-09-29] MEDS: oxyCODONE/APAP 5/325 1 TAB TABLET PO PRN ×4 (04:19→21:03)
[2018-09-29] MEDS: PIPERACILLIN/TAZOBACTAM 3.375 GM in IV NORMAL SALINE 50ML 50 ML IV SCH (05:58)
[2018-09-29 06:36] LABS: ANION GAP 7 (6-14); BLOOD UREA NITROGEN 13 mg/dL (7-20); CALCIUM 8.2 mg/dL (8.5-10.1); CARBON DIOXIDE 26 mmol/L (21-32); CHLORIDE 107 mmol/L (98-107); CREATININE 0.9 mg/dL (0.6-1.0); GFR 65.8; GLUCOSE 78 mg/dL (70-99); PHENY 16.6 mcg/mL (10.0-20.0); POTASSIUM 3.9 mmol/L (3.5-5.1); SODIUM 140 mmol/L (136-145)
[2018-09-29 07:00] VITALS: BP 99/62
[2018-09-29] MEDS: LINEZOLID 600 MG TABLET PO SCH (08:13)
[2018-09-29] MEDS: CLOPIDOGREL BISULFATE 75 MG TABLET PO SCH (08:13)
[2018-09-29] MEDS: PHENYTOIN SODIUM EXTENDED 100 MG CAPSULE PO SCH ×2 (08:14→21:02)
[2018-09-29] MEDS: clonazePAM 0.5 MG TABLET PO PRN ×2 (08:24→21:02)
--- NOTE | 2018-09-29 10:51 | RAD ---
Exam: VENOUS LOWER EXTREMITY RIGHT Indication: RT LEG SWELLING Technique: Color-flow and pulsed wave duplex ultrasound with compression of venous structures of the right lower extremity. Comparison: None Available. Findings: Duplex ultrasound with compression of the deep venous structures of the right lower extremity from the common femoral vein through the popliteal vein is negative for DVT. Flow was not seen in the greater saphenous vein, but patient states she has had a prior greater saphenous vein stripping. The posterior tibial and peroneal veins are segmentally visualized and patent where seen. Normal venous waveforms and augmentation are noted throughout. Survey view of the left common femoral vein demonstrates patency. Impression: No evidence for DVT in the right lower extremity. Electronically signed by: Adrián Allen MD (09/29/2018 10:48 AM) [facility]
--- NOTE | 2018-09-29 10:57 | PDOC ---
Infectious Disease Note Subjective Subjective Feeling better this morning "I had a good cry" Pain controlled at the moment Loose stools Denies F/C/S/N/V/CP/SOA ROS ROS per HPI Vital Sign Vital Signs Vital Signs Date Time Temp Pulse Resp B/P (MAP) Pulse Ox O2 Delivery O2 Flow Rate FiO2 09/29/18 10:21 Room Air 09/29/18 07:00 98.1 66 16 99/62 (74) 99 98.1 Physical Exam PHYSICAL EXAM GENERAL: Alert, relaxed appearance, combing her hair HEENT: blindness in eyes, Oral mucosa moist. NECK: Supple. LUNGS: Clear bilaterally, no wheezing. HEART: S1, S2. No gallops or murmurs. ABDOMEN: Soft, nontender, nondistended. EXTREMITIES: No edema, no cyanosis. Left foot -dressed DERMATOLOGIC: Warm, dry. No generalized rash. Tattoos CLAIM AUDITOR Alert, responds appropriately RUE-PICC clean Labs Lab Laboratory Tests Test 09/29/18 06:00 Sodium Level 140 mmol/L (136-145) Potassium Level 3.9 mmol/L (3.5-5.1) Chloride Level 107 mmol/L (98-107) Carbon Dioxide Level 26 mmol/L (21-32) Anion Gap 7 (6-14) Blood Urea Nitrogen 13 mg/dL (7-20) Creatinine 0.9 mg/dL (0.6-1.0) Estimated GFR (Cockcroft-Gault) 65.8 Glucose Level 78 mg/dL (70-99) Calcium Level 8.2 mg/dL (8.5-10.1) Phenytoin (Dilantin) Level 16.6 mcg/mL (10.0-20.0) Phenytoin Last Dose Date 09/28/18 Phenytoin Last Dose Time 2100 Objective Assessment S/p closed amputations of 1 and 5th toes, 4/5 S/p left posterior tibial directional atherectomy and angioplasty, left lateral tarsal artery angioplasty, left peroneal artery angioplasty 4/ Left foot ischemia with gangrenous toe. Peripheral arterial disease.S/P Lt common iliac stent 09/19 Tobacco use. 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 History of Crohn's. History of smoking. History of seizure. Homeless Plan Plan of Care D/c Zyvox and Zosyn Pain management per primary D/c LTAC soon Attending Co-Sign The patient was seen and interviewed as well as examined at the bedside. The chart was reviewed. The case was discussed. Agree with the plan of care. RENE KINNEY INFORMATICA MDM ARCHITECT Sep 29, 2018 10:57 GASTON COOMBS MD Sep 29, 2018 10:57
[2018-09-29 11:00] VITALS: BP 116/53
--- NOTE | 2018-09-29 13:51 | PN ---
DATE: 09/29/2018 SUBJECTIVE: The patient is resting slightly propped up in bed, in no apparent respiratory distress. She is awake, alert, complaining of swollen right lower extremity compared to the left. Denied, however, any chest pain, shortness of breath, cough, phlegm or hemoptysis. When I examined her, she looked pale, but no jaundice, cyanosis or thyromegaly. No jugular venous distension. No lower limb edema. PHYSICAL EXAMINATION: VITAL SIGNS: Heart rate was 66, blood pressure was 99/62, temperature was 98, respiratory rate was 16 and oxygen saturation was 99% on room air. HEAD, EYES, EARS, NOSE AND THROAT: Normocephalic, atraumatic. NECK: Supple. HEART: Showed normal first and second heart sounds. No gallop, rub or murmur. CHEST: Clear to auscultation. No crepitation or rhonchi. ABDOMEN: Distended, soft, nontender. NEUROLOGIC: She is visually impaired. Otherwise, her cranial nerves intact. She moves extremities without difficulty. She is status post right transmetatarsal amputation and amputation of the left first and fifth toes. Her intake was 1600. No output was recorded. LABORATORY DATA: As of this morning showed a serum sodium 140, potassium 3.9, chloride 107, bicarbonate 26, anion gap of 7, BUN 13, creatinine 0.9. Estimated GFR was 66 mL per minute. Her glucose was 78. Calcium was 8.2. ASSESSMENT: 1. Left foot ischemia with gangrenous toe, status post amputation of the left first and fifth toe. 2. Severe peripheral vascular disease with resultant right transmetatarsal amputation. 3. The patient underwent left common iliac artery angioplasty and stent deployment on 09/19/2018, and again, she underwent left posterior tibial directional atherectomy and angioplasty as well as left tibial and left peroneal artery angioplasty. 4. Hypertension. 5. Borderline type 2 diabetes mellitus. 6. History of seizure disorder with subtherapeutic phenytoin level. She is now on 300 mg twice a day. 7. Visual impairment. 8. Chronic obstructive pulmonary disease. 9. Markedly swollen right lower extremity compared to the left. PLAN: My plan is to discontinue IV fluid, continue with IV antibiotic. Continue pain management. I will arrange for her to have venous Doppler ultrasound. Her phenytoin level is now within therapeutic range at 16.6. JHOANA NEELY MD DR: JASSI/isabel JOB#: [id number] / [id number]
[2018-09-29 14:14] LABS: BILIRUBIN,URINE NEGATIVE (NEG); CLARITY,URINE CLEAR; COLOR,URINE YELLOW; NITRITE,URINE NEGATIVE (NEG); PROTEIN,URINE NEGATIVE (NEG-TRACE); UROBILINOGEN,URINE 0.2 mg/dL (0.2 mg/dL)
[2018-09-29 14:29] LABS: BACTERIA,URINE 0 /HPF (0-FEW); RBC,URINE 0 /HPF (0-2); SQUAMOUS EPITHELIAL CELL,UR OCC /LPF; WBC,URINE 0 /HPF (0-4)
[2018-09-29 15:00] VITALS: BP 98/53
[2018-09-29 19:00] VITALS: BP 109/72
[2018-09-29 23:00] VITALS: BP 101/56
[2018-09-30] MEDS: oxyCODONE/APAP 5/325 1 TAB TABLET PO PRN ×4 (00:09→12:12)
[2018-09-30 03:00] VITALS: BP 97/49
[2018-09-30] MEDS: fentaNYL PF VIAL 100 MCG/2 ML VIAL IV PRN ×2 (03:45→09:47)
[2018-09-30 07:00] VITALS: BP 108/70
--- NOTE | 2018-09-30 07:42 | NUR ---
Pt currently verbally aggressive, told the nurse to "shut up" during explaination of drinks pt asking for. Pt. given cola.
[2018-09-30] MEDS: clonazePAM 0.5 MG TABLET PO PRN (07:48)
[2018-09-30] MEDS: CLOPIDOGREL BISULFATE 75 MG TABLET PO SCH (07:48)
[2018-09-30] MEDS: PHENYTOIN SODIUM EXTENDED 100 MG CAPSULE PO SCH (07:48)
--- NOTE | 2018-09-30 07:51 | NUR ---
Pt given am meds and Klonopin early due to pt's aggession and aggitation.While RN was in the room, pt was calm, verbalized understanding of am medications, instructed to call if she needs anything. Pt. in the room yelling, talking to herself. While RN was in the room, pt was calm, verbalized understanding of am medications, instructed to call if she needs anything.
--- NOTE | 2018-09-30 09:17 | SNU/HH DC ---
DISCHARGE ORDERS DISCHARGE INFORMATION: CONDITION ON DISCHARGE: Stable CODE STATUS: Code Status: Full GROUP HOME: SNF STAY <30 DAYS: Yes POST DISCHARGE ORDERS: ACTIVITY ORDERS: Activity as tolerated WEIGHT BEARING STATUS: As tolerated DIET AFTER DISCHARGE: Regular WOUND/INCISION CARE: Change dressing TREATMENT/EQUIPMENT ORDERS: ADAPTIVE EQUIPMENT NEEDED: None Physical Therapy For: Evalulation/Treatment Occupational Therapy For: Evaluation/Treatment DISCHARGE MEDICATIONS: Home Meds Active Scripts Ugdtbecduqvk-Unmv-Npfuiags,Iso (ZOSYN 3.375 GM PRE MIX-BAG) 3.375 Gm/50 Ml Froz.piggy, 3.375 GM IV Q6H for osteo for 30 Days, EACH Prov:JHOANA NEELY MD 09/27/18 Hydrocodone/Acetaminophen (Hydrocodone-Acetamin 5-325 mg) 1 Each Tablet, 2 EACH PO Q4H for pain for 30 Days, #360 TAB Prov:JHOANA NEELY MD 09/27/18 Linezolid (ZYVOX) 600 Mg Tablet, 600 MG PO BID for osteo for 30 Days, #60 TAB Prov:JHOANA NEELY MD 09/27/18 Clopidogrel Bisulfate (CLOPIDOGREL) 75 Mg Tablet, 1 TAB PO DAILY for pvd for 30 Days, #30 TAB 1 Refill Prov:JHOANA NEELY MD 09/27/18 Clonazepam (CLONAZEPAM) 0.5 Mg Tablet, 1 TAB PO BID PRN for ANXIETY / AGITATION for 30 Days, #60 TAB Prov:JHOANA NEELY MD 09/27/18 Ondansetron Hcl (ZOFRAN) 4 Mg Tablet, 1 TAB PO Q6HRS for nv for 10 Days, #40 TAB Prov:JHOANA NEELY MD 09/27/18 Reported Medications Phenytoin Sodium Extended (DILANTIN) 100 Mg Capsule, 1 CAP PO BID for grand mal seizures, #90 CAP 3 Refills 09/17/18 JHOANA NEELY MD Sep 30, 2018 09:17
--- NOTE | 2018-09-30 09:40 | NUR ---
SW following. Discussed with RN, pt ready to discharge today to [facility]. SW phoned and faxed discharge paperwork to [facility] (fax: [phone]). SW awaiting confirmation and transportation time. SW will continue to follow.
--- NOTE | 2018-09-30 09:55 | PDOC ---
Infectious Disease Note Subjective Subjective Feeling better this morning "I had a good cry" Pain controlled at the moment Loose stools Denies F/C/S/N/V/CP/SOA Vital Sign Vital Signs Vital Signs Date Time Temp Pulse Resp B/P (MAP) Pulse Ox O2 Delivery O2 Flow Rate FiO2 09/30/18 09:47 Room Air 09/30/18 07:00 97.9 82 18 108/70 (83) 96 97.9 Physical Exam PHYSICAL EXAM GENERAL: Alert, relaxed appearance, combing her hair HEENT: blindness in eyes, Oral mucosa moist. NECK: Supple. LUNGS: Clear bilaterally, no wheezing. HEART: S1, S2. No gallops or murmurs. ABDOMEN: Soft, nontender, nondistended. EXTREMITIES: No edema, no cyanosis. Left foot -dressed DERMATOLOGIC: Warm, dry. No generalized rash. 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 RUE-PICC clean Labs Lab Laboratory Tests Test 09/29/18 12:07 Urine Collection Type Unknown Urine Color Yellow Urine Clarity Clear Urine pH 7.0 Urine Specific [place] 1.010 Urine Protein Negative mg/dL (NEG-TRACE) Urine Glucose (UA) Negative mg/dL (NEG) Urine Ketones (Stick) Negative mg/dL (NEG) Urine Blood Negative (NEG) Urine Nitrite Negative (NEG) Urine Bilirubin Negative (NEG) Urine Urobilinogen Dipstick 0.2 mg/dL (0.2 mg/dL) Urine Leukocyte Esterase Negative (NEG) Urine RBC 0 /HPF (0-2) Urine WBC 0 /HPF (0-4) Urine Squamous Epithelial Cells Occ /LPF Urine Bacteria 0 /HPF (0-FEW) Objective Assessment S/p closed amputations of 1 and 5th toes, 4/5 S/p left posterior tibial directional atherectomy and angioplasty, left lateral tarsal artery angioplasty, left peroneal artery angioplasty 4/2 Left foot ischemia with gangrenous toe. Peripheral arterial disease.S/P Lt common iliac stent 09/19 Tobacco use. 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 History of Crohn's. History of smoking. History of seizure. Homeless Plan Plan of Care local care Pain management per primary d/c GASTON Silva MD Sep 30, 2018 09:55
--- NOTE | 2018-09-30 11:08 | NUR ---
Dr. Barrios noified of pt's aggitation and throwing things in room. Orders received.
[2018-09-30] MEDS ORDERED: clonazePAM 0.5 MG TABLET PO ONE (11:15)
--- NOTE | 2018-09-30 12:16 | NUR ---
SW following. Pt will be transported between 1330 and 1400 to [facility]. No further SW needs at this time. RN notified.
--- NOTE | 2018-09-30 12:17 | NUR ---
Pt. calm, assisted to BSC with call light. Pt. educated on transfer to facility, verbalized understanding.
--- NOTE | 2018-09-30 12:57 | NUR ---
Pt aggitated, screaming for cookies and pain meds which were already given. Pt. forgetful and verbally aggressive. Attempt made to call report to [facility], nurse not available. Facility would not give nurses name nor take number to return call when available.
--- NOTE | 2018-09-30 13:16 | DS ---
DATE OF DISCHARGE: 09/30/2018 HOSPITAL COURSE: The patient is a 53-year-old female patient who was admitted with a complaint of left foot pain. She was seen initially at [facility] and from there, she was transferred to [facility]. We did consult the vascular surgeon, orthopedic surgeon and Infectious Disease. She was started on IV antibiotic in the form of Zyvox and Zosyn. She was seen by the vascular surgeon and she underwent left common iliac artery angioplasty and stent deployment of 09/19/2018 and again underwent left posterior tibial directional atherectomy and angioplasty as well and left lateral tibial and left peroneal artery angioplasty. Eventually, she underwent amputation of her left first and fifth toes. She was seen in consultation by the Infectious Disease who discontinued her IV antibiotic and a decision was made to discharge her to a half-way facility to continue with wound care, pain management and to start the process of rehabilitation. PHYSICAL EXAMINATION: GENERAL: When I saw her today, she looked well and was clearly in no apparent respiratory distress, pale, but no jaundice, cyanosis or thyromegaly. No jugular venous distension. No limb edema. VITAL SIGNS: Her heart rate was 82, blood pressure 108/70, temperature was 97.9, respiratory rate was 18 and oxygen saturation was 96%. HEAD, EYES, EARS, NOSE AND THROAT: Showed normocephalic, atraumatic. NECK: Supple. HEART: Showed normal first and second heart sounds with no gallop, rub or murmur. CHEST: Clear to auscultation. No crepitation or rhonchi. ABDOMEN: Distended, soft, nontender. No guarding or rigidity. No organomegaly. All hernial orifice intact. Bowel sounds normal. NEUROLOGIC: She is visually impaired, but all other cranial nerves are intact. She moves upper extremities without difficulty. She has right transmetatarsal amputation and left first and fifth toe amputation. Her intake over the last 24 hours was 1600, no output was recorded. LABORATORY DATA: Her most recent lab work showed a white cell count of 8500, hemoglobin 11, hematocrit 33, MCV 99, and platelet count 262,000. Her chemistry showed a serum sodium 140, potassium 3.9, chloride 107, bicarbonate 26, anion gap of 7, BUN 13, creatinine 0.9, estimated GFR was 65 mL per minute. Her glucose was 78. Calcium was 8.2. Her prothrombin time was 12.9, INR of 1. Urinalysis was unremarkable and toxic screen showed that her phenytoin is finally within therapeutic range at 16.6. DISCHARGE MEDICATIONS: She was discharged to [facility] in [place] to continue on clonazepam 0.5 mg twice a day, Plavix 75 mg once a day, ondansetron 4 mg every 6 hours as needed, phenytoin 300 mg twice a day and hydrocodone/APAP 5/325 two tablets every 4 hours as needed. FINAL DISCHARGE DIAGNOSES: 1. Left foot ischemia with gangrenous toes, status post amputation of the left first and fifth toe. 2. Severe peripheral vascular disease resultant right transmetatarsal amputation. 3. The patient underwent left common iliac artery angioplasty and stent deployment on 09/19/2018 and again she underwent left posterior tibial directional atherectomy and angioplasty as well as left tibial and left peroneal artery angioplasty. 4. Hypertension. 5. Borderline type 2 diabetes mellitus. 6. History of seizure disorder with subtherapeutic phenytoin level. She is now on 300 mg twice a day. 7. Visual impairment. 8. Chronic obstructive pulmonary disease. 9. Marked swollen right lower extremity, which we did a Doppler ultrasound, which showed no evidence of DVT in the right lower extremity. JHOANA NEELY MD DR: JASSI/isabel JOB#: [id number] / [id number]
--- NOTE | 2018-09-30 14:05 | NUR ---
Pt. discharged to [facility] via per transportation service. Report called to Kavita.
--- NOTE | 2018-10-01 17:07 | PATHOLOGY ---
[facility] Accession Number: [id number] . 01 Material submitted: . LEFT 1ST TOE AND 5TH TOE . 01 Clinical history: . Osteomyelitis left first toe and fifth toe. . 02 Diagnosis: Left fifth toe amputation: - Gangrenous necrosis and ulceration of distal toe with acute cellulitis and focal acute osteomyelitis of distal phalangeal bone. - Proximal amputation margin is viable and negative for osteomyelitis. . Left first toe amputation: - Gangrenous necrosis and ulceration of distal toe with acute cellulitis and acute osteomyelitis. - Proximal amputation margin is viable and negative for osteomyelitis. . ([facility]:ting; 10/01/2018) MBR/10/01/2018 . 02 Electronically signed: . Jorge Golden MD, Pathologist NPI- [id number] . 01 Gross description: . Received in formalin labeled "Shavonne Hamilton, left first and fifth toes" are two toes measuring 2.5 x 2.2 x 1.5 cm and 4.5 x 3.3 x 2.7 cm. The smaller toe has a smooth soft tissue and bone resection margin, consistent with a surgical margin, and is inked black. The distal aspect of the toe displays a hollis-white nail measuring 0.6 x 0.5 x 0.2 cm. Adjacent to the nail is a hollis-brown ulcerated lesion measuring 1.8 x 1.5 x 1.1 cm, which is located 0.3 cm from the skin and soft tissue resection margin and 1.1 cm from the bone resection margin. Upon sectioning, the lesion grossly abuts the underlying bone. Leak Detector sections are submitted in cassettes A1-A2. The larger toe has a smooth skin, soft tissue, and bone resection margin, which is inked blue. The distal aspect of the toe displays a hollis-white nail measuring 2.0 x 2.0 x 0.4 cm, which is loosely adherent to the underlying tissue. Directly beneath the nail is an ulcerated, hollis-vallejo lesion measuring 2.5 x 2.3 x 0.3 cm. The lesion is located 2.1 cm from the skin and soft tissue margin, and 2.4 cm from the bone margin. Leak Detector sections of the nail are submitted in cassette A3. A automobile rental representative cross section of the toe is submitted in cassettes A4-A5. Additional section of the lesion to underlying bone is submitted in cassette A6. All sections are decalcified. ([facility] [place]; 09/29/2018) SYC/SYC . 02 Pathologist provided ICD-10: L97.529, L03.032, M86.172 . 02 CPT . 882712, [id number] Specimen Comment: A courtesy copy of this report has been sent to Specimen Comment: [phone], . Specimen Comment: Report sent to / DR NEELY Performed at: 01 [facility] [address], [place] [id number] MD Jorge L Perez MD Phone: [phone] Performed at: 02 [facility] [address] [place], [place] [id number] MD Jorge Golden MD Phone: [phone]
== END 2018-09-30 14:05 | DRG 270 ==
LOC: 5 NORTH 15:23 → 2 NORTH 09-19 15:04 → 4 NORTH 09-20 15:03
PROVIDERS: ADMIT Internal Medicine; ATTEND Internal Medicine
PROC: 02HV33Z Insertion of Infusion Device into Superior Vena Cava, Percutaneous Approach (ICD-10-PCS; 2018-09-17)
PROC: [UNRECOGNIZED PROCEDURE] (principal; 2018-09-19)
PROC: B41D1ZZ Fluoroscopy of Aorta and Bilateral Lower Extremity Arteries using Low Osmolar Contrast (ICD-10-PCS; 2018-09-19)
PROC: 047U3ZZ Dilation of Left Peroneal Artery, Percutaneous Approach (ICD-10-PCS; 2018-09-24)
PROC: 047W3ZZ Dilation of Left Foot Artery, Percutaneous Approach (ICD-10-PCS; 2018-09-24)
PROC: 04CN3ZZ Extirpation of Matter from Left Popliteal Artery, Percutaneous Approach (ICD-10-PCS; 2018-09-24)
PROC: 04CS3ZZ Extirpation of Matter from Left Posterior Tibial Artery, Percutaneous Approach (ICD-10-PCS; 2018-09-26)
PROC: 047S3ZZ Dilation of Left Posterior Tibial Artery, Percutaneous Approach (ICD-10-PCS; 2018-09-26)
PROC: 047K3ZZ Dilation of Right Femoral Artery, Percutaneous Approach (ICD-10-PCS; 2018-09-26)
PROC: 047P3ZZ Dilation of Right Anterior Tibial Artery, Percutaneous Approach (ICD-10-PCS; 2018-09-26)
PROC: 047M3DZ Dilation of Right Popliteal Artery with Intraluminal Device, Percutaneous Approach (ICD-10-PCS; 2018-09-26)
PROC: 0Y6Q0Z1 Detachment at Left 1st Toe, High, Open Approach (ICD-10-PCS; 2018-09-27)
PROC: 0Y6Y0Z1 Detachment at Left 5th Toe, High, Open Approach (ICD-10-PCS; 2018-09-27)
DX: E11.52 Type 2 diabetes mellitus with diabetic peripheral angiopathy with gangrene (principal); E43 Unspecified severe protein-calorie malnutrition; M86.8X7 Other osteomyelitis, ankle and foot; I96 Gangrene, not elsewhere classified; L03.116 Cellulitis of left lower limb; K50.90 Crohn's disease, unspecified, without complications; L97.429 Non-pressure chronic ulcer of left heel and midfoot with unspecified severity; E11.69 Type 2 diabetes mellitus with other specified complication; I25.2 Old myocardial infarction; F17.210 Nicotine dependence, cigarettes, uncomplicated; J44.9 Chronic obstructive pulmonary disease, unspecified; H54.7 Unspecified visual loss; I10 Essential (primary) hypertension; I70.8 Atherosclerosis of other arteries; F10.20 Alcohol dependence, uncomplicated; M19.90 Unspecified osteoarthritis, unspecified site; G40.409 Other generalized epilepsy and epileptic syndromes, not intractable, without status epilepticus; I99.8 Other disorder of circulatory system; M41.9 Scoliosis, unspecified; M71.20 Synovial cyst of popliteal space [Baker], unspecified knee; Z59.0 Homelessness; Z86.73 Personal history of transient ischemic attack (TIA), and cerebral infarction without residual deficits; Z88.6 Allergy status to analgesic agent; Z89.431 Acquired absence of right foot; Z68.27 Body mass index [BMI] 27.0-27.9, adult; Z88.8 Allergy status to other drugs, medicaments and biological substances; Z79.4 Long term (current) use of insulin; Z90.49 Acquired absence of other specified parts of digestive tract; Z86.718 Personal history of other venous thrombosis and embolism; Z79.01 Long term (current) use of anticoagulants; E11.621 Type 2 diabetes mellitus with foot ulcer
CPT/HCPCS: 37227; 37228; 37252; G0269; 36415; 36569; 37221; 37229; 37232; 71045; 73630; 75625; 75716; 76937; 80048; 80053; 80185; 81001; 82565; 82962; 85025; 85027; 85610; 85651; 86140; 88305; 88311; 93925; 93970; 93971; 99152; 99153; C1713; C1714; C1724; C1725; C1753; C1760; C1769; C1876; C1885; C1887; C1892; C1894; J0171; J0780; J1100; J1644; J2001; J2250; J2270; J2370; J2405; J2543; J2704; J3010; J3370; J3490; J7030; J7040; J7050; Q0163; Q9967; A4461; C1771

== ENCOUNTER 2020-02-10 07:53 | Inpatient (IN) | payer OTHER ==
[~2020-02-10] VITALS: Ht 165.1 cm; Wt 104.0 kg
[~2020-02-10 07:53] MED LIST changes: +CLON-77 PO; +CLOP75TA PO; +HYDR-2759 PO; +LINE600T12 PO; +ONDA4TAB7 PO; +PHEN100C PO; +PIPE3.377 IV
[2020-02-10] MEDS ORDERED: methylPREDNISolone SOD SUCC PF 125 MG/2 ML VIAL. IV ONE (08:30)
[2020-02-10] MEDS ORDERED: oxyCODONE/APAP 5/325 1 TAB TABLET PO ONE (08:30)
[2020-02-10] MEDS ORDERED: IPRATRPIUM/ALBUTEROL 0.5/2.5MG 3 ML NEBU. NEB ONE (08:30)
[2020-02-10 08:43] LABS: PROTHROMBIN TIME PATIENT 12.8 SEC (11.7-14.0)
[2020-02-10 08:44] LABS: CALCIUM 8.1 mg/dL (8.5-10.1); CREATININE 0.9 mg/dL (0.6-1.0); GFR 65.5; POTASSIUM 4.3 mmol/L (3.5-5.1)
[2020-02-10 08:50] LABS: ALBUMIN 2.9 g/dL (3.4-5.0); ALBUMIN/GLOBULIN RATIO 0.8 (1.0-1.7); TOTAL BILIRUBIN 0.2 mg/dL (0.2-1.0); TOTAL PROTEIN 6.6 g/dL (6.4-8.2)
--- NOTE | 2020-02-10 08:59 | RAD ---
EXAM: CHEST 1 VIEW History: Shortness of breath COMPARISON: None available. TECHNIQUE: Single portable radiograph of the chest FINDINGS: The cardiac silhouette is unremarkable. The lungs are clear bilaterally. The costophrenic sulci are clear and well demarcated. . IMPRESSION: No radiographic evidence of an acute cardiopulmonary process. Electronically signed by: Onesimo Frederick MD (02/10/2020 8:57 AM) [id number]
[2020-02-10] MEDS ORDERED: HEPARIN for IV BOLUS 10,000 UNIT/10 ML VIAL. IV ONE (09:00)
[2020-02-10] MEDS ORDERED: HEPARIN 25,000UTS/250ML PREMIX 250 ML IV PRN (09:00)
[2020-02-10] MEDS ORDERED: HEPARIN for IV BOLUS 10,000 UNIT/10 ML VIAL. IV PRN ×2 (09:00)
[2020-02-10 09:03] LABS: D-DIMER 14.93 ug/mlFEU (0.00-0.50)
[2020-02-10] MEDS ORDERED: ONDANSETRON PF 4 MG/2 ML VIAL. IV PRN (09:15)
[2020-02-10] MEDS ORDERED: ACETAMINOPHEN 325 MG TABLET. PO PRN (09:15)
[2020-02-10] MEDS ORDERED: ANTI-COAG MONITOR BY PHARMACY. MC PRN (09:15)
[2020-02-10] MEDS ORDERED: IOHEXOL 350 MG/ML 100 ML VIAL. IV ONE (09:15)
[2020-02-10] MEDS ORDERED: CONTRAST GIVEN. MC PRN (09:30)
--- NOTE | 2020-02-10 09:35 | RAD ---
Bilateral lower extremity venous Doppler ultrasound History: Bilateral leg pain and swelling. Comparison: None. Procedure: Color flow Doppler, Doppler spectral analysis, and 2D images are obtained with and without compression in the area of the common femoral vein, superficial femoral vein - femoral vein junction, main femoral vein (superficial femoral vein) and popliteal vein. Veins of the proximal calf are also imaged. Findings: The right common femoral vein is patent. The profunda vein is patent. The right superficial femoral vein and popliteal vein are thrombosed. There is lack of color flow and compressibility. The right posterior tibial and peroneal veins are not well seen, there is no flow in the peroneal vein. There is normal color flow, augmentation, and compressibility of all visualized left vein segments. No evidence of deep venous thrombus is present. IMPRESSION: 1. There is occlusive thrombus of the right superficial femoral vein and popliteal vein and probably calf veins. 2. No evidence of left lower extremity deep venous thrombosis. Electronically signed by: Ced Hernandez MD (02/10/2020 9:32 AM) [id number]
--- NOTE | 2020-02-10 10:02 | PHYS DOC ---
Past Medical History Past Medical History: Arthritis, Asthma, COPD, Seizure, Other Additional Past Medical Histor: Crohns, legally blind right eye Past Surgical History: Appendectomy, Tubal ligation, Other Additional Past Surgical Histo: right foot toe amptutions 2 to infection "1 LUNG" Smoking Status: Current Every Day Smoker Alcohol Use: Heavy Drug Use: None General Adult EDM: Chief Complaint: SHORTNESS OF BREATH HPI: HPI: Patient is a 54-year-old female with multiple medical problems including COPD and tobacco abuse who presents with progressive shortness of breath over the last several days. She states she is out of her inhaler at home which she thinks is making this worse. She smokes up to a pack a day. She also complains of some pain and swelling in both legs but the right worse than the left. She denies any fever chills or sweats. She denies any nausea or vomiting. She has had a cough but it is been nonproductive. She denies hemoptysis. She also complains that she has some sharp pain with inspiration. [] Review of Systems: Review of Systems: Constitutional: Denies fever or chills. [] Eyes: Denies change in visual acuity. [] HENT: Denies nasal congestion or sore throat. [] Respiratory: Per HPI [] Cardiovascular: Denies chest pain or edema. [] GI: Denies abdominal pain, nausea, vomiting, bloody stools or diarrhea. [] : Denies dysuria. [] Musculoskeletal: Denies back pain or joint pain. [] Integument: Denies rash. [] Neurologic: Denies headache, focal weakness or sensory changes. [] Endocrine: Denies polyuria or polydipsia. [] Lymphatic: Denies swollen glands. [] Psychiatric: Denies depression or anxiety. [] Heart Score: Risk Factors: Risk Factors: DM, Current or recent (<one month) smoker, HTN, HLP, family history of CAD, obesity. Risk Scores: Score 0 - 3: 2.5% MACE over next 6 weeks - Discharge Home Score 4 - 6: 20.3% MACE over next 6 weeks - Admit for Clinical Observation Score 7 - 10: 72.7% MACE over next 6 weeks - Early Invasive Strategies Current Medications: Current Medications Medications (Trade) Dose Ordered Sig/Beck Start Time Stop Time Status Last Admin Dose Admin Albuterol/ Ipratropium (Duoneb) 6 ml 1X ONCE 02/10/20 08:30 02/10/20 08:31 DC 02/10/20 08:50 6 ML Heparin Sodium (Porcine) (Heparin Sodium) 1,750 unit PRN Q6HRS PRN 02/10/20 09:00 Heparin Sodium/ Dextrose 250 ml @ 18.88 mls/ hr CONT PRN 02/10/20 09:00 Methylprednisolone Sodium Succinate (SOLU-Medrol 125MG VIAL) 125 mg 1X ONCE 02/10/20 08:30 02/10/20 08:31 DC 02/10/20 09:01 125 MG Oxycodone/ Acetaminophen (Percocet 5/325) 2 tab 1X ONCE 02/10/20 08:30 02/10/20 08:31 DC 02/10/20 09:02 2 TAB Allergies: Allergies: Allergies Coded Allergies Type Severity Reaction Last Updated Verified aspirin Adverse Reaction Intermediate n/v 04/20/18 Yes ketorolac Adverse Reaction Intermediate n/v 04/20/18 Yes morphine Adverse Reaction Intermediate Itching 09/22/18 Yes Physical Exam: PE: Constitutional: Well developed, well nourished, moderate respiratory distress, non-toxic appearance. [] HENT: Normocephalic, atraumatic, bilateral external ears normal, oropharynx moist, no oral exudates, nose normal. [] Eyes: PERRLA, EOMI, conjunctiva normal, no discharge. [] Neck: Normal range of motion, no tenderness, supple, no stridor. [] Cardiovascular: Tachycardic no obvious murmur [] Lungs & Thorax: Scattered wheezes throughout both lungs no rales [] Abdomen: Morbidly obese bowel sounds normal, soft, no tenderness, no masses, no pulsatile masses. [] Skin: Warm, dry, no erythema, no rash. [] Back: No tenderness, no CVA tenderness. [] Extremities: No tenderness, no cyanosis, no clubbing, ROM intact, no edema, partial amputation right foot, right lower extremity calf is tender to palp and seems more swollen than the left. [] Neurologic: Alert and oriented X 3, normal motor function, normal sensory function, no focal deficits noted. [] Psychologic: Very anxious [] Current Patient Data: Labs: Laboratory Tests Test 02/10/20 08:24 Prothrombin Time 12.8 SEC (11.7-14.0) Prothrombin Time INR 1.0 (0.8-1.1) Activated Partial Thromboplast Time 31 SEC (24-38) D-Dimer (Daniela) 14.93 ug/mlFEU (0.00-0.50) H Sodium Level 142 mmol/L (136-145) Potassium Level 4.3 mmol/L (3.5-5.1) Chloride Level 106 mmol/L (98-107) Carbon Dioxide Level 26 mmol/L (21-32) Anion Gap 10 (6-14) Blood Urea Nitrogen 22 mg/dL (7-20) H Creatinine 0.9 mg/dL (0.6-1.0) Estimated GFR (Cockcroft-Gault) 65.5 BUN/Creatinine Ratio 24 (6-20) H Glucose Level 107 mg/dL (70-99) H Calcium Level 8.1 mg/dL (8.5-10.1) L Total Bilirubin 0.2 mg/dL (0.2-1.0) Aspartate Amino Transferase (AST) 15 U/L (15-37) Alanine Aminotransferase (ALT) 14 U/L (14-59) Alkaline Phosphatase 138 U/L (46-116) H Troponin I Quantitative 0.672 ng/mL (0.000-0.055) IB-Pis-F-Type Natriuretic Peptide 270 pg/mL (0-124) H Total Protein 6.6 g/dL (6.4-8.2) Albumin 2.9 g/dL (3.4-5.0) L Albumin/Globulin Ratio 0.8 (1.0-1.7) L Laboratory Tests 02/10/20 08:24 Vital Signs: Vital Signs Date Time Temp Pulse Resp B/P (MAP) Pulse Ox O2 Delivery O2 Flow Rate FiO2 02/10/20 09:02 24 91 Nasal Cannula 2.0 02/10/20 08:20 98.6 109 140/91 (107) 98.6 EKG: EKG: EKG: Sinus tachycardia rate of 100 occasional PVC no other obvious ischemic ST-T changes [] Radiology/Procedures: Radiology/Procedures: []REASON: pain and swelling BL LE PROCEDURE: VENOUS LOWER EXT BILATERAL Bilateral lower extremity venous Doppler ultrasound History: Bilateral leg pain and swelling. Comparison: None. Procedure: Color flow Doppler, Doppler spectral analysis, and 2D images are obtained with and without compression in the area of the common femoral vein, superficial femoral vein - femoral vein junction, main femoral vein (superficial femoral vein) and popliteal vein. Veins of the proximal calf are also imaged. Findings: The right common femoral vein is patent. The profunda vein is patent. The right superficial femoral vein and popliteal vein are thrombosed. There is lack of color flow and compressibility. The right posterior tibial and peroneal veins are not well seen, there is no flow in the peroneal vein. There is normal color flow, augmentation, and compressibility of all visualized left vein segments. No evidence of deep venous thrombus is present. IMPRESSION: 1. There is occlusive thrombus of the right superficial femoral vein and popliteal vein and probably calf veins. 2. No evidence of left lower extremity deep venous thrombosis. PROCEDURE: CHEST AP ONLY EXAM: CHEST 1 VIEW History: Shortness of breath COMPARISON: None available. TECHNIQUE: Single portable radiograph of the chest FINDINGS: The cardiac silhouette is unremarkable. The lungs are clear bilaterally. The costophrenic sulci are clear and well demarcated. . IMPRESSION: No radiographic evidence of an acute cardiopulmonary process. Course & Med Decision Making: Course & Med Decision Making Pertinent Labs and Imaging studies reviewed. (See chart for details) [CRITICAL CARE: Time spent was 35 minutes. This includes medical management, evaluation, reevaluation, discussion with consultants and family. Critical Care does NOT include time spent on separately billed procedures. ED course: Evaluation reveals a 54-year-old female with multiple medical problems. Patient presents with scattered wheezes throughout both lungs. She was given IV Solu-Medrol and lxlo-ib-ulxv DuoNeb's with some resolution of her wheezing. Was also noted that the patient had a DVT. She was tachycardic and hypoxic probably more hypoxic than she should have been with just the COPD exacerbation so a CT angiogram was ordered which show a acute pulmonary embolus with moderate to large clot burden. Heparin bolus followed by heparin drip was initiated and Dr. Neely was called and accepted admission.] Rosetta Disclaimer: Rosetta Disclaimer: This electronic medical record was generated, in whole or in part, using a voice recognition dictation system. Departure Departure Impression: Primary Impression: Pulmonary embolus Qualified Codes: I26.09 - Other pulmonary embolism with acute cor pulmonale Additional Impressions: Deep vein thrombosis Qualified Codes: I82.411 - Acute embolism and thrombosis of right femoral vein COPD exacerbation Elevated troponin Disposition: ADMITTED INPATIENT Admitting Physician: LAM Condition: GUARDED Referrals: JHOANA NEELY MD (PCP) Justicifation of Admission Dx: Justifications for Admission: Justification of Admission Dx: Yes Comments: Acute PE with large clot burden RUBEN BANDA DO Feb 10, 2020 10:02
--- NOTE | 2020-02-10 10:02 | RAD ---
CT ANGIOGRAPHY CHEST INDICATION: Reason: Shortness of Air ,Pulmonary Embolus Comparison: Chest radiograph 02/10/2020. TECHNIQUE: Following the uneventful administration of intravenous contrast, 100 cc Omnipaque 350, axial CT sections were obtained through the lungs and upper abdomen. Multiplanar reconstructions and MIP images were obtained. RS compliance statement: One or more of the following individualized dose reduction techniques were utilized for this examination: 1. Automated exposure control 2. Adjustment of the mA and/or kV according to patient size 3. Use of iterative reconstruction technique FINDINGS: Pulmonary arteries: Moderate to large burden pulmonary thromboembolic disease involving the interlobar pulmonary arteries and propagating to segmental branches of all 5 lobes. Right heart strain is present. Flattening of the interventricular septum. Reflux of contrast deep into the hepatic veins, which can be seen with elevated right heart pressure. Lungs and Airways: No pulmonary mass or consolidation. Bibasilar dependent and subsegmental atelectasis. Extensive respiratory motion appears evaluation for small nodules. No abnormality of the central airways. Pleura: The pleural spaces are normal. Heart and Mediastinum: The visualized thyroid is normal in size and attenuation. No axillary or supraclavicular lymphadenopathy. No mediastinal, hilar or retrocrural lymphadenopathy. Normal cardiac size. No pericardial effusion. Normal caliber thoracic aorta. Abdomen: Limited images through the upper abdomen show no abnormality of the visualized organs. Bones and Soft Tissues: Degenerative changes of the spine. IMPRESSION: Moderate to large burden bilateral pulmonary thromboembolic disease. Right heart strain is present. FOR INTERNAL CODING PURPOSES Critical result: Findings discussed with RUBEN BANDA at 02/10/2020 9:52 AM. RESULT CODE: (C) Electronically signed by: Ramses Henderson MD (02/10/2020 9:59 AM) [id number]
--- NOTE | 2020-02-10 10:04 | EKG ---
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
[2020-02-10] MEDS ORDERED: IPRATRPIUM/ALBUTEROL 0.5/2.5MG 3 ML NEBU. NEB SCH (12:00)
[2020-02-10] MEDS ORDERED: IPRATRPIUM/ALBUTEROL 0.5/2.5MG 3 ML NEBU. NEB PRN (12:15)
[2020-02-10] MEDS ORDERED: ALBUTEROL SULFATE 2.5 MG/3 ML NEBU. NEB PRN (12:30)
--- NOTE | 2020-02-10 13:00 | CONS ---
DATE OF CONSULTATION: PULMONARY CONSULTATION ATTENDING PHYSICIAN: Dr. Barrios. REASON FOR CONSULTATION: Pulmonary embolism. HISTORY OF PRESENT ILLNESS: The patient is a 54-year-old obese patient with a BMI of 53 and is a smoker for 35 years. She still smokes cigarettes. She presented to the hospital after she woke up with shortness of breath. She said she had a sprained right ankle about 2-3 weeks ago and she has not been ambulatory. She has some swelling there as well. The patient denied any chest pain, no syncope. She has an occasional cough, which has been nonproductive. No fever, no chills. She had a CTA chest, which was reviewed by me. The patient had a moderate large burden bilateral pulmonary thromboembolic disease with evidence of right heart strain. The patient had reflux of contrast deep into the hepatic veins with suggestive of elevated right heart pressure. The patient also underwent venous Dopplers of the lower extremity and they were positive for DVT in the right lower extremity. She says she has been told by a foot doctor that she had lung cancer and colon cancer. She never saw any formal carpenter refrigerator or oncologist as she said she did not have a medical card at that time. I did not see any evidence of any malignancy on the CTA chest. PAST MEDICAL HISTORY: Significant for: 1. Suspected COPD. 2. Underlying obesity with a BMI of ____. 3. History of seizure, history of Crohn's, history of legally blind right eye. PAST SURGICAL HISTORY: Appendectomy, tubal ligation, right foot toe amputation. SOCIAL HISTORY: Smoker for 35 years, still smokes cigarettes. ALLERGIES: ASPIRIN, KETOROLAC AND MORPHINE. MEDICATIONS: Reviewed as listed in the MRAD including morphine per protocol. REVIEW OF SYSTEMS: Twelve-point system obtained. Pertinent positives discussed in my history of present illness, otherwise noncontributory. All systems that were negative were reviewed as well. FAMILY HISTORY: She is adopted. No family and as a result no family history is available. PHYSICAL EXAMINATION: VITAL SIGNS: Stable. Pulse ox 91% on 2 liters. NECK: Supple. LUNGS: With diminished breath sounds. CARDIOVASCULAR: With a regular rate. ABDOMEN: Soft, obese. EXTREMITIES: With edema on the right leg. LABORATORY DATA: Reviewed. D-dimer 14.9. BUN 22, creatinine 0.9. AST 15, ALT 14. INR is 1.0. IMPRESSION: 1. Acute hypoxic respiratory failure secondary to bilateral pulmonary embolism and deep vein thrombosis. Risk factor being immobile for the last 2-3 weeks after sprain, right ankle. She has no known documented cancers. She is not on any form of hormone replacement and there is no family history available as she was adopted. Underlying obesity is another contributing factor. 2. Ongoing tobaccoism for 35 years, suspect underlying chronic obstructive pulmonary disease. 3. Suspected obstructive sleep apnea, obesity hypoventilation syndrome. RECOMMENDATIONS: 1. I have discussed with the patient at this time, we keep her on oxygen. She is hemodynamically stable. We will follow the blood pressure closely. 2. Continue heparin per protocol. 3. We will switch her to Eliquis in the next 24-48 hours. 4. Obtain echocardiogram. 5. Smoking cessation counseling provided. 6. PFTs as an outpatient. 7. 3-6 months of anticoagulation would be recommended. 8. Discussed with RN. We will follow along with you. LASHONDA SEGOVIA MD DR: MOHAN/isabel JOB#: [id number] / [id number]
[2020-02-10 13:58] LABS: BASO % 0 % (0-3); EOS % 0 % (0-3); HEMATOCRIT 41.4 % (36.0-47.0); HEMOGLOBIN 13.9 g/dL (12.0-15.5); LYMPH # 1.1 x10^3/uL (1.0-4.8); LYMPH % 11 % (24-48); MEAN CORPUSCULAR HEMOGLOBIN 33 pg (25-35); MEAN CORPUSCULAR HGB CONC 34 g/dL (31-37); MEAN CORPUSCULAR VOLUME 99 fL (79-100); MONO # 0.2 x10^3/uL (0.0-1.1); MONO % 2 % (0-9); NEUT # 8.9 x10^3/uL (1.8-7.7); NEUT % 88 % (31-73); PLATELET COUNT 182 x10^3/uL (140-400); RED BLOOD COUNT 4.19 x10^6/uL (3.50-5.40); RED CELL DISTRIBUTION WIDTH 13.8 % (11.5-14.5); WHITE BLOOD COUNT 10.2 x10^3/uL (4.0-11.0)
[2020-02-10] MEDS: fentaNYL PF VIAL 100 MCG/2 ML VIAL IV PRN ×2 (14:06→23:59)
[2020-02-10 15:20] VITALS: BP 137/78
[2020-02-10 15:22] LABS: % BANDS 2 % (0-9); % LYMPHS 11 % (24-48); % METAS 2 % (0-0); % MONOS 1 % (0-10); % SEGS 84 % (35-66); PLT ESTIMATE ADEQUATE (ADEQUATE)
--- NOTE | 2020-02-10 16:30 | PDOC2 ---
ISRAEL JOHNSON ASSISTANT COMMUNITY MANAGER 02/10/20 1630: CARDIAC CONSULT DATE OF CONSULT Date of Consult DATE: 02/10/20 TIME: 15:39 REASON FOR CONSULT Reason for Consult: Elevated troponin REFERRING PHYSICIAN Referring Physician: Antonio SOURCE Source: Chart review, Patient HISTORY OF PRESENT ILLNESS HISTORY OF PRESENT ILLNESS This is a pleasant 54 yo female admitted for complains of SOA. Reports that he woke up at night 1AM due to SOA and gasping for air he could not sleep after that and his SOA did not improve so he decided to call for help. Denies any nausea, chest pain, diaphoresis or palpitations. She did fall and sprained her left ankle a month ago and her right has been getting more swollen in the last month. No HRT and no recent surgery. No definitive hx of CAD although she told me that she had a heart attack in the past but no stents. Also told me that she had stroke in the past. No hx of VTE. She continues to smoke tobacco and has COPD and also reported past lung CA but no definitive treatments in the past. Positive for brain aneurysms which was repaired about 2 yrs ago. Reported that she only takes an inhaler and dilantin for her seizure. No true allergy to ASA but reports of just nausea and vomiting spells. She is somewhat patchy in her details of her hx. PAST MEDICAL HISTORY Cardiovascular: CAD (?), Other (brain aneurysm) Pulmonary: COPD CENTRAL NERVOUS SYSTEM: CVA, Seizure, Other GI: Inflam bowel disease (chrons in remission) Heme/Onc: No pertinent hx Hepatobiliary: No pertinent hx Psych: Anxiety Musculoskeletal: Other (ganglion cyst right wrist with removal) Rheumatologic: No pertinent hx Infectious disease: No pertinent hx ENT: Other (cataract) Renal/: No pertinent hx Endocrine: No pertinent hx Dermatology: No pertinent hx PAST SURGICAL HISTORY Past Surgical History: Appendectomy, Cataract Removal, (x1), Other (right wrist ganglion cyst removal. ovarian cyst removal; toe amputations) FAMILY HISTORY Family History noncontributory SOCIAL HISTORY Smoke: <1 pack per day ALCOHOL: none Drugs: None Lives: [facility] CURRENT MEDICATIONS CURRENT MEDICATIONS Current Medications Medications (Trade) Dose Ordered Sig/Beck Route PRN Reason Start Time Stop Time Status Last Admin Dose Admin Methylprednisolone Sodium Succinate (SOLU-Medrol 125MG VIAL) 125 mg 1X ONCE IV 02/10/20 08:30 02/10/20 08:31 DC 02/10/20 09:01 Albuterol/ Ipratropium (Duoneb) 6 ml 1X ONCE NEB 02/10/20 08:30 02/10/20 08:31 DC 02/10/20 08:50 Oxycodone/ Acetaminophen (Percocet 5/325) 2 tab 1X ONCE PO 02/10/20 08:30 02/10/20 08:31 DC 02/10/20 09:02 Heparin Sodium (Porcine) (Heparin Sodium) 9,450 unit 1X ONCE IV 02/10/20 09:00 02/10/20 09:12 DC 02/10/20 10:07 Heparin Sodium/ Dextrose 250 ml @ 18.88 mls/ hr CONT PRN IV PER PROTOCOL 02/10/20 09:00 02/10/20 10:10 Fentanyl Citrate (Fentanyl 2ml Vial) 50 mcg PRN Q1HR PRN IV PAIN 02/10/20 09:15 02/11/20 09:14 02/10/20 14:06 Iohexol (Omnipaque 350 Mg/ml) 100 ml 1X ONCE IV 02/10/20 09:15 02/10/20 09:16 DC 02/10/20 09:15 ALLERGIES ALLERGIES: Coded Allergies: aspirin (Verified Adverse Reaction, Intermediate, n/v, 04/20/18) ketorolac (Verified Adverse Reaction, Intermediate, n/v, 04/20/18) morphine (Verified Adverse Reaction, Intermediate, Itching, 09/22/18) Patient stated, "I think I throw up, but sometimes I get itchy too. I have no idea" ROS Review of System 14 point ROS evaluated with pertinent positives noted per HPI PHYSICAL EXAM PHYSICAL EXAM Deferred, no proper PPE at that time, Discussed exam with RN. General: Alert, Oriented X3, Cooperative, No acute distress HEENT: Atraumatic Lungs: Other (CTA chest reviewed, expiratory wheeze) Heart: Regular rate (sinus tach) Abdomen: Soft Extremities: No cyanosis, Other (RLE swelling) Skin: No breakdown Neuro: Normal speech Psych/Mental Status: Mental status NL, Mood NL MUSCULOSKELETAL: No joint tenderness VITALS/I&O VITALS/I&O: Vital Signs Date Time Temp Pulse Resp B/P (MAP) Pulse Ox O2 Delivery O2 Flow Rate FiO2 02/10/20 14:06 96 Nasal Cannula 2.0 02/10/20 11:00 96 23 100/71 (81) 02/10/20 08:20 98.6 98.6 LABS Lab: Laboratory Tests Test 02/10/20 08:24 02/10/20 13:40 Prothrombin Time 12.8 SEC (11.7-14.0) Prothrombin Time INR 1.0 (0.8-1.1) Activated Partial Thromboplast Time 31 SEC (24-38) D-Dimer (Daniela) 14.93 ug/mlFEU (0.00-0.50) H Sodium Level 142 mmol/L (136-145) Potassium Level 4.3 mmol/L (3.5-5.1) Chloride Level 106 mmol/L (98-107) Carbon Dioxide Level 26 mmol/L (21-32) Anion Gap 10 (6-14) Blood Urea Nitrogen 22 mg/dL (7-20) H Creatinine 0.9 mg/dL (0.6-1.0) Estimated GFR (Cockcroft-Gault) 65.5 BUN/Creatinine Ratio 24 (6-20) H Glucose Level 107 mg/dL (70-99) H Calcium Level 8.1 mg/dL (8.5-10.1) L Total Bilirubin 0.2 mg/dL (0.2-1.0) Aspartate Amino Transferase (AST) 15 U/L (15-37) Alanine Aminotransferase (ALT) 14 U/L (14-59) Alkaline Phosphatase 138 U/L (46-116) H Troponin I Quantitative 0.672 ng/mL (0.000-0.055) 0.735 ng/mL (0.000-0.055) JT-Rta-N-Type Natriuretic Peptide 270 pg/mL (0-124) H Total Protein 6.6 g/dL (6.4-8.2) Albumin 2.9 g/dL (3.4-5.0) L Albumin/Globulin Ratio 0.8 (1.0-1.7) L White Blood Count 10.2 x10^3/uL (4.0-11.0) Red Blood Count 4.19 x10^6/uL (3.50-5.40) Hemoglobin 13.9 g/dL (12.0-15.5) Hematocrit 41.4 % (36.0-47.0) Mean Corpuscular Volume 99 fL (79-100) Mean Corpuscular Hemoglobin 33 pg (25-35) Mean Corpuscular Hemoglobin Concent 34 g/dL (31-37) Red Cell Distribution Width 13.8 % (11.5-14.5) Platelet Count 182 x10^3/uL (140-400) Neutrophils (%) (Auto) 88 % (31-73) H Lymphocytes (%) (Auto) 11 % (24-48) L Monocytes (%) (Auto) 2 % (0-9) Eosinophils (%) (Auto) 0 % (0-3) Basophils (%) (Auto) 0 % (0-3) Neutrophils # (Auto) 8.9 x10^3/uL (1.8-7.7) H Lymphocytes # (Auto) 1.1 x10^3/uL (1.0-4.8) Monocytes # (Auto) 0.2 x10^3/uL (0.0-1.1) Eosinophils # (Auto) 0.0 x10^3/uL (0.0-0.7) Basophils # (Auto) 0.0 x10^3/uL (0.0-0.2) Segmented Neutrophils % 84 % (35-66) H Band Neutrophils % 2 % (0-9) Lymphocytes % 11 % (24-48) L Monocytes % 1 % (0-10) Metamyelocytes % 2 % (0-0) H Platelet Estimate Adequate (ADEQUATE) Heparin Anti-Xa Act, Unfractionated > 1.10 IU/mL (0.30-0.70) *H Laboratory Tests 02/10/20 13:40 Laboratory Tests 02/10/20 08:24 ASSESSMENT/PLAN ASSESSMENT/PLAN 1. Acute PE 2. RLE DVT: mechanical fall 4 weeks ago with left ankle sprain per pt. 3. NSTEMI: CP free. Trop 0.7 Demand mediated from PE/RV strain. EKG SR without acute changes by comparison 4. Reactive sinus tachycardia 5. Hx of CVA: unclear is truly has hx of CAD 6. Hx of granmal seizure 7. Hx of Brain aneurysm repaired about 2 years ago: possible clipping 8. Hx of chrons: in remission 9. Anxiety 10. COPD with continued tobaccoism 11. Morbid obesity Recommendations 1. Heparin drip ongoing. Will defer coumadin therapy to pulmonary. Not a DOAC candidate due to dilantin 2. TTE if covid negative. Check lipids and TSH 3. Supportive care. 4. Smoking cessation YOANA BIRD MD 02/10/201942: CARDIAC CONSULT ASSESSMENT/PLAN ASSESSMENT/PLAN Agree with LITHOGRAPHIC PHOTOGRAPHER APPRENTICE's assessment and plan. Slight trop elevation prob demand ischemia. Check 2D echo if Covid negative Consider ischemic eval as outpatient Sinus tachy physiologic Continue AC for PE per pulm team Thank you for your consultation ISRAEL JHONSON APRN Feb 10, 2020 16:30 YOANA BIRD MD Feb 10, 2020 19:43
[2020-02-10] MEDS ORDERED: CYCL5TAB PO (16:49)
[2020-02-10] MEDS ORDERED: ACET325T21 PO (16:49)
[2020-02-10] MEDS ORDERED: FLUV50TA2 PO (16:49)
[2020-02-10] MEDS ORDERED: DIVA250T PO (16:49)
[2020-02-10] MEDS ORDERED: CLON0.25 PO (16:49)
[2020-02-10] MEDS ORDERED: NYST15PO9 TP (16:53)
[2020-02-10] MEDS ORDERED: FURO-68 PO (16:53)
[2020-02-10] MEDS ORDERED: MAGN400T5 PO (16:53)
[2020-02-10] MEDS ORDERED: OXYB5TAB10 PO (16:53)
[2020-02-10] MEDS ORDERED: RISP0.5T3 PO (17:01)
[2020-02-10] MEDS ORDERED: OXYC10TA57 PO (17:01)
[2020-02-10] MEDS ORDERED: TRAZ-118 PO (17:01)
[2020-02-10] MEDS ORDERED: PHEN300C4 PO (17:01)
[2020-02-10] MEDS ORDERED: BUPR100T7 PO (17:01)
[2020-02-10] MEDS ORDERED: CYCLOBENZAPRINE 10 MG TABLET. PO PRN (17:15)
[2020-02-10 17:30] LABS: CHOLESTEROL/HDL RATIO 3.3
[2020-02-10] MEDS: WARFARIN 5 MG TABLET. PO SCH (18:23)
[2020-02-10 19:00] VITALS: BP_SYST 139; BP_SYST 141; BP_DIAS 71; BP_DIAS 73
[2020-02-10] MEDS: clonazePAM 0.5 MG TABLET PO SCH ×2 (21:00→21:16)
[2020-02-10] MEDS: OXYBUTYNIN CHLORIDE 5 MG TABLET PO SCH ×2 (21:00→21:16)
[2020-02-10] MEDS: ACETAMINOPHEN 325 MG TABLET. PO SCH ×2 (21:00→21:16)
[2020-02-10] MEDS: NYSTATIN TOPICAL POWDER 15GM BOTTLE. TP SCH ×2 (21:00→21:15)
[2020-02-10] MEDS: MAGNESIUM OXIDE 400 MG TABLET PO SCH ×2 (21:00→21:16)
[2020-02-10] MEDS: PHENYTOIN SODIUM EXTENDED 100 MG CAPSULE PO SCH ×2 (21:00→21:16)
[2020-02-10] MEDS: risperiDONE 0.25 MG TABLET. PO SCH ×2 (21:00→21:17)
[2020-02-10] MEDS: DIVALPROEX EXTENDED RELEASE 250 MG TAB.ER.24H. PO SCH ×2 (21:00→21:16)
[2020-02-10] MEDS: traZODone 50 MG TABLET. PO SCH ×2 (21:00→21:16)
[2020-02-10 23:00] VITALS: BP 114/63
[2020-02-11 00:09] LABS: BASO # 0.1 x10^3/uL (0.0-0.2); BASO % 1 % (0-3); EOS % 0 % (0-3); HEMATOCRIT 38.1 % (36.0-47.0); HEMOGLOBIN 12.9 g/dL (12.0-15.5); LYMPH # 2.9 x10^3/uL (1.0-4.8); LYMPH % 22 % (24-48); MEAN CORPUSCULAR HEMOGLOBIN 33 pg (25-35); MEAN CORPUSCULAR HGB CONC 34 g/dL (31-37); MEAN CORPUSCULAR VOLUME 98 fL (79-100); MONO % 8 % (0-9); NEUT # 9.3 x10^3/uL (1.8-7.7); NEUT % 70 % (31-73); PLATELET COUNT 208 x10^3/uL (140-400); RED BLOOD COUNT 3.87 x10^6/uL (3.50-5.40); RED CELL DISTRIBUTION WIDTH 13.7 % (11.5-14.5); WHITE BLOOD COUNT 13.3 x10^3/uL (4.0-11.0)
[2020-02-11 00:23] LABS: ALBUMIN 2.7 g/dL (3.4-5.0); ALBUMIN/GLOBULIN RATIO 0.7 (1.0-1.7); CALCIUM 8.4 mg/dL (8.5-10.1); POTASSIUM 4.2 mmol/L (3.5-5.1); TOTAL BILIRUBIN 0.2 mg/dL (0.2-1.0); TOTAL PROTEIN 6.6 g/dL (6.4-8.2)
[2020-02-11 03:00] VITALS: BP 111/56
[2020-02-11 07:00] VITALS: BP 119/69
[2020-02-11 07:31] LABS: PROTHROMBIN TIME PATIENT 13.7 SEC (11.7-14.0)
[2020-02-11] MEDS: MAGNESIUM OXIDE 400 MG TABLET PO SCH ×3 (09:13→20:08)
[2020-02-11] MEDS: OXYBUTYNIN CHLORIDE 5 MG TABLET PO SCH ×3 (09:14→20:06)
[2020-02-11] MEDS: risperiDONE 0.25 MG TABLET. PO SCH ×2 (09:14→20:06)
[2020-02-11] MEDS: clonazePAM 0.5 MG TABLET PO SCH ×3 (09:14→20:08)
[2020-02-11] MEDS: buPROPion SR 100 MG TABLET.SA. PO SCH (09:14)
[2020-02-11] MEDS: ACETAMINOPHEN 325 MG TABLET. PO SCH ×2 (09:14→20:07)
[2020-02-11] MEDS: DIVALPROEX EXTENDED RELEASE 250 MG TAB.ER.24H. PO SCH ×2 (09:14→20:07)
[2020-02-11] MEDS: FUROSEMIDE 40 MG TABLET. PO SCH (09:14)
[2020-02-11] MEDS: NYSTATIN TOPICAL POWDER 15GM BOTTLE. TP SCH ×2 (09:21→20:08)
[2020-02-11] MEDS: oxyCODONE ER 10 MG TAB.ER.12H PO PRN ×2 (10:36→22:24)
--- NOTE | 2020-02-11 10:58 | PDOC ---
PULMONARY PROGRESS NOTES DATE: 02/11/20 TIME: 10:53 Subjective Pt. is feeling better today, sitting EOB on 5 liters N/C denies increase SOB or cough Vitals Vital Signs Date Time Temp Pulse Resp B/P (MAP) Pulse Ox O2 Delivery O2 Flow Rate FiO2 02/11/20 10:36 18 98 Nasal Cannula 2.0 02/11/20 07:00 97.9 88 119/69 (86) 97.9 ROS: No Nausea, No Chest Pain, No Abdominal Pain, No Increase Cough General: Alert, Oriented X4 Lungs: Clear Cardiovascular: S1, S2 Abdomen: Soft Neuro Exam: Alert, Oriented Extremities: No Edema Skin: Warm, Dry Labs Laboratory Tests Test 02/10/20 08:24 02/10/20 13:40 02/10/20 16:40 02/11/20 00:01 Prothrombin Time 12.8 SEC (11.7-14.0) Prothromb Time International Ratio 1.0 (0.8-1.1) Activated Partial Thromboplast Time 31 SEC (24-38) D-Dimer (Daniela) 14.93 ug/mlFEU (0.00-0.50) Sodium Level 142 mmol/L (136-145) 139 mmol/L (136-145) Potassium Level 4.3 mmol/L (3.5-5.1) 4.2 mmol/L (3.5-5.1) Chloride Level 106 mmol/L (98-107) 106 mmol/L (98-107) Carbon Dioxide Level 26 mmol/L (21-32) 26 mmol/L (21-32) Anion Gap 10 (6-14) 7 (6-14) Blood Urea Nitrogen 22 mg/dL (7-20) 23 mg/dL (7-20) Creatinine 0.9 mg/dL (0.6-1.0) 1.0 mg/dL (0.6-1.0) Estimated GFR (Cockcroft-Gault) 65.5 58.0 BUN/Creatinine Ratio 24 (6-20) 23 (6-20) Glucose Level 107 mg/dL (70-99) 119 mg/dL (70-99) Calcium Level 8.1 mg/dL (8.5-10.1) 8.4 mg/dL (8.5-10.1) Total Bilirubin 0.2 mg/dL (0.2-1.0) 0.2 mg/dL (0.2-1.0) Aspartate Amino Transf (AST/SGOT) 15 U/L (15-37) 17 U/L (15-37) Alanine Aminotransferase (ALT/SGPT) 14 U/L (14-59) 16 U/L (14-59) Alkaline Phosphatase 138 U/L (46-116) 120 U/L (46-116) Troponin I Quantitative 0.672 ng/mL (0.000-0.055) 0.735 ng/mL (0.000-0.055) 0.656 ng/mL (0.000-0.055) TW-Fft-R-Type Natriuretic Peptide 270 pg/mL (0-124) Total Protein 6.6 g/dL (6.4-8.2) 6.6 g/dL (6.4-8.2) Albumin 2.9 g/dL (3.4-5.0) 2.7 g/dL (3.4-5.0) Albumin/Globulin Ratio 0.8 (1.0-1.7) 0.7 (1.0-1.7) Triglycerides Level 92 mg/dL (0-150) Cholesterol Level 225 mg/dL (0-200) LDL Cholesterol, Calculated 139 mg/dL (0-100) VLDL Cholesterol, Calculated 18 mg/dL (0-40) Non-HDL Cholesterol Calculated 157 mg/dL (0-129) HDL Cholesterol 68 mg/dL (40-60) Cholesterol/HDL Ratio 3.3 Thyroid Stimulating Hormone (TSH) 1.027 uIU/mL (0.358-3.74) White Blood Count 10.2 x10^3/uL (4.0-11.0) 13.3 x10^3/uL (4.0-11.0) Red Blood Count 4.19 x10^6/uL (3.50-5.40) 3.87 x10^6/uL (3.50-5.40) Hemoglobin 13.9 g/dL (12.0-15.5) 12.9 g/dL (12.0-15.5) Hematocrit 41.4 % (36.0-47.0) 38.1 % (36.0-47.0) Mean Corpuscular Volume 99 fL (79-100) 98 fL (79-100) Mean Corpuscular Hemoglobin 33 pg (25-35) 33 pg (25-35) Mean Corpuscular Hemoglobin Concent 34 g/dL (31-37) 34 g/dL (31-37) Red Cell Distribution Width 13.8 % (11.5-14.5) 13.7 % (11.5-14.5) Platelet Count 182 x10^3/uL (140-400) 208 x10^3/uL (140-400) Neutrophils (%) (Auto) 88 % (31-73) 70 % (31-73) Lymphocytes (%) (Auto) 11 % (24-48) 22 % (24-48) Monocytes (%) (Auto) 2 % (0-9) 8 % (0-9) Eosinophils (%) (Auto) 0 % (0-3) 0 % (0-3) Basophils (%) (Auto) 0 % (0-3) 1 % (0-3) Neutrophils # (Auto) 8.9 x10^3/uL (1.8-7.7) 9.3 x10^3/uL (1.8-7.7) Lymphocytes # (Auto) 1.1 x10^3/uL (1.0-4.8) 2.9 x10^3/uL (1.0-4.8) Monocytes # (Auto) 0.2 x10^3/uL (0.0-1.1) 1.0 x10^3/uL (0.0-1.1) Eosinophils # (Auto) 0.0 x10^3/uL (0.0-0.7) 0.0 x10^3/uL (0.0-0.7) Basophils # (Auto) 0.0 x10^3/uL (0.0-0.2) 0.1 x10^3/uL (0.0-0.2) Segmented Neutrophils % 84 % (35-66) Band Neutrophils % 2 % (0-9) Lymphocytes % 11 % (24-48) Monocytes % 1 % (0-10) Metamyelocytes % 2 % (0-0) Platelet Estimate Adequate (ADEQUATE) Heparin Anti-Xa Act, Unfractionated > 1.10 IU/mL (0.30-0.70) Test 02/11/20 05:15 Prothrombin Time 13.7 SEC (11.7-14.0) Prothromb Time International Ratio 1.1 (0.8-1.1) Laboratory Tests Test 02/10/20 13:40 02/10/20 16:40 02/11/20 00:01 02/11/20 05:15 White Blood Count 10.2 x10^3/uL (4.0-11.0) 13.3 x10^3/uL (4.0-11.0) Red Blood Count 4.19 x10^6/uL (3.50-5.40) 3.87 x10^6/uL (3.50-5.40) Hemoglobin 13.9 g/dL (12.0-15.5) 12.9 g/dL (12.0-15.5) Hematocrit 41.4 % (36.0-47.0) 38.1 % (36.0-47.0) Mean Corpuscular Volume 99 fL (79-100) 98 fL (79-100) Mean Corpuscular Hemoglobin 33 pg (25-35) 33 pg (25-35) Mean Corpuscular Hemoglobin Concent 34 g/dL (31-37) 34 g/dL (31-37) Red Cell Distribution Width 13.8 % (11.5-14.5) 13.7 % (11.5-14.5) Platelet Count 182 x10^3/uL (140-400) 208 x10^3/uL (140-400) Neutrophils (%) (Auto) 88 % (31-73) 70 % (31-73) Lymphocytes (%) (Auto) 11 % (24-48) 22 % (24-48) Monocytes (%) (Auto) 2 % (0-9) 8 % (0-9) Eosinophils (%) (Auto) 0 % (0-3) 0 % (0-3) Basophils (%) (Auto) 0 % (0-3) 1 % (0-3) Neutrophils # (Auto) 8.9 x10^3/uL (1.8-7.7) 9.3 x10^3/uL (1.8-7.7) Lymphocytes # (Auto) 1.1 x10^3/uL (1.0-4.8) 2.9 x10^3/uL (1.0-4.8) Monocytes # (Auto) 0.2 x10^3/uL (0.0-1.1) 1.0 x10^3/uL (0.0-1.1) Eosinophils # (Auto) 0.0 x10^3/uL (0.0-0.7) 0.0 x10^3/uL (0.0-0.7) Basophils # (Auto) 0.0 x10^3/uL (0.0-0.2) 0.1 x10^3/uL (0.0-0.2) Segmented Neutrophils % 84 % (35-66) Band Neutrophils % 2 % (0-9) Lymphocytes % 11 % (24-48) Monocytes % 1 % (0-10) Metamyelocytes % 2 % (0-0) Platelet Estimate Adequate (ADEQUATE) Heparin Anti-Xa Act, Unfractionated > 1.10 IU/mL (0.30-0.70) Troponin I Quantitative 0.735 ng/mL (0.000-0.055) 0.656 ng/mL (0.000-0.055) Sodium Level 139 mmol/L (136-145) Potassium Level 4.2 mmol/L (3.5-5.1) Chloride Level 106 mmol/L (98-107) Carbon Dioxide Level 26 mmol/L (21-32) Anion Gap 7 (6-14) Blood Urea Nitrogen 23 mg/dL (7-20) Creatinine 1.0 mg/dL (0.6-1.0) Estimated GFR (Cockcroft-Gault) 58.0 BUN/Creatinine Ratio 23 (6-20) Glucose Level 119 mg/dL (70-99) Calcium Level 8.4 mg/dL (8.5-10.1) Total Bilirubin 0.2 mg/dL (0.2-1.0) Aspartate Amino Transf (AST/SGOT) 17 U/L (15-37) Alanine Aminotransferase (ALT/SGPT) 16 U/L (14-59) Alkaline Phosphatase 120 U/L (46-116) Total Protein 6.6 g/dL (6.4-8.2) Albumin 2.7 g/dL (3.4-5.0) Albumin/Globulin Ratio 0.7 (1.0-1.7) Prothrombin Time 13.7 SEC (11.7-14.0) Prothromb Time International Ratio 1.1 (0.8-1.1) Medications Active Scripts Medications Dose Route/Sig Max Daily Dose Days Date Category Wellbutrin Sr (Bupropion Hcl) 100 Mg Tablet.er 100 Mg PO DAILY 02/10/20 Reported Trazodone Hcl 50 Mg Tablet 50 Mg PO HS 02/10/20 Reported Risperidone 0.5 Mg Tablet 1 Tab PO BID 02/10/20 Reported Phenytoin Sodium Extended 300 Mg Capsule 1 Cap PO QHS 30 02/10/20 Reported Oxycodone HCl ER (Oxycodone HCl) 10 Mg Tab.er.12h 10 Mg PO PRN Q12HR PRN 02/10/20 Reported Oxybutynin Chloride 5 Mg Tablet 5 Mg PO TID 02/10/20 Reported Nystatin 15 Gm Powder 15 Gm TP Q12HR 02/10/20 Reported Magnesium Oxide 400 Mg Tablet 400 Mg PO TID 02/10/20 Reported Lasix (Furosemide) 40 Mg Tablet 40 Mg PO DAILY 02/10/20 Reported Fluvoxamine Maleate 50 Mg Tablet 50 Mg PO BID 02/10/20 Reported Depakote Er (Divalproex Sodium) 250 Mg Tab.er.24h 250 Mg PO BID 02/10/20 Reported Cyclobenzaprine Hcl 5 Mg Tablet 5 Mg PO PRN Q8HRS PRN 02/10/20 Reported Clonazepam 0.25 Mg Tab.rapdis 0.5 Mg PO TID 02/10/20 Reported Acetaminophen 325 Mg Tablet 650 Mg PO BID 02/10/20 Reported Comments CTA -- IMPRESSION: Moderate to large burden bilateral pulmonary thromboembolic disease. Right heart strain is present. Impression . IMPRESSION: 1. Acute hypoxic respiratory failure secondary to bilateral pulmonary embolism and deep vein thrombosis. Risk factor being immobile for the last 2-3 weeks after sprain, right ankle. She has no known documented cancers. She is not on any form of hormone replacement and there is no family history available as she was adopted. Underlying obesity is another contributing factor. 2. Ongoing tobaccoism for 35 years, suspect underlying chronic obstructive pulmonary disease. 3. Suspected obstructive sleep apnea, obesity hypoventilation syndrome. 4. RLE DVT Plan . RECOMMENDATIONS: cont. supplemental oxgen to keep sats above 92 % cont. Coumadin for 3-6 months, continue lovenox in combination with Coumadin until INR is therapeutic follow up in our office in 6 weeks Smoking cessation counseling provided. PFTs as an outpatient. Follow cardiology recs-- awat ECHO results PT/OT Discussed with RN. LASHONDA SEGOVIA MD Feb 11, 2020 10:58
--- NOTE | 2020-02-11 11:06 | HP ---
ADMIT DATE: 02/10/2020 HISTORY OF PRESENT ILLNESS: The patient is a 54-year-old female patient, a resident at [facility], who came to the Emergency Room with a complaint of shortness of breath and was noted to be hypoxic there. She also complained of pain and swelling of both legs with the right worse than the left. She denied any chills, rigors, or fever. Denied any nausea or vomiting. She does have cough, mostly dry. Denied any hemoptysis. She also did complain of some sharp pain with inspiration. She was extensively investigated and she has had lower extremity ultrasound, which showed that there is an occlusive thrombus of the right superficial femoral vein and popliteal vein, probably caused pain, no evidence of lower extremity deep vein thrombosis and she did have a CT angio of the chest, which showed that there is moderate to large burden bilateral pulmonary thromboembolic disease, right heart strain is present and therefore, the patient was started on IV heparin and we did consult the planer mill grader as well as the sensitized paper tester. PAST MEDICAL HISTORY: Significant for hypertension, borderline type 2 diabetes mellitus. 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 PAST SURGICAL HISTORY: Significant for ganglion cyst removal from the right wrist, appendectomy, right forefoot amputation as well as multiple cysts removal from her right ovary. She underwent amputation of the left first and fifth toe and has underwent left common iliac artery angioplasty and stent deployment on 09/19/2018 and again she underwent left posterior tibial directional atherectomy, angioplasty as well as left tibial and left peroneal artery angiography. FAMILY HISTORY: She has one brother and one sister, both . She is not sure whether her parents are still alive or not. She has not seen them for a long time. She has been homeless and lives in the assisted; however, she has been a resident at [facility] for more than a year now. SOCIAL HISTORY: She is single. She has never . She has 2 daughters and 1 son. She smokes up to a pack a day, does not drink alcohol or use any recreational drugs. She is currently residing at [facility] in [place]. REVIEW OF SYSTEMS: As per history of present illness. PHYSICAL EXAMINATION: GENERAL: On arrival to the Emergency Room, she looked well and was clearly in no apparent respiratory distress. No pallor, jaundice, cyanosis, or thyromegaly. No jugular venous distention. No lower limb edema. VITAL SIGNS: Her heart rate was 102, blood pressure 140/91, temperature was 98.6, respiratory rate was 38 and oxygen saturation was 91% on 2 liters of oxygen. HEAD, EYES, EARS, NOSE AND THROAT: Showed normocephalic, atraumatic. NECK: Supple. HEART: Showed normal first and second heart sounds. No gallop, rub or murmur. CHEST: Showed central trachea, equal bilateral expansion and air entry, vesicular breath sounds. I could not really appreciate any crepitation or rhonchi. In fact, when she came, she has scattered wheezing throughout both lungs but no crepitation. ABDOMEN: Morbidly obese with bowel sounds normal. No tenderness. No masses. No pulsatile masses. SKIN: Warm, dry. NEUROLOGIC: She was awake, alert, oriented x 3 with normal motor and sensory function. EXTREMITIES: Showed no clubbing, cyanosis or edema. She has right forefoot amputation and left fifth and first toe amputation. LABORATORY DATA: Her lab work on arrival showed that her white cell count was 10,200, hemoglobin 13.9, hematocrit 41, MCV 99, and platelet count of 182,000. Her chemistry showed her serum sodium 142, potassium 4.3, chloride 106, bicarbonate 26, anion gap of 10, BUN 22, creatinine 0.9, estimated GFR was 65 mL per minute. Her glucose 107, calcium was 8.1. Total bilirubin, AST, ALT were normal. Alkaline phosphatase slightly elevated. Her troponin was 0.672. Beta natriuretic peptide was 270. Total protein was 6.6, albumin was 2.9. Her prothrombin time was 12.8, INR 1, and aPTT was 31. D-dimer was extremely high at 14.93. ASSESSMENT AND PLAN: In summary, this is a 54-year-old female patient who was admitted with acute pulmonary emboli. She has bilateral pulmonary emboli with deep vein thrombosis, chronic obstructive pulmonary disease, morbid obesity, probably obstructive sleep apnea and hypoventilation syndrome. She has seizure disorder for which she is on Dilantin. We will continue all her home medications as she is now on Flexeril 5 mg every 8 hours, oxycodone extended release 10 mg twice a day, acetaminophen 650 mg twice a day, clonazepam 0.5 mg 3 times a day, phenytoin sodium 300 mg at bedtime, divalproex sodium 250 mg twice a day, Wellbutrin 100 mg once a day, fluvoxamine maleate 50 mg twice a day, trazodone 50 mg at bedtime, risperidone 0.5 mg twice a day, furosemide 40 mg daily, magnesium oxide 400 mg 3 times a day, nystatin powder topically twice a day and oxybutynin 5 mg 3 times a day and apparently she is a very difficult stick and has poor veins, and therefore, she was switched to Lovenox 1 mg/kg subcutaneously twice a day. We started her on Coumadin 10 mg once a day. We will monitor her prothrombin time and INR and once INR is 2 or more than 2, we will discontinue Lovenox and she can be discharged home. JHOANA NEELY MD DR: JASSI/isabel JOB#: [id number] / [id number]
[2020-02-11 11:23] VITALS: BP 135/57
--- NOTE | 2020-02-11 12:29 | PN ---
DATE: SUBJECTIVE: The patient is resting, slightly propped up in bed, in no apparent respiratory distress. She does complain of cough which mostly dry and some shortness of breath, but denied any hemoptysis. She is now on Lovenox 120 mg subcutaneously twice a day and Coumadin 3 mg daily. We will monitor her PT/INR on a daily basis. Once the INR is 2 or more than 2, we will discontinue Lovenox and she can be discharged. PHYSICAL EXAMINATION: GENERAL: When I saw her this morning, she looked well and was clearly in no apparent respiratory distress. No pallor, jaundice, cyanosis or thyromegaly. No jugular venous distention. No limb edema. VITAL SIGNS: Her heart rate was 88, blood pressure 119/69, temperature 97.9, respiratory rate was 18 and oxygen saturation was 98% on 2 liters of oxygen. HEAD, EYES, EARS, NOSE AND THROAT: Normocephalic, atraumatic. NECK: Supple. HEART: Showed normal first and second heart sounds. No gallop or murmur. CHEST: Showed central trachea, equal bilateral expansion, air entry. I could not really appreciate any crepitation or rhonchi today. ABDOMEN: Distended, soft, nontender. NEUROLOGIC: She is awake, alert, responding appropriately. All cranial nerves are intact. He moves extremities without difficulty. Her intake and output were incompletely recorded. LABORATORY DATA: Her lab work this morning showed that her serum sodium was 139, potassium 4.2, chloride 106, bicarbonate 26, anion gap of 7, BUN 23, creatinine 1, estimated GFR was 58 mL per minute. Her glucose 119, calcium was 8.4. Total bilirubin, AST and ALT are normal. Alkaline phosphatase slightly elevated. Total protein was 6.6, albumin 2.7. Her TSH was 1.027. Her troponin is trending down and peaked at 0.735. Her serum triglycerides was 92, cholesterol 225, LDL was 139, VLDL was 18, HDL was 68 and ratio was 3.3. PLAN: To continue with Lovenox. Continue with Coumadin. We will check her PT/INR on a daily basis and she was seen by the fisheries officer and apparently 2D echo will be done once her COVID is negative. JHOANA NEELY MD DR: JASSI/isabel JOB#: [id number] / [id number]
--- NOTE | 2020-02-11 14:35 | PDOC ---
ISRAEL JOHNSON MAGISTRATE ASSISTANT 02/11/20 1435: CARDIO Progress Notes Date and Time Date of Service 02/10/2020 Time of Evaluation 1420 Subjective Subjective: No Chest Pain, No shortness of breath, No Palpitations Vitals Vitals Vital Signs Date Time Temp Pulse Resp B/P (MAP) Pulse Ox O2 Delivery O2 Flow Rate FiO2 02/11/20 11:23 97.6 88 18 135/57 (83) 97 Nasal Cannula 2.0 97.6 Weight Weight [ ] Input and Output Intake and Output Intake and Output 02/11/20 07:00 Intake Total 100 ml Balance 100 ml Intake Oral 100 ml # Voids 2 Laboratory Labs Laboratory Tests Test 02/10/20 16:40 02/11/20 00:01 02/11/20 05:15 Troponin I Quantitative 0.656 ng/mL (0.000-0.055) White Blood Count 13.3 x10^3/uL (4.0-11.0) Red Blood Count 3.87 x10^6/uL (3.50-5.40) Hemoglobin 12.9 g/dL (12.0-15.5) Hematocrit 38.1 % (36.0-47.0) Mean Corpuscular Volume 98 fL (79-100) Mean Corpuscular Hemoglobin 33 pg (25-35) Mean Corpuscular Hemoglobin Concent 34 g/dL (31-37) Red Cell Distribution Width 13.7 % (11.5-14.5) Platelet Count 208 x10^3/uL (140-400) Neutrophils (%) (Auto) 70 % (31-73) Lymphocytes (%) (Auto) 22 % (24-48) Monocytes (%) (Auto) 8 % (0-9) Eosinophils (%) (Auto) 0 % (0-3) Basophils (%) (Auto) 1 % (0-3) Neutrophils # (Auto) 9.3 x10^3/uL (1.8-7.7) Lymphocytes # (Auto) 2.9 x10^3/uL (1.0-4.8) Monocytes # (Auto) 1.0 x10^3/uL (0.0-1.1) Eosinophils # (Auto) 0.0 x10^3/uL (0.0-0.7) Basophils # (Auto) 0.1 x10^3/uL (0.0-0.2) Sodium Level 139 mmol/L (136-145) Potassium Level 4.2 mmol/L (3.5-5.1) Chloride Level 106 mmol/L (98-107) Carbon Dioxide Level 26 mmol/L (21-32) Anion Gap 7 (6-14) Blood Urea Nitrogen 23 mg/dL (7-20) Creatinine 1.0 mg/dL (0.6-1.0) Estimated GFR (Cockcroft-Gault) 58.0 BUN/Creatinine Ratio 23 (6-20) Glucose Level 119 mg/dL (70-99) Calcium Level 8.4 mg/dL (8.5-10.1) Total Bilirubin 0.2 mg/dL (0.2-1.0) Aspartate Amino Transf (AST/SGOT) 17 U/L (15-37) Alanine Aminotransferase (ALT/SGPT) 16 U/L (14-59) Alkaline Phosphatase 120 U/L (46-116) Total Protein 6.6 g/dL (6.4-8.2) Albumin 2.7 g/dL (3.4-5.0) Albumin/Globulin Ratio 0.7 (1.0-1.7) Prothrombin Time 13.7 SEC (11.7-14.0) Prothromb Time International Ratio 1.1 (0.8-1.1) Physical Exam Chest: Symmetric LUNGS: Other (diminished) Heart: RRR (SR) Abdomen: Soft N/T Extremities: Other (RLE DVT) Neurology: alert, oriented, follow commands Assessment Assessment 1. Acute PE 2. RLE DVT: mechanical fall 4 weeks ago with left ankle sprain per pt. 3. NSTEMI: CP free. peaked Trop 0.7 Demand mediated from PE/RV strain. EKG SR without acute changes by comparison 4. Reactive sinus tachycardia: 5. Hx of CVA: unclear is truly has hx of CAD 6. Hx of granmal seizure 7. Hx of Brain aneurysm repaired about 2 years ago: possible clipping 8. Hx of chrons: in remission 9. Anxiety 10. COPD with continued tobaccoism 11. Morbid obesity 12. HLP Recommendations 1. Heparin drip ongoing. Will defer coumadin therapy to pulmonary. Not a DOAC candidate due to dilantin 2. TTE if covid negative. Start on statin 3. Supportive care. 4. Smoking cessation 5. Will consider for outpt ischemic workup. Justicifation of Admission Dx: Justifications for Admission: Justification of Admission Dx: Yes YOANA BIRD MD 02/11/20 2012: CARDIO Progress Notes Assessment Assessment Agree with ASSOCIATE TECHNICIAN's assessment and plan. Slight trop elevation prob demand ischemia. Check 2D echo if Covid negative Consider ischemic eval as outpatien Continue AC for PE per pulm team ISRAEL JOHNSON APRN Feb 11, 2020 14:35 YOANA BIRD MD Feb 11, 2020 20:12
[2020-02-11 15:54] VITALS: BP 157/112
[2020-02-11] MEDS: WARFARIN 5 MG TABLET. PO SCH (17:06)
--- NOTE | 2020-02-11 17:31 | NUR ---
SW following. Reviewed chart and discussed with RN. Pt from home, 2l 02, cardiac diet. No PT/OT needs. SIVAN to follow as needed. Addendum: 02/12/20 at 1047 by CHANTELL FINNEGAN Pt resides in LTC at [facility], , (fax).
--- NOTE | 2020-02-11 18:26 | NUR ---
Patient took all her meds this shift, no behavioral issues noted. The patient is on lovenox and coumadin, tolerated well, no adverse effects noted. The patient's guardian called and expressed her concern about getting a PT and OT referral when she goes back to [facility]. Will endorse to the next nurse.
[2020-02-11 19:00] VITALS: BP 102/58
[2020-02-11] MEDS: traZODone 50 MG TABLET. PO SCH (20:06)
[2020-02-11] MEDS: ATORVASTATIN CALCIUM 20 MG TABLET PO SCH (20:07)
[2020-02-11] MEDS: PHENYTOIN SODIUM EXTENDED 100 MG CAPSULE PO SCH (20:08)
[2020-02-11 23:00] VITALS: BP 90/54
[2020-02-12 03:00] VITALS: BP 95/50
[2020-02-12 05:03] LABS: PROTHROMBIN TIME PATIENT 19.2 SEC (11.7-14.0)
[2020-02-12 07:00] VITALS: BP 117/70
[2020-02-12] MEDS: NYSTATIN TOPICAL POWDER 15GM BOTTLE. TP SCH ×2 (09:00→20:59)
[2020-02-12] MEDS: MAGNESIUM OXIDE 400 MG TABLET PO SCH ×3 (09:53→20:58)
[2020-02-12] MEDS: OXYBUTYNIN CHLORIDE 5 MG TABLET PO SCH ×3 (09:53→20:57)
[2020-02-12] MEDS: buPROPion SR 100 MG TABLET.SA. PO SCH (09:53)
[2020-02-12] MEDS: FUROSEMIDE 40 MG TABLET. PO SCH (09:54)
[2020-02-12] MEDS: DIVALPROEX EXTENDED RELEASE 250 MG TAB.ER.24H. PO SCH ×2 (09:54→20:57)
[2020-02-12] MEDS: ACETAMINOPHEN 325 MG TABLET. PO SCH ×2 (09:54→20:58)
[2020-02-12] MEDS: risperiDONE 0.25 MG TABLET. PO SCH ×2 (09:54→20:58)
[2020-02-12] MEDS: clonazePAM 0.5 MG TABLET PO SCH ×3 (09:54→20:57)
[2020-02-12] MEDS: oxyCODONE ER 10 MG TAB.ER.12H PO SCH ×2 (10:00→20:58)
[2020-02-12] MEDS: oxyCODONE IR 5 MG TABLET PO PRN ×2 (10:00→18:11)
--- NOTE | 2020-02-12 10:56 | NUR ---
SW following. Spoke with RN and reviewed chart. Pt resides in LTC at [facility], , (fax) and pt's guardian is requesting therapy orders for pt upon discharge. Pt has Medicaid insurance only. SIVAN spoke with the facility and they are willing to provided PT/OT for pt upon her return. SIVAN notified Dr. Barrios of facility and guardian's request for SNU orders upon discharge. Pt will likely discharge tomorrow, 02/12. Pt remains on 2l 02 and is COVID negative. SIVAN faxed updated clinicals to [facility]. SW to follow.
[2020-02-12 11:00] VITALS: BP 129/60
--- NOTE | 2020-02-12 11:17 | PDOC ---
PULMONARY PROGRESS NOTES DATE: 02/12/20 TIME: 11:15 Subjective Pt. is feeling better today, sitting EOB on 3 liters N/C reports mild SOB with ambulation, No CP, No increased cough Vitals Vital Signs Date Time Temp Pulse Resp B/P (MAP) Pulse Ox O2 Delivery O2 Flow Rate FiO2 02/12/20 10:00 17 Nasal Cannula 2.0 02/12/20 07:00 97.6 69 117/70 (86) 99 97.6 ROS: No Nausea, No Chest Pain, No Abdominal Pain, No Increase Cough General: Alert, Oriented X4 Lungs: Clear Cardiovascular: S1, S2 Abdomen: Soft Neuro Exam: Alert, Oriented Extremities: No Edema Skin: Warm, Dry Labs Laboratory Tests Test 02/10/20 13:40 02/10/20 16:40 02/11/20 00:01 02/11/20 05:15 White Blood Count 10.2 x10^3/uL (4.0-11.0) 13.3 x10^3/uL (4.0-11.0) Red Blood Count 4.19 x10^6/uL (3.50-5.40) 3.87 x10^6/uL (3.50-5.40) Hemoglobin 13.9 g/dL (12.0-15.5) 12.9 g/dL (12.0-15.5) Hematocrit 41.4 % (36.0-47.0) 38.1 % (36.0-47.0) Mean Corpuscular Volume 99 fL (79-100) 98 fL (79-100) Mean Corpuscular Hemoglobin 33 pg (25-35) 33 pg (25-35) Mean Corpuscular Hemoglobin Concent 34 g/dL (31-37) 34 g/dL (31-37) Red Cell Distribution Width 13.8 % (11.5-14.5) 13.7 % (11.5-14.5) Platelet Count 182 x10^3/uL (140-400) 208 x10^3/uL (140-400) Neutrophils (%) (Auto) 88 % (31-73) 70 % (31-73) Lymphocytes (%) (Auto) 11 % (24-48) 22 % (24-48) Monocytes (%) (Auto) 2 % (0-9) 8 % (0-9) Eosinophils (%) (Auto) 0 % (0-3) 0 % (0-3) Basophils (%) (Auto) 0 % (0-3) 1 % (0-3) Neutrophils # (Auto) 8.9 x10^3/uL (1.8-7.7) 9.3 x10^3/uL (1.8-7.7) Lymphocytes # (Auto) 1.1 x10^3/uL (1.0-4.8) 2.9 x10^3/uL (1.0-4.8) Monocytes # (Auto) 0.2 x10^3/uL (0.0-1.1) 1.0 x10^3/uL (0.0-1.1) Eosinophils # (Auto) 0.0 x10^3/uL (0.0-0.7) 0.0 x10^3/uL (0.0-0.7) Basophils # (Auto) 0.0 x10^3/uL (0.0-0.2) 0.1 x10^3/uL (0.0-0.2) Segmented Neutrophils % 84 % (35-66) Band Neutrophils % 2 % (0-9) Lymphocytes % 11 % (24-48) Monocytes % 1 % (0-10) Metamyelocytes % 2 % (0-0) Platelet Estimate Adequate (ADEQUATE) Heparin Anti-Xa Act, Unfractionated > 1.10 IU/mL (0.30-0.70) Troponin I Quantitative 0.735 ng/mL (0.000-0.055) 0.656 ng/mL (0.000-0.055) Sodium Level 139 mmol/L (136-145) Potassium Level 4.2 mmol/L (3.5-5.1) Chloride Level 106 mmol/L (98-107) Carbon Dioxide Level 26 mmol/L (21-32) Anion Gap 7 (6-14) Blood Urea Nitrogen 23 mg/dL (7-20) Creatinine 1.0 mg/dL (0.6-1.0) Estimated GFR (Cockcroft-Gault) 58.0 BUN/Creatinine Ratio 23 (6-20) Glucose Level 119 mg/dL (70-99) Calcium Level 8.4 mg/dL (8.5-10.1) Magnesium Level 2.1 mg/dL (1.8-2.4) Total Bilirubin 0.2 mg/dL (0.2-1.0) Aspartate Amino Transf (AST/SGOT) 17 U/L (15-37) Alanine Aminotransferase (ALT/SGPT) 16 U/L (14-59) Alkaline Phosphatase 120 U/L (46-116) Total Protein 6.6 g/dL (6.4-8.2) Albumin 2.7 g/dL (3.4-5.0) Albumin/Globulin Ratio 0.7 (1.0-1.7) Prothrombin Time 13.7 SEC (11.7-14.0) Prothromb Time International Ratio 1.1 (0.8-1.1) Test 02/12/20 03:30 Prothrombin Time 19.2 SEC (11.7-14.0) Prothromb Time International Ratio 1.7 (0.8-1.1) Laboratory Tests Test 02/12/20 03:30 Prothrombin Time 19.2 SEC (11.7-14.0) Prothromb Time International Ratio 1.7 (0.8-1.1) Medications Active Scripts Medications Dose Route/Sig Max Daily Dose Days Date Category Wellbutrin Sr (Bupropion Hcl) 100 Mg Tablet.er 100 Mg PO DAILY 02/10/20 Reported Trazodone Hcl 50 Mg Tablet 50 Mg PO HS 02/10/20 Reported Risperidone 0.5 Mg Tablet 1 Tab PO BID 02/10/20 Reported Phenytoin Sodium Extended 300 Mg Capsule 1 Cap PO QHS 30 02/10/20 Reported Oxycodone HCl ER (Oxycodone HCl) 10 Mg Tab.er.12h 10 Mg PO PRN Q12HR PRN 02/10/20 Reported Oxybutynin Chloride 5 Mg Tablet 5 Mg PO TID 02/10/20 Reported Nystatin 15 Gm Powder 15 Gm TP Q12HR 02/10/20 Reported Magnesium Oxide 400 Mg Tablet 400 Mg PO TID 02/10/20 Reported Lasix (Furosemide) 40 Mg Tablet 40 Mg PO DAILY 02/10/20 Reported Fluvoxamine Maleate 50 Mg Tablet 50 Mg PO BID 02/10/20 Reported Depakote Er (Divalproex Sodium) 250 Mg Tab.er.24h 250 Mg PO BID 02/10/20 Reported Cyclobenzaprine Hcl 5 Mg Tablet 5 Mg PO PRN Q8HRS PRN 02/10/20 Reported Clonazepam 0.25 Mg Tab.rapdis 0.5 Mg PO TID 02/10/20 Reported Acetaminophen 325 Mg Tablet 650 Mg PO BID 02/10/20 Reported Comments CTA -- IMPRESSION: Moderate to large burden bilateral pulmonary thromboembolic disease. Right heart strain is present. Impression . IMPRESSION: 1. Acute hypoxic respiratory failure secondary to bilateral pulmonary embolism and deep vein thrombosis. Risk factor being immobile for the last 2-3 weeks after sprain, right ankle. She has no known documented cancers. She is not on any form of hormone replacement and there is no family history available as she was adopted. Underlying obesity is another contributing factor. 2. Ongoing tobaccoism for 35 years, suspect underlying chronic obstructive pulmonary disease. 3. Suspected obstructive sleep apnea, obesity hypoventilation syndrome. 4. RLE DVT Plan . RECOMMENDATIONS: cont. supplemental oxygen to keep sats above 92 %, wean as tolerated cont. Coumadin for 3-6 months, continue lovenox in combination with Coumadin until INR is therapeutic follow up in our office in 6 weeks Smoking cessation counseling provided. PFTs as an outpatient. Follow cardiology recs-- awat ECHO results PT/OT will need 6 min walk prior to D/C Discussed with MAHI. LASHONDA SEGOVIA MD Feb 12, 2020 11:17
--- NOTE | 2020-02-12 11:27 | PN ---
DATE: 02/12/2020 SUBJECTIVE: The patient is resting, slightly propped up in bed, in no apparent distress. She continued to complain of shortness of breath on exertion, not at rest. She has some chest pain. She had cough, it is mostly dry. Denied any phlegm or hemoptysis. She is on 2 liters of oxygen by nasal cannula, maintaining her oxygen saturation at 97%. PHYSICAL EXAMINATION: GENERAL: When I examined her, she looked well and was clearly in no apparent respiratory distress, pale, but no jaundice, cyanosis or thyromegaly. No jugular venous distention. No limb edema. VITAL SIGNS: Her heart rate was 78, blood pressure was 95/50, temperature 98.2, respiratory rate was 18 and oxygen saturation was 97%. HEENT: Showed normocephalic, atraumatic. NECK: Supple. CARDIAC: Normal first and second heart sounds. No gallop or murmurs. CHEST: Shows central trachea, equal bilateral chest expansion, air entry, vesicular sounds with very few scattered rhonchi, could not appreciate any crepitation. ABDOMEN: Distended, soft, nontender. NEUROLOGIC: She is awake, alert, responding appropriately. All cranial nerves intact. She moves extremities without difficulty. Her intake over the last 24 hours and output incompletely recorded. LABORATORY DATA: Her prothrombin time this morning was 19.2, INR 1.7. Her coronavirus by PCR was not detected. ASSESSMENT: 1. Right lower extremity deep venous thrombosis, bilateral pulmonary emboli, chronic obstructive pulmonary disease, morbid obesity, hyperlipidemia. PLAN: To continue with Lovenox. Continue with Coumadin. I will cut down her Coumadin to 5 mg today and do a 6-minute walk as she may require oxygen at the [facility] facility and hopefully discharge her back tomorrow. JHOANA NEELY MD DR: JASSI/isabel JOB#: [id number] / [id number]
--- NOTE | 2020-02-12 11:38 | PDOC ---
ISRAEL JOHNSON EARTH SCIENCE TEACHER 02/12/20 1138: CARDIO Progress Notes Date and Time Date of Service 02/12/2020 Time of Evaluation 1110 Subjective Subjective: No Chest Pain, No shortness of breath, No Palpitations, Other (SOA with activity) Vitals Vitals Vital Signs Date Time Temp Pulse Resp B/P (MAP) Pulse Ox O2 Delivery O2 Flow Rate FiO2 02/12/20 10:00 17 Nasal Cannula 2.0 02/12/20 07:00 97.6 69 117/70 (86) 99 97.6 Weight Weight [ ] Input and Output Intake and Output Intake and Output 02/12/20 07:00 Intake Total 1325 ml Balance 1325 ml Intake Oral 1325 ml # Voids 6 Laboratory Labs Laboratory Tests Test 02/12/20 03:30 Prothrombin Time 19.2 SEC (11.7-14.0) Prothromb Time International Ratio 1.7 (0.8-1.1) Physical Exam HEENT: Neck Supple W Full Motion Chest: Symmetric LUNGS: Other (diminished with faint wheeze) Heart: RRR (SR) Abdomen: Soft N/T Extremities: Other (RLE DVT; edema to right leg with tenderness) Neurology: alert, oriented, follow commands Assessment Assessment 1. Acute PE: per pulmonary 2. RLE DVT: mechanical fall 4 weeks ago with left ankle sprain per pt. 3. NSTEMI: CP free. peaked Trop 0.7 Demand mediated from PE/RV strain. EKG SR without acute changes by comparison 4. Reactive sinus tachycardia: resolved 5. Hx of CVA: unclear is truly has hx of CAD 6. Hx of grandmal seizure 7. Hx of Brain aneurysm repaired about 2 years ago: possible clipping 8. Hx of chrons: in remission 9. Anxiety 10. COPD with continued tobaccoism 11. Morbid obesity 12. HLP Recommendations 1. Coumadin bridged with lovenox. INR at 1.7 Not a DOAC candidate due to dilantin 2. NSTEMI/CVA would be the indication for plavix. Her warfarin bleed risk is low. Will discuss with primary manager cancer with associated use of OAC given her hx of cerebral aneurysm. May need to hold plavix for now and reeval as an outpt. 3. Wt. loss, Smoking cessation 4. Will consider for outpt ischemic workup. Follow up in office Justicifation of Admission Dx: Justifications for Admission: Justification of Admission Dx: Yes YOANA BIRD MD 02/12/20 1548: CARDIO Progress Notes Assessment Assessment Patient seen and examined. Agree with RESTORATIVE COORDINATOR's assessment and plan. Slight trop elevation prob demand ischemia. Check 2D echo to assess LV function and rule out wall motion abnormalities Consider ischemic eval as outpatient Continue AC for PE per pulm team, agree with stopping Plavix secondary to her history of intracranial aneurysm ISRAEL JOHNSON APRN Feb 12, 2020 11:38 YOANA BIRD MD Feb 12, 2020 15:48
[2020-02-12 15:00] VITALS: BP 132/71
[2020-02-12] MEDS ORDERED: WARFARIN 5 MG TABLET. PO SCH (16:00)
--- NOTE | 2020-02-12 17:27 | CARD ---
MR#: [id number] Date of Study: 02/12/2020 Ordering Physician: LASHONDA SEGOVIA, Referring Physician: LASHONDA SEGOVIA, Tech: Yesy Butt RDCS APPROVED REPORT EXAM: Two-dimensional and M-mode echocardiogram with Doppler and color Doppler. Other Information Quality : Good Rhythm : Atrial Fibrillation INDICATION STEMI, Pumonary Emboli 2D DIMENSIONS RVDd2.6 (2.9-3.5cm)Left Atrium(2D)3.1 (1.6-4.0cm) IVSd1.0 (0.7-1.1cm)Aortic Root(2D)2.9 (2.0-3.7cm) LVDd4.3 (3.9-5.9cm)LVOT Diameter2.0 (1.8-2.4cm) PWd1.0 (0.7-1.1cm)LVDs3.2 (2.5-4.0cm) FS (%) 25.0 %SV14.2 ml LVEF(%)55.0 (>50%) Aortic Valve AoV Peak Rajiv.150.9cm/sAoV VTI22.2cm AO Peak GR.9.1mmHgLVOT Peak Rajiv.115.1cm/s LVOT VTI 21.23cmAO Mean GR.4mmHg ALMAZ (VMAX)2.10if3EUZ (VTI)2.98cm2 Mitral Valve MV E Enbenqoi69.9cm/sMV DECEL KPFB118tq MV A Oafcvenn46.8cm/sMV RWM67pz E/A Ratio0.5MVA (PHT)3.35cm2 TDI E/Lateral E'6.4E/Medial E'7.4 Tricuspid Valve TR P. Prsnnklo482lt/sRAP VLEFDONE8rpEc TR Peak Gr.24fzHzWKJK02jcFp Pulmonary Vein S1 Ifaemsaw30.4cm/sD2 Replvteb43.3cm/s LEFT VENTRICLE The left ventricle is normal size. There is normal left ventricular wall thickness. The left ventricu lar systolic function is normal and the ejection fraction is within normal range. Left ventricle syst olic function is normal. The Ejection Fraction is 50-55%. Septal motion consistent with conduction ab normality. Transmitral Doppler flow pattern is Grade I-abnormal relaxation pattern. RIGHT VENTRICLE The right ventricle is normal size. The right ventricular systolic function is normal. ATRIA The left atrium size is normal. The right atrium size is normal. The interatrial septum is intact wit h no evidence for an atrial septal defect or patent foramen ovale as noted on 2-D or Doppler imaging. AORTIC VALVE The aortic valve is not well visualized but is functioning normally by Doppler interrogation. Doppler and Color Flow revealed no significant aortic regurgitation. There is no significant aortic valvular stenosis. MITRAL VALVE The mitral valve is normal in structure and function. There is no evidence of mitral valve prolapse. There is no mitral valve stenosis. Doppler and Color Flow revealed trace mitral valve regurgitation. TRICUSPID VALVE The tricuspid valve is normal in structure and function. Doppler and Color Flow revealed trace tricus pid regurgitation. The PA pressure was estimated at 25 mmHg. There is no tricuspid valve stenosis. PULMONIC VALVE The pulmonic valve is not well visualized. Doppler and Color Flow revealed no pulmonic valvular regur gitation. There is no pulmonic valvular stenosis. GREAT VESSELS The aortic root is normal in size. The ascending aorta is normal in size. The IVC is normal in size a nd collapses >50% with inspiration. PERICARDIAL EFFUSION There is no evidence of significant pericardial effusion. Critical Notification Critical Value: No <Conclusion> The left ventricle is normal size. The left ventricular systolic function is normal and the ejection fraction is within normal range. Left ventricle systolic function is normal. The Ejection Fraction is 50-55%. Septal motion consistent with conduction abnormality. Doppler and Color Flow revealed no significant aortic regurgitation. There is no significant aortic valvular stenosis. Doppler and Color Flow revealed trace mitral valve regurgitation. Doppler and Color Flow revealed trace tricuspid regurgitation. The PA pressure was estimated at 25 mmHg. Signed by : Vladimir Chavez MD Electronically Approved : 02/12/2020 17:27:06
[2020-02-12 19:00] VITALS: BP 95/64
[2020-02-12] MEDS: PHENYTOIN SODIUM EXTENDED 100 MG CAPSULE PO SCH (20:57)
[2020-02-12] MEDS: ATORVASTATIN CALCIUM 20 MG TABLET PO SCH (20:57)
[2020-02-12] MEDS: traZODone 50 MG TABLET. PO SCH (21:00)
[2020-02-12 22:36] VITALS: BP 135/94
[2020-02-13 03:11] VITALS: BP 101/55
[2020-02-13 04:30] LABS: HEMATOCRIT 37.4 % (36.0-47.0); HEMOGLOBIN 12.6 g/dL (12.0-15.5); RED BLOOD COUNT 3.81 x10^6/uL (3.50-5.40); RED CELL DISTRIBUTION WIDTH 13.5 % (11.5-14.5); WHITE BLOOD COUNT 7.8 x10^3/uL (4.0-11.0)
[2020-02-13 05:29] LABS: CALCIUM 8.5 mg/dL (8.5-10.1); CREATININE 0.9 mg/dL (0.6-1.0); GFR 65.5; POTASSIUM 4.2 mmol/L (3.5-5.1)
[2020-02-13 07:00] VITALS: BP 99/55
[2020-02-13] MEDS: clonazePAM 0.5 MG TABLET PO SCH ×2 (09:28→12:48)
[2020-02-13] MEDS: DIVALPROEX EXTENDED RELEASE 250 MG TAB.ER.24H. PO SCH (09:28)
[2020-02-13] MEDS: FUROSEMIDE 40 MG TABLET. PO SCH (09:29)
[2020-02-13] MEDS: risperiDONE 0.25 MG TABLET. PO SCH (09:29)
[2020-02-13] MEDS: OXYBUTYNIN CHLORIDE 5 MG TABLET PO SCH ×2 (09:29→12:48)
[2020-02-13] MEDS: MAGNESIUM OXIDE 400 MG TABLET PO SCH ×2 (09:29→12:48)
[2020-02-13] MEDS: ACETAMINOPHEN 325 MG TABLET. PO SCH (09:29)
[2020-02-13] MEDS: oxyCODONE ER 10 MG TAB.ER.12H PO SCH (09:29)
[2020-02-13] MEDS: buPROPion SR 100 MG TABLET.SA. PO SCH (09:29)
[2020-02-13] MEDS: NYSTATIN TOPICAL POWDER 15GM BOTTLE. TP SCH (09:51)
[2020-02-13] MEDS ORDERED: OXYC5CAP PO (10:33)
[2020-02-13] MEDS ORDERED: LEVE500T56 PO (10:43)
[2020-02-13] MEDS ORDERED: APIX5TAB PO (10:43)
--- NOTE | 2020-02-13 10:46 | SNU/HH DC ---
DISCHARGE ORDERS DISCHARGE INFORMATION: DISCHARGE DATE: Feb 13, 2020 FINAL DIAGNOSIS Problems Medical Problems: (1) COPD exacerbation Status: Acute (2) Deep vein thrombosis Status: Acute (3) Elevated troponin Status: Acute (4) Pulmonary embolus Status: Acute CONDITION ON DISCHARGE: Stable CODE STATUS: Code Status: Full LONG TERM: SNF STAY <30 DAYS: Yes POST DISCHARGE ORDERS: ACTIVITY ORDERS: Activity as tolerated WEIGHT BEARING STATUS: As tolerated DIET AFTER DISCHARGE: Regular WOUND/INCISION CARE: Change dressing TREATMENT/EQUIPMENT ORDERS: ADAPTIVE EQUIPMENT NEEDED: None RESPIRATORY EQUIPMENT NEEDED: Oxygen Physical Therapy For: Evalulation/Treatment Occupational Therapy For: Evaluation/Treatment DISCHARGE MEDICATIONS: Home Meds Active Scripts Apixaban (ELIQUIS) 5 Mg Tablet, 5 MG PO BID for pe/dvt for 30 Days, #60 TAB Prov:JHOANA NEELY MD 02/13/20 Levetiracetam (KEPPRA) 500 Mg Tablet, 1 TAB PO BID for seizures for 30 Days, #60 TAB 0 Refills Prov:JHOANA NEELY MD 02/13/20 Oxycodone Hcl (OXYCODONE HCL) 5 Mg Capsule, 5 MG PO PRN Q6HRS PRN for PAIN for 30 Days, #120 TAB 0 Refills Prov:JHOANA NEELY MD 02/13/20 Reported Medications Bupropion Hcl (WELLBUTRIN SR) 100 Mg Tablet.er, 100 MG PO DAILY for MDD, TAB.SR 02/10/20 Trazodone Hcl (TRAZODONE HCL) 50 Mg Tablet, 50 MG PO HS for insomnia, TAB 02/10/20 Risperidone (RISPERIDONE) 0.5 Mg Tablet, 1 TAB PO BID for mood stabilizer, #60 TAB 1 Refill 02/10/20 Oxycodone HCl (Oxycodone HCl ER) 10 Mg Tab.er.12h, 10 MG PO PRN Q12HR PRN for PAIN, TAB.SR 02/10/20 Oxybutynin Chloride (OXYBUTYNIN CHLORIDE) 5 Mg Tablet, 5 MG PO TID for stress incontinence, TAB 02/10/20 Nystatin (NYSTATIN) 15 Gm Powder, 15 GM TP Q12HR for yeast, MISC 02/10/20 Magnesium Oxide (MAGNESIUM OXIDE) 400 Mg Tablet, 400 MG PO TID for supplement, T AB 02/10/20 Furosemide (LASIX) 40 Mg Tablet, 40 MG PO DAILY for fluid retention, TAB 02/10/20 Fluvoxamine Maleate (FLUVOXAMINE MALEATE) 50 Mg Tablet, 50 MG PO BID for OCD, TAB 02/10/20 Divalproex Sodium (DEPAKOTE ER) 250 Mg Tab.er.24h, 250 MG PO BID for mood disorder, TAB.SR 02/10/20 Cyclobenzaprine Hcl (CYCLOBENZAPRINE HCL) 5 Mg Tablet, 5 MG PO PRN Q8HRS PRN for PAIN, TAB 02/10/20 Clonazepam (CLONAZEPAM) 0.25 Mg Tab.rapdis, 0.5 MG PO TID for anxiety, TAB 02/10/20 Acetaminophen (ACETAMINOPHEN) 325 Mg Tablet, 650 MG PO BID for pain, TAB 02/10/20 Discontinued Reported Medications Phenytoin Sodium Extended (PHENYTOIN SODIUM EXTENDED) 300 Mg Capsule, 1 CAP PO QHS for seizures for 30 Days, #30 CAP 0 Refills 02/10/20 JHOANA NEELY MD Feb 13, 2020 10:45
--- NOTE | 2020-02-13 10:57 | PDOC ---
PULMONARY PROGRESS NOTES DATE: 02/13/20 TIME: 10:53 Subjective continue to clinically improve remains on N/C oxygen no overnight concerns from nursing No CP, o SOB, reports some cough Vitals Vital Signs Date Time Temp Pulse Resp B/P (MAP) Pulse Ox O2 Delivery O2 Flow Rate FiO2 02/13/20 09:29 18 94 Nasal Cannula 3.0 02/13/20 07:00 98.6 86 99/55 (70) 98.6 ROS: No Nausea, No Chest Pain, No Abdominal Pain, No Increase Cough General: Alert, Oriented X4 Lungs: Clear Cardiovascular: S1, S2 Abdomen: Soft Neuro Exam: Alert, Oriented Extremities: No Edema Skin: Warm, Dry Labs Laboratory Tests Test 02/12/20 03:30 02/13/20 04:00 Prothrombin Time 19.2 SEC (11.7-14.0) Prothromb Time International Ratio 1.7 (0.8-1.1) White Blood Count 7.8 x10^3/uL (4.0-11.0) Red Blood Count 3.81 x10^6/uL (3.50-5.40) Hemoglobin 12.6 g/dL (12.0-15.5) Hematocrit 37.4 % (36.0-47.0) Mean Corpuscular Volume 98 fL (79-100) Mean Corpuscular Hemoglobin 33 pg (25-35) Mean Corpuscular Hemoglobin Concent 34 g/dL (31-37) Red Cell Distribution Width 13.5 % (11.5-14.5) Platelet Count 211 x10^3/uL (140-400) Sodium Level 137 mmol/L (136-145) Potassium Level 4.2 mmol/L (3.5-5.1) Chloride Level 105 mmol/L (98-107) Carbon Dioxide Level 24 mmol/L (21-32) Anion Gap 8 (6-14) Blood Urea Nitrogen 18 mg/dL (7-20) Creatinine 0.9 mg/dL (0.6-1.0) Estimated GFR (Cockcroft-Gault) 65.5 Glucose Level 80 mg/dL (70-99) Calcium Level 8.5 mg/dL (8.5-10.1) Laboratory Tests Test 02/13/20 04:00 White Blood Count 7.8 x10^3/uL (4.0-11.0) Red Blood Count 3.81 x10^6/uL (3.50-5.40) Hemoglobin 12.6 g/dL (12.0-15.5) Hematocrit 37.4 % (36.0-47.0) Mean Corpuscular Volume 98 fL (79-100) Mean Corpuscular Hemoglobin 33 pg (25-35) Mean Corpuscular Hemoglobin Concent 34 g/dL (31-37) Red Cell Distribution Width 13.5 % (11.5-14.5) Platelet Count 211 x10^3/uL (140-400) Sodium Level 137 mmol/L (136-145) Potassium Level 4.2 mmol/L (3.5-5.1) Chloride Level 105 mmol/L (98-107) Carbon Dioxide Level 24 mmol/L (21-32) Anion Gap 8 (6-14) Blood Urea Nitrogen 18 mg/dL (7-20) Creatinine 0.9 mg/dL (0.6-1.0) Estimated GFR (Cockcroft-Gault) 65.5 Glucose Level 80 mg/dL (70-99) Calcium Level 8.5 mg/dL (8.5-10.1) Medications Active Scripts Medications Dose Route/Sig Max Daily Dose Days Date Category Wellbutrin Sr (Bupropion Hcl) 100 Mg Tablet.er 100 Mg PO DAILY 02/10/20 Reported Trazodone Hcl 50 Mg Tablet 50 Mg PO HS 02/10/20 Reported Risperidone 0.5 Mg Tablet 1 Tab PO BID 02/10/20 Reported Phenytoin Sodium Extended 300 Mg Capsule 1 Cap PO QHS 30 02/10/20 Reported Oxycodone HCl ER (Oxycodone HCl) 10 Mg Tab.er.12h 10 Mg PO PRN Q12HR PRN 02/10/20 Reported Oxybutynin Chloride 5 Mg Tablet 5 Mg PO TID 02/10/20 Reported Nystatin 15 Gm Powder 15 Gm TP Q12HR 02/10/20 Reported Magnesium Oxide 400 Mg Tablet 400 Mg PO TID 02/10/20 Reported Lasix (Furosemide) 40 Mg Tablet 40 Mg PO DAILY 02/10/20 Reported Fluvoxamine Maleate 50 Mg Tablet 50 Mg PO BID 02/10/20 Reported Depakote Er (Divalproex Sodium) 250 Mg Tab.er.24h 250 Mg PO BID 02/10/20 Reported Cyclobenzaprine Hcl 5 Mg Tablet 5 Mg PO PRN Q8HRS PRN 02/10/20 Reported Clonazepam 0.25 Mg Tab.rapdis 0.5 Mg PO TID 02/10/20 Reported Acetaminophen 325 Mg Tablet 650 Mg PO BID 02/10/20 Reported Comments CTA -- IMPRESSION: Moderate to large burden bilateral pulmonary thromboembolic disease. Right heart strain is present. Impression . IMPRESSION: 1. Acute hypoxic respiratory failure secondary to bilateral pulmonary embolism and deep vein thrombosis. Risk factor being immobile for the last 2-3 weeks after sprain, right ankle. She has no known documented cancers. She is not on any form of hormone replacement and there is no family history available as she was adopted. Underlying obesity is another contributing factor. 2. Ongoing tobaccoism for 35 years, suspect underlying chronic obstructive pulmonary disease. 3. Suspected obstructive sleep apnea, obesity hypoventilation syndrome. 4. RLE DVT Plan . RECOMMENDATIONS: cont. supplemental oxygen to keep sats above 92 %, wean as tolerated plan to D/C coumadin and start eliquis today will need to cont. Eliquis for 3-6 months follow up in our office in 6 weeks- and repeat CTA Smoking cessation counseling provided. PFTs as an outpatient. Follow cardiology recs PT/OT will need 6 min walk prior to D/C Discussed with RN and Dr. Denis burgos to D/C from our standpoint LASHONDA SEGOVIA MD Feb 13, 2020 10:57
[2020-02-13 11:00] VITALS: BP 119/68
--- NOTE | 2020-02-13 11:40 | NUR ---
SW following. Spoke with RN and reviewed chart. Spoke with Dr. Barrios. Pt will discharge with SNU orders back to [facility], , (fax) today. SW phoned and faxed discharge orders to [facility]. Facility arranged wc transport with 02 for 1300. RN notified and will call report. Packet of clinicals updated and ready to be sent with pt. No further SW needs at this time.
[2020-02-13] MEDS: oxyCODONE IR 5 MG TABLET PO PRN (12:48)
--- NOTE | 2020-02-13 13:30 | NUR ---
Pt discharged to [facility]. Transportation from facility came. Report was called to Yesi at facility.
--- NOTE | 2020-02-13 13:51 | DS ---
DATE OF DISCHARGE: HOSPITAL COURSE: The patient is a 54-year-old female patient, a resident at [facility], who was admitted with shortness of breath and hypoxia. Investigation showed that she has DVT and multiple pulmonary emboli and even right-sided strain pattern. She was initially started on heparin and then switched to Lovenox 1 mg/kg twice a day subcutaneously and Coumadin. Unfortunately, she is a very difficult vascular access. We could not even draw blood to check her PT/INR, and therefore, I discontinued her phenytoin and switched her to Keppra and started her on Eliquis. We did actually a 6-minute walk and she clearly required oxygen at 3 liters by nasal cannula at rest and on exertion. PHYSICAL EXAMINATION: GENERAL: When I examined her this morning, she looked well and was clearly in no apparent respiratory distress. There was no pallor, jaundice, cyanosis or thyromegaly. No jugular venous distention. No limb edema. VITAL SIGNS: Her heart rate was 86, blood pressure was 99/55, temperature 98.6, respiratory rate was 17 and oxygen saturation was 95% on 3 liters of oxygen. HEAD, EYES, EARS, NOSE AND THROAT: Showed normocephalic, atraumatic. NECK: Supple. HEART: Showed normal first and second heart sounds. No gallop or murmur. CHEST: Clear to auscultation. No crepitation or rhonchi. ABDOMEN: Distended, soft, nontender. NEUROLOGIC: She is grossly intact. LABORATORY DATA: Her lab work this morning showed a white cell count 7800, hemoglobin 12, hematocrit 37, MCV 98 and platelet count 211,000. Her chemistry showed a serum sodium 137, potassium 4.2, chloride 105, bicarbonate 24, anion gap of 8, BUN 18, creatinine 0.9. Estimated GFR was 65 mL per minute. Her glucose was 80. Calcium was 8.5, magnesium was 2.1. Her coronavirus by PCR was not detected. DISCHARGE MEDICATIONS: She was discharged back to [facility] to continue on apixaban 10 mg twice a day for 1 week and then 5 mg twice a day thereafter, Keppra 500 mg twice a day, oxycodone immediate release 5 mg every 6 hours as needed. She is on Tylenol 650 mg twice a day, Wellbutrin-SR 100 mg daily, clonazepam 0.5 mg three times a day, Flexeril 5 mg every 8 hours, divalproex sodium 250 mg twice a day, fluvoxamine 50 mg twice a day, furosemide 40 mg daily, magnesium oxide 400 mg three times a day, nystatin powder twice a day, oxybutynin chloride 5 mg three times a day, oxycodone extended release 10 mg twice a day, risperidone 0.5 mg twice a day and trazodone 50 mg at bedtime. FINAL DISCHARGE DIAGNOSES: 1. Right lower extremity deep vein thrombosis and bilateral pulmonary emboli. 2. Chronic obstructive pulmonary disease. 3. Morbid obesity. 4. Hyperlipidemia. 5. Non-ST segment elevation myocardial infarction, likely type 2 demand ischemia. 6. Grand mal seizures, for which I switched her to Keppra. 7. Crohn's disease, in remission. 8. Anxiety. JHOANA NEELY MD DR: JASSI/isabel JOB#: [id number] / [id number]
== END 2020-02-13 13:30 | DRG 280 ==
LOC: ER 07:53 → 6 SOUTH 09:02
PROVIDERS: ADMIT Internal Medicine; ATTEND Internal Medicine
DX: I82.411 Acute embolism and thrombosis of right femoral vein (principal); J96.01 Acute respiratory failure with hypoxia; I21.A1 Myocardial infarction type 2; I26.09 Other pulmonary embolism with acute cor pulmonale; J44.1 Chronic obstructive pulmonary disease with (acute) exacerbation; C18.9 Malignant neoplasm of colon, unspecified; C34.90 Malignant neoplasm of unspecified part of unspecified bronchus or lung; K50.90 Crohn's disease, unspecified, without complications; Z68.43 Body mass index [BMI] 50.0-59.9, adult; E66.01 Morbid (severe) obesity due to excess calories; E78.5 Hyperlipidemia, unspecified; F17.210 Nicotine dependence, cigarettes, uncomplicated; F41.9 Anxiety disorder, unspecified; G40.409 Other generalized epilepsy and epileptic syndromes, not intractable, without status epilepticus; G47.33 Obstructive sleep apnea (adult) (pediatric); M19.90 Unspecified osteoarthritis, unspecified site; G47.36 Sleep related hypoventilation in conditions classified elsewhere; H54.8 Legal blindness, as defined in USA; I10 Essential (primary) hypertension; I25.10 Atherosclerotic heart disease of native coronary artery without angina pectoris; I25.2 Old myocardial infarction; I73.9 Peripheral vascular disease, unspecified; S93.402A Sprain of unspecified ligament of left ankle, initial encounter; M41.9 Scoliosis, unspecified; W18.30XA Fall on same level, unspecified, initial encounter; Z79.01 Long term (current) use of anticoagulants; Z79.899 Other long term (current) drug therapy; Z85.118 Personal history of other malignant neoplasm of bronchus and lung; Z86.718 Personal history of other venous thrombosis and embolism; Z86.73 Personal history of transient ischemic attack (TIA), and cerebral infarction without residual deficits; Z90.49 Acquired absence of other specified parts of digestive tract; Z20.828 Contact with and (suspected) exposure to other viral communicable diseases; Z88.8 Allergy status to other drugs, medicaments and biological substances; Z71.6 Tobacco abuse counseling
CPT/HCPCS: 36415; 71045; 71275; 80048; 80053; 80061; 83735; 83880; 84443; 84484; 85007; 85025; 85027; 85379; 85520; 85610; 85730; 93005; 93306; 93970; 94618; 94640; 96365; 96375; 96376; J1644; J1650; J2930; J3010; Q9967; 99291-25; G0378; U0003-CS

== ENCOUNTER → 2020-03-26 | Outpatient (CLI) | payer OTHER ==
[~2020-03-26] MED LIST changes: +ACET325T21 PO; +APIX5TAB PO; +BUPR100T7 PO; +CLON0.25 PO; +CYCL5TAB PO; +DIVA250T PO; +FLUV50TA2 PO; +FURO-68 PO; +IOHEXOL 350 MG/ML 100 ML VIAL. IV ONE; +LEVE500T56 PO; +MAGN400T5 PO; +NYST15PO9 TP; +OXYB5TAB10 PO; +OXYC10TA57 PO; +OXYC5CAP PO; +PHEN300C4 PO; +RISP0.5T3 PO; +TRAZ-118 PO
--- NOTE | 2020-03-26 13:41 | RAD ---
EXAM: CT ANGIOGRAPHY OF THE CHEST WITH AND WITHOUT CONTRAST. HISTORY: Chest pain. Prior pulmonary embolism. TECHNIQUE: Computed tomographic angiography of the chest was performed before and after the intravenous administration of iodinated contrast. 3-D maximum intensity projections were also performed. One or more of the following individualized dose reduction techniques were utilized for this examination: 1. Automated exposure control. 2. Adjustment of the mA and/or kV according to patient size. 3. Use of iterative reconstruction technique. COMPARISON: 02/10/2020. FINDINGS: Images of the upper abdomen reveal no acute abnormality. Bone windows reveal no suspicious lesions. There is limited opacification of the pulmonary arterial tree, limiting assessment for pulmonary embolism. Previously noted right sided emboli appear to have resolved. The clot centrally in the left main pulmonary artery has resolved. The left lower lobe segmental arteries remain unopacified and appears somewhat atretic. There is no aortic dissection or aneurysm. There is severe stenosis at the origin of the left subclavian artery. There is a normal variant origin of the left vertebral artery directly from the aortic arch. There are no pathologically enlarged mediastinal or axillary lymph nodes. There is no pleural or pericardial effusion. The heart is not enlarged. Subpleural scarring is again noted in the left greater than right bases and there is mild wall thickening along the left lower lobe bronchi. IMPRESSION: 1. Most of the previous noted pulmonary emboli have resolved. Some clot is suspected to remain within the left lower lobe segmental arteries, which are small, poorly opacified and now may be atretic. 2. Severe stenosis at the origin of the left subclavian artery. Electronically signed by: Harsha Willis MD (03/26/2020 1:38 PM) [id number]
== END | disposition home or self-care (01) ==
LOC: CT 09:27
PROVIDERS: ATTEND Internal Medicine Critical Care Medicine
DX: R07.9 Chest pain, unspecified (principal)
CPT/HCPCS: 71275; Q9967

== ENCOUNTER 2021-02-26 19:11 | Inpatient (IN) | payer OTHER ==
[~2021-02-26] VITALS: Ht 165.1 cm; Wt 120.0 kg
[~2021-02-26 19:11] MED LIST changes: +CEFD300C PO; -IOHEXOL 350 MG/ML 100 ML VIAL. IV ONE; +MAGN400T17 PO; -RISP0.5T3 PO; +RISP0.5T62 PO
--- NOTE | 2021-02-26 20:08 | PHYS DOC ---
Past Medical History Past Medical History: Arthritis, Asthma, COPD, Seizure, Other Additional Past Medical Histor: Crohns, legally blind right eye (PHUONG MIX TIRE BUFFER) Past Surgical History: Appendectomy, Tubal ligation, Other Additional Past Surgical Histo: right foot toe amptutions 2 to infection "1 LUNG" (PHUONG MIX TIRE BUFFER) Smoking Status: Former Smoker Alcohol Use: Heavy Drug Use: None (PHUONG MIX TIRE BUFFER) General Adult EDM: Chief Complaint: POST-OP PROBLEM HPI: HPI: Patient is a 55 year old female with history of COPD, seizures, PVD among other illnesses presented today from a local snf. Patient was sent to the ED for infected right lower extremity surgical wound. Patient is a poor historian. She does not know what surgery she had and when it was done. Currently history is very limited. (PHUONG MIX TIRE BUFFER) Review of Systems: Review of Systems: Constitutional: Denies fever or chills. [] Eyes: Denies change in visual acuity. [] HENT: Denies nasal congestion or sore throat. [] Respiratory: Denies cough or shortness of breath. [] Cardiovascular: Denies chest pain or edema. [] GI: Denies abdominal pain, nausea, vomiting, bloody stools or diarrhea. [] : Denies dysuria. [] Musculoskeletal: Denies back pain or joint pain. [] Integument: Reports infection to the right lower extremity surgical site. Neurologic: Denies headache, focal weakness or sensory changes. [] Psychiatric: Denies depression or anxiety. [] (PHUONG MIX TIRE BUFFER) Heart Score: C/O Chest Pain: N/A Risk Factors: Risk Factors: DM, Current or recent (<one month) smoker, HTN, HLP, family history of CAD, obesity. Risk Scores: Score 0 - 3: 2.5% MACE over next 6 weeks - Discharge Home Score 4 - 6: 20.3% MACE over next 6 weeks - Admit for Clinical Observation Score 7 - 10: 72.7% MACE over next 6 weeks - Early Invasive Strategies (PHUONG MIX TIRE BUFFER) Allergies: Allergies: Allergies Coded Allergies Type Severity Reaction Last Updated Verified aspirin Adverse Reaction Intermediate n/v 04/20/18 Yes ketorolac Adverse Reaction Intermediate n/v 04/20/18 Yes morphine Adverse Reaction Intermediate Itching 09/22/18 Yes (PHUONG MIX TIRE BUFFER) Physical Exam: PE: Constitutional: Well developed, well nourished, no acute distress, non-toxic appearance. [] HENT: Normocephalic, atraumatic, bilateral external ears normal, oropharynx moist, no oral exudates, nose normal. [] Eyes: PERRLA, EOMI, conjunctiva normal, no discharge. [] Neck: Normal range of motion, no tenderness, supple, no stridor. [] Cardiovascular:Heart rate regular rhythm Lungs & Thorax: Bilateral breath sounds clear to auscultation [] Abdomen: Bowel sounds normal, soft, no tenderness, no masses, no pulsatile masses. [] Skin: Right upper extremity medial aspect with a well approximated surgical incision that appears to be healing well. Right lower extremity medial aspect with a 3 surgical incisions. The right thigh has a surgical incision from the groin to the mid thigh. The incision is erythematous, there is some Steri- Strips over the incision site. The right medial lower extremity/tib-fib has 2 surgical incisions, one has stitches on the other 1 has uzma. Both of them are erythematous and appear infected. Right medial ankle has another dehisced surgical incision with some stitches. 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 +1 right pedal pulse. Right heel has a stage I stasis ulcer. Back: No tenderness, no CVA tenderness. [] Extremities: No tenderness, no cyanosis, no clubbing, ROM intact, no edema. [] Neurologic: Alert and oriented X 3, normal motor function, normal sensory function, no focal deficits noted. [] Psychologic: Affect normal, judgement normal, mood normal. [] (PHUONG MIX TIRE BUFFER) EKG: EKG: [] (PHUONG MIX APRN) Radiology/Procedures: Radiology/Procedures: [] (PHUONG MIX APRN) Course & Med Decision Making: Course & Med Decision Making Pertinent Labs and Imaging studies reviewed. (See chart for details) This is a 55-year-old female patient presented to the ED today with infected surgical incision of the right lower extremity. Patient is from a local snf and has no recollection on when she had surgeries on the right lower extremity and right upper extremity, neither does the patient know why they did the procedures. Patient surgical incisions appear infected on the right lower extremity. Vitals on arrival to the ED temperature 99.9, heart rate 112, respiration 24 on room air, O2 sats 94%, blood pressure 102/61. CBC with a WBC of 20.4 with a left shift. Hemoglobin 10.9 with hematocrit of 33.3. Lactic is normal, procalcitonin 0.14. CMP with nothing really acute. Patient was started on sepsis protocol including IV antibiotics and IV fluids. Spoke with Dr. Neely who accepted patient for admission. (PHUONG MIX TIRE BUFFER) Dragon Disclaimer: DragSlapVid Disclaimer: This electronic medical record was generated, in whole or in part, using a voice recognition dictation system. (PHUONG MIX TIRE BUFFER) Date and Time of Reassessment Date: Feb 26, 2021 Time: 21:15 (PHUONG MIX M TIRE BUFFER) Fluid Challenge Is the fluid challenge complet: No IBW Target Volume Used: Yes BMI > 30: Yes (PHUONG MIX M TIRE BUFFER) Vital Signs Vital Signs: Vital Signs Date Time Temp Pulse Resp B/P (MAP) Pulse Ox O2 Delivery O2 Flow Rate FiO2 02/26/21 19:15 99.9 112 24 102/61 (78) 94 Room Air 99.9 Temperature Source: Oral (MUTUNGA,PHUONG M TIRE BUFFER) Temperature Source: Oral (WALKER,CYNDY R DO) Respirations Respiratory Effort: Normal Respiratory Pattern: Normal (MUTUNGA,PHUONG M TIRE BUFFER) Cardiovascular Pulse Rhythm: Regular Heart: Nml rate, reg. rhythm (MUTUNGA,PHUONG M TIRE BUFFER) Lung Sounds Breath Sounds: Clear (MUTUNGA,PHUONG M TIRE BUFFER) Capillary Refil Capillary Refill: Rt Hand > 3 seconds (MUTUNGA,PHUONG M TIRE BUFFER) Peripheral Pulse Pulse Location: Monitor Pulse Strength: Normal (2+) Pulse Assessment Method: Monitor (MUTUNGA,PHUONG M TIRE BUFFER) Pulse Assessment Method: Monitor (WALKER,CYNDY R DO) Integumentary Skin: Warm Skin Moisture: Moist Skin Turgor: Normal Skin Color: warm Fingernail Color: WNL (MUTUNGA,PHUONG M TIRE BUFFER) Departure Departure Impression: Primary Impression: Blister of right lower extremity without infection Qualified Codes: S80.821A - Blister (nonthermal), right lower leg, initial encounter Additional Impressions: Dehiscence of surgical wound Qualified Codes: T81.31XA - Disruption of external operation (surgical) wound, not elsewhere classified, initial encounter Fever Qualified Codes: R50.9 - Fever, unspecified Tachycardia Sepsis Qualified Codes: A41.9 - Sepsis, unspecified organism Disposition: ADMITTED INPATIENT Condition: STABLE Referrals: JHOANA NEELY MD (PCP) Attending Signature Attending Signature I have reviewed the PA/DEPUTY DIRECTOR OF PUBLIC WORKS's note and plan of care. I was available for consultation as needed during the patient's visit in the emergency department. I agree with the clinical impression, plan, and disposition. (CYNDY WALKER DO) PHUONG MIX APRN Feb 26, 2021 20:08 CYNDY WALKER DO Feb 26, 2021 22:16
[2021-02-26] MEDS ORDERED: VANCOMYCIN PER PHARMACY MC ONE (20:15)
[2021-02-26] MEDS ORDERED: fentaNYL PF VIAL 100 MCG/2 ML VIAL IV PRN (20:15)
[2021-02-26] MEDS ORDERED: PIPERACILLIN/TAZOBACTAM 4.5 GM in IV NORMAL SALINE 100ML 100 ML IV ONE (20:30)
[2021-02-26] MEDS: IV NORMAL SALINE 1000ML BAG 1,000 ML IV SCH ×3 (20:34→23:15)
[2021-02-26 20:37] LABS: CALCIUM 8.8 mg/dL (8.5-10.1); CREATININE 1.3 mg/dL (0.6-1.0); GFR 42.7
[2021-02-26 20:39] LABS: BASO # 0.1 x10^3/uL (0.0-0.2); BASO % 1 % (0-3); EOS % 0 % (0-3); HEMATOCRIT 33.1 % (36.0-47.0); HEMOGLOBIN 10.9 g/dL (12.0-15.5); LYMPH # 1.2 x10^3/uL (1.0-4.8); LYMPH % 6 % (24-48); MEAN CORPUSCULAR HEMOGLOBIN 31 pg (25-35); MEAN CORPUSCULAR HGB CONC 33 g/dL (31-37); MEAN CORPUSCULAR VOLUME 93 fL (79-100); MONO # 1.1 x10^3/uL (0.0-1.1); MONO % 6 % (0-9); NEUT # 17.9 x10^3/uL (1.8-7.7); NEUT % 88 % (31-73); PLATELET COUNT 402 x10^3/uL (140-400); RED BLOOD COUNT 3.55 x10^6/uL (3.50-5.40); WHITE BLOOD COUNT 20.4 x10^3/uL (4.0-11.0)
[2021-02-26 20:43] LABS: ALBUMIN 2.7 g/dL (3.4-5.0); ALBUMIN/GLOBULIN RATIO 0.6 (1.0-1.7); TOTAL BILIRUBIN 0.6 mg/dL (0.2-1.0); TOTAL PROTEIN 6.9 g/dL (6.4-8.2)
[2021-02-26] MEDS ORDERED: VANCOMYCIN 2 GM in IV NORMAL SALINE 500ML BAG 500 ML IV ONE (21:00)
[2021-02-26 21:01] LABS: % BANDS 4 % (0-9); % LYMPHS 4 % (24-48); % MONOS 9 % (0-10); % SEGS 83 % (35-66); PLT ESTIMATE ADEQUATE (ADEQUATE); POLYCHROMASIA SLIGHT
[2021-02-26] MEDS ORDERED: IV NORMAL SALINE 1000ML BAG 1,000 ML IV ONE (21:30)
[2021-02-26] MEDS ORDERED: ONDANSETRON PF 4 MG/2 ML VIAL. IVP PRN (21:30)
[2021-02-26] MEDS ORDERED: fentaNYL PF VIAL 100 MCG/2 ML VIAL IVP PRN (21:30)
[2021-02-26 23:02] VITALS: BP 102/48
[2021-02-26] MEDS ORDERED: PIP/TAZO PER PHARMACY MC PRN (23:15)
[2021-02-27] MEDS: VANCOMYCIN PER PHARMACY MC PRN (00:16)
--- NOTE | 2021-02-27 00:17 | NUR ---
Pharmacy Vancomycin Dosing Note S:Consulted to monitor and dose vancomycin started 02/26/21. O:HANNAH LONG is a 55 year old F with Cellulitis POST-OP WOUND INFECTION . Height: 5 feet, 5 inches Weight: 119.5 kg [place] Body Weight: 57.00 Adjusted Body Weight: 82.00 Dosing Weight: Actual Other Antibiotics: ZOSYN 3.375 02/26 - LABS: Last BUN: 15 Last Creatinine: 1.3 Creatinine Clearance: 64 mL/min Last WBC: 20.4 Last Procalcitonin: 0.14 Tmax (past 24 hours): 99.9 Microbiology: 02/27 BCX PENDING I/O: Drug Levels: Last level: on at Last dose given 02/26/21 at 2100 Vancomycin Dosing: Loading Dose: 2000 mg x1 Dosing Weight: Actual Target Trough: 10-20 A: Based on: WEIGHT, CRCL~64 WITH URIAH, INFECTION TYPE, P: 1. INITIATE Vancomycin 1500 mg IV q12h AFTER 2000 MG LOADING DOSE 2. Follow up Trough level on 02/28/21 at 0830 3. Pharmacy will continue to monitor, follow and adjust therapy as needed. [facility], 02/27/21 0017
[2021-02-27] MEDS ORDERED: POTA20TA4 PO (03:04)
[2021-02-27 03:08] VITALS: BP 101/39
[2021-02-27] MEDS: IV NORMAL SALINE 1000ML BAG 1,000 ML IV SCH ×3 (05:55→20:52)
[2021-02-27] MEDS: PIPERACILLIN/TAZOBACTAM 3.375 GM in IV NORMAL SALINE 50ML 50 ML IV SCH ×3 (06:18→18:08)
[2021-02-27] MEDS: oxyCODONE ER 10 MG TAB.ER.12H PO PRN (06:19)
[2021-02-27 07:00] VITALS: BP 118/53
[2021-02-27] MEDS ORDERED: ACETAMINOPHEN 325 MG TABLET. PO PRN (09:00)
[2021-02-27] MEDS: levETIRAcetam 500 MG TABLET PO SCH ×2 (09:00→21:05)
[2021-02-27] MEDS: LACTOBACILLUS RHAMNOSUS GG 1 CAPSULE. PO SCH ×2 (09:00→21:05)
[2021-02-27] MEDS: clonazePAM 0.5 MG TABLET PO SCH ×3 (09:00→21:05)
[2021-02-27] MEDS: POTASSIUM CHLORIDE 20 MEQ TABLET.ER. PO SCH (09:01)
[2021-02-27] MEDS: FUROSEMIDE 40 MG TABLET. PO SCH (09:01)
[2021-02-27] MEDS: OXYBUTYNIN CHLORIDE 5 MG TABLET PO SCH ×3 (09:01→21:06)
[2021-02-27] MEDS: buPROPion SR 100 MG TABLET.SA. PO SCH (09:01)
[2021-02-27] MEDS: risperiDONE 1 MG TABLET. PO SCH ×2 (09:01→21:05)
[2021-02-27] MEDS: VANCOMYCIN 1.5 GM in IV NORMAL SALINE 500ML BAG 500 ML IV SCH ×2 (09:02→20:54)
[2021-02-27] MEDS: DIVALPROEX EXTENDED RELEASE 250 MG TAB.ER.24H. PO SCH ×2 (09:02→21:05)
--- NOTE | 2021-02-27 10:41 | HP ---
HISTORY OF PRESENT ILLNESS: The patient is a 55-year-old male patient, a resident at [facility] in [place], who was noted yesterday to be febrile with altered mental status. She was extensively investigated and was found to have marked leukocytosis with white cell count of 20,000. She was also febrile while at [facility] with temperature up to 102.9 according to the nursing staff when they called me. She was admitted to [facility] and underwent a right proximal superficial femoral to plantar artery bypass surgery/right arm cephalic and right great saphenous accessory vein on 02/04/2021 for pain in her right lower extremity. The wound in her right upper extremity has resolved completely and her uzma were removed. However, she has marked area of swelling and induration at the medial aspect of the right thigh, also on the medial aspect of the right leg that is red and tender. She has also what seemed to be pressure ulcer in her right heel with black eschar. She was admitted and was started on vancomycin and Zosyn after obtaining blood cultures. When I saw her this morning, the patient continued to be somewhat lethargic, but arousable. Continued to complain of pain in her right lower extremity and right heel area. PAST MEDICAL HISTORY: Significant for, 1. History of alcohol abuse. 2. 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 3. Borderline personality disorder. 4. 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 5. Chronic embolism with thrombosis of unspecified deep veins of unspecified lower extremities. 6. Chronic obstructive pulmonary disease. 7. Generalized anxiety disorder. 8. History of Crohn's disease. 9. Impulse disorder, unspecified. 10. Legally blind. 11. Malignant neoplasm of the right lung. 12. Paranoid personality. 13. Peripheral vascular disease 14. Personal history of nicotine dependence. The patient actually continues to smoke. 15. Seizure disorder. PAST SURGICAL HISTORY: Significant for, 1. Right femoral bypass surgery. 2. Right forefoot amputation. 3. Appendectomy. 4. Bilateral cataract extraction. 5. History of colectomy. 6. Tubal ligation. ALLERGIES: SHE IS ALLERGIC TO KETOROLAC, ASPIRIN, MORPHINE AND STRAWBERRY. MEDICATIONS: The patient is currently on the following medications: She is on cyclobenzaprine 5 mg every 8 hours as needed, apixaban 5 mg twice a day, oxycodone extended release 10 mg twice a day, oxycodone 5 mg every 6 hours, acetaminophen 650 mg twice a day, clonazepam 0.5 mg 3 times a day, Depakote extended release 250 mg twice a day, Keppra 500 mg twice a day, Wellbutrin SR 100 mg daily, fluvoxamine 50 mg twice a day, trazodone 50 mg at bedtime, risperidone 0.5 mg 1 tablet twice a day and potassium chloride 20 mEq once a day, furosemide 40 mg daily, magnesium oxide 400 mg 3 times a day and nystatin powder apply topically twice a day and oxybutynin chloride 5 mg 3 times a day. FAMILY HISTORY: Noncontributory. SOCIAL HISTORY: The patient is currently a resident at [facility]. She continues to smoke, however, she never used smokeless tobacco. She does not drink any alcohol now and does not use any drugs. She used to be homeless. REVIEW OF SYSTEMS: As per history of present illness. PHYSICAL EXAMINATION: GENERAL: On arrival to the emergency room, the patient was somewhat pale, not jaundiced or cyanosed. No thyromegaly. No jugular venous distention, but bilateral lower extremity edema, more so on the right than left. VITAL SIGNS: Her heart rate on arrival was 112, blood pressure is 102/61, temperature was 99.9, respiratory rate was 24 and oxygen saturation was 94% on room air. HEAD, EYES, EARS, NOSE AND THROAT: Shows normocephalic, atraumatic. NECK: Supple. HEART: Her heart showed normal first and second heart sounds, no gallop, rub or murmur. CHEST: Shows central trachea, equal bilateral chest expansion, air entry, vesicular breath sounds. I could not appreciate any crepitation or rhonchi. ABDOMEN: Distended, soft, nontender. NEUROLOGIC: She was somewhat sleepy, but arousable. All cranial nerves intact. She moves extremities without difficulty. SKIN: Examination of the skin showed the wound to the right upper extremity has completely healed and all uzma were removed; however, in her right lower extremity, she has an area of erythema, tenderness and induration of the medial aspect of the right thigh and also erythema around the wounds on the right lower extremity with stable stent in place. She has also right heel decubitus ulcer. LABORATORY DATA: Showed a white cell count of 20,400, hemoglobin 11, hematocrit 33, MCV 93, and platelet count of 102,000 with an automated differential showed 88% polymorphs, 6% lymphocytes and 6% monocytes. Her serum sodium was 132, potassium 4, chloride 99, bicarbonate 26, anion gap of 7, BUN 15, creatinine 1.3. Estimated GFR was 42 mL per minute. Her glucose 131. Lactic acid was only 1, calcium was 8.8, magnesium 2. Total bilirubin, AST, ALT, alkaline phosphatase were normal. Total protein 6.9, albumin was 2.7. Her procalcitonin was 0.14 ng/mL. ASSESSMENT AND PLAN: In summary, this is a 55-year-old female patient who was admitted with altered mental status and fever, was found to have marked leukocytosis, likely due to right lower extremity cellulitis and questionable abscess in the medial aspect of the right thigh. My plan is obviously to continue with IV antibiotic. Reconcile all her medications. I will probably hold her narcotics for now as she seemed to be markedly lethargic. I have consulted the infectious disease specialist. I will arrange for her to have an ultrasound of the right thigh and already did blood cultures. MURIEL DR: Karol TID: [id number]
[2021-02-27 10:45] LABS: BASO % 0 % (0-3); EOS # 0.1 x10^3/uL (0.0-0.7); EOS % 1 % (0-3); HEMATOCRIT 26.8 % (36.0-47.0); HEMOGLOBIN 8.6 g/dL (12.0-15.5); LYMPH # 1.8 x10^3/uL (1.0-4.8); LYMPH % 12 % (24-48); MEAN CORPUSCULAR HEMOGLOBIN 31 pg (25-35); MEAN CORPUSCULAR HGB CONC 32 g/dL (31-37); MEAN CORPUSCULAR VOLUME 95 fL (79-100); MONO # 1.2 x10^3/uL (0.0-1.1); MONO % 8 % (0-9); NEUT # 11.9 x10^3/uL (1.8-7.7); NEUT % 79 % (31-73); PLATELET COUNT 299 x10^3/uL (140-400); RED BLOOD COUNT 2.81 x10^6/uL (3.50-5.40); RED CELL DISTRIBUTION WIDTH 14.5 % (11.5-14.5); WHITE BLOOD COUNT 15.1 x10^3/uL (4.0-11.0)
--- NOTE | 2021-02-27 11:07 | PN ---
DATE: 02/27/2021 SUBJECTIVE: The patient is resting, slightly propped up in bed, sleepy, but arousable. On questioning her, she continued to complain of pain in her right heel and right lower extremity. Denied any other complaint. Nursing staff did not voice any concern. PHYSICAL EXAMINATION: GENERAL: When I examined her, she was pale, but no jaundice, cyanosis or thyromegaly. No jugular venous distention. No limb edema. VITAL SIGNS: Her heart rate was 86, blood pressure was 118/53, temperature was 97.5, respiratory rate was 18 and oxygen saturation was 93%. HEAD, EYES, EARS, NOSE, EYES, EARS, NOSE, AND THROAT: Normocephalic, atraumatic. NECK: Supple. HEART: Showed normal first and second heart sounds, no gallop, rub or murmur. CHEST: Clear to auscultation, no crepitation or rhonchi. ABDOMEN: Distended, soft, nontender. NEUROLOGIC: She was sleepy, but arousable. All cranial nerves intact. She moves extremities without difficulty. SKIN: The wounds in her right upper extremity has healed completely with all uzma out. There is no erythema, tenderness or discharge. She has an area of induration and tenderness in the medial aspect of the right thigh. Also, erythema around the wounds on her right leg with uzma still in place. She also has a decubitus ulcer of the right heel with black eschar. Her intake and output are incompletely recorded. LABORATORY DATA: Her lab work this morning is still pending at the time of this dictation. ASSESSMENT: Fever with leukocytosis, most likely site of infection is right lower extremity with possible abscess in the medial aspect of the right thigh. PLAN: My plan is obviously to continue with IV antibiotic. I did order an ultrasound of that area and will obviously consult the wound care team and the vascular surgeon if there is an abscess that needs to be drained. Meanwhile, we will continue with all other medication and apixaban for her pulmonary emboli. JASSI/HECTOR DR: Karol TID: [id number]
[2021-02-27 11:10] LABS: ALBUMIN/GLOBULIN RATIO 0.6 (1.0-1.7); ALK PHOS 72 U/L (46-116); ALT (SGPT) 7 U/L (14-59); ANION GAP 9 (6-14); BLOOD UREA NITROGEN 13 mg/dL (7-20); BUN/CREATININE RATIO 11 (6-20); CALCIUM 8.1 mg/dL (8.5-10.1); CARBON DIOXIDE 23 mmol/L (21-32); CHLORIDE 105 mmol/L (98-107); CREATININE 1.2 mg/dL (0.6-1.0); GFR 46.8; GLUCOSE 115 mg/dL (70-99); POTASSIUM 3.6 mmol/L (3.5-5.1); SODIUM 137 mmol/L (136-145); TOTAL BILIRUBIN 0.6 mg/dL (0.2-1.0); TOTAL PROTEIN 5.5 g/dL (6.4-8.2)
[2021-02-27 11:12] LABS: AST (SGOT) < 5 U/L (15-37)
[2021-02-27] MEDS: APIXABAN 5 MG TABLET. PO SCH ×2 (12:13→21:06)
[2021-02-27] MEDS: oxyCODONE IR 5 MG TABLET PO PRN ×2 (12:13→20:50)
[2021-02-27] MEDS: NYSTATIN TOPICAL POWDER 15GM BOTTLE. TP SCH ×2 (12:14→21:00)
[2021-02-27] MEDS: MAGNESIUM OXIDE 400 MG TABLET PO SCH ×2 (13:31→21:05)
[2021-02-27 18:05] VITALS: BP 116/53
[2021-02-27 20:12] VITALS: BP 186/97
[2021-02-27] MEDS: traZODone 50 MG TABLET. PO SCH (21:06)
--- NOTE | 2021-02-27 21:33 | NUR ---
Received telephone call from Dr. Hauser with vascular surgery regarding status of patient. RN updated MD with current status of patient including right arm and right leg incision sites. Reported to MD that right thigh incision site is red and warm to touch. Received orders to make patient NPO after midnight and to hold Eliquis. RN informed Dr. Hauser that the 2100 scheduled dose of Eliquis had already been administered prior to his call. Vascular consult placed in computer.
[2021-02-27 23:00] VITALS: BP 96/56
[2021-02-28] MEDS: PIPERACILLIN/TAZOBACTAM 3.375 GM in IV NORMAL SALINE 50ML 50 ML IV SCH ×4 (00:21→21:00)
--- NOTE | 2021-02-28 01:14 | CONS ---
DATE OF CONSULTATION: 02/27/2021 REQUESTING PHYSICIAN: Dr. Barrios. REASON FOR CONSULTATION: Right leg infection. HISTORY OF PRESENT ILLNESS: This is a 55-year-old female who had recently undergone right lower extremity leg bypass at . The patient was recovering in the rehab and the patient was in because of right lower extremity wound as well as right lower extremity redness. The patient has had low-grade fever and the white count up to 20,000. The patient has been started on vancomycin and Zosyn and consult has been requested. The patient denies any nausea, vomiting or diarrhea. Denies any chest pain, shortness of breath, abdominal pain, urinary symptoms or bowel symptoms. PAST MEDICAL HISTORY: Positive for right lower extremity gangrene, right lower extremity TMA, right lower extremity bypass surgery, peripheral arterial disease, bipolar disorder, lung cancer, history of Crohn's disease, COPD. SOCIAL HISTORY: Positive for smoking, alcohol and illicit drug use. ALLERGIES: SHE IS ALLERGIC TO ASPIRIN, MORPHINE AND KETOROLAC. CURRENT MEDICATIONS: Reviewed. REVIEW OF SYSTEMS: As in HPI. All other systems reviewed are negative. PHYSICAL EXAMINATION: GENERAL: Awake female, not in distress. VITAL SIGNS: Temperature max is 99.9, pulse 86, respirations 18, blood pressure 119/53. HEENT: Both pupils are round and reacting. No conjunctival lesion. No lesion in the mouth. NECK: Supple, no JVP, no lymphadenopathy. LUNGS: Clear. HEART: S1, S2 regular. ABDOMEN: Soft, nontender, no organomegaly. EXTREMITIES: Left lower extremity is unremarkable. Right lower extremity has TMA. There is a wound onto the medial aspect of the right foot below the ankle. There is extensive suturing and stapling of the foot and the leg and the right upper thigh where 2 sutures or uzma have been removed, but there is a large area of fluid collection that could be either abscess or hematoma. Rest of the skin examination unremarkable. NEUROLOGIC: The patient is alert, awake, and appropriate. No focal neurologic deficit. She does have bruising with subcutaneous hematoma of the left upper chest. LABORATORY DATA: White count is 20,000 on admission, down to 15 today. BUN and creatinine is 13 and 1.2. Lactic acid normal. CRP is 187. Albumin is 2. COVID negative. Ultrasound of the right lower extremity has been done, is not reported yet. IMPRESSION: 1. Fever. 2. Leukocytosis. 3. Right lower extremity bypass with upper thigh has either hematoma or abscess. 4. Right lower extremity foot wound. 5. Bipolar disorder. 6. Hypertension. 7. Hyperlipidemia. 8. Tobaccoism. RECOMMENDATIONS: Recommend continue vancomycin and Zosyn for the time being, supportive care. We will check the ultrasound and may need drainage or evacuation, supportive care and we will continue to follow. Thank you very much, Dr. Barrios for giving me opportunity to participate in this patient's care. GAGE/UQENTIN/AMEYA DR: GAGE/isabel TID: [id number]
[2021-02-28] MEDS: oxyCODONE ER 10 MG TAB.ER.12H PO PRN ×2 (03:00→14:57)
[2021-02-28 03:04] VITALS: BP 98/58
[2021-02-28 05:03] LABS: HEMOGLOBIN 8.7 g/dL (12.0-15.5); RED BLOOD COUNT 2.79 x10^6/uL (3.50-5.40); RED CELL DISTRIBUTION WIDTH 14.9 % (11.5-14.5); WHITE BLOOD COUNT 11.1 x10^3/uL (4.0-11.0)
[2021-02-28] MEDS: IV NORMAL SALINE 1000ML BAG 1,000 ML IV SCH ×4 (06:18→23:31)
[2021-02-28 07:15] VITALS: BP 87/41
[2021-02-28 07:46] LABS: ALBUMIN 1.9 g/dL (3.4-5.0); ALBUMIN/GLOBULIN RATIO 0.5 (1.0-1.7); CALCIUM 8.1 mg/dL (8.5-10.1); CREATININE 1.1 mg/dL (0.6-1.0); GFR 51.8; POTASSIUM 3.5 mmol/L (3.5-5.1); TOTAL BILIRUBIN 0.4 mg/dL (0.2-1.0); TOTAL PROTEIN 5.5 g/dL (6.4-8.2)
--- NOTE | 2021-02-28 08:19 | PDOC ---
Infectious Disease Note Subjective Subjective Patient is feeling okay ROS ROS No nausea vomiting diarrhea chest pain shortness of breath Vital Sign Vital Signs Vital Signs Date Time Temp Pulse Resp B/P (MAP) Pulse Ox O2 Delivery O2 Flow Rate FiO2 02/28/21 07:15 99.0 76 20 87/41 (56) 95 Room Air 99.0 Physical Exam PHYSICAL EXAM GENERAL: Awake female, not in distress. VITAL SIGNS: Stable HEENT: Both pupils are round and reacting. No conjunctival lesion. No lesion in the mouth. NECK: Supple, no JVP, no lymphadenopathy. LUNGS: Clear. HEART: S1, S2 regular. ABDOMEN: Soft, nontender, no organomegaly. EXTREMITIES: Left lower extremity is unremarkable. Right lower extremity has TMA. There is a wound onto the medial aspect of the right foot below the ankle. There is extensive suturing and stapling of the foot and the leg and the right upper thigh where 2 sutures or uzma have been removed, but there is a large area of fluid collection that could be either abscess or hematoma. Rest of the skin examination unremarkable. NEUROLOGIC: The patient is alert, awake, and appropriate. No focal neurologic deficit. She does have bruising with subcutaneous hematoma of the left upper chest. Labs Lab Laboratory Tests Test 02/27/21 10:20 02/28/21 04:05 02/28/21 06:55 White Blood Count 15.1 x10^3/uL (4.0-11.0) 11.1 x10^3/uL (4.0-11.0) Red Blood Count 2.81 x10^6/uL (3.50-5.40) 2.79 x10^6/uL (3.50-5.40) Hemoglobin 8.6 g/dL (12.0-15.5) 8.7 g/dL (12.0-15.5) Hematocrit 26.8 % (36.0-47.0) 27.0 % (36.0-47.0) Mean Corpuscular Volume 95 fL (79-100) 97 fL (79-100) Mean Corpuscular Hemoglobin 31 pg (25-35) 31 pg (25-35) Mean Corpuscular Hemoglobin Concent 32 g/dL (31-37) 32 g/dL (31-37) Red Cell Distribution Width 14.5 % (11.5-14.5) 14.9 % (11.5-14.5) Platelet Count 299 x10^3/uL (140-400) 314 x10^3/uL (140-400) Neutrophils (%) (Auto) 79 % (31-73) Lymphocytes (%) (Auto) 12 % (24-48) Monocytes (%) (Auto) 8 % (0-9) Eosinophils (%) (Auto) 1 % (0-3) Basophils (%) (Auto) 0 % (0-3) Neutrophils # (Auto) 11.9 x10^3/uL (1.8-7.7) Lymphocytes # (Auto) 1.8 x10^3/uL (1.0-4.8) Monocytes # (Auto) 1.2 x10^3/uL (0.0-1.1) Eosinophils # (Auto) 0.1 x10^3/uL (0.0-0.7) Basophils # (Auto) 0.0 x10^3/uL (0.0-0.2) Erythrocyte Sedimentation Rate 65 (0-25) Sodium Level 137 mmol/L (136-145) 141 mmol/L (136-145) Potassium Level 3.6 mmol/L (3.5-5.1) 3.5 mmol/L (3.5-5.1) Chloride Level 105 mmol/L (98-107) 107 mmol/L (98-107) Carbon Dioxide Level 23 mmol/L (21-32) 27 mmol/L (21-32) Anion Gap 9 (6-14) 7 (6-14) Blood Urea Nitrogen 13 mg/dL (7-20) 11 mg/dL (7-20) Creatinine 1.2 mg/dL (0.6-1.0) 1.1 mg/dL (0.6-1.0) Estimated GFR (Cockcroft-Gault) 46.8 51.8 BUN/Creatinine Ratio 11 (6-20) 10 (6-20) Glucose Level 115 mg/dL (70-99) 91 mg/dL (70-99) Calcium Level 8.1 mg/dL (8.5-10.1) 8.1 mg/dL (8.5-10.1) Total Bilirubin 0.6 mg/dL (0.2-1.0) 0.4 mg/dL (0.2-1.0) Aspartate Amino Transf (AST/SGOT) < 5 U/L (15-37) 9 U/L (15-37) Alanine Aminotransferase (ALT/SGPT) 7 U/L (14-59) 15 U/L (14-59) Alkaline Phosphatase 72 U/L (46-116) 69 U/L (46-116) C-Reactive Protein, Quantitative 187.3 mg/L (0-3.3) Total Protein 5.5 g/dL (6.4-8.2) 5.5 g/dL (6.4-8.2) Albumin 2.0 g/dL (3.4-5.0) 1.9 g/dL (3.4-5.0) Albumin/Globulin Ratio 0.6 (1.0-1.7) 0.5 (1.0-1.7) Micro Microbiology 02/26/21 Blood Culture - Preliminary, Resulted NO GROWTH AFTER 1 DAY Objective Assessment IMPRESSION: 1. Fever. 2. Leukocytosis. 3. Right lower extremity bypass with upper thigh has either hematoma or abscess. 4. Right lower extremity foot wound. 5. Bipolar disorder. 6. Hypertension. 7. Hyperlipidemia. 8. Tobaccoism. Plan Plan of Care Continue antibiotics Surgical exploration is pending GASTON COOMBS MD Feb 28, 2021 08:19
[2021-02-28] MEDS: APIXABAN 5 MG TABLET. PO SCH ×2 (09:00→10:04)
[2021-02-28] MEDS: NYSTATIN TOPICAL POWDER 15GM BOTTLE. TP SCH ×2 (09:00→21:12)
--- NOTE | 2021-02-28 09:00 | RAD ---
Exam Date: 02/27/2021 10:03 AM US EXT NON VASC RIGHT Indication: Reason: right thigh area of erythema and induration and possible abscess / Spl. Instructi ons: / History: . Impression: Sonographic images were obtained of the right upper thigh at the area of interest. There is diffuse subcutaneous edema. No focal abnormality, collection, or mass lesion is identified. Electronically signed by: Boris Burns MD (02/28/2021 8:57 AM) [facility]
--- NOTE | 2021-02-28 10:15 | PDOC ---
Provider Note Date of Service: DATE: 02/28/21 TIME: 10:12 Provider Note Vascular Surgery Consult 55 year old female underwent right SFA to distal plantar foot artery bypass with right arm vein/GSV by Dr. Rodriguez 02/04/2021. She has cellulitis of the distal groin/medial thigh wound. There is no clear abscess by examination and US negative for abscess however she is obese and difficult to examine. The right medial ankle incision has dehiscence which I cleaned and placed aquacel, no bypass exposed. Doppler graft pulse in calf and at the distal medial ankle. WBC improving with antibiotics per ID. Will order a CTA to evaluate the right leg bypass and groin further to ensure no abscess. Justifications for Admission Other Justification RACHEL MURPHY MD Feb 28, 2021 10:15
[2021-02-28 10:18] LABS: VANC TR 28.3 mcg/mL (10.0-20.0)
[2021-02-28] MEDS: oxyCODONE IR 5 MG TABLET PO PRN ×2 (10:18→19:45)
[2021-02-28] MEDS: clonazePAM 0.5 MG TABLET PO SCH ×3 (10:18→21:11)
[2021-02-28] MEDS: POTASSIUM CHLORIDE 20 MEQ TABLET.ER. PO SCH (10:18)
[2021-02-28] MEDS: DIVALPROEX EXTENDED RELEASE 250 MG TAB.ER.24H. PO SCH ×2 (10:18→21:12)
[2021-02-28] MEDS: LACTOBACILLUS RHAMNOSUS GG 1 CAPSULE. PO SCH ×2 (10:18→21:11)
[2021-02-28] MEDS: OXYBUTYNIN CHLORIDE 5 MG TABLET PO SCH ×3 (10:18→21:11)
[2021-02-28] MEDS: buPROPion SR 100 MG TABLET.SA. PO SCH (10:18)
[2021-02-28] MEDS: risperiDONE 1 MG TABLET. PO SCH ×2 (10:19→21:11)
[2021-02-28] MEDS: FUROSEMIDE 40 MG TABLET. PO SCH (10:19)
[2021-02-28] MEDS: levETIRAcetam 500 MG TABLET PO SCH ×2 (10:19→21:12)
[2021-02-28] MEDS: MAGNESIUM OXIDE 400 MG TABLET PO SCH ×3 (10:19→21:12)
[2021-02-28 10:57] VITALS: BP 99/49
[2021-02-28] MEDS: VANCOMYCIN PER PHARMACY MC PRN (10:57)
--- NOTE | 2021-02-28 11:00 | NUR ---
Pharmacy Vancomycin Dosing Note S:Consulted to monitor and dose vancomycin started 02/26/21. O:HANNAH LONG is a 55 year old F with Cellulitis POST-OP WOUND INFECTION . Height: 5 feet, 5 inches Weight: 120.0 kg [place] Body Weight: 57.00 Adjusted Body Weight: 82.20 Dosing Weight: Actual Other Antibiotics: ZOSYN 3.375 02/26 - LABS: Last BUN: 15 Last Creatinine: 1.1 Creatinine Clearance: 76 mL/min Last WBC: 20.4 Last Procalcitonin: 0.14 Tmax (past 24 hours): 99.9 Microbiology: 02/27 BCX PENDING I/O: Drug Levels: Last Trough level: 28.3 on 02/28/21 at 0930 Last dose given 02/26/21 at 2100 Vancomycin Dosing: Loading Dose: 2000 mg x1 Dosing Weight: Actual Target Trough: 10-20 A: Based on: LEVEL P: 1. Change Vancomycin 1500 mg IV q18h 2. Follow up Trough level on 03/02/21 at 2030 3. Pharmacy will continue to monitor, follow and adjust therapy as needed. [facility], 02/28/21 [id number]
[2021-02-28] MEDS ORDERED: IOHEXOL 350 MG/ML 100 ML VIAL. IV ONE (11:30)
--- NOTE | 2021-02-28 13:15 | PN ---
DATE: 02/28/2021 SUBJECTIVE: The patient is resting slightly propped up in no apparent distress. She is arousable. On questioning her, she continued to complain of pain in her right thigh; however, her ultrasound showed diffuse subcutaneous edema with no focal abnormalities, collection or mass, lesion identified. PHYSICAL EXAMINATION: GENERAL: When I examined her, she was pale. Not jaundiced cyanosed. No lymphadenopathy, no thyromegaly, no jugular venous distention. No lower limb edema. VITAL SIGNS: Her heart rate was 76, blood pressure was 87/41, temperature was 99, respiratory rate was 20 and oxygen saturation was 95% on room air. HEAD, EYES, EARS, NOSE, AND THROAT: Normocephalic, atraumatic. NECK: Supple. HEART: Showed normal first and second heart sounds, no gallop, rub or murmur. CHEST: Clear to auscultation. No crepitation or rhonchi. ABDOMEN: Distended, soft, nontender. NEUROLOGIC: She was sleepy, but arousable. She moves extremities without difficulty, although she is mostly bedbound. She continued to have marked soft tissue swelling and erythema and induration on the medial aspect of the right thigh and also drainage from the wounds in the medial aspect of the right leg, has also right heel decubitus ulcer. Her intake was 620. No output recorded. LABORATORY DATA: As of this morning, her white cell count is down to 11,000; hemoglobin 8.7; hematocrit 27; MCV 97 and platelet count 314,000. His sedimentation rate was 65 mm per hour. Her serum sodium 141, potassium 3.5, chloride 107, bicarbonate 27, anion gap of 7, BUN 11, creatinine 1.1. Estimated GFR was 52 mL per minute. Her glucose 91, calcium was 8.1. Total bilirubin, AST, ALT, alkaline phosphatase were normal. Her C-reactive protein was 187. Total protein 5.5, albumin was 1.9. ASSESSMENT: Right lower extremity cellulitis. Questionable abscess on the medial aspect of the right thigh, although the ultrasound did not show any drainable collection. Plan is to obviously continue with IV antibiotic. She seemed to be responding clinically. Her white cell count is trending down and she continues to be afebrile. We did consult the vascular surgeon, however; and she was seen by the Infectious Disease specialist. She continues to be on Zosyn and vancomycin. JASSI/MOSHE/NITISH DR: Karol TID: [id number]
[2021-02-28 14:48] VITALS: BP 96/58
[2021-02-28] MEDS: CYCLOBENZAPRINE 10 MG TABLET. PO PRN (14:56)
[2021-02-28] MEDS ORDERED: VANCOMYCIN 1.5 GM in IV NORMAL SALINE 500ML BAG 500 ML IV SCH (15:00)
[2021-02-28 19:02] VITALS: BP 99/62
[2021-02-28] MEDS: traZODone 50 MG TABLET. PO SCH (21:11)
[2021-02-28 23:01] VITALS: BP 109/59
[2021-03-01] MEDS: PIPERACILLIN/TAZOBACTAM 3.375 GM in IV NORMAL SALINE 50ML 50 ML IV SCH ×5 (01:24→23:47)
[2021-03-01 03:07] VITALS: BP 98/62
[2021-03-01] MEDS: IV NORMAL SALINE 1000ML BAG 1,000 ML IV SCH ×4 (04:35→23:47)
[2021-03-01 05:36] LABS: HEMATOCRIT 28.3 % (36.0-47.0); HEMOGLOBIN 9.1 g/dL (12.0-15.5); RED BLOOD COUNT 2.88 x10^6/uL (3.50-5.40); RED CELL DISTRIBUTION WIDTH 15.1 % (11.5-14.5); WHITE BLOOD COUNT 8.4 x10^3/uL (4.0-11.0)
[2021-03-01] MEDS: oxyCODONE ER 10 MG TAB.ER.12H PO PRN ×2 (05:37→18:05)
[2021-03-01 06:11] LABS: CALCIUM 8.3 mg/dL (8.5-10.1); CREATININE 1.3 mg/dL (0.6-1.0); GFR 42.7; POTASSIUM 4.1 mmol/L (3.5-5.1)
[2021-03-01 07:01] VITALS: BP 89/55
--- NOTE | 2021-03-01 07:38 | PDOC ---
PROGRESS NOTES Date of Service DATE: 03/01/21 TIME: 07:31 Subjective Subjective She has incisional discomfort around the right lower leg and foot. She notes some tenderness in her right thigh. She denies any fevers or chills. She denies any right foot pain at rest. She denies any left lower extremity pain. She has had a right femoral to plantar artery bypass using spliced right arm and leg vein by Dr. Rodriguez performed at [facility] several weeks ago. She is admitted for some redness and swelling in her right thigh as well as some separation of her right ankle incision. CT angiogram reviewed, but the official report is pending. It appears that the right femoral to distal bypass graft is occluded. I could not see filling of this graft. She has some swelling and soft tissue edema, but no focal areas that I feel needs surgically drained at this time. 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 Objective Objective Vital Signs Date Time Temp Pulse Resp B/P (MAP) Pulse Ox O2 Delivery O2 Flow Rate FiO2 03/01/21 05:37 Nasal Cannula 03/01/21 03:07 99.5 74 18 98/62 (74) 94 2.0 99.5 Intake and Output 03/01/21 07:00 Intake Total 1870 ml Output Total 2200 ml Balance -330 ml Intake Oral 1320 ml IV Total 550 ml Output Urine Total 2200 ml Physical Exam Abdomen: Soft, No tenderness Heart: Regular rate Extremities: Other (Right arm incisions intact, right medial leg incisions intact except right medial ankle incision where sutures have been removed, granulating base in right medial ankle incision, monophasic Doppler signals in right plantar vessels, unable to get Doppler signals in the region of bypass graft) General: Alert, No acute distress Lungs: Normal air movement Neck: Supple Assessment Assessment Problems Medical Problems: (1) Blister of right lower extremity without infection Status: Acute (2) Dehiscence of surgical wound Status: Acute (3) Fever Status: Acute (4) Sepsis Status: Acute (5) Tachycardia Status: Acute Severe peripheral arterial disease status post right femoral to plantar artery bypass with spliced arm and leg vein (likely occluded) Dehiscence of right medial ankle incision Right heel eschar Plan Plan of Care She has some skin changes on medial leg consistent with cellulitis. I did not see an area that needed surgical drainage at this time. Would continue local wound care to the medial ankle ulcer with Aquacel Ag changed daily. Unfortunately, it appears that the right leg bypass graft is occluded. She has a new eschar on the right heel present at the time of admission. This is likely due to pressure and severe peripheral arterial disease. She is not a reasonable candidate for redo bypass. Would continue protective measures to the right foot. If the right heel eschar worsens or the medial ankle ulcer does not heal, she may require more proximal amputation. Comment Review of Relevant I have reviewed the following items arnie (where applicable) has been applied. Labs Laboratory Tests Test 02/27/21 10:20 02/28/21 04:05 02/28/21 06:55 02/28/21 09:30 White Blood Count 15.1 x10^3/uL (4.0-11.0) 11.1 x10^3/uL (4.0-11.0) Red Blood Count 2.81 x10^6/uL (3.50-5.40) 2.79 x10^6/uL (3.50-5.40) Hemoglobin 8.6 g/dL (12.0-15.5) 8.7 g/dL (12.0-15.5) Hematocrit 26.8 % (36.0-47.0) 27.0 % (36.0-47.0) Mean Corpuscular Volume 95 fL (79-100) 97 fL (79-100) Mean Corpuscular Hemoglobin 31 pg (25-35) 31 pg (25-35) Mean Corpuscular Hemoglobin Concent 32 g/dL (31-37) 32 g/dL (31-37) Red Cell Distribution Width 14.5 % (11.5-14.5) 14.9 % (11.5-14.5) Platelet Count 299 x10^3/uL (140-400) 314 x10^3/uL (140-400) Neutrophils (%) (Auto) 79 % (31-73) Lymphocytes (%) (Auto) 12 % (24-48) Monocytes (%) (Auto) 8 % (0-9) Eosinophils (%) (Auto) 1 % (0-3) Basophils (%) (Auto) 0 % (0-3) Neutrophils # (Auto) 11.9 x10^3/uL (1.8-7.7) Lymphocytes # (Auto) 1.8 x10^3/uL (1.0-4.8) Monocytes # (Auto) 1.2 x10^3/uL (0.0-1.1) Eosinophils # (Auto) 0.1 x10^3/uL (0.0-0.7) Basophils # (Auto) 0.0 x10^3/uL (0.0-0.2) Erythrocyte Sedimentation Rate 65 (0-25) Sodium Level 137 mmol/L (136-145) 141 mmol/L (136-145) Potassium Level 3.6 mmol/L (3.5-5.1) 3.5 mmol/L (3.5-5.1) Chloride Level 105 mmol/L (98-107) 107 mmol/L (98-107) Carbon Dioxide Level 23 mmol/L (21-32) 27 mmol/L (21-32) Anion Gap 9 (6-14) 7 (6-14) Blood Urea Nitrogen 13 mg/dL (7-20) 11 mg/dL (7-20) Creatinine 1.2 mg/dL (0.6-1.0) 1.1 mg/dL (0.6-1.0) Estimated GFR (Cockcroft-Gault) 46.8 51.8 BUN/Creatinine Ratio 11 (6-20) 10 (6-20) Glucose Level 115 mg/dL (70-99) 91 mg/dL (70-99) Calcium Level 8.1 mg/dL (8.5-10.1) 8.1 mg/dL (8.5-10.1) Total Bilirubin 0.6 mg/dL (0.2-1.0) 0.4 mg/dL (0.2-1.0) Aspartate Amino Transf (AST/SGOT) < 5 U/L (15-37) 9 U/L (15-37) Alanine Aminotransferase (ALT/SGPT) 7 U/L (14-59) 15 U/L (14-59) Alkaline Phosphatase 72 U/L (46-116) 69 U/L (46-116) C-Reactive Protein, Quantitative 187.3 mg/L (0-3.3) Total Protein 5.5 g/dL (6.4-8.2) 5.5 g/dL (6.4-8.2) Albumin 2.0 g/dL (3.4-5.0) 1.9 g/dL (3.4-5.0) Albumin/Globulin Ratio 0.6 (1.0-1.7) 0.5 (1.0-1.7) Vancomycin Level Trough 28.3 mcg/mL (10.0-20.0) Vancomycin Last Dose Date 02/27/21 Vancomycin Last Dose Time 2100 Test 03/01/21 04:25 White Blood Count 8.4 x10^3/uL (4.0-11.0) Red Blood Count 2.88 x10^6/uL (3.50-5.40) Hemoglobin 9.1 g/dL (12.0-15.5) Hematocrit 28.3 % (36.0-47.0) Mean Corpuscular Volume 99 fL (79-100) Mean Corpuscular Hemoglobin 32 pg (25-35) Mean Corpuscular Hemoglobin Concent 32 g/dL (31-37) Red Cell Distribution Width 15.1 % (11.5-14.5) Platelet Count 318 x10^3/uL (140-400) Sodium Level 145 mmol/L (136-145) Potassium Level 4.1 mmol/L (3.5-5.1) Chloride Level 110 mmol/L (98-107) Carbon Dioxide Level 28 mmol/L (21-32) Anion Gap 7 (6-14) Blood Urea Nitrogen 13 mg/dL (7-20) Creatinine 1.3 mg/dL (0.6-1.0) Estimated GFR (Cockcroft-Gault) 42.7 Glucose Level 99 mg/dL (70-99) Calcium Level 8.3 mg/dL (8.5-10.1) Laboratory Tests Test 02/28/21 09:30 03/01/21 04:25 Vancomycin Level Trough 28.3 mcg/mL (10.0-20.0) Vancomycin Last Dose Date 02/27/21 Vancomycin Last Dose Time 2100 White Blood Count 8.4 x10^3/uL (4.0-11.0) Red Blood Count 2.88 x10^6/uL (3.50-5.40) Hemoglobin 9.1 g/dL (12.0-15.5) Hematocrit 28.3 % (36.0-47.0) Mean Corpuscular Volume 99 fL (79-100) Mean Corpuscular Hemoglobin 32 pg (25-35) Mean Corpuscular Hemoglobin Concent 32 g/dL (31-37) Red Cell Distribution Width 15.1 % (11.5-14.5) Platelet Count 318 x10^3/uL (140-400) Sodium Level 145 mmol/L (136-145) Potassium Level 4.1 mmol/L (3.5-5.1) Chloride Level 110 mmol/L (98-107) Carbon Dioxide Level 28 mmol/L (21-32) Anion Gap 7 (6-14) Blood Urea Nitrogen 13 mg/dL (7-20) Creatinine 1.3 mg/dL (0.6-1.0) Estimated GFR (Cockcroft-Gault) 42.7 Glucose Level 99 mg/dL (70-99) Calcium Level 8.3 mg/dL (8.5-10.1) Microbiology 02/26/21 Blood Culture - Preliminary, Resulted NO GROWTH AFTER 2 DAYS Medications Current Medications Sodium Chloride 1,000 ml @ 1,710 mls/hr Q36M IV Last administered on 02/26/21at 20:34; Start 02/26/21 at 20:30; Stop 02/26/21 at 21:30; Status DC Piperacillin Sod/ Tazobactam Sod 4.5 gm/Sodium Chloride 100 ml @ 200 mls/hr 1X ONCE IV Last administered on 02/27/21at 00:44; Start 02/26/21 at 20:30; Stop 02/26/21 at 20:59; Status DC Vancomycin HCl (Vanco Per Pharmacy) 1 each 1X ONCE MC Last administered on 02/26/21at 20:15; Start 02/26/21 at 20:15; Stop 02/26/21 at 20:22; Status DC Fentanyl Citrate (Fentanyl 2ml Vial) 50 mcg PRN Q15MIN PRN IV PAIN GREATER THAN 3/10 Last administered on 02/26/21at 20:34; Start 02/26/21 at 20:15; Stop 02/27/21 at 13:11; Status DC Vancomycin HCl 2 gm/Sodium Chloride 500 ml @ 250 mls/hr 1X ONCE IV Last administered on 02/26/21at 20:37; Start 02/26/21 at 21:00; Stop 02/26/21 at 22:59; Status DC Ondansetron HCl (Zofran) 4 mg PRN Q8HRS PRN IVP NAUSEA/VOMITING; Start 02/26/21 at 21:30; Stop 02/27/21 at 21:29; Status DC Fentanyl Citrate (Fentanyl 2ml Vial) 50 mcg PRN Q1HR PRN IVP PAIN; Start at 21:30; Stop 02/27/21 at 21:29; Status DC Sodium Chloride 1,000 ml @ 125 mls/hr 1X ONCE IV ; Start 02/26/21 at 21:30; Stop 02/26/21 at 23:29; Status DC Vancomycin HCl (Vanco Per Pharmacy) 1 each PRN DAILY PRN MC SEE COMMENTS Last administered on 02/28/21at 10:57; Start 02/26/21 at 23:15 Piperacillin Sod/ Tazobactam Sod (Zosyn Per Pharmacy) 1 each PRN DAILY PRN MC SEE COMMENTS; Start 02/26/21 at 23:15 Sodium Chloride 1,000 ml @ 150 mls/hr Q6H40M IV Last administered on 02/28/21at 23:31; Start 02/26/21 at 23:15 Piperacillin Sod/ Tazobactam Sod 3.375 gm/Sodium Chloride 50 ml @ 100 mls/hr Q6HRS IV Last administered on 03/01/21at 05:38; Start 02/27/21 at 06:00 Lactobacillus Rhamnosus (Culturelle) 1 cap BID PO Last administered on 02/28/21at 21:11; Start 02/27/21 at 09:00 Vancomycin HCl 1.5 gm/Sodium Chloride 500 ml @ 250 mls/hr Q12H IV Last administered on 02/27/21at 20:54; Start 02/27/21 at 09:00; Stop 02/28/21 at 10:51; Status DC Vancomycin HCl (Vancomycin Trough Level) 1 each 1X ONCE MC ; Start 02/28/21 at 08:30; Stop 02/28/21 at 08:31; Status DC Acetaminophen (Tylenol) 650 mg PRN BID PRN PO MILD PAIN / TEMP > 100.3'F; Start 02/27/21 at 09:00 Bupropion HCl (Wellbutrin Sr) 100 mg DAILY PO Last administered on 02/28/21 10:18; Start 02/27/21 at 09:00 Divalproex Sodium (Depakote Er) 250 mg BID PO Last administered on 02/28/21 21:12; Start 02/27/21 at 09:00 Furosemide (Lasix) 40 mg DAILY PO Last administered on 02/28/21 10:19; Start 02/27/21 at 09:00 Levetiracetam (Keppra) 500 mg BID PO Last administered on 02/28/21 21:12; Start 02/27/21 at 09:00 Oxybutynin Chloride (Ditropan) 5 mg TID PO Last administered on 02/28/21 21:11; Start 02/27/21 at 09:00 Potassium Chloride (Klor-Con) 20 meq DAILY08 PO Last administered on 02/28/21 10:18; Start 02/27/21 at 08:00 Trazodone HCl (Desyrel) 50 mg HS PO Last administered on 02/28/21 21:11; Start 02/27/21 at 21:00 Clonazepam (KlonoPIN) 0.5 mg TID PO Last administered on 02/28/21 21:11; Start 02/27/21 at 09:00 Risperidone (RisperDAL) 0.5 mg BID PO Last administered on 02/28/21 21:11; Start 02/27/21 at 09:00 Oxycodone HCl (OxyCONTIN) 10 mg PRN Q12HR PRN PO MODERATE TO SEVERE PAIN Last administered on 03/01/21at 05:37; Start 02/27/21 at 04:00 Apixaban (Eliquis) 5 mg BID PO Last administered on 02/27/21 21:06; Start 02/27/21 at 11:00 Magnesium Oxide (Magnesium Oxide) 400 mg TID PO Last administered on 02/28/21 21:12; Start 02/27/21 at 14:00 Nystatin (Nystop) 15 josefina Q12HR TP Last administered on 02/28/21 21:12; Start 02/27/21 at 11:00 Cyclobenzaprine HCl (Flexeril) 5 mg PRN Q8HRS PRN PO MUSCLE SPASMS Last administered on 02/28/21at 14:56; Start 02/27/21 at 10:00 Fluvoxamine Maleate (Luvox) 50 mg BID PO Last administered on 02/28/21at 21:11; Start 02/27/21 at 11:00 Oxycodone HCl (Roxicodone) 5 mg PRN Q6HRS PRN PO BREAKTHRU PAIN Last administered on 02/28/21at 19:45; Start 02/27/21 at 10:00 Vancomycin HCl 1.5 gm/Sodium Chloride 500 ml @ 250 mls/hr Q18H IV Last administered on 02/28/21at 16:09; Start 02/28/21 at 15:00 Iohexol (Omnipaque 350 Mg/ml) 80 ml 1X ONCE IV Last administered on 02/28/21at 11:30; Start 02/28/21 at 11:30; Stop 02/28/21 at 11:31; Status DC Active Scripts Active Cefdinir 300 Mg Capsule 1 Cap PO BID 7 Days Eliquis (Apixaban) 5 Mg Tablet 5 Mg PO BID 30 Days Keppra (Levetiracetam) 500 Mg Tablet 1 Tab PO BID 30 Days Oxycodone Hcl 5 Mg Capsule 5 Mg PO PRN Q6HRS PRN 30 Days Reported Potassium Chloride (Potassium Chloride) 20 Meq Tablet.er 20 Meq PO DAILY PRN Magox 400 (Magnesium Oxide) 400 Mg Tablet 1 Tab PO TID 30 Days Wellbutrin Sr (Bupropion Hcl) 100 Mg Tablet.er 100 Mg PO DAILY Trazodone Hcl 50 Mg Tablet 50 Mg PO HS Risperidone 0.5 Mg Tablet 1 Tab PO BID Oxycodone HCl ER (Oxycodone HCl) 10 Mg Tab.er.12h 10 Mg PO PRN Q12HR PRN Oxybutynin Chloride 5 Mg Tablet 5 Mg PO TID Nystatin 15 Gm Powder 15 Gm TP Q12HR Magnesium Oxide 400 Mg Tablet 400 Mg PO TID Lasix (Furosemide) 40 Mg Tablet 40 Mg PO DAILY Fluvoxamine Maleate 50 Mg Tablet 50 Mg PO BID Depakote Er (Divalproex Sodium) 250 Mg Tab.er.24h 250 Mg PO BID Cyclobenzaprine Hcl 5 Mg Tablet 5 Mg PO PRN Q8HRS PRN Clonazepam 0.25 Mg Tab.rapdis 0.5 Mg PO TID Acetaminophen 325 Mg Tablet 650 Mg PO BID Vitals/I & O Vital Sign - Last 24 Hours 02/28/21 02/28/21 02/28/21 02/28/21 08:00 10:18 10:48 10:57 Temp 98.7 98.7 Pulse 69 Resp 18 B/P (MAP) 99/49 (66) Pulse Ox 94 O2 Delivery Room Air Room Air Room Air Room Air 02/28/21 02/28/21 02/28/21 02/28/21 14:48 14:57 19:02 19:45 Temp 97.3 99.0 97.3 99.0 Pulse 88 78 Resp 20 20 B/P (MAP) 96/58 (71) 99/62 (74) Pulse Ox 95 92 O2 Delivery Room Air Room Air Room Air Room Air 02/28/21 02/28/21 02/28/21 02/28/21 19:46 20:10 20:15 23:01 Temp 99.1 99.1 Pulse 83 Resp 22 B/P (MAP) 109/59 (76) Pulse Ox 93 O2 Delivery Room Air Room Air Room Air Nasal Cannula O2 Flow Rate 2.0 03/01/21 03/01/21 03:07 05:37 Temp 99.5 99.5 Pulse 74 Resp 18 B/P (MAP) 98/62 (74) Pulse Ox 94 O2 Delivery Nasal Cannula Nasal Cannula O2 Flow Rate 2.0 Intake and Output 02/28/21 02/28/21 03/01/21 15:00 23:00 07:00 Intake Total 360 ml 1270 ml 240 ml Output Total 1500 ml 700 ml Balance -1140 ml 1270 ml -460 ml Justifications for Admission Other Justification STEPHANIE MCLAUGHLIN MD Mar 01, 2021 07:38
[2021-03-01] MEDS: MAGNESIUM OXIDE 400 MG TABLET PO SCH ×3 (08:03→21:05)
[2021-03-01] MEDS: APIXABAN 5 MG TABLET. PO SCH ×2 (08:04→21:05)
[2021-03-01] MEDS: DIVALPROEX EXTENDED RELEASE 250 MG TAB.ER.24H. PO SCH ×2 (08:04→21:05)
[2021-03-01] MEDS: LACTOBACILLUS RHAMNOSUS GG 1 CAPSULE. PO SCH ×2 (08:04→21:05)
[2021-03-01] MEDS: risperiDONE 1 MG TABLET. PO SCH ×2 (08:04→21:06)
[2021-03-01] MEDS: buPROPion SR 100 MG TABLET.SA. PO SCH (08:04)
[2021-03-01] MEDS: POTASSIUM CHLORIDE 20 MEQ TABLET.ER. PO SCH (08:04)
[2021-03-01] MEDS: FUROSEMIDE 40 MG TABLET. PO SCH (08:05)
[2021-03-01] MEDS: OXYBUTYNIN CHLORIDE 5 MG TABLET PO SCH ×3 (08:05→21:07)
[2021-03-01] MEDS: levETIRAcetam 500 MG TABLET PO SCH ×2 (08:05→21:05)
[2021-03-01] MEDS: clonazePAM 0.5 MG TABLET PO SCH ×3 (08:05→21:05)
[2021-03-01] MEDS: NYSTATIN TOPICAL POWDER 15GM BOTTLE. TP SCH ×2 (08:06→21:06)
--- NOTE | 2021-03-01 09:15 | PDOC ---
Infectious Disease Note Subjective Subjective Patient is feeling okay Vital Sign Vital Signs Vital Signs Date Time Temp Pulse Resp B/P (MAP) Pulse Ox O2 Delivery O2 Flow Rate FiO2 03/01/21 07:01 98.1 70 18 89/55 (66) 95 Nasal Cannula 2.0 98.1 Physical Exam PHYSICAL EXAM GENERAL: Awake female, not in distress. VITAL SIGNS: Stable HEENT: Both pupils are round and reacting. No conjunctival lesion. No lesion in the mouth. NECK: Supple, no JVP, no lymphadenopathy. LUNGS: Clear. HEART: S1, S2 regular. ABDOMEN: Soft, nontender, no organomegaly. EXTREMITIES: Left lower extremity is unremarkable. Right lower extremity has TMA. There is a wound onto the medial aspect of the right foot below the ankle. There is extensive suturing and stapling of the foot and the leg and the right upper thigh where 2 sutures or uzma have been removed, but there is a large area of fluid collection that could be either abscess or hematoma. Rest of the skin examination unremarkable. NEUROLOGIC: The patient is alert, awake, and appropriate. No focal neurologic deficit. She does have bruising with subcutaneous hematoma of the left upper chest. Labs Lab Laboratory Tests Test 02/28/21 09:30 03/01/21 04:25 Vancomycin Level Trough 28.3 mcg/mL (10.0-20.0) Vancomycin Last Dose Date 02/27/21 Vancomycin Last Dose Time 2100 White Blood Count 8.4 x10^3/uL (4.0-11.0) Red Blood Count 2.88 x10^6/uL (3.50-5.40) Hemoglobin 9.1 g/dL (12.0-15.5) Hematocrit 28.3 % (36.0-47.0) Mean Corpuscular Volume 99 fL (79-100) Mean Corpuscular Hemoglobin 32 pg (25-35) Mean Corpuscular Hemoglobin Concent 32 g/dL (31-37) Red Cell Distribution Width 15.1 % (11.5-14.5) Platelet Count 318 x10^3/uL (140-400) Sodium Level 145 mmol/L (136-145) Potassium Level 4.1 mmol/L (3.5-5.1) Chloride Level 110 mmol/L (98-107) Carbon Dioxide Level 28 mmol/L (21-32) Anion Gap 7 (6-14) Blood Urea Nitrogen 13 mg/dL (7-20) Creatinine 1.3 mg/dL (0.6-1.0) Estimated GFR (Cockcroft-Gault) 42.7 Glucose Level 99 mg/dL (70-99) Calcium Level 8.3 mg/dL (8.5-10.1) Micro Microbiology 02/26/21 Blood Culture - Preliminary, Resulted NO GROWTH AFTER 1 DAY Objective Assessment IMPRESSION: 1. Fever. 2. Leukocytosis. 3. Right lower extremity bypass with upper thigh has either hematoma or abscess. 4. Right lower extremity foot wound. 5. Bipolar disorder. 6. Hypertension. 7. Hyperlipidemia. 8. Tobaccoism. Plan Plan of Care Continue antibiotics Surgical exploration is pending GASTON COOMBS MD Mar 01, 2021 09:15
--- NOTE | 2021-03-01 10:26 | NUR ---
SW following. Discussed with RN. Pt from [facility] LT, 2L, cardiac diet, COVID-19 negative. 2 IV abx. SW will continue to follow.
[2021-03-01 11:12] VITALS: BP 89/55
[2021-03-01] MEDS: oxyCODONE IR 5 MG TABLET PO PRN (11:51)
[2021-03-01] MEDS: CYCLOBENZAPRINE 10 MG TABLET. PO PRN (11:51)
--- NOTE | 2021-03-01 12:48 | PN ---
DATE: 03/01/2021 SUBJECTIVE: The patient is resting, slightly propped up in bed, in no apparent respiratory distress, sleepy, but arousable. On questioning, she continued to complain of pain in her right lower extremity, mostly in her thigh, right leg and her right heel. She apparently was seen by the vascular surgeon and CT angiogram showed occlusion of the right femoral to distal bypass graft. She does have some swelling and soft tissue edema, but no focal areas that requires any surgical intervention or drainage. She also has left iliac artery occlusion, although she denies any significant left leg pain and apparently the plan was to continue with protective measures to the right foot. If the right heel eschar worsens or the medial ankle ulcer does not heal, she may require more proximal amputation. PHYSICAL EXAMINATION: GENERAL: When I examined her this morning, she was pale, not jaundiced or cyanosed. No lymphadenopathy, no thyromegaly, no jugular venous distention. No limb edema. VITAL SIGNS: Her heart rate was 70, blood pressure was 89/55, temperature was 98, respiratory rate was 18 and oxygen saturation was 95% on 2 liters of oxygen. HEAD, EYES, EARS, NOSE, AND THROAT: Normocephalic, atraumatic. NECK: Supple. HEART: Showed normal first and second heart sounds. No gallop or murmur. CHEST: Clear to auscultation. No crepitation or rhonchi. ABDOMEN: Distended, soft, and nontender. NEUROLOGIC: She was sleepy, but arousable. All her cranial nerves are intact. She moves her both upper extremities and left lower extremity without difficulty. She does have pain in her right lower extremity and she is mostly bedbound. She has wounds in the medial aspect of the right ankle and also right heel. Her intake was incompletely recorded, output was 1600. LABORATORY DATA: As of this morning, her white cell count is 8400, hemoglobin 9, hematocrit 28, MCV 99, and platelet count of 318,000. Her chemistry this morning showed a serum sodium 145, potassium 4.1, chloride 110, bicarbonate 28, anion gap of 7, BUN 13, and creatinine 1.3, estimated GFR was 42 mL per minute, her glucose was 99 and calcium was 8.3. ASSESSMENT: 1. Right lower extremity cellulitis with questionable abscess in the medial aspect of the right thigh, however, ultrasound did not show any drainable collection. 2. Severe peripheral vascular disease with clotting of the right femoral to plantar bypass graft. The patient has an ulcer on the right heel and also an ulcer on the medial aspect of the right ankle joint. PLAN: To continue with IV antibiotic in the form of vancomycin as well as Zosyn. Continue with wound care. Continue with pain management. Continue with apixaban for treatment of her pulmonary embolism. If her right heel eschar and/or the ulcer on the medial aspect of the right ankle joint has worsened, she will require further proximal amputation as she is not a candidate for redo surgery. JASSI/TWYLA/LEONIDES DR: Karol TID: [id number]
[2021-03-01] MEDS ORDERED: VANCOMYCIN 1.5 GM in IV NORMAL SALINE 500ML BAG 500 ML IV SCH (13:00)
[2021-03-01] MEDS: VANCOMYCIN PER PHARMACY MC PRN (13:20)
--- NOTE | 2021-03-01 13:21 | NUR ---
Pharmacy Vancomycin Dosing Note S: Consulted to monitor and dose vancomycin started 02/26/21. O: HANNAH LONG is a 55 year old F with cellulitis, post-op wound infection. Other Antibiotics: ZOSYN 3.375 IV Q6HRS (02/26 -) LABS: Last BUN: 13 Last Creatinine: 1.3 Creatinine Clearance: 64 mL/min Last WBC: 8.4 Last Procalcitonin: 0.14 Tmax (past 24 hours): 99.5 Microbiology: BLOOD CX (02/26): NGTD I/O: 1870/2200 Drug Levels: 02/28: trough 28.3 - vancomycin adj to 1.5g q18hr 03/01: random 25.4, adj for time trough est 20 A: Patient is receiving vancomycin 1500 mg IV q18hrs. Dose adjusted 02/28 due to a supra-therapeutic trough level. Patient's SCr is elevated today at 1.3 with an eCrCl of 62 ml/min (likely inflated due to weight). Another level obtained 03/01 and adjusted trough found to be 20 mcg/ml. P: 1. Change to Vancomycin 1500 mg IV q24h 2. Follow up Trough level on 03/02/21 at 1430 3. Pharmacy will continue to monitor, follow and adjust therapy as needed. KRISHAN ECHEVARRIA [facility], 03/01/21 [id number]
[2021-03-01 14:54] VITALS: BP 99/66
--- NOTE | 2021-03-01 15:02 | RAD ---
STUDY: CT angiography of the aorta with runoff INDICATION: Right leg bypass and possible abscess COMPARISON: CTA chest 03/26/2020 and right lower extremity ultrasound 02/27/2021 TECHNIQUE: Helical CT angiography of the abdominal aorta with runoff through the bilateral lower extr emities. Multiplanar reconstructions were obtained to include 3D MIP reconstructions. Imaging was per formed after the intravenous administration of 80 mL Omnipaque 350. One or more of the following individualized dose reduction techniques were utilized for this examinat ion: 1. Automated exposure control 2. Adjustment of the mA and/or kV according to patient size 3. Use of iterative reconstruction technique. FINDINGS: VASCULATURE: Aorta and iliac arteries: There is suboptimal contrast bolus timing, with essentially portal venous phase of contrast rather th an arterial phase. This significantly limits evaluation of the arteries. The abdominal aorta is normal in caliber. There is moderate calcified aortic atherosclerosis. No aort ic dissection. Mild narrowing of the celiac artery origin due to atherosclerotic plaque. Mild narrowi ng of the superior mesenteric artery origin due to calcifications. There is moderate narrowing of the left renal artery origin due to calcifications. The right renal artery origin is patent. Inferior me senteric artery is patent. The bilateral iliac arteries are normal in caliber. There is mild calcified atherosclerosis of the ri ght iliac arteries without significant narrowing. 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 There is diffu se narrowing of the left internal iliac artery due to calcifications. Right lower extremity: There is mild narrowing of the right common femoral artery. Probable severe focal narrowing of the ri ght superficial femoral artery and severe narrowing of the distal right superficial femoral artery wi th some adjacent collateral vessels. The right popliteal artery is diminutive in caliber and not well opacified proximally, likely chronic occlusion. A stent in the distal right popliteal artery is occl uded. There is a right lower extremity bypass graft. The proximal and of the graft is not well visualized, possibly obscured by edema in the right thigh. Distally, the graft extends to the level of the ankle. The graft appears completely occluded where visualized below the knee. There is decreased opacificat ion of three-vessel runoff below the knee. There is subcutaneous edema and surgical clips in the medial right thigh and leg. There is more focal edema with suggestion of ill-defined subcutaneous and partially intramuscular collections in the pro ximal medial thigh. One of the ill-defined collections measures 2.2 x 1.8 cm and the measures 2.7 x 1 .1 cm (image 209, series 3). These could represent abscesses, hematomas, or phlegmon. Left lower extremity: The left common femoral artery is mildly narrowed distally. There is focal severe narrowing of the mi d to distal left superficial femoral artery due to calcifications. The left popliteal artery is yenifer l in caliber and patent. There is decreased opacification of three-vessel runoff below the knee, whic h may be partially due to phase of contrast. Other: Scattered atelectasis in the lung bases. Heart is normal in size. There are coronary artery ca lcifications. The liver, gallbladder, bile ducts, spleen, adrenal glands, kidneys, ureters, bladder, uterus, and ov curtis are unremarkable. There is fatty atrophy of the pancreas. Stomach, small bowel, colon, and appe ndix are unremarkable. No free fluid or free air. There are prominent right inguinal and external eliot ac chain lymph nodes, likely reactive. No acute osseous abnormality. IMPRESSION: 1. Limited exam due to suboptimal contrast bolus timing. 2. Surgical changes of right lower extremity arterial bypass. The proximal end of the graft is not we ll visualized but the graft appears completely occluded below the knee. 3. Decreased opacification of three-vessel runoff below the knee bilaterally, which could be partiall y due to poor contrast bolus and partially due to peripheral arterial disease. 4. Suspected small ill-defined subcutaneous and partially intramuscular fluid collections in the prox imal medial thigh. This could represent abscesses, hematoma, or phlegmon. 5. 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 Reconstitution of flow in the left common femoral artery. FOR INTERNAL CODING PURPOSES Critical results: Findings regarding right lower extremity bypass graft occlusion and fluid collections discussed with the patient's nurse at 03/01/2021 2:47 PM. RESULT CODE: (C) Electronically signed by: More Norris MD (03/01/2021 3:00 PM) [id number]
--- NOTE | 2021-03-01 18:17 | NUR ---
Wound/Ostomy Care Wound Type/Assessment: Wound care consult for right lower leg and right ankle surgical dehiscence wounds and right heel PU. Pt states that she's had this wounds and they told her that her foot was black at the place were she lives but that she didn't want to talk about it right now. No other wounds noted on head to toe skin assessment, right thigh noted with redness and some swelling but no open wounds at this time in that area. All wounds cleansed, measured and pictured. Not a surgical candidate per vascular notes. Treatment Recommendations/Plan: Right lower leg and right ankle: cover with therahoney, aquacel ag, abd and kerlix, change every 2-3 days. Right heel: paint with betadine and cover with abd and kerlix or with foam. Education provided: Pt educated on PU prevention and healing, explained in length the need to keep heels off the bed to avoid further damage and explained that boots will be ordered for her to help her offload. Offloading surface/device: purple wedge, heel medix boots Recommended Referrals/Tests: n/a Discharge Recommendations for dressings: same as above, wc will f/u on 03/08.
[2021-03-01 19:15] VITALS: BP 120/75
[2021-03-01] MEDS: traZODone 50 MG TABLET. PO SCH (21:05)
[2021-03-01 23:07] VITALS: BP 124/68
[2021-03-02 03:36] VITALS: BP 126/77
[2021-03-02] MEDS: PIPERACILLIN/TAZOBACTAM 3.375 GM in IV NORMAL SALINE 50ML 50 ML IV SCH (05:35)
[2021-03-02] MEDS: oxyCODONE ER 10 MG TAB.ER.12H PO PRN (06:08)
[2021-03-02 07:13] VITALS: BP 101/48
[2021-03-02] MEDS: IV NORMAL SALINE 1000ML BAG 1,000 ML IV SCH ×2 (07:15→13:11)
--- NOTE | 2021-03-02 07:59 | PDOC ---
Infectious Disease Note Subjective Subjective Patient is feeling okay ROS ROS No nausea vomiting diarrhea Vital Sign Vital Signs Vital Signs Date Time Temp Pulse Resp B/P (MAP) Pulse Ox O2 Delivery O2 Flow Rate FiO2 03/02/21 06:08 Nasal Cannula 2.0 03/02/21 03:36 98.8 72 18 126/77 (93) 95 98.8 Physical Exam PHYSICAL EXAM GENERAL: Awake female, not in distress. VITAL SIGNS: Stable HEENT: Both pupils are round and reacting. No conjunctival lesion. No lesion in the mouth. NECK: Supple, no JVP, no lymphadenopathy. LUNGS: Clear. HEART: S1, S2 regular. ABDOMEN: Soft, nontender, no organomegaly. EXTREMITIES: Left lower extremity is unremarkable. Right lower extremity has TMA. There is a wound onto the medial aspect of the right foot below the ankle. There is extensive suturing and stapling of the foot and the leg and the right upper thigh where 2 sutures or uzma have been removed, but there is a large area of fluid collection that could be either abscess or hematoma. Rest of the skin examination unremarkable. NEUROLOGIC: The patient is alert, awake, and appropriate. No focal neurologic deficit. She does have bruising with subcutaneous hematoma of the left upper chest. Labs Micro Microbiology 02/26/21 Blood Culture - Preliminary, Resulted NO GROWTH AFTER 1 DAY Objective Assessment IMPRESSION: 1. Fever. 2. Leukocytosis. 3. Right lower extremity bypass with upper thigh has either hematoma or abscess. 4. Right lower extremity foot wound. 5. Bipolar disorder. 6. Hypertension. 7. Hyperlipidemia. 8. Tobaccoism. Plan Plan of Care Discussed with vascular surgery Clots have occluded recommend amputation patient is not ready for that Also right thigh is a seroma no plans for surgical exploration We will change antibiotics to p.o. Augmentin patient can be discharged back to [facility] facility GASTON COOMBS MD Mar 02, 2021 07:59
[2021-03-02] MEDS: POTASSIUM CHLORIDE 20 MEQ TABLET.ER. PO SCH (08:02)
[2021-03-02] MEDS: clonazePAM 0.5 MG TABLET PO SCH ×2 (08:02→13:49)
[2021-03-02] MEDS: buPROPion SR 100 MG TABLET.SA. PO SCH (08:02)
[2021-03-02] MEDS: FUROSEMIDE 40 MG TABLET. PO SCH (08:03)
[2021-03-02] MEDS: MAGNESIUM OXIDE 400 MG TABLET PO SCH ×2 (08:03→13:49)
[2021-03-02] MEDS: oxyCODONE IR 5 MG TABLET PO PRN ×2 (08:03→13:48)
[2021-03-02] MEDS: DIVALPROEX EXTENDED RELEASE 250 MG TAB.ER.24H. PO SCH (08:03)
[2021-03-02] MEDS: LACTOBACILLUS RHAMNOSUS GG 1 CAPSULE. PO SCH (08:03)
[2021-03-02] MEDS: OXYBUTYNIN CHLORIDE 5 MG TABLET PO SCH ×2 (08:04→13:49)
[2021-03-02] MEDS: APIXABAN 5 MG TABLET. PO SCH (08:04)
[2021-03-02] MEDS: levETIRAcetam 500 MG TABLET PO SCH (08:04)
[2021-03-02] MEDS: risperiDONE 1 MG TABLET. PO SCH (08:04)
[2021-03-02] MEDS: NYSTATIN TOPICAL POWDER 15GM BOTTLE. TP SCH (08:10)
--- NOTE | 2021-03-02 09:19 | PDOC ---
Provider Note Date of Service: DATE: 03/02/21 TIME: 09:14 Provider Note Provider Note Vascular S; patient is eating breakfast, She has incisional discomfort around the right lower leg and foot. She notes some tenderness in her right thigh. She denies any fevers or chills. She denies any right foot pain at rest. She denies any left lower extremity pain. O: Awake alert Vital signs stable, afebrile Right thigh with small area of firmness. Mild erythema. No open wounds or drainage. TMA tissue warm and pink. Dressing intact right lower extremity. Right arm incisions are healing nicely A/P: 55 year old female who is s/p right femoral to plantar artery bypass using spliced right arm and leg vein by Dr. Rodriguez performed at [facility] several weeks ago. CTA reviewed by Dr. Schaeffer, no plans for surgical intervention with regards to right thigh fluid collection. She has some skin changes on medial leg consistent with cellulitis. Would continue local wound care to the medial ankle ulcer with Aquacel Ag changed daily. Unfortunately, it appears that the right leg bypass graft is occluded. She has a new eschar on the right heel present at the time of admission. This is likely due to pressure and severe peripheral arterial disease. She is not a reasonable candidate for redo bypass. Would continue protective measures to the right foot. If the right heel eschar worsens or the medial ankle ulcer does not heal, she may require more proximal amputation. Discussed with the patient. Justicifation of Admission Dx: Justifications for Admission: Justification of Admission Dx: Yes MANUEL PIERCE APRN Mar 02, 2021 09:19
[2021-03-02] MEDS ORDERED: AMOXICILLIN/K CLAV 875/125MG TABLET. PO SCH (10:00)
--- NOTE | 2021-03-02 10:18 | NUR ---
[facility] following. Discussed with RN, pt from [facility] [place]. Possible discharge back to [facility] [place] today. Awaiting confirmation. [facility] will continue to follow. Addendum: 03/02/21 at 1213 by CHRISTOPH FINNEGAN Discharge orders faxed to [facility] [place]. Awaiting transportation time.
[2021-03-02 10:54] VITALS: BP 114/59
[2021-03-02] MEDS ORDERED: CLON-77 PO (11:29)
[2021-03-02] MEDS ORDERED: OXYC20TA34 PO (11:29)
[2021-03-02] MEDS ORDERED: OXYC5TAB4 PO (11:29)
--- NOTE | 2021-03-02 11:30 | SNU/HH DC ---
DISCHARGE ORDERS DISCHARGE INFORMATION: FINAL DIAGNOSIS Problems Medical Problems: (1) Blister of right lower extremity without infection Status: Acute (2) Dehiscence of surgical wound Status: Acute (3) Fever Status: Acute (4) Sepsis Status: Acute (5) Tachycardia Status: Acute CONDITION ON DISCHARGE: Stable CODE STATUS: Code Status: Full HOSPICE: HOSPICE: Yes HOSPICE EVAL & TREAT: Yes POST DISCHARGE ORDERS: ACTIVITY ORDERS: Activity as tolerated WEIGHT BEARING STATUS: As tolerated DIET AFTER DISCHARGE: Regular WOUND/INCISION CARE: Change dressing CHECKS AFTER DISCHARGE: CHECKS AFTER DISCHARGE: Check blood press - daily TREATMENT/EQUIPMENT ORDERS: ADAPTIVE EQUIPMENT NEEDED: None RESPIRATORY EQUIPMENT NEEDED: Oxygen DISCHARGE MEDICATIONS: Home Meds Active Scripts Oxycodone Hcl (OXYCONTIN) 20 Mg Tab.er.12h, 1 TAB PO BID for pain MDD 2 Tablet(s) for 30 Days, #60 TAB 0 Refills Prov:JHOANA NEELY MD 03/02/21 Oxycodone Hcl (OXYCODONE HCL IMMED.RELEASE ) 5 Mg Tablet, 5 MG PO PRN Q6HRS PRN for PAIN for 30 Days, #120 TAB 0 Refills Prov:JHOANA NEELY MD 03/02/21 Clonazepam (CLONAZEPAM ) 0.5 Mg Tablet, 0.5 MG PO TID for FOR ANXIETY for 30 Days, #90 TAB Prov:JHOANA NEELY MD 03/02/21 Cefdinir (CEFDINIR) 300 Mg Capsule, 1 CAP PO BID for uti for 7 Days, #14 CAP Prov:JHOANA NEELY MD 04/01/20 Apixaban (ELIQUIS) 5 Mg Tablet, 5 MG PO BID for pe/dvt for 30 Days, #60 TAB Prov:JHOANA NEELY MD 02/13/20 Levetiracetam (KEPPRA) 500 Mg Tablet, 1 TAB PO BID for seizures for 30 Days, #60 TAB 0 Refills Prov:JHOANA NEELY MD 02/13/20 Oxycodone Hcl (OXYCODONE HCL) 5 Mg Capsule, 5 MG PO PRN Q6HRS PRN for PAIN for 30 Days, #120 TAB 0 Refills Prov:JHOANA NEELY MD 02/13/20 Reported Medications Potassium Chloride (POTASSIUM CHLORIDE ) 20 Meq Tablet.er, 20 MEQ PO DAILY PRN for SUPPLEMENT, TAB.SR 02/27/21 Magnesium Oxide (MAGOX 400) 400 Mg Tablet, 1 TAB PO TID for supplement for 30 Days, #90 TAB 0 Refills 03/30/20 Bupropion Hcl (WELLBUTRIN SR) 100 Mg Tablet.er, 100 MG PO DAILY for MDD, TAB.SR 02/10/20 Trazodone Hcl (TRAZODONE HCL) 50 Mg Tablet, 50 MG PO HS for insomnia, TAB 02/10/20 Risperidone (RISPERIDONE) 0.5 Mg Tablet, 1 TAB PO BID for mood stabilizer, #60 TAB 1 Refill 02/10/20 Oxycodone HCl (Oxycodone HCl ER) 10 Mg Tab.er.12h, 10 MG PO PRN Q12HR PRN for PAIN, TAB.SR 02/10/20 Oxybutynin Chloride (OXYBUTYNIN CHLORIDE) 5 Mg Tablet, 5 MG PO TID for stress incontinence, TAB 02/10/20 Nystatin (NYSTATIN) 15 Gm Powder, 15 GM TP Q12HR for yeast, MISC 02/10/20 Magnesium Oxide (MAGNESIUM OXIDE) 400 Mg Tablet, 400 MG PO TID for supplement, TAB 02/10/20 Furosemide (LASIX) 40 Mg Tablet, 40 MG PO DAILY for fluid retention, TAB 02/10/20 Fluvoxamine Maleate (FLUVOXAMINE MALEATE) 50 Mg Tablet, 50 MG PO BID for OCD, TA B 02/10/20 Divalproex Sodium (DEPAKOTE ER) 250 Mg Tab.er.24h, 250 MG PO BID for mood disorder, TAB.SR 02/10/20 Cyclobenzaprine Hcl (CYCLOBENZAPRINE HCL) 5 Mg Tablet, 5 MG PO PRN Q8HRS PRN for PAIN, TAB 02/10/20 Clonazepam (CLONAZEPAM) 0.25 Mg Tab.rapdis, 0.5 MG PO TID for anxiety, TAB 02/10/20 Acetaminophen (ACETAMINOPHEN) 325 Mg Tablet, 650 MG PO BID for pain, TAB 02/10/20 JHOANA NEELY MD Mar 02, 2021 11:30
[2021-03-02] MEDS ORDERED: AMOX1TAB11 PO (11:43)
[2021-03-02] MEDS ORDERED: LACT1CAP19 PO (11:46)
[2021-03-02 14:38] VITALS: BP 105/63
[2021-03-02 14:48] LABS: CREATININE 1.3 mg/dL (0.6-1.0); GFR 42.7
--- NOTE | 2021-03-02 16:32 | NUR ---
Patient left with medicoach on a stretcher at 1615. 2L oxygen in place. Purewick removed. Belongings sent with patient. NO IV access present. Discharge education completed prior to discharge with the patient and the facility. Report called at [phone] to MAHI Benton at [facility] [phone]. Medications sent to pharmacy per Dr Barrios. No concerns noted at discharge.
== END 2021-03-02 16:20 | DRG 919 ==
LOC: ER 19:11 → 4 NORTH 20:54
PROVIDERS: ADMIT Internal Medicine; ATTEND Internal Medicine
DX: T81.31XA Disruption of external operation (surgical) wound, not elsewhere classified, initial encounter (principal); A41.9 Sepsis, unspecified organism; E43 Unspecified severe protein-calorie malnutrition; L03.115 Cellulitis of right lower limb; I74.5 Embolism and thrombosis of iliac artery; K50.90 Crohn's disease, unspecified, without complications; L97.319 Non-pressure chronic ulcer of right ankle with unspecified severity; Z20.822 Contact with and (suspected) exposure to COVID-19; E78.5 Hyperlipidemia, unspecified; F17.200 Nicotine dependence, unspecified, uncomplicated; F31.9 Bipolar disorder, unspecified; F41.1 Generalized anxiety disorder; G40.909 Epilepsy, unspecified, not intractable, without status epilepticus; H54.8 Legal blindness, as defined in USA; I10 Essential (primary) hypertension; I73.9 Peripheral vascular disease, unspecified; J44.9 Chronic obstructive pulmonary disease, unspecified; L89.619 Pressure ulcer of right heel, unspecified stage; M19.90 Unspecified osteoarthritis, unspecified site; Y83.8 Other surgical procedures as the cause of abnormal reaction of the patient, or of later complication, without mention of misadventure at the time of the procedure; Z85.118 Personal history of other malignant neoplasm of bronchus and lung; Z90.49 Acquired absence of other specified parts of digestive tract; Z98.41 Cataract extraction status, right eye; Z98.42 Cataract extraction status, left eye; Z98.51 Tubal ligation status; Z88.6 Allergy status to analgesic agent; Z88.5 Allergy status to narcotic agent; Y92.89 Other specified places as the place of occurrence of the external cause
CPT/HCPCS: 36415; 75635; 76881; 80048; 80053; 80202; 82565; 83605; 83735; 84145; 85007; 85025; 85027; 85651; 86140; 87040; 87426; 96365; 96366; 96375; J2543; J3010; J3370; J7030; J7040; Q9967; U0003; U0005; 99285-25; G0378